=== PATIENT | female | born 1985 | race Caucasian/White ===

== ENCOUNTER 2018-02-24 16:12 | Emergency (ER) | payer OTHER ==
[2018-02-24] MEDS ORDERED: CEFTRIAXONE/SWI 1gm 1 GM/10 ML SYR ONE (17:39)
[2018-02-24] MEDS ORDERED: NA CHLORIDE 0.9% 500 ML ONE (17:39)
--- NOTE | 2018-02-24 17:46 | RAD REPORT ---
EXAM DESCRIPTION: RAD - Chest Single View - 02/24/2018 5:37 pm CLINICAL HISTORY: Cough;Dyspnea Chest pain. COMPARISON: <Comparisons> FINDINGS: Portable technique limits examination quality. The lungs are grossly clear. The heart is normal in size. No displaced fractures. IMPRESSION: No acute intrathoracic process suspected.
[2018-02-24 17:52] LABS: Absolute Lymphocytes (CBC) 2.6 K/uL (0.7-4.9); Absolute Monocytes 0.9 K/uL (0.1-1.3); Absolute Neutrophil 6.8 K/uL (1.8-8.0); Basophils % 0.6 % (0-1.3); Eosinophils % 2.2 % (0-4.4); Lymphocytes % 24.3 % (15.3-44.8); MCH 29.4 pg (27.0-35.0); MCV 88.7 fL (80-100); MPV 8.6 fL (7.6-11.3); Monocytes % 8.6 % (3.3-12.3)
[2018-02-24 18:00] LABS: Protime INR 0.92
[2018-02-24] MEDS ORDERED: AZITHROMYCIN IV 500 MG in NA CHLORIDE 0.9% 250 ML IVPB ONE (18:00)
[2018-02-24 18:03] LABS: ALT/SGPT 15 U/L (12-78); AST/SGOT 9 U/L (15-37); Alkaline Phosphatase 112 U/L (45-117); BUN Blood Urea Nitrogen 16 mg/dL (7-18); Bicarbonate 29 mmol/L (21-32); Bilirubin Direct < 0.1 mg/dL (0-0.2); Bilirubin Total 0.1 mg/dL (0.2-1.0); Glucose Level 91 mg/dL (74-106); Magnesium 2.2 mg/dL (1.8-2.4); NT PRO-BNP 19 pg/mL (<125); Potassium 4.2 mmol/L (3.5-5.1); Protein, Total 7.3 g/dL (6.4-8.2); Sodium Level 140 mmol/L (136-145); Troponin (Emerg Dept Use Only) < 0.02 ng/mL (0.0-0.045)
--- NOTE | 2018-02-24 18:17 | EDPHYS ---
Physician Documentation [facility] Name: Bev Cox Age: 32 yrs Sex: Female : 1985 Arrival Date: 02/24/2018 Time: 16:16 Bed 19 Private MD: Tamera Domínguez ED Physician Christiano De La Rosa HPI: 02/24 17:06 This 32 yrs old Female presents to ER via Ambulatory with complaints of Cough.trace 17:06 The patient or guardian reports cough, that is intermittent. Onset: The trace symptoms/episode began/occurred 3 day(s) ago. Severity of symptoms: At their worst the symptoms were mild, moderate, in the emergency department the symptoms are unchanged. Modifying factors: The symptoms are alleviated by. Associated signs and symptoms: Pertinent positives: rhinorrhea. The patient has not experienced similar symptoms in the past. 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 - Social history:: Smoking status: Patient/guardian denies using tobacco. - Ebola Screening: : No symptoms or risks identified at this time. ROS: 17:08 Constitutional: Negative for fever, chills, and weight loss, Eyes: Negative for injury, trace pain, redness, and discharge, ENT: Negative for injury, pain, and discharge, Neck: Negative for injury, pain, and swelling, Cardiovascular: Negative for chest pain, palpitations, and edema, Abdomen/GI: Negative for abdominal pain, nausea, vomiting, diarrhea, and constipation, Back: Negative for injury and pain, : Negative for injury, bleeding, discharge, and swelling, MS/Extremity: Negative for injury and deformity, Skin: Negative for injury, rash, and discoloration, Neuro: Negative for headache, weakness, numbness, tingling, and seizure, Psych: Negative for depression, anxiety, suicide ideation, homicidal ideation, and hallucinations, Allergy/Immunology: Negative for hives, rash, and allergies, Endocrine: Negative for neck swelling, polydipsia, polyuria, polyphagia, and marked weight changes, Hematologic/Lymphatic: Negative for swollen nodes, abnormal bleeding, and unusual bruising. 17:08 Respiratory: Positive for cough, shortness of breath. Exam: 17:08 Constitutional: This is a well developed, well nourished patient who is awake, alert, trace and in no acute distress. Head/Face: Normocephalic, atraumatic. Eyes: Pupils equal round and reactive to light, extra-ocular motions intact. Lids and lashes normal. Conjunctiva and sclera are non-icteric and not injected. Cornea within normal limits. Periorbital areas with no swelling, redness, or edema. ENT: Nares patent. No nasal discharge, no septal abnormalities noted. Tympanic membranes are normal and external auditory canals are clear. Oropharynx with no redness, swelling, or masses, exudates, or evidence of obstruction, uvula midline. Mucous membranes moist. Neck: Trachea midline, no thyromegaly or masses palpated, and no cervical lymphadenopathy. Supple, full range of motion without nuchal rigidity, or vertebral point tenderness. No Meningismus. Chest/axilla: Normal chest wall appearance and motion. Nontender with no deformity. No lesions are appreciated. Cardiovascular: Regular rate and rhythm with a normal S1 and S2. No gallops, murmurs, or rubs. Normal PMI, no JVD. No pulse deficits. Respiratory: Lungs have equal breath sounds bilaterally, clear to auscultation and percussion. No rales, rhonchi or wheezes noted. No increased work of breathing, no retractions or nasal flaring. Abdomen/GI: Soft, non-tender, with normal bowel sounds. No distension or tympany. No guarding or rebound. No evidence of tenderness throughout. Back: No spinal tenderness. No costovertebral tenderness. Full range of motion. Skin: Warm, dry with normal turgor. Normal color with no rashes, no lesions, and no evidence of cellulitis. MS/ Extremity: Pulses equal, no cyanosis. Neurovascular intact. Full, normal range of motion. Neuro: Awake and alert, GCS 15, oriented to person, place, time, and situation. Cranial nerves II-XII grossly intact. Motor strength 5/5 in all extremities. Sensory grossly intact. Cerebellar exam normal. Normal gait. Psych: Awake, alert, with orientation to person, place and time. Behavior, mood, and affect are within normal limits. 17:08 Musculoskeletal/extremity: DVT Exam: No signs of deep vein thrombosis. no pain, no swelling, no tenderness, negative Homans' sign noted on exam, no appreciated bluish discoloration, no erythema, no increased warmth. 18:15 Musculoskeletal/extremity: no trauma, no stasis, no hypercoagulable state. [facility] Vital Signs: 16:18 BP 115 / 100; Pulse 80; Resp 16; Temp 97.7(TE); Pulse Ox 98% on R/A; Weight 117.93 kg; la1 Height 5 ft. 3 in. (160.02 cm); 19:19 BP 99 / 64; Pulse 86; Resp 16 S; Pulse Ox 98% on R/A; jd3 16:18 Body Mass Index 46.06 (117.93 kg, 160.02 cm) la1 MDM: 16:19 Patient medically screened. [facility] 17:09 Data reviewed: vital signs, nurses notes, lab test result(s), EKG, radiologic studies, [facility] plain films. 02/24 17:05 Order name: Basic Metabolic Panel [facility] 02/24 17:05 Order name: CBC with Diff [facility] 02/24 17:05 Order name: LFT's [facility] 02/24 17:05 Order name: Magnesium [facility] 02/24 17:05 Order name: NT PRO-BNP; Complete Time: 18:14 [facility] 02/24 17:05 Order name: PT-INR [facility] 02/24 17:05 Order name: Troponin (emerg Dept Use Only) [facility] 02/24 17:05 Order name: D-Dimer [facility] 02/24 17:05 Order name: Flu [facility] 02/24 17:05 Order name: Blood Culture Adult (2) [facility] 02/24 17:06 Order name: Basic Metabolic Panel; Complete Time: 18:14 [facility] 02/24 17:06 Order name: CBC with Automated Diff; Complete Time: 18:14 [facility] 02/24 17:06 Order name: Liver (Hepatic) Function; Complete Time: 18:14 [facility] 02/24 17:05 Order name: XRAY Chest (1 view); Complete Time: 17:48 [facility] 02/24 17:05 Order name: EKG; Complete Time: 17:06 [facility] 02/24 17:05 Order name: Cardiac monitoring; Complete Time: 17:48 [facility] 02/24 17:05 Order name: EKG - Nurse/Tech; Complete Time: 18:06 [facility] 02/24 17:05 Order name: IV Saline Lock; Complete Time: 17:49 [facility] 02/24 17:05 Order name: Labs collected and sent; Complete Time: 17:49 [facility] 02/24 17:05 Order name: O2 Per Protocol; Complete Time: 17:50 [facility] 02/24 17:05 Order name: O2 Sat Monitoring; Complete Time: 17:50 [facility] 02/24 17:06 Order name: Magnesium; Complete Time: 18:14 [facility] 02/24 17:06 Order name: Protime (+INR); Complete Time: 18:15 EDMS 02/24 17:06 Order name: Troponin (Emerg Dept Use Only); Complete Time: 18:14 EDMS 02/24 17:06 Order name: D-Dimer; Complete Time: 18:15 EDMS Administered Medications: 17:48 Drug: NS 0.9% 500 ml Route: IV; Rate: bolus; Site: left antecubital; aj 19:11 Follow up: IV Status: Completed infusion; IV Intake: 500ml [facility] 17:48 Drug: Rocephin - (cefTRIAXone) 1 grams Route: IVPB; Infused Over: 30 mins; Site: left aj1 antecubital; 19:11 Follow up: IV Status: Completed infusion; IV Intake: 10ml aj 18:05 Drug: Zithromax 500 mg Route: IVPB; Infused Over: 1 hrs; Site: left antecubital; aj1 20:12 Follow up: Response: No adverse reaction; IV Status: Completed infusion jd3 Disposition: 02/24/18 18:17 Discharged to Home. Impression: Cough, Bronchitis, not specified as acute or chronic, Obesity, unspecified. - Condition is Stable. - Discharge Instructions: Acute Bronchitis, Adult, Upper Respiratory Infection, Adult, Cool Mist Vaporizer, Upper Respiratory Infection, Adult, Sqhl-fa-Dgso, Cough, Adult, Fgbn-bb-Qkqw, Cough, Adult. - Prescriptions for Cheratussin AC 10- 100 mg/5 mL Oral liquid - take 10 milliliter by ORAL route every 6 hours; 150 milliliter. Zithromax Z- Pravin 250 mg Oral Tablet - take 1 tablet by ORAL route as directed for 5 days Day 1 - take two (2) tablets one time. Day 2, 3, 4 , 5 take one (1) tablet once daily.; 6 tablet. - Medication Reconciliation Form, Thank You Letter, Antibiotic Education, Prescription Opioid Use form. - Follow up: Tamera Domínguez; When: 2 - 3 days; Reason: Recheck today's complaints, Continuance of care, Re-evaluation by your physician. - Problem is new. - Symptoms have improved. Signatures: Dispatcher [employer] EDThais Moura RN RN aj1 Christiano De La Rosa MD MD cha Attema, Lee, RN RN la1 Pranav Polanco RN RN jd3 Corrections: (The following items were deleted from the chart) 20:12 18:17 02/24/2018 18:17 Discharged to Home. Impression: Cough; Bronchitis, not specified jd3 as acute or chronic; Obesity, unspecified. Condition is Stable. Discharge Instructions: Acute Bronchitis, Adult, Upper Respiratory Infection, Adult, Cool Mist Vaporizer, Upper Respiratory Infection, Adult, Ysau-sp-Tmyw, Cough, Adult, Azzx-bh-Lxaf, Cough, Adult. Prescriptions for Cheratussin AC 10-100 mg/5 mL Oral liquid - take 10 milliliter by ORAL route every 6 hours; 150 milliliter, Zithromax Z-Pravin 250 mg Oral Tablet - take 1 tablet by ORAL route as directed for 5 days Day 1 - take two (2) tablets one time. Day 2, 3, 4 , 5 take one (1) tablet once daily.; 6 tablet. and Forms are Medication Reconciliation Form, Thank You Letter, Antibiotic Education, Prescription Opioid Use. Follow up: Tamera Domínguez; When: 2 - 3 days; Reason: Recheck today's complaints, Continuance of care, Re-evaluation by your physician. Problem is new. Symptoms have improved. trace
--- NOTE | 2018-02-24 18:17 | ER ---
Nurse's Notes [facility] Name: Bev Cox Age: 32 yrs Sex: Female : 1985 Arrival Date: 02/24/2018 Time: 16:16 Bed 19 Private MD: Tamera Domínguez Diagnosis: Cough;Bronchitis, not specified as acute or chronic;Obesity, unspecified Presentation: 02/24 16:17 Presenting complaint: Patient states: cough for one week, ear pressure. Transition of la1 care: patient was not received from another setting of care. Onset of symptoms was February 24, 2018. Risk Assessment: Do you want to hurt yourself or someone else? Patient reports no desire to harm self or others. Initial Sepsis Screen: Does the patient meet any 2 criteria? No. Patient's initial sepsis screen is negative. Does the patient have a suspected source of infection? No. Patient's initial sepsis screen is negative. Care prior to arrival: None. 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 - Social history:: Smoking status: Patient/guardian denies using tobacco. - Ebola Screening: : No symptoms or risks identified at this time. Screenin:40 Abuse screen: Denies threats or abuse. Denies injuries from another. Nutritional aj1 screening: No deficits noted. Tuberculosis screening: No symptoms or risk factors identified. 20:11 Fall Risk None identified. jd3 Assessment: 16:40 General: Appears in no apparent distress. comfortable, Behavior is calm, cooperative, aj1 appropriate for age. Pain: Complains of pain in chest Pain does not radiate. Pain currently is 3 out of 10 on a pain scale. Quality of pain is described as aching, Aggravated by cough, deep breathing. Neuro: Level of Consciousness is awake, alert, obeys commands, Oriented to person, place, time, situation. Cardiovascular: Reports chest pain, shortness of breath, when coughing Heart tones S1 S2 present Patient's skin is warm and dry. Rhythm is regular. Respiratory: Reports cough that is persistent Airway is patent Respiratory effort is even, unlabored, Respiratory pattern is regular, symmetrical, Breath sounds are clear bilaterally. GI: No signs and/or symptoms were reported involving the gastrointestinal system. : No signs and/or symptoms were reported regarding the genitourinary system. EENT: Reports nasal congestion nasal discharge. Derm: No signs and/or symptoms reported regarding the dermatologic system. Skin is pink, warm \T\ dry. normal. Musculoskeletal: No signs and/or symptoms reported regarding the musculoskeletal system. Circulation, motion, and sensation intact. 17:30 Reassessment: Patient appears in no apparent distress at this time. No changes from aj1 previously documented assessment. Patient and/or family updated on plan of care and expected duration. Pain level reassessed. Patient is alert, oriented x 3, equal unlabored respirations, skin warm/dry/pink. 18:13 Reassessment: Patient and/or family updated on plan of care and expected duration. Pain aj1 level reassessed. General: Appears in no apparent distress. comfortable, Behavior is calm, cooperative, appropriate for age. Neuro: Level of Consciousness is awake, alert, obeys commands. Cardiovascular: Heart tones S1 S2 present Patient's skin is warm and dry. Respiratory: Reports cough that is persistent Airway is patent Respiratory effort is even, unlabored, Respiratory pattern is regular, symmetrical, Breath sounds are clear bilaterally. Derm: Skin is pink, warm \T\ dry. normal. Musculoskeletal: Circulation, motion, and sensation intact. 19:19 Reassessment: Patient appears in no apparent distress at this time. No changes from jd3 previously documented assessment. Patient and/or family updated on plan of care and expected duration. Pain level reassessed. Patient is alert, oriented x 3, equal unlabored respirations, skin warm/dry/pink. waiting for IV medication to infuse before discharge. 20:12 Reassessment: Patient appears in no apparent distress at this time. Patient and/or jd3 family updated on plan of care and expected duration. Pain level reassessed. Patient is alert, oriented x 3, equal unlabored respirations, skin warm/dry/pink. Vital Signs: 16:18 BP 115 / 100; Pulse 80; Resp 16; Temp 97.7(TE); Pulse Ox 98% on R/A; Weight 117.93 kg; la1 Height 5 ft. 3 in. (160.02 cm); 19:19 BP 99 / 64; Pulse 86; Resp 16 S; Pulse Ox 98% on R/A; jd3 16:18 Body Mass Index 46.06 (117.93 kg, 160.02 cm) la1 ED Course: 16:16 Patient arrived in ED. sb2 16:16 Tamera Domínguez MD is Private Physician. sb2 16:18 Triage completed. la1 16:18 Arm band placed on right wrist. la1 16:19 Christiano De La Rosa MD is Attending Physician. trace 16:30 Thais Otero RN is Primary Nurse. aj1 16:40 Patient has correct armband on for positive identification. Bed in low position. Call aj1 light in reach. Side rails up X 1. 16:40 No provider procedures requiring assistance completed. aj1 17:37 XRAY Chest (1 view) In Process Unspecified. EDMS 18:11 EKG done, by ED staff, reviewed by Christiano De La Rosa MD. dh3 18:16 Tamera Domínguez MD is Referral Physician. trace 20:11 IV discontinued, intact, bleeding controlled, No redness/swelling at site. Pressure jd3 dressing applied. Administered Medications: 17:48 Drug: NS 0.9% 500 ml Route: IV; Rate: bolus; Site: left antecubital; aj1 19:11 Follow up: IV Status: Completed infusion; IV Intake: 500ml aj1 17:48 Drug: Rocephin - (cefTRIAXone) 1 grams Route: IVPB; Infused Over: 30 mins; Site: left aj1 antecubital; 19:11 Follow up: IV Status: Completed infusion; IV Intake: 10ml aj1 18:05 Drug: Zithromax 500 mg Route: IVPB; Infused Over: 1 hrs; Site: left antecubital; aj1 20:12 Follow up: Response: No adverse reaction; IV Status: Completed infusion jd3 Intake: 19:11 IV: 10ml; Total: 10ml. aj1 19:11 IV: 500ml; Total: 510ml. aj1 Outcome: 18:17 Discharge ordered by . trace 20:11 Discharged to home ambulatory. jd3 20:11 Condition: stable 20:11 Discharge instructions given to patient, Instructed on discharge instructions, follow up and referral plans. medication usage, Demonstrated understanding of instructions, follow-up care, medications, Prescriptions given X 2. 20:12 Patient left the ED. jd3 Signatures: Dispatcher [employer] EDThais Moura, RN RN saad1 Christiano De La Rosa MD MD cha Attema, Lee RN RN la1 Nicolasa Almaraz 3 Pranav Polanco RN RN jd3 Elsa Regalado2 Corrections: (The following items were deleted from the chart) 19:20 19:19 Reassessment: Patient appears in no apparent distress at this time. No changes jd3 from previously documented assessment. Patient and/or family updated on plan of care and expected duration. Pain level reassessed. Patient is alert, oriented x 3, equal unlabored respirations, skin warm/dry/pink. jd3
--- NOTE | 2018-02-25 08:07 | EKG ---
Test Date: 2018-02-24 Test Time: 17:56:14 Heating And Ventilation Engineer: NICOLETTE MEASUREMENT RESULTS: Intervals: Rate: 62 OR: 136 QRSD: 76 QT: 394 QTc: 399 [place]le: P: 26 OR: 136 QRS: 20 T: 16 INTERPRETIVE STATEMENTS: Normal sinus rhythm Normal ECG No previous ECG available for comparison Electronically Signed On 02-25-18 08:06:51 CDT by John Haq
--- OUTSIDE RECORDS SUMMARY | 2018-02-25 12:12 | XMS REPORT | Summary of Care ---
:1985 Author Organization [facility] Likely Address [id number] [address]- Encounter [facility] Case(FIN) [id number] Date(s): 11/03/15 - 11/03/15 [facility] [address] Discharge Disposition: Home Attending Physician: Jayden Rizzo MD Vital Signs No data available for this section Problem List Condition Effective Dates Status Health Status Informant Bipolar(Confirmed) Resolved Conjunctivitis1 05/16/13 Resolved Depressive disorder2 03/12/12 Active Dizziness3 03/12/12 Active Dysmenorrhea4 04/21/13 Active Hypothyroidism5 Active Irregular periods6 04/21/13 Active Long-term drug therapy7 03/12/12 Active Paresthesia8 03/12/12 Active Tobacco user9 05/16/13 Active 1Data migrated from [employer] on 12/19/14.2Data migrated from [employer] on 10/31/14.3Data migrated from [employer] on 10/31/14.4Data migrated from [employer] on 10/31/14.5Data migrated from [employer] on 10/31/14.6Data migrated from [employer] on 10/31/14.7Data migrated from [employer] on 10/31.8Data migrated from [employer] on 10/31/14.9Data migrated from [employer] on 10/31/14. Allergies, Adverse Reactions, Alerts Substance Reaction Severity Status sulfa drugs1 Active 1Data migrated from [employer] on 12/31/14. Originally documented as SULFA. Medications No data available for this section Results No data available for this section Immunizations Vaccine Date Refusal Reason Hx influenza vaccine-unspecified1 04/21/13 influenza virus vaccine, inactivated2 04/21/13 1Result Comment: done. Migrated from OBS ; Data migrated from [employer] on 07/06/2015.2Result Comment: fluzone (>3 yrs.) [[id number]]. Migrated from OBS ; Data migrated from [employer] on 07/06/2015. Procedures No data available for this section Social History Social History Type Response Smoking Status Never smoker; Exposure to Tobacco Smoke None; Cigarette Smoking Last 365 Days No; Reg Smoking Cessation Counseling No Assessment and Plan No data available for this section
--- OUTSIDE RECORDS SUMMARY | 2018-02-25 12:12 | XMS REPORT | Continuity of Care Document ---
:1985 Author Organization Interface Problems Problem Status Onset Classification Date Comments Source Date Reported M06.4 - Active [facility] INFLAMMATORY 016 [facility] POLYARTHROPATHY VOMITING/PREG Active [facility] 014 [place] Discharge 11/13/2013 [facility] Diagnosis: 014 [place] Vomiting Discharge 11/13/2013 [facility] Diagnosis: 014 [place] Conjunctivitis<sup Resolved Problem 11/06/2015 Data [facility] >1</sup> 013 migrated [facility] from [facility] on 12/19/14. Tobacco Active Problem 11/06/2015 Data [facility] user<sup>9</sup> 013 migrated [facility] from [facility] on 10/31/14. Dysmenorrhea<sup>4 Active Problem 11/06/2015 Data [facility] </sup> 013 migrated [facility] from [facility] on 10/31/14. Irregular Active Problem 11/06/2015 Data [facility] periods<sup>6</sup 013 migrated [place] > from [facility] on 10/31/14. VAGINAL BLEEDING Active 013 [place] Depressive Active Problem 11/06/2015 Data [facility] disorder<sup>2</amador 012 migrated [facility] p> from [facility] on 10/31/14. Dizziness<sup>3</s Active Problem 11/06/2015 Data [facility] up> 012 migrated [facility] from [facility] on 10/31/14. Long-term drug Active Problem 11/06/2015 Data [facility] therapy<sup>7</sup 012 migrated [place] > from [facility] on 10/31/14. Paresthesia<sup>8< Active Problem 11/06/2015 Data [facility] /sup> 012 migrated [facility] from [facility] on 10/31/14. Bipolar Resolved Problem 11/06/2015 [facility] [place], [facility] Hypothyroidism<sup Active Problem 11/06/2015 Data [facility] >5</sup> migrated [facility] from [facility] on 10/31/14. Bipolar Resolved Problem 02/14/2013 [facility] Medications Medication Details Route Status Patient Ordering Order Source Instructions Provider Date Reglan 10 mg, Route: Inactive [facility] IVP, Drug 014 [place] form: INJ, ONCE, Dosing Weight 104.545, kg, Priority: STAT, Start date: 11/10/13 12:49:00, Stop date: 11/10/13 12:49:00 NS 1,000 mL 1,000 mL, Inactive [place] Rate: 1,000 014 [place] ml/hr, Infuse over: 1 hr, Route: IV, Dosing Weight 104.545 kg, Total Volume: 1,000, Start date: 11/10/13 11:21:00, Duration: 1 doses or times, Stop date: 11/10/13 12:20:00, [place] DoseSpecial Instructions: [place] Dose NS 1,000 mL 1,000 mL, Inactive [place] Rate: 1,000 014 [place] ml/hr, Infuse over: 1 hr, Route: IV, Dosing Weight 104.545 kg, Total Volume: 1,000, Start date: 11/10/13 10:04:00, Duration: 1 doses or times, Stop date: 11/10/13 11:03:00, [place] DoseSpecial Instructions: [place] Dose Ondansetron 4 mg, Route: Inactive [place] IVP, ONCE, 014 [place] Dosing Weight 104.545, kg, Priority: STAT, Start date: 11/10/13 9:19:00, Stop date: 11/10/13 9:19:00 Sodium 1,000 mL, Inactive [place] Chloride Infuse Over: 1 014 [place] 0.154 MEQ/ML hr, Route: IV, Injectable ONCE, Solution Priority: STAT, Dosing Weight 104.545 kg, Start date: 11/10/13 8:25:00, Duration: 1 doses or times, Stop date: 11/10/13 8:25:00 Saline Flush 5 mL, Route: Inactive [place] 0.9% IVP, Drug 014 [facility] Form: INJ, Dosing Weight 104.545, kg, PRN, PRN Line Flush, Start date: 11/10/13 8:25:00, Duration: 24 hr, Stop date: 11/11/13 8:24:00Notes: (Same as: BD Posiflush) Ondansetron 4 mg, Route: Inactive [place] IVP, ONCE, 014 [place] Dosing Weight 104.545, kg, Priority: STAT, Start date: 11/10/13 8:25:00, Stop date: 11/10/13 8:25:00 Naprosyn 500 500 mg, 1 tab, PO Active [facility] mg oral PO, BID, PRN, [facility] tablet 20 tab, for pain, Substitution Allowed, TAB ketorolac 30 mg, Route: IVP No Longer [facility] IVP, Drug Active [facility] form: INJ, ONCE, Dosing Weight 86.364, kg, Priority: STAT, Start date: 02/12/13 3:21:00, Stop date: 02/12/13 3:21:00 Sodium 1,000 mL, IV No Longer [place] Chloride 0.9% Rate: 1,[address] [facility] (Bolus) IV ml/hr, Infuse 1,000 mL over: 1 hr, Route: IV, Dosing Weight 86.364 kg, Total Volume: 1,000, Priority: STAT, Start date: 02/12/13 0:26:00, Duration: 1 doses or times, Stop date: 02/12/13 1:25:00, [place] DoseBolus Dose Zofran 4 mg, 2 mL, IVP No Longer [facility] Route: IVP, Active [facility] Drug form: INJ, ONCE, Dosing Weight 86.364, kg, Priority: STAT, Start date: 02/12/13 0:26:00, Stop date: 02/12/13 0:26:00 morphine 4 mg, 2 mL, IVP No Longer [place] Sulfate Route: IVP, Active [facility] Drug form: INJ, ONCE, Dosing Weight 86.364, kg, Priority: STAT, Start date: 02/12/13 0:26:00, Stop date: 02/12/13 0:26:00 Allergies, Adverse Reactions, Alerts Substance Category Reaction Severity Reaction Status Date Comments Source type Reported sulfa Assertion Drug Active Data [facility] drugs<sup>1 allergy migrated [facility] </sup> from [facility] on 12/31/14. Originally documented as SULFA. sulfa drugs Assertion Drug Active allergy [facility] Immunizations Immunization Date Site Status Last Comments Source Given Updated Hx influenza completed [facility] Result [facility] vaccine-unspecifi 3 Comment: done. [place] ed<sup>1</sup> Migrated from OBS ; Data migrated from [email or web address] on 07/06/2015. influenza virus Left completed [facility] Result [facility] vaccine, 3 Deltoid Comment: [place] inactivated<sup>2 fluzone (>3 </sup> yrs.) [end086]. Migrated from OBS ; Data migrated from [email or web address] on 07/06/2015. Results Order Name Results Value Reference Date Interpretation Comments Source Range Hand 3 Hand 3 views CLINICAL HISTORY: M06.4 Inflammatory polyarthropathy 11/02 - [facility] views Bilateral DX /2015 - [facility] Bilateral AGE: 30 years DX GENDER: Female Read by: Omar Damon MD Dictated Date/time: 11/03/15 14:37 Electronically Signed by: Omar Damon MD 11/03/15 14:40 FINAL REPORT TECHNIQUE: Bilateral hand radiographs, 3 views. COMPARISON: None FINDINGS: There is no evidence of fracture or dislocation. Osseous mineralization is within normal limits. No lytic or blastic lesions are identified. No cortical or erosion or periosteal reaction. IMPRESSION: Unremarkable examination of the bilateral hands without radiographic evidence of inflammatory arthropathy. URINE AND UA Leuk Est Negative Negative 11/10 [facility] [place] (11/10/13 9:45 AM) URINE AND UA Nitrite Negative Negative 11/10 [facility] [place] (11/10/13 9:45 AM) URINE AND Micro? Performed 11/10 [facility] [place] (11/10/13 9:45 AM) URINE AND UA Bacteria Occasional None Seen 11/10 [place] [facility]OL /HPF /HPF /2013 [facility] URINE AND UA Sq Epi Few /LPF Few /LPF 11/10 [place] URINE AND UA RBC 0-2 /HPF 0 - 2 11/10 [place] [facility] [place] URINE AND UA WBC 0-2 /HPF None Seen 11/10 [place] STOOL /HPF [facility] URINE AND UA Turbidity Clear Clear 11/10 [place] [facility] [place] (11/10/13 9:45 AM) URINE AND UA pH 7.0 5.0 - 8.0 11/10 [place] [facility] [place] URINE AND UA Spec Grav 1.020 <=1.030 11/10 [place] [facility] [place] URINE AND UA 0.2 EU/dL 0.1 - 1.0 11/10 [place] ST[facility]OL Urobilinogen [facility] URINE AND UA Protein Negative Negative 11/10 [place] STOOL [facility] (11/10/13 9:45 AM) URINE AND UA Glucose Negative Negative 11/10 [place] STOOL [facility] (11/10/13 9:45 AM) URINE AND UA Blood Negative Negative 11/10 [place] STOOL [facility] (11/10/13 9:45 AM) URINE AND UA Bili Small Negative 11/10 [place] STOOL [facility] *ABN* (11/10/13 9:45 AM) URINE AND UA Ketones >=80 mg/dL Negative 11/10 [place] [facility] mg/dL [facility] URINE AND UA Color Yellow Yellow 11/10 [place] [facility] [place] *NA* (11/10/13 9:45 AM) CHEM PANEL eGFR 118 11/10 1Result Comment: The eGFR is calculated using the CKD-EPI formula. In most young, healthy individuals the eGFR will be > 90 mL/min/1.73m2. The eGFR declines with age. An eGFR of 60-89 may be normal in mL/min/1.7 /2013 some populations, particularly the elderly, for whom the CKD-EPI formula has not been extensively validated. Use of the eGFR is not recommended in the following populations: [place] 3m2 Individuals with unstable creatinine concentrations, including patients and those with serious co-morbid conditions. Patients with extremes in muscle mass or diet. The data above are obtained from the National Kidney Disease Education Program (NKDEP) which additionally recommends that when the eGFR is used in patients with extremes of body mass index for purposes of drug dosing, the eGFR should be multiplied by the estimated BMI. CHEM PANEL Chloride Lvl 107 meq/L 95 - 109 11/10 [place] CHEM PANEL CO2 22 meq/L 24 - 32 11/10 [place] CHEM PANEL Albumin Lvl 3.1 g/dL 3.5 - 5.0 11/10 [place] CHEM PANEL Calcium Lvl 8.6 mg/dL 8.5 - 10.5 11/10 [place] CHEM PANEL Total 6.8 g/dL 6.4 - 8.4 11/10 [place] CHEM PANEL Bili Total 0.4 mg/dL 0.2 - 1.3 11/10 [place] CHEM PANEL BUN 13 mg/dL 7 - 22 11/10 [place] CHEM PANEL Creatinine 0.7 mg/dL 0.5 - 1.4 11/10 [place] Lvl [place] CHEM PANEL Glucose Lvl 110 mg/dL 70 - 99 11/10 2Interpretive Data: Adult reference range values reflect the clinical guidelines of the [place] [employer]. [place] CHEM PANEL Potassium 3.6 meq/L 3.5 - 5.1 11/10 [place] CHEM PANEL Sodium Lvl 138 meq/L 135 - 145 11/10 [place] CHEM PANEL ALT 21 unit/L 0 - 65 11/10 [place] CHEM PANEL AST 14 unit/L 0 - 37 11/10 [place] CHEM PANEL Alk Phos 68 unit/L 39 - 136 11/10 [place] CHEM PANEL A/G Ratio 0.8 0.7 - 1.6 11/10 [place] CHEM PANEL B/C Ratio 19 6 - 25 11/10 [place] CHEM PANEL AGAP 12.6 meq/L 10.0 - 11/10 [place] 20.0 [place] CHEM PANEL Globulin 3.7 g/dL 2.0 - 4.0 11/10 [place] HEMATOLOGY MPV 9.4 fL 7.4 - 10.4 11/10 [place] HEMATOLOGY MCHC 34.3 g/dL 32.0 - 11/10 [place] 36.0 [place] HEMATOLOGY MCH 30.2 pg 27.0 - 11/10 MH [place] 31.0 [place] HEMATOLOGY Platelet 219 K/CMM 133 - 450 11/10 [place] HEMATOLOGY RDW 14.6 % 11.5 - 11/10 [place] 14.5 /2013 [place] HEMATOLOGY Hgb 12.3 g/dL 12.0 - 11/10 [place] 16.0 /2013 [place] HEMATOLOGY RBC 4.09 M/CMM 4.20 - 11/10 [place] 5.40 /2013 [place] HEMATOLOGY MCV 88.2 fL 81.0 - 11/10 [place] 99.0 /2013 [place] HEMATOLOGY Hct 36.0 % 36.0 - 11/10 [place] 48.0 /2013 [place] HEMATOLOGY WBC 10.2 K/CMM 3.7 - 10.4 11/10 [place] HEMATOLOGY Eosinophils 0.0 K/CMM 0.0 - 0.5 11/10 [place] # /2013 [place] HEMATOLOGY Basophils # 0.0 K/CMM 0.0 - 0.2 11/10 [place] [facility] HEMATOLOGY Anisocyte 1+ None Seen 11/10 [place] *ABN* (11/10/13 8:40 AM) HEMATOLOGY Lymphocytes 3.9 % 20.0 - 11/10 [place] 40.0 [place] HEMATOLOGY Segs 93.0 % 45.0 - 11/10 [place] 75.0 [place] HEMATOLOGY Monocytes 3.1 % 2.0 - 12.0 11/10 [place] [facility] HEMATOLOGY Basophils 0.0 % 0.0 - 1.0 11/10 [place] HEMATOLOGY Eosinophils 0.0 % 0.0 - 4.0 11/10 [place] HEMATOLOGY Lymphocytes 0.4 K/CMM 1.0 - 5.5 11/10 [place] # [facility] HEMATOLOGY Segs-Bands # 9.5 K/CMM 1.5 - 8.1 11/10 [facility] HEMATOLOGY Monocytes # 0.3 K/CMM 0.0 - 0.8 11/10 [facility] BLOOD BANK Antibody Negative 02/12 Normal RESULTS Scrn /2012 [facility] (02/12/2013 00:38:00) BLOOD BANK ABO/Rh O POS 02/12 Unknown MH RESULTS /2012 [facility] CHEMISTRY S Preg Negative Negative 02/12 NA [facility] *NA* (02/12/2013 00:15:00) CHEMISTRY eGFR 77 02/12 NA 1Result Comment: The eGFR is calculated using the CKD-EPI formula. In most young, healthy individuals the eGFR will be > 90 mL/min/1.73m2. The eGFR declines with age. An eGFR of 60-89 may be normal in mL/min/1.7 /2012 some populations, particularly the elderly, for whom the CKD-EPI formula has not been extensively validated. Use of the eGFR is not recommended in the following populations: [facility] 3m2 Individuals with unstable creatinine concentrations, including patients and those with serious co-morbid conditions. Patients with extremes in muscle mass or diet. The data above are obtained from the National Kidney Disease Education Program (NKDEP) which additionally recommends that when the eGFR is used in patients with extremes of body mass index for purposes of drug dosing, the eGFR should be multiplied by the estimated BMI. CHEMISTRY AST 15 unit/L 0 - 37 02/[address] [facility] CHEMISTRY Bili Total 0.2 mg/dL 0.2 - 1.3 02/[address] [facility] CHEMISTRY Alk Phos 82 unit/L 39 - 136 02/[address] [facility] CHEMISTRY Albumin Lvl 3.6 g/dL 3.5 - 5.0 02/[address] [facility] CHEMISTRY ALT 28 unit/L 0 - 65 02/[address] [facility] CHEMISTRY CO2 28 meq/L 24 - 32 02/[address] [facility] CHEMISTRY Calcium Lvl 9.3 mg/dL 8.5 - 10.5 02/[address] [facility] CHEMISTRY Total 6.8 g/dL 6.4 - 8.4 02/[address] [facility] CHEMISTRY BUN 14 mg/dL 7 - 22 02/[address] [facility] CHEMISTRY Glucose Lvl 99 mg/dL 70 - 99 02/12 Normal 2Interpretive Data: Adult reference range values reflect the clinical guidelines of the [place] [employer]. [facility] CHEMISTRY Creatinine 1.0 mg/dL 0.5 - 1.4 02/[address] [facility] CHEMISTRY Sodium Lvl 143 meq/L 135 - 145 02/[address] [facility] CHEMISTRY Potassium 3.6 meq/L 3.5 - 5.1 02/[address] [facility] CHEMISTRY Chloride Lvl 109 meq/L 95 - 109 02/[address] [facility] CHEMISTRY Globulin 3.2 g/dL 2.0 - 4.0 02/[address] [facility] CHEMISTRY A/G Ratio 1.1 0.7 - 1.6 02/[address] [facility] CHEMISTRY AGAP 9.6 meq/L 10.0 - 09 LOW MH 20.0 /2012 [facility] CHEMISTRY B/C Ratio 14 6 - 25 09 Normal /2012 [facility] HEMATOLOGY MCV 93.4 fL 81.0 - 09 Normal MH 99.0 /2012 [facility] HEMATOLOGY MCH 30.8 pg 27.0 - 09 Normal MH 31.0 /2012 [facility] HEMATOLOGY MCHC 32.9 g/dL 32.0 - 02/12 Normal MH 36.0 /2012 [facility] HEMATOLOGY WBC 7.1 K/CMM 3.7 - 10.4 09/ Normal MH /2012 [facility] HEMATOLOGY RBC 4.05 M/CMM 4.20 - 02/12 LOW MH 5.40 /2012 [facility] HEMATOLOGY Hgb 12.5 g/dL 12.0 - 02/12 Normal MH 16.0 /2012 [facility] HEMATOLOGY Hct 37.8 % 36.0 - 02/12 Normal MH 48.0 /2012 [facility] HEMATOLOGY RDW 13.0 % 11.5 - 02/12 Normal MH 14.5 /2012 [facility] HEMATOLOGY Platelet 279 K/CMM 133 - 450 / Normal /2012 [facility] HEMATOLOGY MPV 9.1 fL 7.4 - 10.4 / Normal /2012 [facility] HEMATOLOGY Basophils # 0.0 K/CMM 0.0 - 0.2 09/ Normal /2012 [facility] HEMATOLOGY Lymphocytes 2.5 K/CMM 1.0 - 5.5 / Normal MH # /2013 [facility] HEMATOLOGY Eosinophils 0.1 K/CMM 0.0 - 0.5 02/12 Normal MH # /2012 [facility] HEMATOLOGY Segs-Bands # 3.7 K/CMM 1.5 - 8.1 02/12 Normal /2012 [facility] HEMATOLOGY Monocytes # 0.7 K/CMM 0.0 - 0.8 02/12 Normal /2012 [facility] HEMATOLOGY Lymphocytes 35.1 % 20.0 - 09 Normal MH 40.0 /2012 [facility] HEMATOLOGY Monocytes 10.2 % 2.0 - 12.0 / Normal /2012 [facility] HEMATOLOGY Basophils 0.6 % 0.0 - 1.0 / Normal /2012 [facility] HEMATOLOGY Eosinophils 1.9 % 0.0 - 4.0 02/12 Normal /2012 [facility] HEMATOLOGY Segs 52.2 % 45.0 - 02/12 Normal MH 75.0 /2012 [facility] Vital Signs Vital Sign Value Date Comments Source Diastolic (mm Hg) 73 11/10/2013 [place] Respitory Rate 18 11/10/2013 [place] Heart Rate 102 11/10/2013 [place] Systolic (mm Hg) 118 11/10/2013 [place] Heart Rate 103 11/10/2013 [place] Respitory Rate 20 11/10/2013 [place] Systolic (mm Hg) 115 11/10/2013 [place] Diastolic (mm Hg) 64 11/10/2013 [place] Systolic (mm Hg) 108 11/10/2013 [place] Respitory Rate 20 11/10/2013 [place] Heart Rate 98 11/10/2013 [place] Diastolic (mm Hg) 57 11/10/2013 [place] Temperature Oral (F) 98.9 F 11/10/2013 [place] Weight 104.545 11/10/2013 [place] Height 162.56 cm 11/10/2013 [place] BMI Calculated 39.56 11/10/2013 [place] Heart Rate 68 02/12/2013 [facility] Respitory Rate 18 02/12/2013 [facility] Diastolic (mm Hg) 76 02/12/2013 [facility] Systolic (mm Hg) 108 02/12/2013 [facility] Temperature Oral (F) 98.2 F 02/12/2013 [facility] Diastolic (mm Hg) 87 02/12/2013 [facility] Systolic (mm Hg) 122 02/12/2013 [facility] Heart Rate 67 02/12/2013 [facility] Respitory Rate 18 02/12/2013 [facility] Weight 86.364 02/12/2013 [facility] Height 160.02 cm 02/12/2013 [facility] Encounters Location Location Encounter Encounter Reason Attending ADM DC Status Source Details Type Number For Provider Date Date Visit Emergency [id number] PRIYA 02/11 02/12 Active [facility]2012 [facility] [id number] Aleksey Bullock 11/10 11/10 [place] [facility] Outpt Diag [id number] Jayden 11/02 11/03 [facility] [place] /2015 [facility] Procedures Procedure Code Date Perfomer Comments Source
--- OUTSIDE RECORDS SUMMARY | 2018-02-25 12:12 | XMS REPORT | Summary of Care ---
:1985 Author Encounter GAEL Willoughby(CARSON) [id number] Date(s): 11/10/13 - 11/10/13 [facility] [address] Discharge Diagnosis: Vomiting Discharge Diagnosis: Discharge Disposition: Home Physician Attending: Aleksey Bullock MD Reason for Visit VOMITING/PREG Vital Signs Most recent to oldest 1 2 3 [Reference Range]: Height 162.56 cm (11/10/13 8:17 AM) Temperature Oral [96.4-99.1 98.9 DegF DegF] (11/10/13 8:17 AM) Systolic Blood Pressure [90-140 118 mmHg 115 mmHg 108 mmHg mmHg] (11/10/13 12:58 PM) (11/10/13 11:04 AM) (11/10/13 10:02 AM) Diastolic Blood Pressure [60-90 73 mmHg 64 mmHg 57 mmHg mmHg] (11/10/13 12:58 PM) (11/10/13 11:04 AM) *LOW* (11/10/13 10:02 AM) Respiratory Rate [14-20 BRMIN] 18 BRMIN 20 BRMIN 20 BRMIN (11/10/13 12:58 PM) (11/10/13 11:04 AM) (11/10/13 10:02 AM) Peripheral Pulse Rate [60-100 102 bpm 103 bpm 98 bpm bpm] *HI* *HI* (11/10/13 10:02 AM) (11/10/13 12:58 PM) (11/10/13 11:04 AM) Weight 104.545 kg (11/10/13 8:17 AM) Body Mass Index 39.56 m2 (11/10/13 8:17 AM) Problem List Condition Effective Dates Status Health Status Informant Bipolar(Confirmed) Resolved Allergies, Adverse Reactions, Alerts Substance Reaction Severity Status sulfa drugs Active Medications NS 1,000 mL 1,000 mL, Rate: 1,000 ml/hr, Infuse over: 1 hr, Route: IV, Dosing Weight 104.545 kg, Total Volume: 1,000, Start date: 11/10/13 10:04:00, Duration: 1 doses or times, Stop date: 11/10/13 11:03:00, Bolus Dose Special Instructions: Bolus Dose Start Date: 11/10/13 Stop Date: 11/10/13 Status: CompletedNS 1,000 mL 1,000 mL, Rate: 1,000 ml/hr, Infuse over: 1 hr, Route: IV, Dosing Weight 104.545 kg, Total Volume: 1,000, Start date: 11/10/13 11:21:00, Duration: 1 doses or times, Stop date: 11/10/13 12:20:00, Bolus Dose Special Instructions: Bolus Dose Start Date: 11/10/13 Stop Date: 11/10/13 Status: Completedondansetron 4 mg, Route: IVP, ONCE, Dosing Weight 104.545, kg, Priority: STAT, Start date: 11/10/13 9:19:00, Stop date: 11/10/13 9:19:00 Start Date: 11/10/13 Stop Date: 11/10/13 Status: Completedondansetron 4 mg, Route: IVP, ONCE, Dosing Weight 104.545, kg, Priority: STAT, Start date: 11/10/13 8:25:00, Stop date: 11/10/13 8:25:00 Start Date: 11/10/13 Stop Date: 11/10/13 Status: CompletedReglan 10 mg, Route: IVP, Drug form: INJ, ONCE, Dosing Weight 104.545, kg, Priority: STAT, Start date: 11/10/13 12:49:00, Stop date: 11/10/13 12:49:00 Start Date: 11/10/13 Stop Date: 11/10/13 Status: CompletedSaline Flush 0.9% 5 mL, Route: IVP, Drug Form: INJ, Dosing Weight 104.545, kg, PRN, PRN Line Flush , Start date: 11/10/13 8:25:00, Duration: 24 hr, Stop date: 11/11/13 8:24:00 Notes: (Same as: BD Posiflush) Start Date: 11/10/13 Stop Date: 11/10/13 Status: DiscontinuedSodium Chloride 0.9% (Bolus) IV - - 1,000 mL, Infuse Over: 1 hr, Route: IV, ONCE, Priority: STAT, Dosing Weight 104.545 kg, Start date: 11/10/13 8:25:00, Duration: 1 doses or times, Stop date : 11/10/13 8:25:00 Start Date: 11/10/13 Stop Date: 11/10/13 Status: Completed Results ELECTROLYTES Most recent to oldest [Reference Range]: 1 Sodium Lvl [135-145 mEq/L] 138 mEq/L (11/10/13 8:40 AM) Potassium Lvl [3.5-5.1 mEq/L] 3.6 mEq/L (11/10/13 8:40 AM) Chloride Lvl [95-109 mEq/L] 107 mEq/L (11/10/13 8:40 AM) CO2 [24-32 mEq/L] 22 mEq/L *LOW* (11/10/13 8:40 AM) AGAP [10.0-20.0 mEq/L] 12.6 mEq/L (11/10/13 8:40 AM) CHEM PANEL Most recent to oldest [Reference Range]: 1 Creatinine Lvl [0.5-1.4 mg/dL] 0.7 mg/dL (11/10/13 8:40 AM) eGFR 118 mL/min/1.73m2 1 *NA* (11/10/13 8:40 AM) BUN [7-22 mg/dL] 13 mg/dL (11/10/13 8:40 AM) B/C Ratio [6-25] 19 (11/10/13 8:40 AM) Glucose Lvl [70-99 mg/dL] 110 mg/dL 2 *HI* (11/10/13 8:40 AM) Total Protein [6.4-8.4 g/dL] 6.8 g/dL (11/10/13 8:40 AM) Albumin Lvl [3.5-5.0 g/dL] 3.1 g/dL *LOW* (11/10/13 8:40 AM) Globulin [2.0-4.0 g/dL] 3.7 g/dL (11/10/13 8:40 AM) A/G Ratio [0.7-1.6] 0.8 (11/10/13 8:40 AM) Calcium Lvl [8.5-10.5 mg/dL] 8.6 mg/dL (11/10/13 8:40 AM) ALT [0-65 unit/L] 21 unit/L (11/10/13 8:40 AM) AST [0-37 unit/L] 14 unit/L (11/10/13 8:40 AM) Alk Phos [39-136 unit/L] 68 unit/L (11/10/13 8:40 AM) Bili Total [0.2-1.3 mg/dL] 0.4 mg/dL (11/10/13 8:40 AM) 1Result Comment: The eGFR is calculated using the CKD-EPI formula. In most young , healthy individualsthe eGFR will be >90 mL/min/1.73m2. The eGFR declines with age. An eGFR of 60-89 may be normal in some populations, particularly the elderly, for whom the CKD-EPI formula has not been extensively validated. Use of the eGFR is not recommended in the following populations: Individuals with unstable creatinine concentrations, including patients and those with serious co-morbid conditions. Patients with extremes in muscle mass or diet. The data above are obtained from the National Kid[employer] Disease Education Program ( NKDEP) which additionally recommends that when the eGFR is used in patients with extremes of body mass index for purposesof drug dosing, the eGFR should be multiplied by the estimated BMI.2Interpretive Data: Adult reference range values reflect the clinical guidelines of the [place] [employer].URINE AND STOOL Most recent to oldest [Reference Range]: 1 UA Turbidity [Clear] Clear (11/10/13 9:45 AM) UA Color [Yellow] Yellow *NA* (11/10/13 9:45 AM) UA pH [5.0-8.0] 7.0 (11/10/13 9:45 AM) UA Spec Grav [<=1.030] 1.020 (11/10/13 9:45 AM) UA Glucose [Negative] Negative (11/10/13 9:45 AM) UA Blood [Negative] Negative (11/10/13 9:45 AM) UA Ketones [Negative mg/dL] >=80 mg/dL *ABN* (11/10/13 9:45 AM) UA Protein [Negative] Negative (11/10/13 9:45 AM) UA Urobilinogen [0.1-1.0 EU/dL] 0.2 EU/dL (11/10/13 9:45 AM) UA Bili [Negative] Small *ABN* (11/10/13 9:45 AM) UA Leuk Est [Negative] Negative (11/10/13 9:45 AM) UA Nitrite [Negative] Negative (11/10/13 9:45 AM) UA WBC [None Seen /HPF] 0-2 /HPF (11/10/13 9:45 AM) UA RBC [0-2 /HPF] 0-2 /HPF (11/10/13 9:45 AM) UA Bacteria [None Seen /HPF] Occasional /HPF (11/10/13 9:45 AM) UA Sq Epi [Few /LPF] Few /LPF (11/10/13 9:45 AM) Micro? Performed (11/10/13 9:45 AM) HEMATOLOGY Most recent to oldest [Reference Range]: 1 WBC [3.7-10.4 K/CMM] 10.2 K/CMM (11/10/13 8:40 AM) RBC [4.20-5.40 M/CMM] 4.09 M/CMM *LOW* (11/10/13 8:40 AM) Hgb [12.0-16.0 g/dL] 12.3 g/dL (11/10/13 8:40 AM) Hct [36.0-48.0 %] 36.0 % (11/10/13 8:40 AM) MCV [81.0-99.0 fL] 88.2 fL (11/10/13 8:40 AM) MCH [27.0-31.0 pg] 30.2 pg (11/10/13 8:40 AM) MCHC [32.0-36.0 g/dL] 34.3 g/dL (11/10/13 8:40 AM) RDW [11.5-14.5 %] 14.6 % *HI* (11/10/13 8:40 AM) Platelet [133-450 K/CMM] 219 K/CMM (11/10/13 8:40 AM) MPV [7.4-10.4 fL] 9.4 fL (11/10/13 8:40 AM) Segs [45.0-75.0 %] 93.0 % *HI* (11/10/13 8:40 AM) Lymphocytes [20.0-40.0 %] 3.9 % *LOW* (11/10/13 8:40 AM) Monocytes [2.0-12.0 %] 3.1 % (11/10/13 8:40 AM) Eosinophils [0.0-4.0 %] 0.0 % (11/10/13 8:40 AM) Basophils [0.0-1.0 %] 0.0 % (11/10/13 8:40 AM) Segs-Bands # [1.5-8.1 K/CMM] 9.5 K/CMM *HI* (11/10/13 8:40 AM) Lymphocytes # [1.0-5.5 K/CMM] 0.4 K/CMM *LOW* (11/10/13 8:40 AM) Monocytes # [0.0-0.8 K/CMM] 0.3 K/CMM (11/10/13 8:40 AM) Eosinophils # [0.0-0.5 K/CMM] 0.0 K/CMM (11/10/13 8:40 AM) Basophils # [0.0-0.2 K/CMM] 0.0 K/CMM (11/10/13 8:40 AM) Anisocyte [None Seen] 1+ *ABN* (11/10/13 8:40 AM) Medications Administered During Your Visit No data available for this section Immunizations No data available for this section Social History Social History Type Response Smoking Status Never smoker, Exposure to Tobacco Smoke None, Cigarette Smoking Last 365 Days No, Reg Smoking Cessation Counseling No
--- OUTSIDE RECORDS SUMMARY | 2018-02-25 12:12 | XMS REPORT | CCD ---
:1985 Author Organization [facility] Care Team Providers Name Role Phone Kiran Hayes Amari Consulting Provider Allergies, Adverse Reactions, Alerts Substance Reaction Status sulfa drugs Active Problem List Condition Effective Dates Status Bipolar Resolved Medications Medication Instructions Start Date End Date Status ketorolac 30 mg, Route: IVP, Drug 02/12/2013 02/12/2013 Completed form: INJ, ONCE, Dosing Weight 86.364, kg, Priority: STAT, Start date: 02/12/13 3:21:00, Stop date: 02/12/13 3:21:00 Naprosyn 500 mg oral 500 mg, 1 tab, PO, BID, 02/12/2013 Ordered tablet PRN, 20 tab, for pain, Substitution Allowed, TAB Sodium Chloride 0.9% 1,000 mL, Rate: 1,000 ml/hr, Infuse over: 1 hr, Route: IV , Dosing Weight 86.364 kg, Total Volume: 1,000, Priority: STAT, Start date: 04/16 0:26:00, Duration: 1 doses or times, Stop date: 02/12/13 1:25:00, Bolus Dose 02/12/2013 02/12/2013 Completed (Bolus) IV 1,000 mL Bolus Dose Zofran 4 mg, 2 mL, Route: IVP, 02/12/2013 02/12/2013 Completed Drug form: INJ, ONCE, Dosing Weight 86.364, kg, Priority: STAT, Start date: 02/12/13 0:26:00, Stop date: 02/12/13 0:26:00 morphine Sulfate 4 mg, 2 mL, Route: IVP, 02/12/2013 02/12/2013 Completed Drug form: INJ, ONCE, Dosing Weight 86.364, kg, Priority: STAT, Start date: 02/12/13 0:26:00, Stop date: 02/12/13 0:26:00 Vital Signs Most recent to [Reference 1 2 Range]: Height 160.02 cm (02/11/2013 22:44:00) Temperature Oral [96.4-99.1 DegF] 98.2 DegF (02/12/2013 03:45:00) Systolic Blood Pressure [90-140 mmHg] 108 mmHg 122 mmHg (02/12/2013 03:45:00) (02/11/2013 22:44:00) Diastolic Blood Pressure [60-90 mmHg] 76 mmHg 87 mmHg (02/12/2013 03:45:00) (02/11/2013 22:44:00) Respiratory Rate [14-20 BRMIN] 18 BRMIN 18 BRMIN (02/12/2013 03:45:00) (02/11/2013 22:44:00) Peripheral Pulse Rate [60-100 bpm] 68 bpm 67 bpm (02/12/2013 03:45:00) (02/11/2013 22:44:00) Weight 86.364 kg (02/11/2013 22:44:00) Results BLOOD BANK RESULTS Most recent to [Reference Range]: 1 ABO/Rh O POS *Unknown* (02/12/2013 00:38:00) Antibody Scrn Negative (02/12/2013 00:38:00) CHEMISTRY Most recent to oldest [Reference Range]: 1 Sodium Lvl [135-145 mEq/L] 143 mEq/L (02/12/2013 00:15:00) Potassium Lvl [3.5-5.1 mEq/L] 3.6 mEq/L (02/12/2013 00:15:00) Chloride Lvl [95-109 mEq/L] 109 mEq/L (02/12/2013 00:15:00) CO2 [24-32 mEq/L] 28 mEq/L (02/12/2013 00:15:00) AGAP [10.0-20.0 mEq/L] 9.6 mEq/L *LOW* (02/12/2013 00:15:00) Creatinine Lvl [0.5-1.4 mg/dL] 1.0 mg/dL (02/12/2013 00:15:00) eGFR 77 mL/min/1.73m2 1 *NA* (02/12/2013 00:15:00) BUN [7-22 mg/dL] 14 mg/dL (02/12/2013 00:15:00) B/C Ratio [6-25] 14 (02/12/2013:15:00) Glucose Lvl [70-99 mg/dL] 99 mg/dL 2 (02/12/2013 00:15:00) Total Protein [6.4-8.4 g/dL] 6.8 g/dL (02/12/2013:15:00) Albumin Lvl [3.5-5.0 g/dL] 3.6 g/dL (02/12/2013:15:00) Globulin [2.0-4.0 g/dL] 3.2 g/dL (02/12/2013:15:00) A/G Ratio [0.7-1.6] 1.1 (02/12/2013:15:00) Calcium Lvl [8.5-10.5 mg/dL] 9.3 mg/dL (02/12/2013:15:00) ALT [0-65 unit/L] 28 unit/L (02/12/2013:15:00) AST [0-37 unit/L] 15 unit/L (02/12/2013:15:00) Alk Phos [39-136 unit/L] 82 unit/L (02/12/2013:15:00) Bili Total [0.2-1.3 mg/dL] 0.2 mg/dL (02/12/2013 00:15:00) S Preg [Negative] Negative *NA* (02/12/2013 00:15:00) 1Result Comment: The eGFR is calculated using [...] values reflect the clinical guidelines of the [place] [employer].HEMATOLOGY Most recent to oldest [Reference Range]: 1 WBC [3.7-10.4 K/CMM] 7.1 K/CMM (02/12/2013 00:15:00) RBC [4.20-5.40 M/CMM] 4.05 M/CMM *LOW* (02/12/2013 00:15:00) Hgb [12.0-16.0 g/dL] 12.5 g/dL (02/12/2013 00:15:00) Hct [36.0-48.0 %] 37.8 % (02/12/2013 00:15:00) MCV [81.0-99.0 fL] 93.4 fL (02/12/2013 00:15:00) MCH [27.0-31.0 pg] 30.8 pg (02/12/2013 00:15:00) MCHC [32.0-36.0 g/dL] 32.9 g/dL (02/12/2013 00:15:00) RDW [11.5-14.5 %] 13.0 % (02/12/2013 00:15:00) Platelet [133-450 K/CMM] 279 K/CMM (02/12/2013 00:15:00) MPV [7.4-10.4 fL] 9.1 fL (02/12/2013 00:15:00) Segs [45.0-75.0 %] 52.2 % (02/12/2013 00:15:00) Lymphocytes [20.0-40.0 %] 35.1 % (02/12/2013 00:15:00) Monocytes [2.0-12.0 %] 10.2 % (02/12/2013 00:15:00) Eosinophils [0.0-4.0 %] 1.9 % (02/12/2013 00:15:00) Basophils [0.0-1.0 %] 0.6 % (02/12/2013 00:15:00) Segs-Bands # [1.5-8.1 K/CMM] 3.7 K/CMM (02/12/2013 00:15:00) Lymphocytes # [1.0-5.5 K/CMM] 2.5 K/CMM (02/12/2013 00:15:00) Monocytes # [0.0-0.8 K/CMM] 0.7 K/CMM (02/12/2013 00:15:00) Eosinophils # [0.0-0.5 K/CMM] 0.1 K/CMM (02/12/2013 00:15:00) Basophils # [0.0-0.2 K/CMM] 0.0 K/CMM (02/12/2013 00:15:00)
== END 2018-02-24 20:12 | disposition home or self-care (01) ==
LOC: ER 16:12
DX: J40 Bronchitis, not specified as acute or chronic (principal); E66.9 Obesity, unspecified
CPT/HCPCS: 36415; 71045; 80048; 80076; 83735; 83880; 84484; 85025; 85379; 85610; 87040 ×2; 87804 ×2; 93005; 96365; 99284; J0456; J0696; 96368

== ENCOUNTER 2018-12-27 16:29 | Emergency (ER) | payer OTHER ==
--- OUTSIDE RECORDS SUMMARY | 2018-12-27 16:33 | XMS REPORT | Continuity of Care Document ---
:1985 Author Organization [employer] [place] Care Team Providers Name Role Phone [employer] Unavailable Unavailable Problems Problem Status Onset Classification Date Comments Source Date Reported M06.4 - Active [facility] INFLAMMATORY 016 [place] POLYARTHROPATHY VOMITING/PREG Active [place]14 [place] Discharge 11/13/2013 [place] Diagnosis: [place]14 [place] Vomiting Discharge 11/13/2013 [place] Diagnosis: [place] Conjunctivitis1 Resolved Problem 11/06/2015 Data [facility] 013 migrated [place] from [employer] on 12/19/14. Tobacco user9 Active Problem 11/06/2015 Data [facility] 013 migrated [place] from [employer] on 10/31/14. Dysmenorrhea4 Active Problem 11/06/2015 Data [facility] 013 migrated [place] from [employer] on 10/31/14. Irregular periods6 Active Problem 11/06/2015 Data [facility] 013 migrated [place] from [employer] on 10/31/14. VAGINAL BLEEDING Active 013 [place] Depressive Active Problem 11/06/2015 Data [facility] disorder2 012 migrated [place] from [employer] on 10/31/14. Dizziness3 Active Problem 11/06/2015 Data [facility] 012 migrated [place] from [employer] on 10/31/14. Long-term drug Active Problem 11/06/2015 Data [facility] therapy7 012 migrated [place] from [employer] on 10/31/14. Paresthesia8 Active Problem 11/06/2015 Data [facility] 012 migrated [place] from [employer] on 10/31/14. Bipolar Resolved Problem 11/06/2015 [facility] [place], [place] Hypothyroidism5 Active Problem 11/06/2015 Data [facility] migrated [place] from [employer] on 10/31/14. Bipolar Resolved Problem 02/14/2013 [facility] Medications Medication Details Route Status Patient Ordering [...] Route: Inactive [place] 0.9% IVP, Drug [place]14 [place] Form: INJ, Dosing Weight 104.545, kg, PRN, PRN Line Flush, Start date: 11/10/13 8:25:00, Duration: 24 hr, Stop date: 11/11/13 8:24:00Notes: (Same as: BD Posiflush) Ondansetron 4 mg, Route: Inactive [place] IVP, ONCE, 014 [place] Dosing Weight 104.545, kg, Priority: STAT, Start date: 11/10/13 8:25:00, Stop date: 11/10/13 8:25:00 Naprosyn 500 500 mg, 1 tab, PO Active [place] mg oral PO, BID, PRN, [address] [place] [address] tablet 20 tab, for pain, Substitution Allowed, TAB ketorolac 30 mg, Route: IVP No Longer [place] IVP, Drug Active [address] [place] [address] form: INJ, ONCE, Dosing Weight 86.364, kg, Priority: STAT, Start date: 02/12/13 3:21:00, Stop date: 02/12/13 3:21:00 Sodium 1,000 mL, IV No Longer [place] Chloride 0.9% Rate: 1,[address] (Bolus) IV ml/hr, Infuse 1,000 mL over: 1 hr, Route: IV, Dosing Weight 86.364 kg, Total Volume: 1,000, Priority: STAT, Start date: 02/12/13 0:26:00, Duration: 1 doses or times, Stop date: 02/12/13 1:25:00, Bolus DoseBolus Dose Zofran 4 mg, 2 mL, IVP No Longer [place] Route: IVP, Active [address] [place] [address] Drug form: INJ, ONCE, Dosing Weight 86.364, kg, Priority: STAT, Start date: 02/12/13 0:26:00, Stop date: 02/12/13 0:26:00 morphine 4 mg, 2 mL, IVP No Longer [place] Sulfate Route: IVP, Active [address] [place] [address] Drug form: INJ, ONCE, Dosing Weight 86.364, kg, Priority: STAT, Start date: 02/12/13 0:26:00, Stop date: 02/12/13 0:26:00 Allergies, Adverse Reactions, Alerts Substance Category Reaction Severity Reaction Status Date Comments Source type Reported sulfa Assertion Drug Active Data [facility] drugs<sup>1 allergy migrated [place] [facility]sup[facility]. Originally documented as SULFA. sulfa drugs Assertion Drug Active allergy [place] Immunizations Immunization Date Site Status Last Comments Source Given Updated Hx influenza completed GE Result [facility] vaccine-unspecifi 3 Comment: done. [place] ed<sup>1</sup> Migrated from OBS ; Data migrated from [facility] on 07/06/2015. influenza virus Left completed GE Result [facility] vaccine, 3 Deltoid Comment: [place] inactivated<sup>2 fluzone (>3 </sup> yrs.) [[id number]]. Migrated from OBS ; Data migrated from [employer] on 07/06/2015. Results Order Name Results Value Reference Date Interpretation Comments Source Range URINE AND UA Leuk Est Negative Negative 11/10 [place] STOOL (11/10/13 9:45 AM) [place] URINE AND UA Nitrite Negative Negative 11/10 [place] STOOL (11/10/13 9:45 AM) [place] URINE AND Micro? Performed 11/10 [place] STOOL (11/10/13 9:45 AM) [place] URINE AND UA Bacteria Occasional None Seen 11/10 [place] STOOL /HPF /HPF /2013 [place] URINE AND UA Sq Epi Few /LPF Few /LPF 11/10 [place] URINE AND UA RBC 0-2 /HPF 0 - 2 11/10 [place] URINE AND UA WBC 0-2 /HPF None Seen 11/10 [place]OL /HPF /2013 [place] URINE AND UA Turbidity Clear Clear 11/10 [place] (11/10/13 9:45 AM) [place] URINE AND UA pH 7.0 5.0 - 8.0 11/10 [place] URINE AND UA Spec Grav 1.020 <=1.030 11/10 [place] URINE AND UA 0.2 0.1 - 1.0 11/10 [place] Urobilinogen /2013 [place] URINE AND UA Protein Negative Negative 11/10 [place] (11/10/13 9:45 AM) [place] URINE AND UA Glucose Negative Negative 11/10 [place] (11/10/13 9:45 AM) [place] URINE AND UA Blood Negative Negative 11/10 [place] (11/10/13 9:45 AM) /2013 [place] URINE AND UA Bili Small Negative 11/10 [place] *ABN* /2013 [facility] (11/10/13 9:45 AM) URINE AND UA Ketones >=80 mg/dL Negative 11/10 [place] ST[place] mg/dL [place] URINE AND UA Color Yellow Yellow 11/10 [place] *NA* /2013 [facility] (11/10/13 9:45 AM) CHEM PANEL eGFR 118 11/10 <sup>1</sup>R MH [place] esult [place] Comment: The eGFR is calculated using the CKD-EPI formula. In most young, healthy individuals the eGFR will be >90 mL/min/1.73m2 . The eGFR declines with age. An eGFR of 60-89 may be normal in some populations, particularly the elderly, for whom the CKD-EPI formula has not been extensively validated. Use of the eGFR is not recommended in the following populations:& lt;br/>
I ndividuals with unstable creatinine concentration s, including patients and those with serious co-morbid conditions.<b r/>
Patie nts with extremes in muscle mass or diet.

The data above are obtained from the National Kidney Disease Education Program (NKDEP) which additionally recommends that when the eGFR is used in patients with extremes of body mass index for purposes of drug dosing, the eGFR should be multiplied by the estimated BMI. CHEM PANEL Chloride Lvl 107 95 - 109 11/10 [place] CHEM PANEL CO2 22 24 - 32 11/10 [place] CHEM PANEL Albumin Lvl 3.1 3.5 - 5.0 11/10 [place] CHEM PANEL Calcium Lvl 8.6 8.5 - 10.5 11/10 [place] CHEM PANEL Total 6.8 6.4 - 8.4 11/10 [place] Protein [place] CHEM PANEL Bili Total 0.4 0.2 - 1.3 11/10 [place] CHEM PANEL BUN 13 7 - 22 11/10 [place] CHEM PANEL Creatinine 0.7 0.5 - 1.4 11/10 [place] Lvl [place] CHEM PANEL Glucose Lvl 110 70 - 99 11/10 <sup>2</sup>I MH [place] nterpretive [place] Data: Adult reference range values reflect the clinical guidelines
of the [place] [employer]. CHEM PANEL Potassium 3.6 3.5 - 5.1 / MH [place] Lvl /2013 [place] CHEM PANEL Sodium Lvl 138 135 - 145 / MH [place] CHEM PANEL ALT 21 0 - 65 11/10 MH [place] CHEM PANEL AST 14 0 - 37 / MH [place] CHEM PANEL Alk Phos 68 39 - 136 / MH [place] CHEM PANEL A/G Ratio 0.8 0.7 - 1.6 11/10 MH [place] CHEM PANEL B/C Ratio 19 6 - 25 / MH [place] CHEM PANEL AGAP 12.6 10.0 - 11/10 MH [place] 20.0 /2013 [place] CHEM PANEL Globulin 3.7 2.0 - 4.0 11/10 MH [place] HEMATOLOGY MPV 9.4 7.4 - 10.4 11/10 [place] HEMATOLOGY MCHC 34.3 32.0 - 11/10 MH [place] 36.0 /2013 [place] HEMATOLOGY MCH 30.2 27.0 - 11/10 MH [place] 31.0 /2013 [place] HEMATOLOGY Platelet 219 133 - 450 11/10 MH [place] /2013 [place] HEMATOLOGY RDW 14.6 11.5 - 11/10 MH [place] 14.5 /2013 [place] HEMATOLOGY Hgb 12.3 12.0 - 11/10 MH [place] 16.0 /2013 [place] HEMATOLOGY RBC 4.09 4.20 - 11/10 [place] 5.40 /2013 [place] HEMATOLOGY MCV 88.2 81.0 - 11/10 [place] 99.0 /2013 [place] HEMATOLOGY Hct 36.0 36.0 - 11/10 MH [place] 48.0 /2013 [place] HEMATOLOGY WBC 10.2 3.7 - 10.4 11/10 MH [place] /2013 [place] HEMATOLOGY Eosinophils 0.0 0.0 - 0.5 / MH [place] # /2013 [place] HEMATOLOGY Basophils # 0.0 0.0 - 0.2 11/10 MH [place] /2013 [place] HEMATOLOGY Anisocyte 1+ None Seen 11/10 MH [place] *ABN* /2013 [place] (11/10/13 8:40 AM) HEMATOLOGY Lymphocytes 3.9 20.0 - 11/10 MH [place] 40.0 [place] HEMATOLOGY Segs 93.0 45.0 - 11/10 [place] 75.0 [facility] HEMATOLOGY Monocytes 3.1 2.0 - 12.0 11/10 [place] [facility] HEMATOLOGY Basophils 0.0 0.0 - 1.0 11/10 [place] [facility] HEMATOLOGY Eosinophils 0.0 0.0 - 4.0 11/10 [place] [facility] HEMATOLOGY Lymphocytes 0.4 1.0 - 5.5 11/10 [place] # /2013 [facility] HEMATOLOGY Segs-Bands # 9.5 1.5 - 8.1 11/10 [place] [facility] HEMATOLOGY Monocytes # 0.3 0.0 - 0.8 11/10 [facility] BLOOD BANK Antibody Negative 02/12 Normal RESULTS Scrn (02/12/2013 00:38:00) [facility] BLOOD BANK ABO/Rh O POS 02/12 Unknown RESULTS /2012 [facility] CHEMISTRY S Preg Negative Negative 02/12 NA MH *NA* /2012 [facility] (02/12/2013 00:15:00) CHEMISTRY eGFR 77 02/12 NA <sup>1</sup>R esult [facility] Comment: The eGFR is calculated using the CKD-EPI formula. In most young, healthy individuals the eGFR will be >90 mL/min/1.73m2 . The eGFR declines with age. An eGFR of 60-89 may be normal in some populations, particularly the elderly, for whom the CKD-EPI formula has not been extensively validated. Use of the eGFR is not recommended in the following populations:& lt;br/>
I ndividuals with unstable creatinine concentration s, including patients and those with serious co-morbid conditions.<b r/>
Patie nts with extremes in muscle mass or diet.

The data above are obtained from the National Kidney Disease Education Program (NKDEP) which additionally recommends that when the eGFR is used in patients with extremes of body mass index for purposes of drug dosing, the eGFR should be multiplied by the estimated BMI. CHEMISTRY AST 15 0 - 37 02/12 Normal [facility] CHEMISTRY Bili Total 0.2 0.2 - 1.3 02/12 Normal [facility] CHEMISTRY Alk Phos 82 39 - 136 02/12 Normal [facility] CHEMISTRY Albumin Lvl 3.6 3.5 - 5.0 02/12 Normal [facility] CHEMISTRY ALT 28 0 - 65 09/ Normal /2012 [place] CHEMISTRY CO2 28 24 - 32 09 Normal /2012 [facility] CHEMISTRY Calcium Lvl 9.3 8.5 - 10.5 02/12 Normal /2012 [facility] CHEMISTRY Total 6.8 6.4 - 8.4 02/12 Normal Protein /2012 [facility] CHEMISTRY BUN 14 7 - 22 02/12 Normal [facility] CHEMISTRY Glucose Lvl 99 70 - 99 02/12 Normal <sup>2</sup>I nterpretive [place] Data: Adult reference range values reflect the clinical guidelines
of the [place] [employer]. CHEMISTRY Creatinine 1.0 0.5 - 1.4 02/12 Normal Lvl /2012 [facility] CHEMISTRY Sodium Lvl 143 135 - 145 02/12 Normal [facility] CHEMISTRY Potassium 3.6 3.5 - 5.1 02/12 Normal Lvl /2012 [facility] CHEMISTRY Chloride Lvl 109 95 - 109 02/12 Normal [facility] CHEMISTRY Globulin 3.2 2.0 - 4.0 02/12 Normal [facility] CHEMISTRY A/G Ratio 1.1 0.7 - 1.6 02/12 Normal /2012 [facility] CHEMISTRY AGAP 9.6 10.0 - 09 LOW MH 20.0 /2012 [facility] CHEMISTRY B/C Ratio 14 6 - 25 02/12 Normal /2012 [facility] HEMATOLOGY MCV 93.4 81.0 - 09 Normal MH 99.0 /2012 [facility] HEMATOLOGY MCH 30.8 27.0 - 09 Normal MH 31.0 /2012 [facility] HEMATOLOGY MCHC 32.9 32.0 - 09 Normal MH 36.0 /2012 [facility] HEMATOLOGY WBC 7.1 3.7 - 10.4 09 Normal /2012 [facility] HEMATOLOGY RBC 4.05 4.20 - 09 LOW MH 5.40 /2013 [facility] HEMATOLOGY Hgb 12.5 12.0 - 09 Normal MH 16.0 /2012 [facility] HEMATOLOGY Hct 37.8 36.0 - 09 Normal MH 48.0 /2012 [facility] HEMATOLOGY RDW 13.0 11.5 - 09 Normal MH 14.5 /2012 [facility] HEMATOLOGY Platelet 279 133 - 450 09 Normal [facility] HEMATOLOGY MPV 9.1 7.4 - 10.4 09 Normal /2012 [facility] HEMATOLOGY Basophils # 0.0 0.0 - 0.2 02/12 Normal /2012 [facility] HEMATOLOGY Lymphocytes 2.5 1.0 - 5.5 /11 Normal MH # /2013 [facility] HEMATOLOGY Eosinophils 0.1 0.0 - 0.5 09/11 Normal MH # /2013 [facility] HEMATOLOGY Segs-Bands # 3.7 1.5 - 8.1 / Normal /2012 [facility] HEMATOLOGY Monocytes # 0.7 0.0 - 0.8 / Normal /2012 [facility] HEMATOLOGY Lymphocytes 35.1 20.0 - 09/ Normal MH 40.0 /2013 [facility] HEMATOLOGY Monocytes 10.2 2.0 - 12.0 / Normal /2012 [facility] HEMATOLOGY Basophils 0.6 0.0 - 1.0 09/ Normal MH /2012 [facility] HEMATOLOGY Eosinophils 1.9 0.0 - 4.0 / Normal MH /2012 [facility] HEMATOLOGY Segs 52.2 45.0 - 09/ Normal MH 75.0 /2012 [facility] Pathology Reports No Data Provided for This Section Diagnostic Reports Report Value Date Source Hand 3 views Bilateral CLINICAL HISTORY: M06.4 Inflammatory polyarthropathy 11/03/2015 [facility] [place] DX AGE: 30 years GENDER: Female TECHNIQUE: Bilateral hand radiographs, 3 views. COMPARISON: None FINDINGS: There is no evidence of fracture or dislocation. Osseous mineralization is within normal limits. No lytic or blastic lesions are identified. No cortical or erosion or periosteal reaction. IMPRESSION: Unremarkable examination of the bilateral hands without radiographic evidence of inflammatory arthropathy. Consultation Notes No Data Provided for This Section Discharge Summaries No Data Provided for This Section History and Physicals No Data Provided for This Section Vital Signs Vital Sign Value Date Comments Source Diastolic (mm Hg) 73 11/10/2013 [place] Respitory Rate 18 11/10/2013 [place] Heart Rate 102 11/10/2013 [place] Systolic (mm Hg) 118 11/10/2013 [place] Heart Rate 103 11/10/2013 [place] Respitory Rate 20 11/10/2013 [place] Systolic (mm Hg) 115 11/10/2013 [place] Diastolic (mm Hg) 64 11/10/2013 [place] Systolic (mm Hg) 108 11/10/2013 [place] Respitory Rate 20 11/10/2013 [place] Heart Rate 98 11/10/2013 [place] Diastolic (mm Hg) 57 11/10/2013 [place] Temperature Oral (F) 98.9 F 11/10/2013 [place] Weight 104.545 11/10/2013 [place] Height 162.56 cm 11/10/2013 [place] BMI Calculated 39.56 11/10/2013 [facility] Heart Rate 68 02/12/2013 [place] Rate 18 02/12/2013 [facility] Diastolic (mm Hg) 76 02/12/2013 [facility] Systolic (mm Hg) 108 02/12/2013 [facility] Temperature Oral (F) 98.2 F 02/12/2013 [facility] Diastolic (mm Hg) 87 02/12/2013 [facility] Systolic (mm Hg) 122 02/12/2013 [facility] Heart Rate 67 02/12/2013 [facility] Respitory Rate 18 02/12/2013 [facility] Weight 86.364 02/12/2013 [facility] Height 160.02 cm 02/12/2013 [facility] Encounters Location Location Encounter Encounter Reason Attending ADM DC Status Source Details Type Number For Provider Date Date Visit Emergency [id number] PRIYA 02/11 02/12 [place] [facility] /2012 [facility] [id number] Aleksey Bullock 11/10 11/10 [place] [facility] /2013 [facility] [place] [facility] Outpt Diag [id number] Jay[place] 11/02 11/03 [facility] [place] [facility]2015 [place] [facility] [place] Procedures No Data Provided for This Section Assessment and Plan No Data Provided for This Section Plan of Care No Data Provided for This Section Social History Social History Date Source Social History TypeResponse 11/10/2013 [facility] [place] Smoking Status Never smoker; Exposure to Tobacco Smoke None; Cigarette Smoking Last 365 Days No; Reg Smoking Cessation Counseling No Social History TypeResponse 11/10/2013 [place] Smoking Status Never smoker, Exposure to Tobacco Smoke None, Cigarette Smoking Last 365 Days No, Reg Smoking Cessation Counseling No Family History No Data Provided for This Section Advance Directives No Data Provided for This Section Functional Status No Data Provided for This Section
--- OUTSIDE RECORDS SUMMARY | 2018-12-27 16:34 | XMS REPORT | CCD ---
:[address] [facility] Care Team Providers Name Role [...] values reflect the clinical guidelines of the [place] [employer].HEMATOLOGY Most recent to oldest [Reference [...]
--- OUTSIDE RECORDS SUMMARY | 2018-12-27 16:34 | XMS REPORT | Continuity of Care Document ---
:1985 Author Organization [facility] Address [address] [place] [address] Phone Unavailable Care Team Providers Name Role Phone DENNIS SHARP MD Primary Care Physician Insurance Providers Guarantor Aviva Cox Address [address] [place] [address] Email [email or web address] Payer Medicare Policy Number [id number] Subscriber's Name Aviva Cox Relationship Self / Same As Patient Group Number NA Group Name NA Effective Date 10 Payer Medicaid Policy Number [id number] Subscriber's Name Aviva Cox Relationship Self / Same As Patient Group Number NA Group Name NA Advance Directives Directive Response Recorded Date/Time Advance Directives No 01/27/16 10:13am Advance Directive on File No 03/17/18 3:17pm Directive to Physicians/Living Will No 09/30/15 6:43am Health Care Proxy No 09/30/15 6:43am Name of Surrogate/Decision Maker NA 03/17/18 3:17pm Organ Donor No 09/30/15 6:43am Medical Power of Political Researcher No 09/30/15 6:43am Patient/Family Given Education Material Y - KR..MINOR..03/17/18 03/17/18 3: 18pm R/T Directives? Chief Complaint and Reason for Visit Chief Complaint General Complaint Reason for Visit Viral URI Chest pain Problems Medical Problem Onset Date Status Backache Unknown Acute Bipolar 1 disorder, depressed 04/04/2014 Acute Depression Unknown Acute Fatigue Unknown Acute First trimester Unknown Acute Gestational diabetes mellitus, delivered 04/03/2014 Acute Left wrist pain Unknown Acute Neck ache Unknown Acute Past Problems Medical Problem Onset Date Status Chest pain Unknown Acute Influenza A Unknown Acute Laceration of multiple sites of right hand and fingers Unknown Acute Laryngitis Unknown Acute Laryngotracheobronchitis Unknown Acute Maxillary sinusitis Unknown Acute Viral URI Unknown Acute Medications Current Home Medications Medication Dose Units Route Directions Days Qty Instructions Start Date Clobetasol 1 Applic TOPICAL As Needed as Propionate needed for Emollien Rash (Clobetasol Propionate E) 0.05 % Cre Escitalopram 20 Mg ORAL Daily 30 Tablet 04/04/14 Oxalate (Lexapro 20 Mg*) 20 Mg Tab Levothyroxine 112 Mcg ORAL Once Daily At Sodium (Synthroid Bedtime 112 Mcg*) 112 Mcg Tab [place] Carbonate 900 Mg ORAL Once Daily At ([place] Bedtime Carbonate 300 Mg *) 300 Mg Cap Trazodone Hcl 150 Mg ORAL Once Daily At (Desyrel 150 Mg*) Bedtime 150 Mg Tab Past Home Medications Medication Directions Ordered Status Acetaminophen W/ Codeine #3 * Every 6 Hours As Needed for 01/28/16 Discontinued (Tylenol Codeine #3 300MG/30MG *) Pain 1 Tab Tab, 1-2 Tabs Oral Escitalopram Oxalate Once Daily 04/04/14 Discontinued (Escitalopram Oxalate 20 Mg) 20 Mg Tab, 1 Tab Oral Escitalopram Oxalate Discontinued (Escitalopram Oxalate 20 Mg) 20 Mg Tab, Folic Acid (Folic Acid 1 Mg) 1 Mg Discontinued Tab, Ibuprofen (Motrin 800 Mg*) 800 Mg Every 6 Hours As Needed as 01/28/16 Discontinued Tab, 1 Tab Oral needed for Pain Ibuprofen (Motrin 800 Mg*) 800 Mg Every 6 Hours As Needed as 04/04/14 Discontinued Tab, 1 Tab Oral needed for Pain Levothyroxine Sodium (Synthroid Once Daily Discontinued *) 50 Mcg Tab, 1 Tab Oral [place] Carbonate ([place] Discontinued Carbonate Er 300 Mg) 300 Mg Tab, Trazodone Hcl (Trazodone Hcl *) Discontinued 50 Mg Tab, Social History Social History Problem Response Recorded Date/Time Onset Date Status Hx Alcohol Use No 10/15/2017 12:54pm Not Applicable Not Applicable Hx Physical Abuse No 03/17/2018 3:17pm Not Applicable Not Applicable Smoking Status Start Date Stop Date Former smoker Hospital Discharge Instructions No hospital discharge instruction information available. Plan of Care Discharge Date 03/17/18 6:25pm Instructions/Education Provided Upper Respiratory Infection, Adult Forms Provided Prescription Opioid Use Portal Welcome Letter Prescriptions See Medication Section Referrals DENNIS SHARP MD Address: [address] [place] [address] [place] [address] Additional Instructions/Education CALL DR SHARP IN AM TO SCHEDULE FOLLOW UP PEPCID TWICE A DAY FOR CHEST PAIN TREAT SYMPTOMS Functional Status No functional status information available. Allergies, Adverse Reactions, Alerts Allergen Type Severity Reaction Status Last Updated Sulfa drugs Allergy Severe Active 01/28/16 Immunizations Immunization Event Date Type Not Given Dose Number Lot Number Tariff Compiling Clerk Reason TDaP 10/21/16 Administered 1 [id number] SANOFI PS Vital Signs Acute Vital Signs Vital Response Date/Time Blood Pressure 119/88 mm Hg 03/17/2018 6:27pm Pulse Pulse Rate (adult) 87 beats per minute (60 - 100) 03/17/2018 6:27pm Respiratory Rate 21 breaths per minute (10 - 24) 03/17/2018 6:27pm Temperature Source Oral 03/17/2018 6:27pm Height 5 ft 3 in 03/17/2018 3:17pm Weight 260 lb 03/17/2018 3:17pm Body Mass Index 46.1 kg/m^2 03/17/2018 3:17pm Results Laboratory Results Test Name Result Units Flags Reference Collection Result Comments Date/Time Date/Time White Blood Count 12.7 K/ul H 4.0-11.5 03/17/2018 03/17/2018 4:30pm 4:38pm Red Blood Count 4.79 M/ul 3.80-5.20 03/17/2018 03/17/2018 4:30pm 4:38pm Hemoglobin 14.1 g/dl 10.5-15.7 03/17/2018 03/17/2018 4:30pm 4:38pm Hematocrit 43.6 % 34.0-50.0 03/17/2018 03/17/2018 4:30pm 4:38pm Mean Corpuscular 91.0 fl 78-98 03/17/2018 03/17/2018 Volume 4:30pm 4:38pm Mean Corpuscular 29.4 pg 26.2-33.4 03/17/2018 03/17/2018 Hemoglobin 4:30pm 4:38pm Mean Corpuscular 32.3 g/dl 31.5-36.2 03/17/2018 03/17/2018 Hemoglobin Concent 4:30pm 4:38pm Red Cell 13.1 % 11.5-15.5 03/17/2018 03/17/2018 Distribution Width 4:30pm 4:38pm Platelet Count 354 K/ul H 137-338 03/17/2018 03/17/2018 4:30pm 4:38pm Mean Platelet 7.0 fl L 8.4-11.8 03/17/2018 03/17/2018 Volume 4:30pm 4:38pm Neutrophils (%) 61.0 % 44.4-80.1 03/17/2018 03/17/2018 (Auto) 4:30pm 4:38pm Lymphocytes (%) 31.0 % 10.0-50.0 03/17/2018 03/17/2018 (Auto) 4:30pm 4:38pm Monocytes (%) 5.8 % 3.6-12.04 03/17/2018 03/17/2018 (Auto) 4:30pm 4:38pm Eosinophils (%) 1.7 % 0.0-5.41 03/17/2018 03/17/2018 (Auto) 4:30pm 4:38pm Basophils (%) 0.5 % 0.0-0.79 03/17/2018 03/17/2018 (Auto) 4:30pm 4:38pm Random Glucose 124 mg/dL H 74-106 03/17/2018 03/17/2018 4:30pm 4:53pm Blood Urea Nitrogen 20 mg/dL 6-20 03/17/2018 03/17/2018 4:30pm 4:53pm Serum Osmolality 287 280-300 03/17/2018 03/17/2018 4:30pm 4:53pm Creatinine 0.8 mg/dL 0.50-0.90 03/17/2018 03/17/2018 4:30pm 4:53pm Glomerular > 60.00 03/17/2018 03/17/2018 GFR RESULTS ARE REPORTED IN mL/min/1.73m2. Filtration Rate 4:30pm 4:53pm Calc Normal GFR: >60mL/min Moderately decreased GFR: 30-59 mL/min Severely decreased GFR: 15-29 mL/min Kidney Failure (or Dialysis): <15 mL/min The calculated eGFR is not valid for patients younger than 18 years or older than 75 years. BUN/Creatinine 25.0 H 12-03/17/2018 03/17/2018 Ratio 4:30pm 4:53pm Sodium Level 142 mmol/L 135-145 03/17/2018 03/17/2018 4:30pm 4:53pm Potassium Level 4.1 mmol/L 3.5-5.2 03/17/2018 03/17/2018 4:30pm 4:53pm Chloride Level 103 mmol/L 98-108 03/17/2018 03/17/2018 4:30pm 4:53pm Carbon Dioxide 25 mmol/L 21-32 03/17/2018 03/17/2018 Level 4:30pm 4:53pm Anion Gap 18.1 mEq/L 12-03/17/2018 03/17/2018 4:30pm 4:53pm Calcium Level 9.7 mg/dL 8.6-10.0 03/17/2018 03/17/2018 4:30pm 4:53pm Total Protein 7.3 g/dL 6.6-8.7 03/17/2018 03/17/2018 4:30pm 4:53pm Albumin 4.0 g/dL 3.5-5.2 03/17/2018 03/17/2018 4:30pm 4:53pm Globulin 3.3 gm/dL 03/17/2018 03/17/2018 4:30pm 4:53pm Albumin/Globulin 1.2 >1.0 03/17/2018 03/17/2018 Ratio 4:30pm 4:53pm Total Bilirubin < 0.3 mg/dL 0.0-1.2 03/17/2018 03/17/2018 4:30pm 4:53pm Aspartate Amino 10 U/L L 15-32 03/17/2018 03/17/2018 Transf (AST/SGOT) 4:30pm 4:53pm Alanine 11 U/L 0-33 03/17/2018 03/17/2018 Aminotransferase 4:30pm 4:53pm (ALT/SGPT) OQ-Ytp-Z-Type 7 pg/mL 0-125 03/17/2018 03/17/2018 Natriuretic Peptide 4:30pm 4:57pm Total Alkaline 98 U/L 35-105 03/17/2018 03/17/2018 Phosphatase 4:30pm 4:53pm Creatine Kinase 26 U/L 20-180 03/17/2018 03/17/2018 4:30pm 4:53pm Troponin I < 0.30 ng/mL 0.0-0.5 03/17/2018 03/17/2018 4:30pm 4:57pm Creatine Kinase MB < 1.0 ng/ml 0.0-3.6 03/17/2018 03/17/2018 4:30pm 4:57pm DIAGNOSTIC CITERIA: CKMB CKMB RELATIVE INDEX SUGGESTIVE OF NON-AMI < or=5 N/A MARIE ZONE (INCONCLUSIVE) > 5 < or=4 SUGGESTIVE OF AMI >5 > 4 Pending Laboratory Results Test Name Collection Date/Time Urine Amphetamines Screen 03/17/2018 5:20pm Urine Barbiturates, Quantitative 03/17/2018 5:20pm Urine Benzodiazepines Screen 03/17/2018 5:20pm Urine Cannabinoids 03/17/2018 5:20pm Urine Cocaine Metabolite 03/17/2018 5:20pm Urine Opiates Screen 03/17/2018 5:20pm Urine Phencyclidine (PCP) Level 03/17/2018 5:20pm Methadone Level 03/17/2018 5:20pm Propoxyphene Level 03/17/2018 5:20pm Oxycodone Level 03/17/2018 5:20pm Urine Drug Screen Note 03/17/2018 5:20pm Procedures Procedure Status Date Provider(s) X-ray of chest, two views Completed 03/17/18 MANAS PAVON MD Encounters Encounter Location Arrival/Admit Date Discharge/Depart Date Attending Provider Departed [place] 03/17/18 3:11pm 03/17/18 6:25pm MANAS PAVON [facility] Recent Diagnosis
--- NOTE | 2018-12-27 17:19 | EDPHYS ---
Physician Documentation [facility] Name: Bev Cox Age: 33 yrs Sex: Female : 1985 Arrival Date: 12/27/2018 Time: 16:31 Bed 17 Private MD: Tamera Domínguez ED Physician Christiano De La Rosa HPI: 12/27 17:14 This 33 yrs old Female presents to ER via Ambulatory with complaints of Ear kb Pain. 17:14 The patient has not experienced similar symptoms in the past. The patient has been kb recently seen by a physician:. 17:15 The patient presents with pain, moderate. The complaints affect the right ear and left kb ear. Onset: The symptoms/episode began/occurred 1 month(s) ago. Modifying factors: The symptoms are alleviated by nothing, the symptoms are aggravated by pulling on ears. Associated signs and symptoms: Pertinent positives: shortness of breath. Severity of symptoms: At their worst the symptoms were moderate in the emergency department the symptoms are unchanged. Pt states she has had problems with her right ear for a month, first couldn't hear out of it, then pain. 2 weeks ago started having pain and discharge from left ear. Went to PCP on Sunday and was given Augmentin for bilateral ear infection, but she doesn't feel like she is getting any better. Reports bilateral ear pain, intermittent dizziness when she changes positions, sore throat, and the feeling that she cannot take a deep breath at times. Denies fever. . Historical: - Allergies: 17:06 No Known Allergies; ss - Home Meds: 17:06 [place] Carbonate Oral [Active]; levothyroxine oral [Active]; citalopram oral [Active]; ss Trazodone Oral [Active]; - PMHx: 17:06 Hypothyroidism; PTSD; ss - PSHx: 17:06 Hysterectomy; ss - Immunization history:: Adult Immunizations up to date. - Social history:: Smoking status: Patient/guardian denies using tobacco. - Ebola Screening: : Patient denies exposure to infectious person Patient denies travel to an Ebola-affected area in the 21 days before illness onset. ROS: 17:13 Neck: Negative for injury, pain, and swelling, Cardiovascular: Negative for chest pain, kb palpitations, and edema, Abdomen/GI: Negative for abdominal pain, nausea, vomiting, diarrhea, and constipation, Back: Negative for injury and pain, MS/Extremity: Negative for injury and deformity, Skin: Negative for injury, rash, and discoloration, Neuro: Negative for headache, weakness, numbness, tingling, and seizure. 17:13 Constitutional: Positive for fatigue, malaise, Negative for body aches, chills, fever, poor PO intake, weight loss. 17:13 ENT: Positive for ear pain, sore throat. 17:13 Respiratory: Positive for shortness of breath. 17:14 Neuro: Positive for dizziness. kb Exam: 17:13 Constitutional: This is a well developed, well nourished patient who is awake, alert, kb and in no acute distress. Head/Face: Normocephalic, atraumatic. ENT: Nares patent. No nasal discharge, no septal abnormalities noted. Tympanic membranes are normal and external auditory canals are clear. Oropharynx with no redness, swelling, or masses, exudates, or evidence of obstruction, uvula midline. Mucous membranes moist. Neck: Trachea midline, no thyromegaly or masses palpated, and no cervical lymphadenopathy. Supple, full range of motion without nuchal rigidity, or vertebral point tenderness. No Meningismus. Chest/axilla: Normal chest wall appearance and motion. Nontender with no deformity. No lesions are appreciated. Cardiovascular: Regular rate and rhythm with a normal S1 and S2. No gallops, murmurs, or rubs. Normal PMI, no JVD. No pulse deficits. Respiratory: Lungs have equal breath sounds bilaterally, clear to auscultation and percussion. No rales, rhonchi or wheezes noted. No increased work of breathing, no retractions or nasal flaring. Abdomen/GI: Soft, non-tender, with normal bowel sounds. No distension or tympany. No guarding or rebound. No evidence of tenderness throughout. Skin: Warm, dry with normal turgor. Normal color with no rashes, no lesions, and no evidence of cellulitis. MS/ Extremity: Pulses equal, no cyanosis. Neurovascular intact. Full, normal range of motion. Neuro: Awake and alert, GCS 15, oriented to person, place, time, and situation. Cranial nerves II-XII grossly intact. Motor strength 5/5 in all extremities. Sensory grossly intact. Cerebellar exam normal. Normal gait. Vital Signs: 17:02 BP 119 / 92; Pulse 89; Resp 18; Temp 97.6(TE); Pulse Ox 98% on R/A; Weight 122.47 kg; ss Height 5 ft. 4 in. (162.56 cm); Pain 8/10; 17:02 Body Mass Index 46.34 (122.47 kg, 162.56 cm) ss MDM: 16:57 Patient medically screened. [facility] 17:12 Data reviewed: vital signs, nurses notes. Data interpreted: Pulse oximetry: on room air kb is 98 %. Interpretation: normal. Counseling: I had a detailed discussion with the patient and/or guardian regarding: the historical points, exam findings, and any diagnostic results supporting the discharge/admit diagnosis, the need for outpatient follow up, a family practitioner, to return to the emergency department if symptoms worsen or persist or if there are any questions or concerns that arise at home. Administered Medications: No medications were administered Disposition: 12/28 09:59 Co-signature as Attending Physician, Christiano De La Rosa MD I agree with the assessment and [facility] plan of care. Disposition: 12/27/18 17:17 Discharged to Home. Impression: Otalgia, bilateral, Acute upper respiratory infection, unspecified. - Condition is Stable. - Discharge Instructions: Earache, Adult, Upper Respiratory Infection, Adult, [id number], Viral Respiratory Infection, [id number]. - Medication Reconciliation Form, Thank You Letter, Antibiotic Education, Prescription Opioid Use form. - Follow up: Emergency Department; When: As needed; Reason: Worsening of condition. Follow up: Private Physician; When: 2 - 3 days; Reason: Recheck today's complaints, Continuance of care, Re-evaluation by your physician. Signatures: Bri Farrell, MAKAYLAC FISH-Thais Anders RN RN aj1 Christiano De La Rosa MD MD cha Smirch, Shelby, RN RN ss Corrections: (The following items were deleted from the chart) 12/27 17:15 17:13 Neck: Negative for injury, pain, and swelling, Cardiovascular: Negative for chest kb pain, palpitations, and edema, Abdomen/GI: Negative for abdominal pain, nausea, vomiting, diarrhea, and constipation, Back: Negative for injury and pain, MS/Extremity: Negative for injury and deformity, Skin: Negative for injury, rash, and discoloration, Neuro: Negative for headache, weakness, numbness, tingling, and seizure, kb 17:44 17:17 12/27/2018 17:17 Discharged to Home. Impression: Otalgia, bilateral; Acute upper aj1 respiratory infection, unspecified. Condition is Stable. Forms are Medication Reconciliation Form, Thank You Letter, Antibiotic Education, Prescription Opioid Use. Follow up: Emergency Department; When: As needed; Reason: Worsening of condition. Follow up: Private Physician; When: 2 - 3 days; Reason: Recheck today's complaints, Continuance of care, Re-evaluation by your physician. kb
--- NOTE | 2018-12-27 17:19 | ER ---
Nurse's Notes [facility] Name: Bev Cox Age: 33 yrs Sex: Female : 1985 Arrival Date: 12/27/2018 Time: 16:31 Bed 17 Private MD: Tamera Domínguez Diagnosis: Otalgia, bilateral;Acute upper respiratory infection, unspecified Presentation: 12/27 17:03 Presenting complaint: Patient states: Being treated with Augmentin for bilateral ear ss infection. Pt still c/o pain and now dizziness. Transition of care: patient was not received from another setting of care. Onset of symptoms is unknown. Risk Assessment: Do you want to hurt yourself or someone else? Patient reports no desire to harm self or others. Initial Sepsis Screen: Does the patient meet any 2 criteria? No. Patient's initial sepsis screen is negative. Does the patient have a suspected source of infection? No. Patient's initial sepsis screen is negative. Care prior to arrival: None. 17:03 Method Of Arrival: Ambulatory ss 17:03 Acuity: EVANGELINA 4 ss Historical: - Allergies: 17:06 No Known Allergies; ss - Home Meds: 17:06 [place] Carbonate Oral [Active]; levothyroxine oral [Active]; citalopram oral [Active]; ss Trazodone Oral [Active]; - PMHx: 17:06 Hypothyroidism; PTSD; ss - PSHx: 17:06 Hysterectomy; ss - Immunization history:: Adult Immunizations up to date. - Social history:: Smoking status: Patient/guardian denies using tobacco. - Ebola Screening: : Patient denies exposure to infectious person Patient denies travel to an Ebola-affected area in the 21 days before illness onset. Screenin:30 Abuse screen: Denies threats or abuse. Denies injuries from another. Nutritional aj1 screening: No deficits noted. Tuberculosis screening: No symptoms or risk factors identified. Fall Risk None identified. Assessment: 17:30 General: Appears in no apparent distress. uncomfortable, Behavior is calm, cooperative, aj1 appropriate for age. Pain: Complains of pain in right ear and left ear. Neuro: Level of Consciousness is awake, alert, obeys commands, Oriented to person, place, time, situation, Moves all extremities. Full function Gait is steady, Speech is normal, Reports dizziness. Cardiovascular: Patient's skin is warm and dry. Rhythm is regular. Respiratory: Airway is patent Respiratory effort is even, unlabored, Respiratory pattern is regular, symmetrical, Breath sounds are clear bilaterally. GI: No signs and/or symptoms were reported involving the gastrointestinal system. : No signs and/or symptoms were reported regarding the genitourinary system. EENT: Reports ear pain. Derm: No signs and/or symptoms reported regarding the dermatologic system. Skin is pink, warm \T\ dry. normal. Musculoskeletal: No signs and/or symptoms reported regarding the musculoskeletal system. Circulation, motion, and sensation intact. 17:35 General: The previous assessment is accurate, call light remains within reach. Vital Signs: 17:02 BP 119 / 92; Pulse 89; Resp 18; Temp 97.6(TE); Pulse Ox 98% on R/A; Weight 122.47 kg; ss Height 5 ft. 4 in. (162.56 cm); Pain 8/10; 17:02 Body Mass Index 46.34 (122.47 kg, 162.56 cm) ED Course: 16:31 Patient arrived in ED. cl3 16:32 Tamera Domínguez MD is Private Physician. cl3 16:57 [facility]-C [facility] kb 16:57 Christiano De La Rosa MD is Attending Physician. kb 17:02 Arm band placed on right wrist. ss 17:04 Triage completed. 17:07 Thais Otero, RN is Primary Nurse. aj1 17:30 Patient has correct armband on for positive identification. Bed in low position. Call aj1 light in reach. Side rails up X 1. 17:30 No provider procedures requiring assistance completed. aj1 17:43 Patient did not have IV access during this emergency room visit. aj1 Administered Medications: No medications were administered Outcome: 17:17 Discharge ordered by . kb 17:43 Discharged to home ambulatory. aj1 17:43 Condition: good 17:43 Discharge instructions given to patient, Instructed on discharge instructions, follow up and referral plans. Demonstrated understanding of instructions, follow-up care. 17:44 Patient left the ED. aj1 Signatures: Bri Farrell FNP-C FNP-Thais Anders RN RN aj1 Katarina Raygoza RN RN Bear, Charde cl3
== END 2018-12-27 17:44 | disposition home or self-care (01) ==
LOC: ER 16:29
DX: H92.03 Otalgia, bilateral (principal); J06.9 Acute upper respiratory infection, unspecified; E03.9 Hypothyroidism, unspecified
CPT/HCPCS: 99281

== ENCOUNTER 2019-02-16 14:28 | Emergency (ER) | payer OTHER ==
--- OUTSIDE RECORDS SUMMARY | 2019-02-16 14:31 | XMS REPORT | Continuity of Care Document ---
:1985 Author Organization [employer] Care Team Providers Name Role Phone [employer]) Unavailable Unavailable Problems Problem Status Onset Classification Date Comments Source Date Reported M06.4 - Active [facility] INFLAMMATORY 016 [place] POLYARTHROPATHY VOMITING/PREG Active [place]14 [place] Discharge 11/13/2013 [place] Diagnosis: 014 [place] Vomiting Discharge 11/13/2013 [place] Diagnosis: [place]14 [place] Conjunctivitis1 Resolved Problem 11/06/2015 Data OPID 013 migrated [place] from [employer] on 12/19/14. Tobacco user9 Active Problem 11/06/2015 Data OPID 013 migrated [place] from [employer] on 10/31/14. Dysmenorrhea4 Active Problem 11/06/2015 Data OPID 013 migrated [place] from [employer] on 10/31/14. Irregular periods6 Active Problem 11/06/2015 Data OPID 013 migrated [place] from [employer] on 10/31/14. VAGINAL BLEEDING Active 013 [place] Depressive Active Problem 11/06/2015 Data OPID disorder2 012 migrated [place] from [employer] on 10/31/14. Dizziness3 Active Problem 11/06/2015 Data OPID 012 migrated [place] from [employer] on 10/31/14. Long-term drug Active Problem 11/06/2015 Data OPID therapy7 012 migrated [place] from [employer] on 10/31/14. Paresthesia8 Active Problem 11/06/2015 Data OPID 012 migrated [place] from [employer] on 10/31/14. Bipolar Resolved Problem 11/06/2015 [facility] [place], [place] Hypothyroidism5 Active Problem 11/06/2015 Data OPID migrated [place] from [employer] on 10/31/14. Bipolar Resolved Problem 02/14/2013 [facility] Medications Medication Details Route Status Patient Ordering [...] Active [facility] mg oral PO, BID, PRN, [address] [place] [address] tablet 20 tab, for pain, Substitution Allowed, TAB ketorolac 30 mg, Route: IVP No Longer [place] IVP, Drug Active [address] [place] [address] form: INJ, ONCE, Dosing Weight 86.364, kg, Priority: STAT, Start date: 02/12/13 3:21:00, Stop date: 02/12/13 3:21:00 Sodium 1,000 mL, IV No Longer [place] Chloride 0.9% Rate: 1,[address] ([place]olus) IV ml/hr, Infuse 1,000 mL over: 1 hr, Route: IV, Dosing Weight 86.364 kg, Total Volume: 1,000, Priority: STAT, Start date: 02/12/13 0:26:00, Duration: 1 doses or times, Stop date: 02/12/13 1:25:00, Bolus DoseBolus Dose Zofran 4 mg, 2 mL, IVP No Longer Pop[place] Route: IVP, Active [address] [place] [address] Drug form: INJ, ONCE, Dosing Weight 86.364, kg, Priority: STAT, Start date: 02/12/13 0:26:00, Stop date: 02/12/13 0:26:00 morphine 4 mg, 2 mL, IVP No Longer [place] Sulfate Route: IVP, Active [address] [place] [address] Drug form: INJ, ONCE, Dosing Weight 86.364, kg, Priority: STAT, Start date: 02/12/13 0:26:00, Stop date: 02/12/13 0:26:00 Allergies, Adverse Reactions, Alerts Substance Category Reaction Severity Reaction Status Date Comments Source type Reported sulfa Assertion Drug Active Data [facility] drugs<sup>1 allergy migrated [place] </sup[facility]. Originally documented as SULFA. sulfa drugs Assertion Drug Active allergy [place] Immunizations Immunization Date Site Status Last Comments Source Given Updated Hx influenza completed GE Result OPID vaccine-unspecifi 3 Comment: done. [place] ed<sup>1</sup> Migrated from OBS ; [facility]. influenza virus Left completed GE Result OPID vaccine, 3 Deltoid Comment: [place] inactivated<sup>2 fluzone (>3 </sup> yrs.) [[id number]]. Migrated from OBS ; Data migrated from [employer] on 07/06/2015. Results Order Name Results Value [...] Small Negative 11/10 [place] STOOL *ABN* /2013 [facility] (11/10/13 9:45 AM) URINE AND UA Ketones >=80 mg/dL Negative 11/10 [place] STOOL mg/dL [place] URINE AND UA Color Yellow Yellow 11/10 [place] STOOL *NA* /2013 [facility] (11/10/13 9:45 AM) CHEM PANEL eGFR [...] values reflect the clinical guidelines
of the [place] [employer]. CHEM PANEL Potassium 3.6 3.5 [...] Segs 93.0 45.0 - 11/10 [place] 75.0 [facility] HEMATOLOGY Monocytes 3.1 2.0 - 12.0 11/10 Sugar [facility] HEMATOLOGY Basophils 0.0 0.0 - 1.0 11/10 Sugar [facility] HEMATOLOGY Eosinophils 0.0 0.0 - 4.0 11/10 Sugar [facility] HEMATOLOGY Lymphocytes 0.4 1.0 - 5.5 11/10 [place] # /2013 [facility] HEMATOLOGY Segs-Bands # 9.5 1.5 - 8.1 11/10 Sugar [facility] HEMATOLOGY Monocytes # 0.3 0.0 - 0.8 11/10 [facility] BLOOD BANK Antibody Negative 02/12 Normal RESULTS Scrn (02/12/2013 00:38:00) [facility] BLOOD BANK ABO/Rh O POS 02/12 Unknown RESULTS /2012 [facility] CHEMISTRY S Preg Negative Negative 02/12 NA MH *NA* /2012 [facility] (02/12/2013 00:15:00) CHEMISTRY eGFR 77 02/12 NA <sup>1</sup>R esult [facility] Comment: The eGFR is calculated using the [...] AST 15 0 - 37 02/12 Normal [facility] CHEMISTRY Bili Total 0.2 0.2 - 1.3 02/12 Normal [facility] CHEMISTRY Alk Phos 82 39 - 136 02/12 Normal [facility] CHEMISTRY Albumin Lvl 3.6 3.5 - 5.0 02/12 Normal [facility] CHEMISTRY ALT 28 0 - 65 09/ Normal /2012 [place] CHEMISTRY CO2 28 24 - 32 09 Normal /2012 [facility] CHEMISTRY Calcium Lvl 9.3 8.5 - 10.5 02/12 Normal /2012 [facility] CHEMISTRY Total 6.8 6.4 - 8.4 02/12 Normal Protein /2012 [facility] CHEMISTRY BUN 14 7 - 22 02/12 Normal [facility] CHEMISTRY Glucose Lvl 99 70 - 99 02/12 Normal <sup>2</sup>I nterpretive [place] Data: Adult reference range values reflect the clinical guidelines
of the [place] [employer]. CHEMISTRY Creatinine 1.0 0.5 - 1.4 02/12 Normal Lvl /2012 [facility] CHEMISTRY Sodium Lvl 143 135 - 145 02/12 Normal [facility] CHEMISTRY Potassium 3.6 3.5 - 5.1 02/12 Normal Lvl /2012 [facility] CHEMISTRY Chloride Lvl 109 95 - 109 02/12 Normal [facility] CHEMISTRY Globulin 3.2 2.0 - 4.0 02/12 Normal [facility] CHEMISTRY A/G Ratio 1.1 0.7 - 1.6 02/12 Normal /2012 [facility] CHEMISTRY AGAP 9.6 10.0 - 09 LOW MH 20.0 /2012 [facility] CHEMISTRY B/C Ratio 14 6 - 25 02/12 Normal /2012 [facility] HEMATOLOGY MCV 93.4 81.0 - 09 Normal MH 99.0 /2012 [facility] HEMATOLOGY MCH 30.8 27.0 - 09 Normal MH 31.0 /2012 [facility] HEMATOLOGY MCHC 32.9 32.0 - 09 Normal MH 36.0 /2012 [facility] HEMATOLOGY WBC 7.1 3.7 - 10.4 09 Normal /2012 [facility] HEMATOLOGY RBC 4.05 4.20 - 09 LOW MH 5.40 /2013 [facility] HEMATOLOGY Hgb 12.5 12.0 - 09 Normal MH 16.0 /2012 [facility] HEMATOLOGY Hct 37.8 36.0 - 09 Normal MH 48.0 /2012 [facility] HEMATOLOGY RDW 13.0 11.5 - 09 Normal MH 14.5 /2012 [facility] HEMATOLOGY Platelet 279 133 - 450 09 Normal [facility] HEMATOLOGY MPV 9.1 7.4 - 10.4 09 Normal /2012 [facility] HEMATOLOGY Basophils # 0.0 0.0 - 0.2 02/12 Normal /2012 [facility] HEMATOLOGY Lymphocytes 2.5 1.0 - 5.5 /11 Normal MH # /2013 [facility] HEMATOLOGY Eosinophils 0.1 0.0 - 0.5 09/11 Normal MH # /2013 [facility] HEMATOLOGY Segs-Bands # 3.7 1.5 - 8.1 / Normal /2012 [facility] HEMATOLOGY Monocytes # 0.7 0.0 - 0.8 / Normal /2012 [facility] HEMATOLOGY Lymphocytes 35.1 20.0 - 09/ Normal MH 40.0 /2013 [facility] HEMATOLOGY Monocytes 10.2 2.0 - 12.0 / Normal /2012 [facility] HEMATOLOGY Basophils 0.6 0.0 - 1.0 09/ Normal MH /2012 [facility] HEMATOLOGY Eosinophils 1.9 0.0 - 4.0 / Normal MH /2012 [facility] HEMATOLOGY Segs 52.2 45.0 - 09/ Normal MH 75.0 /2012 [facility] Pathology Reports No Data Provided for This Section Diagnostic Reports Report Value Date Source Hand 3 views Bilateral CLINICAL HISTORY: M06.4 Inflammatory polyarthropathy 11/03/2015 [facility] [place] DX AGE: 30 years GENDER: Female TECHNIQUE: [...] Comments Source Diastolic (mm Hg) 73 11/10/2013 [place] Respitory Rate 18 11/10/2013 [place] Heart Rate 102 11/10/2013 [place] Systolic (mm Hg) 118 11/10/2013 [place] Heart Rate 103 11/10/2013 [place] Respitory Rate 20 11/10/2013 [place] Systolic (mm Hg) 115 11/10/2013 [place] Diastolic (mm Hg) 64 11/10/2013 [place] Systolic (mm Hg) 108 11/10/2013 [place] Respitory Rate 20 11/10/2013 [place] Heart Rate 98 11/10/2013 [place] Diastolic (mm Hg) 57 11/10/2013 [place] Temperature Oral (F) 98.9 F 11/10/2013 [place] Weight 104.545 11/10/2013 [place] Height 162.56 cm 11/10/2013 [place] BMI Calculated 39.56 11/10/2013 [facility] Heart Rate 68 02/12/2013 [place] Respitory Rate 18 02/12/2013 [facility] Diastolic (mm Hg) 76 02/12/2013 [facility] Systolic (mm Hg) 108 02/12/2013 [facility] Temperature Oral (F) 98.2 F 02/12/2013 [facility] Diastolic (mm Hg) 87 02/12/2013 [facility] Systolic (mm Hg) 122 02/12/2013 [facility] Heart Rate 67 02/12/2013 [facility] Respitory Rate 18 02/12/2013 [facility] Weight 86.364 02/12/2013 [facility] Height 160.02 cm 02/12/2013 [facility] Encounters Location Location Encounter Encounter Reason Attending ADM DC Status Source Details Type Number For Provider Date Date Visit Emergency [id number] PRIYA 02/11 02/12 [facility] [place] [id number] Aleksey Bullock 11/10 11/10 [place] [facility] Emergency /2013 [facility] [place] [facility] Outpt Diag [id number] Jayden 11/02 11/03 [facility] Outpatient [facility] [place] /2015 [facility] [place] Procedures No Data Provided for This Section Assessment and Plan No Data Provided for This Section Plan of Care No Data Provided for This Section Social History Social History Date Source Social History TypeResponse 11/10/2013 [facility] [place] Smoking Status Never smoker; Exposure to Tobacco Smoke None; Cigarette Smoking Last 365 Days No; Reg Smoking Cessation Counseling No Social History TypeResponse 11/10/2013 [place] Smoking Status Never smoker, Exposure to Tobacco Smoke None, Cigarette Smoking Last 365 Days No, Reg Smoking Cessation Counseling No Family History No Data Provided for This Section Advance Directives No Data Provided for This Section Functional Status No Data Provided for This Section
--- OUTSIDE RECORDS SUMMARY | 2019-02-16 14:32 | XMS REPORT | CCD ---
:1985 Author Organization [facility] Care Team Providers Name Role Phone Kiran [...] values reflect the clinical guidelines of the [place] [employer].HEMATOLOGY Most recent to oldest [Reference [...]
[2019-02-16 15:49] LABS: Absolute Lymphocytes (CBC) 1.7 K/uL (0.7-4.9); Basophils % 0.3 % (0-1.3); Hematocrit 41.7 % (36.0-45.0); Lymphocytes % 16.7 % (15.3-44.8); MPV 8.2 fL (7.6-11.3); RBC Red Blood Cell Count 4.65 M/uL (3.86-4.86)
[2019-02-16 15:55] LABS: Protime INR 0.99
[2019-02-16 16:09] LABS: ALT/SGPT 19 U/L (12-78); AST/SGOT 13 U/L (15-37); Albumin 3.1 g/dL (3.4-5.0); Alkaline Phosphatase 96 U/L (45-117); BUN Blood Urea Nitrogen 9 mg/dL (7-18); Bicarbonate 26 mmol/L (21-32); Bilirubin Direct < 0.1 mg/dL (0-0.2); Bilirubin Total 0.2 mg/dL (0.2-1.0); Glucose Level 98 mg/dL (74-106); Magnesium 2.3 mg/dL (1.8-2.4); NT PRO-BNP 5 pg/mL (<125); Protein, Total 7.1 g/dL (6.4-8.2); Sodium Level 141 mmol/L (136-145); Troponin (Emerg Dept Use Only) < 0.02 ng/mL (0.0-0.045)
[2019-02-16] MEDS ORDERED: MECLIZINE HCL 12.5 MG TAB ONE (16:34)
--- NOTE | 2019-02-16 16:38 | RAD REPORT ---
EXAM DESCRIPTION: RAD - Chest Single View - 02/16/2019 4:03 pm CLINICAL HISTORY: CHEST PAIN Chest pain. COMPARISON: Chest Single View dated 02/24/2018 FINDINGS: Portable technique limits examination quality. The lungs are grossly clear. The heart is normal in size. No displaced fractures. IMPRESSION: No acute intrathoracic process suspected.
--- NOTE | 2019-02-16 16:52 | RAD REPORT ---
EXAM DESCRIPTION: CT - Head Brain Wo Cont - 02/16/2019 4:42 pm CLINICAL HISTORY: DIZZINESS Headache, drowsiness COMPARISON: No comparisons TECHNIQUE: All CT scans are performed using dose optimization technique as appropriate and may inclu de automated exposure control or mA/KV adjustment according to patient size. FINDINGS: No intracranial hemorrhage, hydrocephalus or extra-axial fluid collection.No areas of brai n edema or evidence of midline shift. The paranasal sinuses and mastoids are clear. The calvarium is intact. IMPRESSION: No acute intracranial abnormality.
--- NOTE | 2019-02-16 17:10 | ER ---
Nurse's Notes [facility] Name: Bev Cox Age: 33 yrs Sex: Female : 1985 Arrival Date: 02/16/2019 Time: 14:29 Bed 24 Private MD: Diagnosis: Benign paroxysmal vertigo Presentation: 02/16 14:47 Presenting complaint: Patient states: dizziness, SOB, n/v/d started x 1 day. Had a sv recent ear infection. Transition of care: patient was not received from another setting of care. Onset of symptoms was February 2019. Risk Assessment: Do you want to hurt yourself or someone else? Patient reports no desire to harm self or others. Care prior to arrival: None. 14:47 Method Of Arrival: Ambulatory sv 14:47 Acuity: EVANGELINA 2 sv 15:28 Initial Sepsis Screen: Does the patient meet any 2 criteria? No. Patient's initial ca1 sepsis screen is negative. Does the patient have a suspected source of infection? No. Patient's initial sepsis screen is negative. Triage Assessment: 14:47 General: Appears in no apparent distress. uncomfortable, Behavior is calm, cooperative, sv appropriate for age. Pain: Denies pain. Neuro: Level of Consciousness is awake, alert, obeys commands, Oriented to person, place, time, situation, Moves all extremities. Full function Gait is steady, Speech is normal, Facial symmetry appears normal, Reports dizziness. Respiratory: Respiratory effort is even, unlabored, Respiratory pattern is regular, symmetrical. [employer]: 15:25 LMP N/A - Hysterectomy ca1 Historical: - Allergies: 14:49 No Known Allergies; sv - PMHx: 14:49 Hypothyroidism; PTSD; sv - PSHx: 14:49 Hysterectomy; sv - Immunization history:: Adult Immunizations up to date. - Social history:: Smoking status: Patient/guardian denies using tobacco. - Ebola Screening: : Patient negative for fever greater than or equal to 101.5 degrees Fahrenheit, and additional compatible Ebola Virus Disease symptoms Patient denies exposure to infectious person Patient denies travel to an Ebola-affected area in the 21 days before illness onset No symptoms or risks identified at this time. Screenin:25 Abuse screen: Denies threats or abuse. Denies injuries from another. Nutritional ca1 screening: No deficits noted. Tuberculosis screening: No symptoms or risk factors identified. Fall Risk Fall in past 12 months (25 points). Assessment: 15:25 General: Appears in no apparent distress. comfortable, Behavior is calm, cooperative, ca1 appropriate for age. Pain: Denies pain. Neuro: Level of Consciousness is awake, alert, obeys commands, Oriented to person, place, time, situation, Appropriate for age. Cardiovascular: Heart tones S1 S2 present Capillary refill < 3 seconds Patient's skin is warm and dry. Respiratory: Airway is patent Respiratory effort is even, unlabored, Respiratory pattern is regular, symmetrical, Breath sounds are clear bilaterally. GI: Abdomen is round non-distended, obese, Bowel sounds present X 4 quads. Abd is soft and non tender X 4 quads. GI: Patient currently denies nausea, vomiting. : No deficits noted. No signs and/or symptoms were reported regarding the genitourinary system. EENT: Denies blurred vision. Derm: Skin is intact, is healthy with good turgor, Skin is pink, warm \\T\\ dry. Musculoskeletal: Circulation, motion, and sensation intact. Capillary refill < 3 seconds, Range of motion: intact in all extremities. 16:51 Reassessment: Patient appears in no apparent distress at this time. Patient and/or ca1 family updated on plan of care and expected duration. Pain level reassessed. Patient is alert, oriented x 3, equal unlabored respirations, skin warm/dry/pink. Pt back from CT. Vital Signs: 14:49 BP 132 / 93; Pulse 118; Resp 20; Temp 98.5; Pulse Ox 98% ; Weight 122.47 kg; Height 5 sv ft. 3 in. (160.02 cm); 15:25 BP 106 / 75; Pulse 98; Resp 17 S; Pulse Ox 99% on R/A; ca1 15:27 BP 106 / 75 RA Supine (auto/lg); Pulse 95; Pulse Ox 100% on R/A; jp3 15:29 BP 115 / 77 LA Sitting (auto/lg); Pulse 107; Pulse Ox 100% on R/A; jp3 15:31 BP 111 / 82 RA Standing (auto/lg); Pulse 109; Pulse Ox 99% on R/A; jp3 16:51 BP 108 / 85; Pulse 91; Resp 17 S; Pulse Ox 98% on R/A; ca1 14:49 Body Mass Index 47.83 (122.47 kg, 160.02 cm) sv 15:27 pt reports "I feel comfortable" jp3 15:29 pt states "I feel slightly dizzy" jp3 15:31 pt reports "dizziness; worse than sitting" jp3 ED Course: 14:29 Patient arrived in ED. rg4 14:49 Triage completed. sv 14:49 Arm band placed on. sv 15:21 Jerri Jones, RN is Primary Nurse. ca1 15:25 Patient has correct armband on for positive identification. Placed in gown. Bed in low ca1 position. Call light in reach. Side rails up X 1. Pulse ox on. NIBP on. Warm blanket given. 15:25 No provider procedures requiring assistance completed. ca1 15:33 Arturo Gray PA is PHCP. jr8 15:33 Boby Arboleda MD is Attending Physician. jr8 15:45 Patient maintains SpO2 saturation greater than 95% on room air. jp3 15:45 Initial lab(s) drawn, by va, sent to lab. Inserted saline lock: 20 gauge in right ca1 antecubital area, using aseptic technique. Blood collected. 16:19 cardiac monitor on. jp3 16:19 EKG done, by ED staff, reviewed by Arturo ROLDAN. jp3 16:41 CT completed. Patient tolerated procedure well. Patient moved back from CT. bq 17:11 Head Brain Wo Cont CT Sent. aa5 17:27 IV discontinued, intact, bleeding controlled, No redness/swelling at site. Pressure hb dressing applied. Administered Medications: 16:35 Drug: Meclizine 25 mg Route: PO; ca1 17:00 Follow up: Response: No adverse reaction; Marked relief of symptoms ca1 Outcome: 17:09 Discharge ordered by . jr8 17:27 Discharged to home ambulatory. hb 17:27 Condition: stable 17:27 Discharge instructions given to patient, Instructed on discharge instructions, follow up and referral plans. medication usage, Demonstrated understanding of instructions, follow-up care, medications, Prescriptions given X 1. 17:27 Patient left the ED. hb Signatures: Yamile Spears RN RN Hannah Marcos Audri, RN RN aa5 Arturo Gray PA PA jr8 Jael Fried RN RN hb Garcia, Rubi rg4 Ezekiel Baeza jp3 Jerri Jones RN RN ca1 Corrections: (The following items were deleted from the chart) 14:49 14:47 Acuity: EVANGELINA 3 sv sv
--- NOTE | 2019-02-16 17:10 | EDPHYS ---
Physician Documentation [facility] Name: Bev Cox Age: 33 yrs Sex: Female : 1985 Arrival Date: 02/16/2019 Time: 14:29 Bed 24 Private MD: ED Physician Boby Arboleda HPI: 02/16 16:54 This 33 yrs old Female presents to ER via Ambulatory with complaints of jr8 Dizziness. 16:54 The patient presents with vertigo. Onset: The symptoms/episode began/occurred acutely, jr8 5 hour(s) ago. Context: occurred at a park, occurred while the patient was walking, just prior to the episode the patient experienced no apparent symptoms. Modifying factors: The symptoms are alleviated by holding head still, the symptoms are aggravated by movement of head, changing position. Associated signs and symptoms: Pertinent negatives: chest pain, confusion, diaphoresis, focal weakness, head injury, headache, nausea, near-syncope, numbness, seizure, syncope, vomiting. Severity of symptoms: At their worst the symptoms were mild in the emergency department the symptoms have improved. Patient's baseline: Neuro: alert and fully oriented. Pt states she was at [facility] and got "dizzy" and fell on to her butt. States it feels like when you put your car in reverse and the car next to you starts backing out. Feels like she is moving when she is not. No focal neurological deficits noted.. 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 - Social history:: Smoking status: Patient/guardian denies using tobacco. - Ebola Screening: : Patient negative for fever greater than or equal to 101.5 degrees Fahrenheit, and additional compatible Ebola Virus Disease symptoms Patient denies exposure to infectious person Patient denies travel to an Ebola-affected area in the 21 days before illness onset No symptoms or risks identified at this time. ROS: 16:54 Constitutional: Negative for fever, chills, and weight loss, Eyes: Negative for injury, jr8 pain, redness, and discharge, ENT: Negative for injury, pain, and discharge, Neck: Negative for injury, pain, and swelling, Cardiovascular: Negative for chest pain, palpitations, and edema, Respiratory: Negative for shortness of breath, cough, wheezing, and pleuritic chest pain, Abdomen/GI: Negative for abdominal pain, nausea, vomiting, diarrhea, and constipation, Back: Negative for injury and pain, : Negative for injury, bleeding, discharge, and swelling, MS/Extremity: Negative for injury and deformity, Skin: Negative for injury, rash, and discoloration. 16:54 Neuro: Positive for dizziness, Negative for altered mental status, gait disturbance, headache, hearing loss, loss of consciousness, numbness, seizure activity, speech changes, syncope, near syncope, tingling, tremor, visual changes, weakness, acute changes. Exam: 16:54 Constitutional: This is a well developed, well nourished patient who is awake, alert, jr8 and in no acute distress. Head/Face: Normocephalic, atraumatic. ENT: Nares patent. No nasal discharge, no septal abnormalities noted. Tympanic membranes are normal and external auditory canals are clear. Oropharynx with no redness, swelling, or masses, exudates, or evidence of obstruction, uvula midline. Mucous membranes moist. Neck: Trachea midline, no thyromegaly or masses palpated, and no cervical lymphadenopathy. Supple, full range of motion without nuchal rigidity, or vertebral point tenderness. No Meningismus. Chest/axilla: Normal chest wall appearance and motion. Nontender with no deformity. No lesions are appreciated. Cardiovascular: Regular rate and rhythm with a normal S1 and S2. No gallops, murmurs, or rubs. Normal PMI, no JVD. No pulse deficits. Respiratory: Lungs have equal breath sounds bilaterally, clear to auscultation and percussion. No rales, rhonchi or wheezes noted. No increased work of breathing, no retractions or nasal flaring. Abdomen/GI: Soft, non-tender, with normal bowel sounds. No distension or tympany. No guarding or rebound. No evidence of tenderness throughout. Back: No spinal tenderness. No costovertebral tenderness. Full range of motion. MS/ Extremity: Pulses equal, no cyanosis. Neurovascular intact. Full, normal range of motion. 16:54 Eyes: Pupils: equal, round, and reactive to light and accomodation, Extraocular movements: no acute changes, Visual collazo: are intact, Nystagmus: no acute changes. 16:54 Neuro: Orientation: is normal, Mentation: is normal, Memory: is normal, Cranial nerves: extraocular movements are intact, Speech is clear and appropriate. Cerebellar function: is grossly normal, Motor: is normal, Sensation: is normal, Gait: is steady. Vital Signs: 14:49 BP 132 / 93; Pulse 118; Resp 20; Temp 98.5; Pulse Ox 98% ; Weight 122.47 kg; Height 5 sv ft. 3 in. (160.02 cm); 15:25 BP 106 / 75; Pulse 98; Resp 17 S; Pulse Ox 99% on R/A; ca1 15:27 BP 106 / 75 RA Supine (auto/lg); Pulse 95; Pulse Ox 100% on R/A; jp3 15:29 BP 115 / 77 LA Sitting (auto/lg); Pulse 107; Pulse Ox 100% on R/A; jp3 15:31 BP 111 / 82 RA Standing (auto/lg); Pulse 109; Pulse Ox 99% on R/A; jp3 16:51 BP 108 / 85; Pulse 91; Resp 17 S; Pulse Ox 98% on R/A; ca1 14:49 Body Mass Index 47.83 (122.47 kg, 160.02 cm) sv 15:27 pt reports "I feel comfortable" jp3 15:29 pt states "I feel slightly dizzy" jp3 15:31 pt reports "dizziness; worse than sitting" jp3 MDM: 15:34 Patient medically screened. jr8 16:54 Data reviewed: vital signs, nurses notes, lab test result(s), EKG, radiologic studies. jr8 17:08 ED course: Pt states similar episodes in past, feels like she is on a boat. Mild relief jr8 with the meclizine in the ED, symptoms improve with decreased head movements.. 17:11 Data interpreted: Pulse oximetry: on room air is 98 %. Interpretation: normal. jr8 Counseling: I had a detailed discussion with the patient and/or guardian regarding: the historical points, exam findings, and any diagnostic results supporting the discharge/admit diagnosis, lab results, radiology results, the need for outpatient follow up. Medication response: meclizine. Response to treatment: the patient's symptoms have mildly improved after treatment. 02/16 15:34 Order name: Basic Metabolic Panel [facility] 02/16 15:34 Order name: CBC with Diff [facility] 02/16 15:34 Order name: LFT's [facility] 02/16 15:34 Order name: Magnesium [facility] 02/16 15:34 Order name: NT PRO-BNP [facility] 02/16 15:34 Order name: PT-INR [facility] 02/16 15:34 Order name: Troponin (emerg Dept Use Only) [facility] 02/16 15:53 Order name: CBC with Automated Diff; Complete Time: 16:54 EDMS 02/16 16:10 Order name: Basic Metabolic Panel; Complete Time: 16:54 EDMS 02/16 16:10 Order name: Liver (Hepatic) Function; Complete Time: 16:54 EDMS 02/16 16:10 Order name: Troponin (Emerg Dept Use Only); Complete Time: 16:54 EDMS 02/16 16:10 Order name: NT PRO-BNP; Complete Time: 16:54 EDMS 02/16 16:10 Order name: Magnesium; Complete Time: 16:54 EDMS 02/16 16:47 Order name: Protime (+INR); Complete Time: 16:54 EDMS 02/16 15:34 Order name: XRAY Chest (1 view) [facility] 02/16 15:34 Order name: EKG; Complete Time: 15:36 02/16 15:34 Order name: Cardiac monitoring; Complete Time: 15:45 [facility] 02/16 15:34 Order name: EKG - Nurse/Tech; Complete Time: 15:45 02/16 15:34 Order name: IV Saline Lock; Complete Time: 15:45 02/16 15:34 Order name: Labs collected and sent; Complete Time: 15:45 02/16 15:34 Order name: O2 Per Protocol; Complete Time: 15:45 02/16 15:34 Order name: O2 Sat Monitoring; Complete Time: 15:44 [facility] 02/16 16:24 Order name: Head Brain Wo Cont CT em 02/16 16:45 Order name: RAD; Complete Time: 16:54 EDMS 02/16 16:54 Order name: CT; Complete Time: 16:54 EDMS Administered Medications: 16:35 Drug: Meclizine 25 mg Route: PO; ca1 17:00 Follow up: Response: No adverse reaction; Marked relief of symptoms ca1 Disposition: 02/17 09:00 Co-signature as Attending Physician, Boby Arboleda MD I agree with the assessment and kdr plan of care. Disposition: 02/16/19 17:09 Discharged to Home. Impression: Benign paroxysmal vertigo. - Condition is Stable. - Discharge Instructions: Benign Positional Vertigo, Vertigo. - Prescriptions for Meclizine 25 mg Oral Tablet - take 1 tablet by ORAL route every 8 hours As needed; 30 tablet. - Medication Reconciliation Form, Thank You Letter, Antibiotic Education, Prescription Opioid Use form. - Follow up: Private Physician; When: 2 - 3 days; Reason: Recheck today's complaints, Continuance of care, Re-evaluation by your physician. Follow up: Emergency Department; When: As needed; Reason: Worsening of condition. - Problem is new. - Symptoms have improved. Signatures: Dispatcher [employer] Yamile Anne RN RN Boby Arboleda MD MD [facility] Mateo Martinez, HVAC TECHNICIAN RESIDENTIAL HVAC TECHNICIAN RESIDENTIAL em Arturo Gray PA PA jr8 Jael Fried RN RN hb AcJerri reaves RN RN ca1 Corrections: (The following items were deleted from the chart) 02/16 17:10 17:09 02/16/2019 17:09 Discharged to Home. Impression: Benign paroxysmal vertigo. jr8 Condition is Stable. Forms are Medication Reconciliation Form, Thank You Letter, Antibiotic Education, Prescription Opioid Use. Problem is new. Symptoms have improved. jr8 17:27 17:10 02/16/2019 17:09 Discharged to Home. Impression: Benign paroxysmal vertigo. hb Condition is Stable. Forms are Medication Reconciliation Form, Thank You Letter, Antibiotic Education, Prescription Opioid Use. Follow up: Private Physician; When: 2 - 3 days; Reason: Recheck today's complaints, Continuance of care, Re-evaluation by your physician. Follow up: Emergency Department; When: As needed; Reason: Worsening of condition. Problem is new. Symptoms have improved. jr8
[2019-02-16 20:05] VITALS: BP 108/85; O2SAT 98
[2019-02-17 02:14] VITALS: TEMP 98.5
--- NOTE | 2019-02-17 11:34 | EKG ---
Test Date: 2019-02-16 Test Time: 16:15:20 Government Guard: NINI MEASUREMENT RESULTS: Intervals: Rate: 87 ND: 130 QRSD: 74 QT: 344 QTc: 413 [place]: P: 37 ND: 130 QRS: 55 T: 22 INTERPRETIVE STATEMENTS: Normal sinus rhythm Normal ECG Compared to ECG 02/24/2018 17:56:14 No significant changes Electronically Signed On 02-17-19 11:31:18 CDT by Simón Christiansen
== END 2019-02-16 17:27 | disposition home or self-care (01) ==
LOC: ER 14:28
DX: H81.10 Benign paroxysmal vertigo, unspecified ear (principal)
CPT/HCPCS: 36415; 70450; 71045; 80048; 80076; 83735; 83880; 84484; 85025; 85610; 93005; 99285

== ENCOUNTER 2019-06-16 08:52 | Emergency (ER) | payer OTHER ==
[2019-06-16] MEDS ORDERED: NA CHLORIDE 0.9% 1,000 ML ONE (09:59)
[2019-06-16 10:20] LABS: Absolute Lymphocytes (CBC) 2.1 K/uL (0.7-4.9); Basophils % 0.8 % (0-1.3); Lymphocytes % 21.9 % (15.3-44.8); MPV 8.3 fL (7.6-11.3)
--- NOTE | 2019-06-16 10:20 | EKG ---
Test Date: 2019-06-16 Test Time: 09:59:45 Production Foreman: FRANCINE MEASUREMENT RESULTS: Intervals: Rate: 66 [place]: 138 QRSD: 76 QT: 398 QTc: 417 [place]: P: 15 [place]: 138 QRS: 8 T: 16 INTERPRETIVE STATEMENTS: Normal sinus rhythm Normal ECG Compared to ECG 02/16/2019 16:15:20 No significant changes Electronically Signed On 06-16-19 10:19:48 RECOVERY AGENT by John Haq
[2019-06-16 10:40] LABS: Potassium 4.2 mmol/L (3.5-5.1)
[2019-06-16 12:01] LABS: Urine Blood NEGATIVE (NEG); Urine Glucose NEGATIVE (NEG); Urine Protein NEGATIVE (NEG); Urine Specific Gravity 1.025 (1.005-1.030); Urine pH 5.5 (5.0-7.0)
[2019-06-16] MEDS ORDERED: KETOROLAC 30 MG/ML INJ ONE (12:22)
[2019-06-16] MEDS ORDERED: ONDANSETRON 4 MG/2 ML VIAL ONE (12:22)
--- NOTE | 2019-06-16 12:56 | ER ---
Nurse's Notes [facility] Name: Bev Cox Age: 34 yrs Sex: Female : 1985 Arrival Date: 06/16/2019 Time: 08:56 Bed 20 Private MD: Tamera Domínguez Diagnosis: Vomiting, unspecified;Diarrhea, unspecified Presentation: 06/16 09:08 Presenting complaint: Patient states: doctor changed her lexapro to zoloft over a week iw ago, is having body aches and feels stiff and is having sweats and feels cold and has headache, diarrhea vomiting , symptoms started [place]. Transition of care: patient was not received from another setting of care. Onset of symptoms was June 14, 2019. Risk Assessment: Do you want to hurt yourself or someone else? Patient reports no desire to harm self or others. Initial Sepsis Screen: Does the patient meet any 2 criteria? No. Patient's initial sepsis screen is negative. Does the patient have a suspected source of infection? No. Patient's initial sepsis screen is negative. Care prior to arrival: None. 09:08 Method Of Arrival: Ambulatory iw 09:08 Acuity: EVANGELINA 3 iw Triage Assessment: 09:15 General: Appears in no apparent distress. comfortable, obese, Behavior is cooperative, bp appropriate for age, anxious. Pain: Complains of pain in head. EENT: No deficits noted. Neuro: No deficits noted. Cardiovascular: No deficits noted. Respiratory: No deficits noted. GI: Reports nausea. : No signs and/or symptoms were reported regarding the genitourinary system. Derm: No deficits noted. Musculoskeletal: No deficits noted. 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 - Social history:: Smoking status: Patient/guardian denies using tobacco. - Ebola Screening: : Patient negative for fever greater than or equal to 101.5 degrees Fahrenheit, and additional compatible Ebola Virus Disease symptoms Patient denies exposure to infectious person Patient denies travel to an Ebola-affected area in the 21 days before illness onset No symptoms or risks identified at this time. - Family history:: not pertinent. - Hospitalizations: : No recent hospitalization is reported. Screenin:10 Abuse screen: Denies threats or abuse. Denies injuries from another. Nutritional bp screening: No deficits noted. Tuberculosis screening: No symptoms or risk factors identified. Fall Risk None identified. Assessment: 09:15 General: SEE TRIAGE NOTE. bp 11:15 Reassessment: IVF COMPLETE, PT OOB TO BATHROOM. UOP PENDING, VS STABLE ON MONITOR. GI: bp Abdomen is non-distended, obese. 12:26 Reassessment: PT MEDICATED FOR ROY AND NAUSEA, VS STABLE ON MONITOR. NO NEURO S/S AT bp THIS TIME. 13:23 Reassessment: PT D/C HOME AMBULATORY, DX WITH NONSPECIFIC NAUSEA AND VOMITING. bp Vital Signs: 09:12 BP 110 / 82; Pulse 81; Resp 16; Temp 97.1; Pulse Ox 98% on R/A; Weight 122.47 kg; iw Height 5 ft. 4 in. (162.56 cm); Pain 7/10; 10:30 BP 103 / 68; Pulse 64; Resp 16; Pulse Ox 98% ; bp 11:14 BP 107 / 77; Pulse 64; Resp 16; Pulse Ox 98% ; bp 12:26 BP 115 / 78; Pulse 56; Resp 16; Pulse Ox 98% ; bp 13:24 BP 109 / 69; Pulse 62; Resp 17; Temp 98; Pulse Ox 98% ; bp 09:12 Body Mass Index 46.34 (122.47 kg, 162.56 cm) iw ED Course: 08:56 Patient arrived in ED. mr 08:57 Tamera Domínguez MD is Private Physician. mr 09:10 Triage completed. iw 09:12 Arm band placed on. iw 09:16 Jose Cooper, EVER is Primary Nurse. bp 09:19 Phong Wade MD is Attending Physician. rn 10:05 EKG done, by technical proposal writer. reviewed by Phong Wade MD. at1 10:10 Patient has correct armband on for positive identification. Bed in low position. Call bp light in reach. Side rails up X2. 10:10 Inserted saline lock: 22 gauge in left forearm, using aseptic technique. Blood bp collected. 13:23 No provider procedures requiring assistance completed. IV discontinued, intact, bp bleeding controlled, No redness/swelling at site. Pressure dressing applied. Administered Medications: 10:10 Drug: NS 0.9% 1000 ml Route: IV; Rate: 1000 ml; Site: left forearm; bp 13:25 Follow up: IV Status: Completed infusion; IV Intake: 1000ml bp 12:25 Drug: Zofran 4 mg Route: IVP; Site: left forearm; bp 13:25 Follow up: Response: Nausea is decreased bp 12:25 Drug: TORadol - Ketorolac 15 mg Route: IVP; Site: left forearm; bp 13:25 Follow up: Response: Pain is decreased bp Intake: 13:25 IV: 1000ml; Total: 1000ml. bp Outcome: 12:56 Discharge ordered by . rn 13:23 Discharged to home ambulatory. bp 13:23 Condition: stable 13:23 Discharge instructions given to patient, Instructed on discharge instructions, follow up and referral plans. medication usage, Demonstrated understanding of instructions, follow-up care, medications, Prescriptions given X 1. 13:25 Patient left the ED. bp Signatures: Amber Ndiaye Irene, RN Phong Vallejo MD MD rn Gonzales, Amanda, fondant puff maker EKG Tat1 Jose Cooper RN RN bp Corrections: (The following items were deleted from the chart) 10:39 10:30 BP 233 / 109; Pulse 80bpm; Resp 12bpm; Pulse Ox 100%; bp bp
--- NOTE | 2019-06-16 12:57 | EDPHYS ---
Physician Documentation [facility] Name: Bev Cox Age: 34 yrs Sex: Female : 1985 Arrival Date: 06/16/2019 Time: 08:56 Bed 20 Private MD: Tamera Domínguez ED Physician Phong Wade HPI: 06/16 10:41 This 34 yrs old Female presents to ER via Ambulatory with complaints of rn Nausea, vomiting, diarrhea. 10:41 The patient presents to the emergency department with nausea, vomiting, diarrhea. rn 10:41 Onset: The symptoms/episode began/occurred 3 day(s) ago. Possible causes: unknown. rn Associated signs and symptoms: Pertinent positives: diarrhea, nausea, vomiting, Pertinent negatives: abdominal pain, fever, GI bleeding, hematuria. Severity of symptoms: At their worst the symptoms were mild in the emergency department the symptoms are unchanged. The patient has not experienced similar symptoms in the past. Reports nausea/vomiting/diarrhea, muscle aches, feels cold, began 3 days ago, no fever. Reports lexapro changed last week to zoloft. No tremors, no seizures. No other medication changes. . 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 - Social history:: Smoking status: Patient/guardian denies using tobacco. - Ebola Screening: : Patient negative for fever greater than or equal to 101.5 degrees Fahrenheit, and additional compatible Ebola Virus Disease symptoms Patient denies exposure to infectious person Patient denies travel to an Ebola-affected area in the 21 days before illness onset No symptoms or risks identified at this time. - Family history:: not pertinent. - Hospitalizations: : No recent hospitalization is reported. ROS: 10:41 Constitutional: Negative for fever, chills, and weight loss, Eyes: Negative for injury, rn pain, redness, and discharge, Neck: Negative for injury, pain, and swelling, Cardiovascular: Negative for chest pain, palpitations, and edema, Respiratory: Negative for shortness of breath, cough, wheezing, and pleuritic chest pain, Abdomen/GI: Negative for abdominal pain, and constipation, MS/Extremity: Negative for injury and deformity, Skin: Negative for injury, rash, and discoloration, Neuro: Negative for numbness, tingling, and seizure. Exam: 10:41 Constitutional: This is a well developed, well nourished patient who is awake, alert, rn sitting up, seems anxious Head/Face: Normocephalic, atraumatic. Eyes: Pupils equal round and reactive to light, extra-ocular motions intact.No nystagmus ENT: dry MM Neck: Trachea midline, no thyromegaly or masses palpated, and no cervical lymphadenopathy. Supple, full range of motion without nuchal rigidity, or vertebral point tenderness. No Meningismus. Cardiovascular: Regular rate and rhythm. No pulse deficits. Respiratory: Lungs have equal breath sounds bilaterally, clear to auscultation. No increased work of breathing, no retractions or nasal flaring. Abdomen/GI: soft, non-tender no guarding MS/ Extremity: Pulses equal, no cyanosis. Neurovascular intact. Full, normal range of motion. Equal circumference. No clonus. Neuro: Awake and alert, GCS 15, oriented to person, place, time, and situation. Cranial nerves II-XII grossly intact. Motor strength 5/5 in all extremities. Sensory grossly intact. Cerebellar exam normal. Normal gait. 12:57 ECG was reviewed by the Attending Physician. rn Vital Signs: 09:12 BP 110 / 82; Pulse 81; Resp 16; Temp 97.1; Pulse Ox 98% on R/A; Weight 122.47 kg; iw Height 5 ft. 4 in. (162.56 cm); Pain 7/10; 10:30 BP 103 / 68; Pulse 64; Resp 16; Pulse Ox 98% ; bp 11:14 BP 107 / 77; Pulse 64; Resp 16; Pulse Ox 98% ; bp 12:26 BP 115 / 78; Pulse 56; Resp 16; Pulse Ox 98% ; bp 13:24 BP 109 / 69; Pulse 62; Resp 17; Temp 98; Pulse Ox 98% ; bp 09:12 Body Mass Index 46.34 (122.47 kg, 162.56 cm) iw MDM: 09:19 Patient medically screened. rn 12:54 Differential diagnosis: viral gastroenteritis, gastroenteritis, medication side effect, rn serotonin syndrome, lithium toxicity. Data reviewed: vital signs, nurses notes, lab test result(s), and as a result, I will discharge patient. Counseling: I had a detailed discussion with the patient and/or guardian regarding: the historical points, exam findings, and any diagnostic results supporting the discharge/admit diagnosis, lab results, the need for outpatient follow up, to return to the emergency department if symptoms worsen or persist or if there are any questions or concerns that arise at home. Response to treatment: the patient's symptoms have mildly improved after treatment, and as a result, I will discharge patient. Special discussion: I discussed with the patient/guardian in detail that at this point there is no indication for admission to the hospital. It is understood, however, that if the symptoms persist or worsen the patient needs to return immediately for re-evaluation. Based on the history and exam findings, there is no indication for further emergent testing or inpatient evaluation. I discussed with the patient/guardian the need to see the primary care provider for further evaluation of the symptoms. ED course: Pt improved, no acute finding on exam or bloodwork, lithium level actually low, no signs to suggest serotonin syndrome, not hyperthermic, no clonus, no AMS. Will dc home with symptomatic care and return precautions. . 06/16 09:28 Order name: Flu; Complete Time: 06/16 09:28 Order name: [place] Screen Profile; Complete Time: 06/16 09:28 Order name: CBC with Diff; Complete Time: 06/16 09:28 Order name: Basic Metabolic Panel; Complete Time: 06/16 09:28 Order name: CK; Complete Time: 06/16 10:41 Order name: [place]; Complete Time: 06/16 09:28 Order name: IV Start; Complete Time: 06/16 09:28 Order name: Urine Test (obtain specimen); Complete Time: 11:06/16 09:28 Order name: EKG; Complete Time: : rn 06/16 11:35 Order name: Urine Dipstick--Ancillary (enter results); Complete Time: 12:17 bd 06/16 11:35 Order name: Urine --Ancillary (enter results); Complete Time: 12:17 bd 06/16 09:28 Order name: Urine Dipstick-Ancillary (obtain specimen); Complete Time: 11:40 rn 06/16 09:28 Order name: EKG - Nurse/Tech; Complete Time: 10:13 rn EC:57 Rate is 66 beats/min. Rhythm is regular. QRS [place] is Normal. MO interval is normal. QRS rn interval is normal. QT interval is normal. No Q waves. T waves are Normal. No ST changes noted. Clinical impression: Normal ECG. Interpreted by me. Reviewed by me. Administered Medications: 10:10 Drug: NS 0.9% 1000 ml Route: IV; Rate: 1000 ml; Site: left forearm; bp 13:25 Follow up: IV Status: Completed infusion; IV Intake: 1000ml bp 12:25 Drug: Zofran 4 mg Route: IVP; Site: left forearm; bp 13:25 Follow up: Response: Nausea is decreased bp 12:25 Drug: TORadol - Ketorolac 15 mg Route: IVP; Site: left forearm; bp 13:25 Follow up: Response: Pain is decreased bp Disposition: 06/16/19 12:56 Discharged to Home. Impression: Vomiting, unspecified, Diarrhea, unspecified. - Condition is Stable. - Discharge Instructions: Diarrhea, Adult, Nausea and Vomiting, Adult. - Prescriptions for Zofran ODT 4 mg Oral tablet,disintegrating - place 1 tablet by TRANSLINGUAL route every 8 hours As needed; 20 tablet. - Medication Reconciliation Form, Thank You Letter, Antibiotic Education, Prescription Opioid Use form. - Follow up: Private Physician; When: As needed; Reason: Recheck today's complaints, Re-evaluation by your physician. - Problem is new. - Symptoms have improved. Signatures: Dispatcher [employer] EDFarhana Paulino, RN RN Phong Ann MD MD rn Peltier, Brian, RN RN bp Corrections: (The following items were deleted from the chart) 13:25 12:56 06/16/2019 12:56 Discharged to Home. Impression: Vomiting, unspecified; Diarrhea, bp unspecified. Condition is Stable. Forms are Medication Reconciliation Form, Thank You Letter, Antibiotic Education, Prescription Opioid Use. Follow up: Private Physician; When: As needed; Reason: Recheck today's complaints, Re-evaluation by your physician. Problem is new. Symptoms have improved. rn
[2019-06-16 14:25] VITALS: O2SAT 98
[2019-06-16 14:30] VITALS: BP 109/69; TEMP 98
== END 2019-06-16 13:25 | disposition home or self-care (01) ==
LOC: ER 08:52
DX: R11.2 Nausea with vomiting, unspecified (principal); R19.7 Diarrhea, unspecified; E03.9 Hypothyroidism, unspecified; F41.8 Other specified anxiety disorders; F43.10 Post-traumatic stress disorder, unspecified
CPT/HCPCS: 96361; 93005; 85025; 80048; 36415; 82550; 86308; 81025; 80178; 81003; 87804 ×2; 96375; 96374; 99284; J7030; J2405

== ENCOUNTER 2020-07-02 17:32 | Emergency (ER) | payer OTHER ==
--- OUTSIDE RECORDS SUMMARY | 2020-07-02 17:35 | XMS REPORT | Summary of Care ---
:1985 Author Name Romulo Mckinney Address Unavailable Unavailable , Care Team Providers Name Role Phone Romulo Mckinney Unavailable Unavailable [facility] Unavailable Unavailable MIRTHA DO Unavailable Unavailable Unavailable Unavailable Unavailable Functional Status Name Dates Details Functional status health issues are not documented Status: Name Dates Details Cognitive status health issues are not documented Status: Problems Name Dates Details Vitamin D deficiency (268.9, E55.9) Stat us: Active Morbidly obese (278.01, E66.01) Status: Active Malnutrition (263.9, E46) Status: Active Dyslipidemia (272.4, E78.5) Status: Acti ve Low folate (266.2, E53.8) Status: Active Hypothyroidism, adult (244.9, E03.9) Sta tus: Active Asthma in adult, unspecified asthma tim rity, unspecified whether complicated, unspecified whether persistent (493.90, J45.909) Statu s: Active Morbid obesity (278.01, E66.01) Status: Active Anxiety and depression (300.00, F41.9) S tatus: Active SABINA (stress urinary incontinence, female) (625.6, N39.3) Status: Active Medications Name Dates Details Medications not documented Allergies and Adverse Reactions Name Dates Details No Known Drug Allergies (Allergy) Status : Active Procedures Procedure Dates Details Procedures not documented Immunization Name Dates Details Immunizations not documented Social History Name Dates Details Tobacco smoking consumption unknown (finding) Vital Signs Date Test Result Details :14 Systolic blood pressure 125 mm[Hg] Status: Diastolic blood pressure 81 mm[Hg] Status: Body height 63 in Status: Weight 269.8 lb Status: Body mass index (BMI) [Ratio] 47.79 kg/m2 Status: Body surface area Derived from formula 2.2 m2 S tatus: Body temperature 97.2 f Status: Heart Rate 93 /min Status: Results Date Description Value Details :00 [QL] LIPID PANEL CHOLESTEROL, TOTAL 246 mg/dl (Above high Range: <200 threshold) HDL CHOLESTEROL 43 mg/dl (Below low Range: > OR = 50 threshold) TRIGLYCERIDES 444 mg/dl (Above high Range: <1 50 threshold) Comments: If a n on-fasting specimen was collected, considerrepeat triglyceride testing on a fasting specimenif clinically indicated. Vivian et al. J. of Clin. Lipidol. 2015;9:129-169. LDL-CHOLESTEROL {MG/DL__CAL} Comments: LDL ch olesterol not calculated. Triglyceride levelsgreater than 400 mg/dL invalidate calculated LDL results. Reference range: <100 Desirable range <100 mg/dL for primary prevention; <70 mg/dL for patients wit h CHD or diabetic patients with > or = 2 CHD risk factors. LDL-C is now calculated using the Arun calculation, which is a validated novel method providing better accuracy th an the Friedewal d equation in the estimation of LDL-C. Ignacio CORDERO et al. RUTH. 2013;310(19): 7604-7968 (http://education.[employer]/faq/AJZ807) CHOL/HDLC RATIO 5.7 {CALC} (Above high Range: < 5.0 threshold) NON HDL CHOLESTEROL 203 {MG/DL__CAL} (Above hig h Range: <130 threshold) Comments: For pa ronnie with diabetes plus 1 major ASCVD risk factor, treating to a non-HDL-C goal of <100 mg/dL (LDL-C of <70 mg/dL) is considered a therapeutic option. :00 [QL] IRON AND TOTAL IRON BINDING CAPACIT Y IRON, TOTAL 89 {mcg/dl} (Normal) Range: 40- 190 IRON BINDING CAPACITY 357 {mcg/dL__ca} (Normal) Range: 250-450 % SATURATION 25 {%__CALC} (Normal) Range: 16 -45 :00 [QL] CMP W/EGFR GLUCOSE 106 mg/dl (Normal) Range: 65-13 9 Comments: Non-fa sting reference interval UREA NITROGEN (BUN) 12 mg/dl (Normal) Range: 7- 25 CREATININE 0.74 mg/dl (Normal) Range: 0.50 -1.10 eGFR NON-AFR. [place] 105 {ML/MIN/1.7} (Normal ) Range: > OR = 60 eGFR 122 {ML/MIN/1.7} (Normal) Range: > OR = 60 BUN/CREATININE RATIO NOT APPLICABLE {CALC} Rang e: 6-22 SODIUM 141 mmol/L (Normal) Range: 135- 146 POTASSIUM 4.0 mmol/L (Normal) Range: 3.5- 5.3 CHLORIDE 106 mmol/L (Normal) Range: 98-1 10 CARBON DIOXIDE 28 mmol/L (Normal) Range: 20-32 CALCIUM 8.9 mg/dl (Normal) Range: 8.6-1 0.2 PROTEIN, TOTAL 6.4 g/dl (Normal) Range: 6.1-8. 1 ALBUMIN 3.8 g/dl (Normal) Range: 3.6-5. 1 GLOBULIN 2.6 {G/DL__CALC} (Normal) Range : 1.9-3.7 ALBUMIN/GLOBULIN RATIO 1.5 {CALC} (Normal) Rang e: 1.0-2.5 BILIRUBIN, TOTAL 0.2 mg/dl (Normal) Range: 0.2- 1.2 ALKALINE PHOSPHATASE 79 u/l (Normal) Range: 31- 125 AST 12 u/l (Normal) Range: 10-30 ALT 9 u/l (Normal) Range: 6-29 [id number] [QL] CBC (INCLUDES DIFF/PLT) WHITE BLOOD CELL COUNT 9.8 {Thousand/u} (Normal ) Range: 3.8-10.8 RED BLOOD CELL COUNT 4.39 {Million/uL} (Normal) Range: 3.80-5.10 HEMOGLOBIN 13.1 g/dl (Normal) Range: 11.7- 15.5 HEMATOCRIT 39.5 % (Normal) Range: 35.0-45. 0 MCV 90.0 fL (Normal) Range: 80.0-10 0.0 MCH 29.8 pg (Normal) Range: 27.0-33 .0 MCHC 33.2 g/dl (Normal) Range: 32.0- 36.0 RDW 12.8 % (Normal) Range: 11.0-15. 0 PLATELET COUNT 314 {Thousand/u} (Normal) Range : 140-400 MPV 11.3 fL (Normal) Range: 7.5-12. 5 ABSOLUTE NEUTROPHILS 6086 {cells/uL} (Normal) R barbara: [phone] ABSOLUTE LYMPHOCYTES 2548 {cells/uL} (Normal) R barbara: [phone] ABSOLUTE MONOCYTES 755 {cells/uL} (Normal) Rang e: 200-950 ABSOLUTE EOSINOPHILS 343 {cells/uL} (Normal) Ra nge: 15-500 ABSOLUTE BASOPHILS 69 {cells/uL} (Normal) Range : 0-200 NEUTROPHILS 62.1 % (Normal) LYMPHOCYTES 26.0 % (Normal) MONOCYTES 7.7 % (Normal) EOSINOPHILS 3.5 % (Normal) BASOPHILS 0.7 % (Normal) :00 [QL] PTH, INTACT (WITHOUT CALCIUM) PARATHYROID HORMONE, 43 pg/ml (Normal) Range: 1 4-64 INTACT Comments: Interp retive Guide Intact PTH Calcium -------Normal Parathyroid Normal NormalHypoparathyroidism Low or Low Normal LowHyperpa rathyroidism P rimary Normal or High High Secondary High Normal or Low Tertiary High HighNon-Parathyroid Hypercalcemia Low or Low Normal High :00 [QL] VITAMIN E (TOCOPHEROL) Comments: Re ference Range 5.7- 19.9 mg/L Levels of alpha-tocopherol <5 mg/L are consistent with Vitamin E deficiency in adults.Vitamin supplementation within 24 hours prior to blood draw may affect the accuracy of results. This test was developed and its analytical performance characteristics have been determined by [employer]. It has not been cleared or approved by [facility]. This assay has been validated pursuant to the CLIA regulations and is used for clinical purposes. ALPHA-TOCOPHEROL 15.6 mg/L Comments: Refer ence Range 5.7-19.9 mg/L Levels of alpha-tocopherol <5 mg/L are consistent with Vitamin E deficiency in adults.Vitamin supplementation within 24 hours prior to blood draw may affect the accuracy of results. This test was developed and its analytical performance characteristics have been determined by [employer]. It has not been cleared or approved by [facility]. This assay has been validated pursuant to the CLIA regulations and is used for clinical purposes. [id number] 1.9 mg/L Range: <4. 4 Comments: This t est was developed and its analytical performance characteristics have been determined by [employer]. It has not been cleared or approved by theFDA. This assay has been validated pursuant to the CLIA regula tions and is used for clinical purposes. [QL] FOLATE, SERUM FOLATE, SERUM 3.8 ng/ml (Below low threshold) Comments: Reference Range Low: <3.4 Borderline: 3.4-5.4 Normal: >5.4 [QL] TSH, 3RD GENERATION TSH 0.35 {MIU/L} (Below low thresho ld) Comments: Reference Range > or = 20 Years 0.40-4.50 Ranges First trimester 0.26-2.66 Second trimester 0.55-2.73 Third trimester 0.43-2.91 [QL] VITAMIN B12 VITAMIN B12 335 pg/ml (Normal) Range: 200-1 100 Comments: Please Note: Although the reference range for [id number] is 200- 1100 pg/mL, it has been reported that between5 and 10% of patients with values between 200 and 400pg/mL may experience neuropsychiatric an d hematologicabn ormalities due to occult B12 deficiency; less than 1%of patients with values above 400 pg/mL will have symptoms. [QL] VITAMIN B1, WHOLE BLOOD Comments: Gaot FRAGA COMMENT:FASTING:NO VITAMIN B1, WHOLE BLOOD 126 nmol/L Range: 7 8-185 Comments: Vitami n supplementation within 24 hours prior toblood draw may affect the accuracy of results. This test was developed and its analytical performance characteristics have been determined by [employer]. It has not been cleared or approved by theFDA. This assay has been validated pursuant to the CLIA regulations and is used for clinical purposes. [QL] HEMOGLOBIN A1c HEMOGLOBIN A1c 5.2 {%_of_total} (Normal) Range : <5.7 Comments: For th e purpose of screening for the presence ofdiabetes: <5.7% Consistent with the absence of diabetes5.7-6.4% Consistent with increased risk for diabetes (prediabetes)> or =6 .5% Consistent with diabetes This assay result is consistent with a decreased riskof diabetes. Currently, no consensus exists regarding use ofhemoglobin A1c for diagnosis of diabetes in children. Accor ding to [place] Diabetes Association (ADA)guidelines, hemoglobin A1c <7.0% represents optimalcontrol in non- diabetic patients. Differentmetrics may apply to specific patient populations. Standards of Medical Care in Diabetes(ADA). :00 [QL] VITAMIN A (RETINOL) Comments: REPOR T COMMENT:FASTING:NO VITAMIN A 59 {mcg/dl} Range: 38-98 Comments: Clin Chem Vol. 34.No.8. [id number]. 1998Vitamin supplementation within 24 hours prior to blood draw may affect the accuracy of results. This test was developed and its analytical performance cristobal huber have b een determined by [employer]. It has not been cleared or approved by theA. This assay has been validated pursuant to the CLIA regulations and is used for clinical purposes. :00 [Q] QUESTASSURED 25-OH VIT D, Comments: Reference range: Not establishedREPORT COMMENT:FASTING:NO (D2,D3), LC/MS/MS VITAMIN D, 45 ng/ml Range: 30-100 25-OH, TOTAL Comments: (Note) Vitamin D, 25-Hydroxy reports concentrations of two common forms, 25-OHD2 and 25-OHD3. 25-OHD3 indicates both endogenous production and supplementation. 25-OHD2 is an indicator of exogenous s ources such as diet or supplementation. Therapy is based on measurement of Total 25-OHD, with levels <20 ng/mL indicative of Vitamin D deficiency, while levels between 20 ng/mL and 30 ng/mL sugg est insufficienc y. Optimal levels are > or = 30 ng/mL. Vitamin D is fat- soluble and therefore inadvertent or intentional ingestion of excessively high amounts could be toxic. Studies in children and adults sugg est blood levels would need to exceed 150 ng/mL before there is any concern. Tigre MF, Estefany NC, Ramon ROY, et al. Evaluation, treatment and prevention of vitamin D defi ciency: an Endoc rine Society clinical practice guideline. J Clin Endocrinol Metab. 2011;96(7):1911-30. For additional information, please refer to http://education.[employer]/faq/RTL972 VITAMIN D, 45 ng/ml Comments: Refere nce range: Not established 25-OH, D3 VITAMIN D, <4.0 ng/ml Comments: (Note) Reference range: Not established This test was developed and its analytical performancecharacteristics have been determined by [employer]. It has not beencleared or approved by the US Food and Drug 25-OH, D2 Administration. Thisassay has been validated pursuant to the CLIA regulation and is usedfor Clinical purposes.MDFmed [id number] [place] [address],[address] [place] [address] [phone] Lau Note 1 Note 1 For additional information, please refer to http://education.[employer]/faq/HKK140 (This link is being provided for informational/educational purposes only.) Plan of Care Name Dates Details Planned Observations Planned Goals not documented Planned Encounters Appointment; LOLA SHANNON D.O. On: 21-May-2020 8 :45 Instructions Name Dates Details Instructions not documented Encounters Appointment; LOLA SHANNON D.O. On: 13-Apr-2020 1 1:30 Encounter Diagnosis: Problem not documented Appointment; LOLA SHANNON D.O. On: 23-Apr-2020 9 :15 Encounter Diagnosis: Problem not documented
--- OUTSIDE RECORDS SUMMARY | 2020-07-02 17:35 | XMS REPORT | Continuity of Care Document ---
:1985 Author Organization [facility] t Address [address] [place] [address] Care Team Providers Name Role Phone MATT Attending Clinician Unavailable MIRTHA Attending Clinician Unavailable Lab, Fam Pob I Attending Clinician Unavailable Problems Condition Condition Condition Status Onset Resolution Last Treating Co mments Source Name Details Category Date Date Treatment Clinician Date Postsurgic Postsurgic Problem Active M kair al al 6 da menopause Menopause 00:00: Medi daysi 00 Group Eruption Eruption Problem Active [place] 8-16 da 00:00: Medical 00 Group Depressed Depressed Problem Active 2013-06 [facility] bipolar I Bipolar I 1- da disorder Disorder 00:00: Medica l 00 Group Gastroesop Gastroesop Problem Active M at[facility] hageal hageal 9-15 da reflux Reflux 00:00: Medical disease Disease 00 Group Hypothyroi Hypothyroi Problem Active M [facility] dism dism da Medical Group Depressive Depressive Problem Active M [facility] disorder Disorder da Medical Group Upper Upper Problem Active [place] respirator Respirator da y y Medical infection Infection Grou p Allergic Allergic Problem Active [place] rhinitis Rhinitis [facility] Acute Acute Problem Active [place] respirator Respirator da y disease y Disease Medi daysi Group Premenstru Premenstru Problem Active M [facility] al al da dysphoric Dysphoric Medi daysi disorder Disorder Group Menorrhagi Menorrhagi Problem Active M [facility] a a [facility] Medical Group Vaginal Vaginal Problem Active [place] delivery Delivery [facility] Eczema Eczema Problem Active [facility] Pain in Pain in Problem Active [place] wrist Wrist [facility] Neck pain Neck Pain Problem Active [facility] Backache Backache Problem Active [place] [facility] Malaise Malaise Problem Active [place] and da fatigue Fatigue Medical Group Fatigue Fatigue Problem Active [facility] Upper Upper Problem Active [facility] abdominal Abdominal da pain Pain Medical Group Serum Serum Problem Active [facility] creatinine Creatinine da abnormal Abnormal Medica l Group Anti-nucle Anti-nucle Problem Active M [facility] ar factor ar Factor da positive Positive Medica l Group Superficia Superficia Problem Active M at[place] l l da incisional Incisional Me dical surgical Surgical Group site Site infection Infection Vitamin D Vitamin D Problem Active Uni vers deficiency deficiency it y [facility] [place] [facility] Morbid Morbid Problem Active Univers obesity obesity [facility] [place] [facility] Malnutriti Malnutriti Problem Active U nivers on on [facility] [place] [facility] Dyslipidem Dyslipidem Problem Active U nivers ia ia [facility] [place] [facility] Low folate Low folate Problem Active U nivers [facility] [place] [facility] Hypothyroi Hypothyroi Problem Active U nivers dism, dism, ity of adult adult [place] [facility] Asthma in Asthma in Problem Active Uni vers adult, adult, ity of [place] asthma d asthma Physic i severity, severity, ans unspecifie unspecifie d whether d whether complicate complicate d, d, unspecifie unspecifie d whether d whether persistent persistent Anxiety Anxiety Problem Active Univers and and ity of depression depression [place] [facility] SABINA SABINA Problem Active Univers (stress (stress ity of urinary urinary [place] incontinen incontinen Ph ysici ce, ce, ans female) female) Abdominal Abdominal Problem Active Uni vers pain pain [facility] [place] [facility] CLAY CLAY Problem Active Univers (obstructi (obstructi it y of ve sleep ve sleep [place] apnea) apnea) Physici ans Allergies, Adverse Reactions, Alerts Allergy Allergy Status Severity Reaction(s) Onset Inactive Treating Comm ents Source Name Type Date Date Clinician SULFA Allergy Active Moderate Vomiting 2013- [place] (SULFONA to 3-21 da MIDE substanc 00:00: Medical ANTIBIOT e 00 Group ICS) Family History Family Member Diagnosis Comments Start Date Stop Date Source Unknown Family Member Adopted Other [facility] Physicians Social History Smoking Status Start Date Stop Date Source Former Smoker [facility] Never smoked tobacco (finding) U [facility] Medications Ordered Filled Start Stop Current Ordering Indication Dosage Frequency Signature Comments Components Source Medication Medication Date Date Medication? Clinician (SIG) Name Name azithromyci azithromyci No azithromyc [place] 250 mg n 250 mg in 250 mg da tablet tablet tablet Medical Group escitalopra escitalopra No escitalopr [place] m 10 mg m 10 mg am 10 mg da tablet tablet tablet Medical Group escitalopra escitalopra No escitalopr [place] m 20 mg m 20 mg am 20 mg da tablet tablet tablet Medical Group estradiol 2 estradiol 2 No estradiol [place] mg tablet mg tablet 2 mg da TAKE 1 TAKE 1 tablet Medical TABLET BY TABLET BY TAKE 1 Cristin up MOUTH EVERY MOUTH EVERY TABLET BY DAY DAY MOUTH EVERY DAY levothyroxi levothyroxi No levothyrox [place] ne 112 mcg ne 112 mcg ine 112 da tablet TAKE tablet TAKE mcg tablet Medical 1 TABLET BY 1 TABLET BY TAKE 1 Group MOUTH EVERY MOUTH EVERY TABLET BY DAY DAY MOUTH EVERY DAY lithium lithium No lithium [place] [facility] carbonate carbonate carbonate da ER 300 mg ER 300 mg ER 300 mg Medical tablet,exte tablet,exte tablet,ext Group nded nded ended release release release oxybutynin oxybutynin No 1 BID oxybutynin [place] chloride 5 chloride 5 chloride 5 da mg tablet mg tablet mg tablet Medical Take 1 Take 1 Take 1 Group tablet tablet tablet twice a day twice a day twice a by oral by oral day by route. route. oral route. trazodone trazodone No trazodone [place] 150 mg 150 mg 150 mg da tablet tablet tablet Medical Group [facility] Yes M.D. 1 QD TAKE 1 Univers Carbonate Carbonate CAPSULE it y of 600 MG Oral 600 MG Oral DAILY [place] Capsule Capsule Physici ans Lexapro 20 Lexapro 20 Yes M.D. 1 QD TAKE 1 U nivers MG Oral MG Oral TABLET ity of Tablet Tablet DAILY. [place] [facility] traZODone traZODone Yes M.D. QD TAKE 1 Uni vers HCl - 150 HCl - 150 TABLET ity of MG Oral MG Oral ONCE [place] Tablet Tablet DAILY. Physici ans Levothyroxi Levothyroxi Yes M.D. 1 QD TAKE 1 Univers ne Sodium ne Sodium TABLET ity of 112 MCG 112 MCG DAILY. [place] Oral Tablet Oral Tablet P hysici ans Estradiol 2 Estradiol 2 Yes M.D. 1 QD TAKE 1 Univers MG Oral MG Oral TABLET ity of Tablet Tablet DAILY. [place] Physici ans Vital Signs Vital Name Observation Time Observation Value Comments Source BP Diastolic 2019-12-01 00:00:00 80 mm[Hg] [facility] Height 2019-12-01 00:00:00 64 [in_i] [facility] BMI (Body Mass 2019-12-01 00:00:00 45.9 kg/m2 [facility] Medical Index) Group BP Systolic 2019-12-01 00:00:00 111 mm[Hg] [facility] Body Weight 2019-12-01 00:00:00 267.5 [lb_av] [facility] Systolic blood 2020-04-23 09:14:00 125 mm[Hg] Univer sity of pressure [place] [facility]ician s Diastolic blood 2020-04-23 09:14:00 81 mm[Hg] Unive rsity of pressure [place] [facility]ician s Body height 2020-04-23 09:14:00 63 [in_us] [facility] [place] [facility] Weight 2020-04-23 09:14:00 269.8 [lb_av] [facility] [place] [facility] Body mass index 2020-04-23 09:14:00 47.79 kg/m2 Unive rsity of (BMI) [Ratio] [place] [facility] ns Body temperature 2020-04-23 09:14:00 97.2 [degF] Univ ersity [facility] [place] [facility] Heart Rate 2020-04-23 09:14:00 93 /min [facility] [place] [facility] Body height 2020-04-13 11:46:00 63 [in_us] [facility] [place] [facility] Weight 2020-04-13 11:46:00 268.1 [lb_av] [facility] [place] [facility] Body mass index 2020-04-13 11:46:00 47.49 kg/m2 Unive rsity of (BMI) [Ratio] [place] Physicia ns Procedures Procedure Date / Time Performing Clinician Source Performed [MMD] US Liver 2020-05-24 00:00:00 [facility] [place] [facility] Bilateral Oophorectomy 2017-10-17 00:00:00 [facility] Laparoscopic Total 2017-10-17 00:00:00 [facility] Tubal Ligation 2016-01-28 00:00:00 [facility] History of Oophorectomy [facility] bilateral Physicians Plan of Care Planned Activity Planned Date Details Comments Source Diagnostic Test 2019-12-01 urinalysis, [facility] Pending 00:00:00 dipstick [code = Group urinalysis, dipstick] Diagnostic Test 2019-12-01 pap, LB + reflex [facility] Pending 00:00:00 to HR HPV if ASC-U Group [code = pap, LB + reflex to HR HPV if ASC-U] Diagnostic Test 2019-12-01 estradiol, serum [facility] [facility] Pending 00:00:00 [code = estradiol, Group serum] Encounters Start End Encounter Admission Attending Care Care Encounter Source Date/Time Date/Time Type Type Clinicians Facility Department ID 2020-06-01 2020-06-[address] [facility] Multispecia [id number] Univers 09:00:00 09:00:00 t; LU[place] MANUEL [place] [facility] LUIS MANUEL PATTERSON Physi ci M.D. ans 2020-04-23 2020-04-[address] [facility] [id number] Univers 09:15:00 09:15:00 t; mauricio DAVILA D.O. [place] Cody DAVILA D.O. ans 2020-04-13 2020-04-[address] [facility] [id number] Univers 11:30:00 11:30:00 t; mauricio DAVILA D.O. [place] Cody DAVILA D.O. ans 2019-12-10 2019-12-10 Laboratory Lab, [facility] [id number] 11:15:35 11:32:41 Only Fam Pob I Health [id number] [place] [id number] [facility] [id number] nal [address] One 2019-12-01 2019-12-01 Paul [facility] [place] - [id number] M atagor 00:00:00 00:00:00 Discovery tuan Gaxiola MD: [address] [place] [address] Group [place] [facility] - [address], [facility] [address] , Ph. 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 COMPARISON: None. TECHNIQUE: Multiplanar grayscale and color Doppler ultrasound of the right upper quadrant. FINDINGS: Liver: Small portions of the liver are obscured by bowel gas/overlying soft tissues.Craniocaudal length: 15.9 cm.Echogenicity: Normal.Surface: Normal.Mass (size and location): None. Main portal vein: Caliber: 1.2 cm.Flow: Hepatopetal. Bile ducts:Common bile duct diameter: 0.40 cm. The distal common bile duct is obscured by bowel gas.Intrahepatic ducts: Normal. Gallbladder: NormalGallstones: None.Gallbladder sludge: None.Gallbladder wall: 0.17 cm.Polyps/masses: None.Pericholecystic fluid: None.Sonographic Minaya sign: Absent.----- Page Break ----- Pancreas: Partially obscured. No focal lesions. Right kidney:Size: 12.0 x 3.2 x 5.6 cmCortical thickness: Normal.Hydronephrosis: None.Echogenicity: Normal.Calculi: None.Cysts/Masses: None. Free fluid: None. Other: None. IMPRESSION: Normal liver ultrasound. No sonographic abnormalities of the visualized biliary tree are seen. 06/03/2020 10:20 AM TABULATING MACHINE MECHANIC Robinson Freedman [facility] Physicians[QL] LIPID [id number] 13:00:00 Test Item Value Reference Range Interpretation Comments CHOLESTEROL, TOTAL; 246 mg/dl <200 Above High Threshold (test code = 2093-3) HDL CHOLESTEROL; 43 mg/dl > OR = 50 Below Low Threshold (test code = 2085-9) TRIGLYCERIDES; 444 mg/dl <150 If a non-fast ing Above High specimen was Threshold (test collected, code = 2571-8) considerrepea t triglyceride te sting on a fasting specimenif clin ically indicated. Mateo veliz al. J. of Cl in. Lipidol. 2015;9:129-169. LDL-CHOLESTEROL See Comment LDL choleste rol not (test code = calculated. 38486-0) Triglyceride levelsgreater t shah 400 mg/dL inval idate calculated LDL results. Refere nce range: <100 Devon irable range <100 mg/d L for primary prevent ion; <70 mg/dL for patients with C HD or diabetic patien ts with > or = 2 C HD risk factors. L DL-C is now calculat ed using the Arun calculation, wh ich is a validated nov el method providin g better accuracy than the Friedewald equation in the estimation of L DL-C. Ignacio SS et al . RUTH. 2013;310( 19): 6051-9765 (http://educati on.Que stDiagnostics.c om/faq /MCF173) CHOL/HDLC RATIO 5.7 {CALC} <5.0 (test code = CHOL/HDLC RATIO) NON HDL CHOLESTEROL 203 {MG/DL <130 For torrey ents with (test code = NON DAYSI} diabetes pl us 1 major HDL CHOLESTEROL) ASCVD risk factor, treating to a non-HDL-C goal of <100 mg/dL (LDL -C of <70 mg/dL) is considered a therapeutic opt ion. [facility][QL] IRON AND TOTAL IRON BINDING CAPACITY 2020-04-13 13:00:00 Test Item Value Reference Range Interpretation Comments IRON, TOTAL (test code = 89 {mcg/dl} 40-190 N IRON, TOTAL) IRON BINDING CAPACITY (test 357 {mcg/dL ca} 250-450 N code = IRON BINDING CAPACITY) % SATURATION (test code = % 25 {% CALC} 16-45 N SATURATION) [facility][QL] CMP [id number] 13:00:00 Test Item Value Reference Range Interpretation Comments GLUCOSE; Normal 106 mg/dl 65-139 N Non-fasting (test code = 1547-9) referen ce interval UREA NITROGEN (BUN) 12 mg/dl 7-25 N (test code = UREA NITROGEN (BUN)) CREATININE (test 0.74 mg/dl 0.50-1.10 N code = CREATININE) eGFR NON-AFR. 105 {ML/MIN/1.7} > OR = 60 N TONGAN (test code = eGFR NON-AFR. TONGAN) eGFR 122 {ML/MIN/1.7} > OR = 60 N TONGAN (test code = eGFR ) BUN/CREATININE RATIO NOT APPLICABLE 11-23 (test code = BUN/CREATININE RATIO) SODIUM (test code = 141 mmol/L 135-146 N SODIUM) POTASSIUM (test code 4.0 mmol/L 3.5-5.3 N = POTASSIUM) CHLORIDE (test code 106 mmol/L 98-110 N = CHLORIDE) CARBON DIOXIDE (test 28 mmol/L 20-32 N code = CARBON DIOXIDE) CALCIUM (test code = 8.9 mg/dl 8.6-10.2 N CALCIUM) PROTEIN, TOTAL (test 6.4 g/dl 6.1-8.1 N code = PROTEIN, TOTAL) ALBUMIN (test code = 3.8 g/dl 3.6-5.1 N ALBUMIN) GLOBULIN (test code 2.6 {G/DL CALC} 1.9-3.7 N = GLOBULIN) ALBUMIN/GLOBULIN 1.5 {CALC} 1.0-2.5 N RATIO (test code = ALBUMIN/GLOBULIN RATIO) BILIRUBIN, TOTAL; 0.2 mg/dl 0.2-1.2 N Normal (test code = 72211-8) ALKALINE PHOSPHATASE 79 u/l 31-125 N (test code = ALKALINE PHOSPHATASE) AST; Normal (test 12 u/l 10-30 N code = 1916-6) ALT; Normal (test 9 u/l 6-29 N code = 1742-6) [facility][QL] CBC (INCLUDES DIFF/PLT)2020-04-13 13:00:00 Test Item Value Reference Range Interpretation Comments WHITE BLOOD CELL COUNT 9.8 {Thousand/u} 3.8-10.8 N (test code = WHITE BLOOD CELL COUNT) RED BLOOD CELL COUNT (test 4.39 {Million/uL} 3.80-5.10 N code = RED BLOOD CELL COUNT) HEMOGLOBIN; Normal (test 13.1 g/dl 11.7-15.5 N code = 70763-9) HEMATOCRIT; Normal (test 39.5 % 35.0-45.0 N code = 4544-3) MCV; Normal (test code = 90.0 fL 80.0-100.0 N 787-2) MCHC; Normal (test code = 33.2 g/dl 32.0-36.0 N 46272-3) RDW; Normal (test code = 12.8 % 11.0-15.0 N 788-0) PLATELET COUNT; Normal 314 {Thousand/u} 140-400 N (test code = 777-3) MPV; Normal (test code = 11.3 fL 7.5-12.5 N 46951-9) ABSOLUTE NEUTROPHILS (test 6086 {cells/uL} 3989-1635 N code = ABSOLUTE NEUTROPHILS) ABSOLUTE LYMPHOCYTES (test 2548 {cells/uL} 850-3900 N code = ABSOLUTE LYMPHOCYTES) ABSOLUTE MONOCYTES (test 755 {cells/uL} 200-950 N code = ABSOLUTE MONOCYTES) ABSOLUTE EOSINOPHILS (test 343 {cells/uL} 15-500 N code = ABSOLUTE EOSINOPHILS) ABSOLUTE BASOPHILS (test 69 {cells/uL} 0-200 N code = ABSOLUTE BASOPHILS) NEUTROPHILS (test code = 62.1 % N NEUTROPHILS) LYMPHOCYTES (test code = 26.0 % N LYMPHOCYTES) MONOCYTES; Normal (test 7.7 % N code = 45481-5) EOSINOPHILS; Normal (test 3.5 % N code = 25114-5) BASOPHILS; Normal (test 0.7 % N code = 90902-3) [facility][QL] PTH, INTACT (WITHOUT CALCIUM)2020-04-13 13:00:00 Test Item Value Reference Range Interpretation Comments PARATHYROID 43 pg/ml 14-64 N Interpretive Gu daryl Intact HORMONE, INTACT PTH (test code = Calcium-------- PARATHYROID HORMONE, INTACT) -------Norm al Parathyroid Normal NormalHypoparat hyroidism Low or Low Norm al LowHyperparathy roidism Primary Normal or High High Secondary High Normal or Low Tertiary High HighNon-Parathy roid Hypercalcemia Low or Low Normal High [facility][QL] VITAMIN E (TOCOPHEROL)2020-04-13 13:00:00 Test Item Value Reference Range Interpretation Comments ALPHA-TOCOPHEROL 15.6 mg/L Reference R barbara (test code = 5.7-19.9 mg/L ALPHA-TOCOPHEROL) Levels of alpha-tocopherol <5 mg/L are consistent with Vitamin E deficiency in adults.Vitamin supplementation within 24 hours prior to blood draw may affect the accuracy of results. T his test was developed and i ts analytical perf ormance characteristics have been determined by [facility]. It has not been cleared or approved by theFDA. This as say has been validated pursu ant to the CLIA regulation s and is used for clinic al purposes. RADU-CPYOK-LTIDMM 1.9 mg/L <4.4 This test was developed and LUIS (test code = its analyt ical performance ALOW-[id number]-[id number] characteri stics have been LUIS) determined by [facility]. It has not been cleared or approved by theFDA. This as say has been validated pursu ant to the CLIA regulation s and is used for clinic al purposes. [facility][QL] FOLATE, [id number] 13:00:00 Test Item Value Reference Range Interpretation Comments FOLATE, SERUM (test 3.8 ng/ml Referenc e Range code = FOLATE, Low: SERUM) <3.4 Lavelle rderline: 3.4-5.4 Nor mal: >5.4 [facility][QL] TSH, 3RD [id number] 13:00:00 Test Item Value Reference Range Interpretation Comments TSH; Below Low 0.35 {MIU/L} Reference Ran ge Threshold (test code > or = 05927-7) = 20 Years 0.40-4.50 Range s First trim chikis 0.26-2.66 Second trimest er 0.55-2.73 Third trimester 0.43-2.91 [facility][QL] VITAMIN [id number] 13:00:00 Test Item Value Reference Range Interpretation Comments VITAMIN B12 335 pg/ml 200-1100 N Please Note: Al though the (test code = reference range for [id number] VITAMIN B12) is 200-1100 pg/ mL, it has been reported that b etween5 and 10% of patients wit h values between 200 and 400pg/mL may experience neur opsychiatric and hematologic abnormalities due to occult B 12 deficiency; less than 1%of patients with values above 40 0 pg/mL will have symptoms. [facility][QL] VITAMIN B1, WHOLE [id number] 13:00:00 Test Item Value Reference Range Interpretation Comments VITAMIN B1, WHOLE 126 nmol/L 78-185 Vitamin amador pplementation BLOOD (test code = within 24 hours prior VITAMIN B1, WHOLE toblood dr dale may affect BLOOD) the accuracy of results. This test was developed and its analyti daysi performance characteristics have been determined by [facility]. It has not been cleared or approved by theFDA. This assay has been validated pursuant to the CLIA reg ulations and is used for clinical purposes. [facility][QL] HEMOGLOBIN [id number] 13:00:00 Test Item Value Reference Range Interpretation Comments HEMOGLOBIN A1c; 5.2 {% of <5.7 N For the purp ose of Normal (test code total} screening for the = 4548-4) presence ofdiab etes: <5.7% Con sistent with the absenc e of diabetes5.7-6.4 % Consistent with increased risk for diabetes (prediabetes)> or =6.5% Consistent wit h diabetes This a ssay result is consi stent with a decrease d riskof diabetes. Curre ntly, no consensus exist s regarding use ofhemoglobin A1 c for diagnosis of di abetes in children. Ac cording to [place] Chiara betes Association (ADA)guidelines , hemoglobin A1c <7.0% represents optimalcontrol in non- di abetic patients. Differentmetric s may apply to specif ic patient populat ions. Standards of Me dical Care in Diabete s(ADA). [facility][QL] VITAMIN A (RETINOL)2020-04-13 13:00:00 Test Item Value Reference Range Interpretation Comments VITAMIN A (test 59 {mcg/dl} 38-98 Clin Chem Vol. 34.No.8. code = VITAMIN A) [id number] 8. 1997Vitamin supplementation within 24 hours prior to blood draw may affect the accuracy of results. T his test was developed a nd its analytical perf ormance characteristics have been determined by [facility]. It has not been cleared or approved by theFDA. This assay has been validated pursuant to the CLIA reg ulations and is used for clinical purposes. [facility][Q] QUESTASSURED 25-OH VIT D, (D2,D3), LC/MS/MS 2020-04-13 13:00:00 Test Item Value Reference Range Interpretation Comments VITAMIN D, 45 ng/ml 30-100 (Note) Vitamin D, 25-Hydroxy 25-OH, TOTAL reports concent rations of two (test code = common forms, 2 5-OHD2 and VITAMIN D, 25-OHD3. 25-OHD 3 indicates both 25-OH, TOTAL) endogenous pro duction and supplementation . 25-OHD2 is an indicator of ex ogenous sources such as diet o r supplementation . Therapy is based on measu rement of Total 25-OHD, with le vels <20 ng/mL indicative of V itamin D deficiency, whi le levels between 20 ng/m L and 30 ng/mL suggest insuffi ciency. Optimal levels are > or = 30 ng/mL. Vitamin D is fa t-soluble and therefore inadv ertent or intentional ing estion of excessively hig h amounts could be toxic. Studi es in children and adults sugg est blood levels would need to e xceed 150 ng/mL before there i s any concern. Tigre MF, Laura GANDHI, Karla gómez ROY, et al. Evaluation, rizwana atment and prevention of v itamin D deficiency: an Endocrine Society clinica l practice guideline. J Cl in Endocrinol Metab. 2011;96( 7):1911-30. For additional info rmation, please refer to http://educatio n.Tenant MagicDiagnBandwagon.StyleTread/faq/FAQ16 9 VITAMIN D, 45 ng/ml Reference range : Not established 25-OH, D3 (test code = VITAMIN D, 25-OH, D3) VITAMIN D, <4.0 (Note)Reference range: Not 25-OH, D2 established Thi s test was (test code = developed and i ts analytical VITAMIN D, performancechar acteristics have 25-OH, D2) been determined by [facility]. It has not beencle ared or approved by the [place] Food and Drug Administration. Thisassay has been validated pursuant to the CLIA regulation and is usedfor Clinical purpos es.[facility] [id number] [place] [address],[address] [facility] [id number] 00Adrienne Lau Note 1 Note 1 For additional information, please refer to http://educatio nSpiderOak/faq/FAQ19 9 (This link is being provided for informational/e ducational purposes only.) [facility] PhysiciansUrinalysis macro (dipstick) panel - Urine 2019-12-01 14:52:43 Test Item Value Reference Range Interpretation Comments Leukocytes (test code = Leukocytes) Negative Nitrite (test code = Nitrite) negative Urobilinogen (test code = .2 Urobilinogen) Protein (test code = Protein) Negative pH (test code = pH) 6.0 Blood (test code = Blood) Negative Specific [place] (test code = 1.025 Specific [place]) Ketone (test code = Ketone) Negative Bilirubin (test code = Bilirubin) Small Glucose (test code = Glucose) Negative Appearance (test code = Appearance) Clear Color (test code = Color) Yellow [facility]
--- OUTSIDE RECORDS SUMMARY | 2020-07-02 17:35 | XMS REPORT | Summary of Care ---
:1985 Author Name MIRTHA Mcginnis Address Unavailable Unavailable , Care Team Providers Name Role Phone MARCELO MCLAUGHLIN Unavailable Unavailable MIRTHA DO Unavailable Unavailable Unavailable Unavailable Unavailable Functional Status Name Dates Details Functional status health issues are not documented Status: Name Dates Details Cognitive status health issues are not documented Status: Problems Name Dates Details Vitamin D deficiency (268.9, E55.9) Stat us: Active Morbidly obese (278.01, E66.01) Status: Active Malnutrition (263.9, E46) Status: Active Medications Name Dates Details Medications not documented Allergies and Adverse Reactions Name Dates Details Allergy history not documented Status: Procedures Procedure Dates Details Procedures not documented Immunization Name Dates Details Immunizations not documented Social History Name Dates Details Tobacco smoking consumption unknown (finding) Vital Signs Date Test Result Details :46 Body height 63 in Status: Weight 268.1 lb Status: Body mass index (BMI) [Ratio] 47.49 kg/m2 Status: Body surface area Derived from formula 2.19 m2 S tatus: Results Date Description Value Details :00 [QL] [...] LDL-C. Ignacio CORDERO et al. RUTH. 2013;310(19): 2921-6270 (http://education.[employer].com/faq/SZP300) CHOL/HDLC RATIO 5.7 {CALC} (Above high Range: < 5.0 threshold) NON HDL CHOLESTEROL 203 {MG/DL__CAL} (Above hig h Range: <130 threshold) Comments: For pa tients with diabetes plus 1 major ASCVD risk [...] mg/dl (Normal) Range: 0.50 -1.10 eGFR NON-AFR. EMIRATI 105 {ML/MIN/1.7} (Normal ) Range: > OR [...] 10-30 ALT 9 u/l (Normal) Range: 6-29 :00 [QL] CBC (INCLUDES DIFF/PLT) WHITE BLOOD CELL [...] ABSOLUTE NEUTROPHILS 6086 {cells/uL} (Normal) R barbara: [id number] ABSOLUTE LYMPHOCYTES 2548 {cells/uL} (Normal) R barbara: [...] HighNon-Parathyroid Hypercalcemia Low or Low Normal High [QL] VITAMIN E (TOCOPHEROL) Comments: Re ference Range 5.7- 19.9 mg/L Levels of alpha-tocopherol <5 mg/L are consistent with Vitamin E deficiency in adults.Vitamin supplementation within 24 hours prior to blood draw may affect the accuracy of results. This test was developed and its analytical performance characteristics have been determined by [facility]. It has not been cleared or approved by [facility]. This assay has been validated pursuant to [...] analytical performance characteristics have been determined by [facility]. It has not been cleared or approved by [facility]. This assay has been validated pursuant to the CLIA regulations and is used for clinical purposes. [id number] 1.9 mg/L Range: <4. 4 Comments: This t est was developed and its analytical performance characteristics have been determined by [facility]. It has not been cleared or approved by theA. This assay has been validated pursuant to the CLIA regula tions and is used for clinical purposes. : [QL] FOLATE, SERUM FOLATE, SERUM 3.8 ng/ml (Below low threshold) Comments: Reference Range Low: <3.4 Borderline: 3.4-5.4 Normal: >5.4 : [QL] TSH, 3RD GENERATION TSH 0.35 {MIU/L} (Below low thresho ld) Comments: Reference Range > or = 20 Years 0.40-4.50 Ranges First trimester 0.26-2.66 Second trimester 0.55-2.73 Third trimester 0.43-2.91 : [QL] VITAMIN B12 VITAMIN B12 335 pg/ml (Normal) Range: 200-1 100 Comments: Please Note: Although the reference range for [id number] is 200- 1100 pg/mL, it has been reported that between5 and 10% of patients with values between 200 and 400pg/mL may experience neuropsychiatric an d hematologicabn ormalities due to occult B12 deficiency; less than 1%of patients with values above 400 pg/mL will have symptoms. [QL] VITAMIN B1, WHOLE BLOOD Comments: R EPORT COMMENT:FASTING:NO VITAMIN B1, WHOLE BLOOD 126 nmol/L Range: 7 8-185 Comments: Vitami n supplementation within 24 hours prior toblood draw may affect the accuracy of results. This test was developed and its analytical performance characteristics have been determined by [facility]. It has not been cleared or approved [...] of diabetes in children. Accor ding to [place] Diabetes Association (ADA)guidelines, hemoglobin A1c <7.0% represents optimalcontrol in non- diabetic patients. Differentmetrics may apply to specific patient populations. Standards of Medical Care in Diabetes(ADA). [QL] VITAMIN A (RETINOL) Comments: REPOR T COMMENT:FASTING:NO VITAMIN A 59 {mcg/dl} Range: 38-98 Comments: Clin Chem Vol. 34.No.8. [id number]. 1998Vitamin supplementation within 24 hours prior to blood draw may affect the accuracy of results. This test was developed and its analytical performance charac teristics have b een determined by [facility]. It has not been cleared or approved by theFDA. This assay has been validated pursuant to the CLIA regulations and is used for clinical purposes. [Q] QUESTASSURED 25-OH VIT D, Comments: Reference [...] there is any concern. Tigre MF, Estefany GANDHI, Ramon ROY, et al. Evaluation, treatment and prevention of vitamin D defi ciency: an Endoc rine Society clinical practice guideline. J Clin Endocrinol Metab. 2011;96(7):1911-30. For additional information, please refer to http://[employer].beModel/faq/SFU447 VITAMIN D, 45 ng/ml Comments: Refere nce range: Not established 25-OH, D3 VITAMIN D, <4.0 ng/ml Comments: (Note) Reference range: Not established This test was developed and its analytical performancecharacteristics have been determined by [facility]. It has not beencleared or approved by the US Food and Drug 25-OH, D2 Administration. Thisassay has been validated pursuant to the CLIA regulation and is usedfor Clinical purposes.[facility] [id number] [place] [address],[address] [place] [address] [phone] Lau Note 1 Note 1 For additional information, please refer to http://[employer].Factabase/faq/FMC085 (This link is being provided for informational/educational purposes only.) Plan of Care Name Dates Details Planned Observations Planned Goals not documented Planned Encounters Appointment; LOLA SHANNON D.O. On: 23-Apr-2020 9 :15 Instructions Name Dates Details Instructions not documented Encounters Appointment; LOLA SHANNON D.O. On: 13-Apr-2020 1 1:30 Encounter Diagnosis: Problem not documented
--- OUTSIDE RECORDS SUMMARY | 2020-07-02 17:36 | XMS REPORT | Summary of Care ---
:1985 Author Name Rj Mckinney Address [place] [facility] Unavailable , Care Team Providers Name Role Phone Rj Mckinney Unavailable Unavailable [facility] Unavailable Unavailable MIRTHA CROCKER Unavailable Unavailable MATT HERNANDES [place] Unavailable Unavailable Unavailable Unavailable Unavailable Functional Status [...] urinary incontinence, female) (625.6, N39.3) Status: Active Abdominal pain (789.00, R10.9) Status: A ctive Medications Name Dates Details [place] Carbonate 600 MG Oral Capsule TAKE 1 CAPSULE DAILY Refills: 0 Active Lexapro 20 MG Oral Tablet TAKE 1 TABLET DAILY. Refills: 0 Active traZODone HCl - 150 MG Oral Tablet TAKE 1 TABLET ONCE DAILY. Refills: 0 Active Levothyroxine Sodium 112 MCG Oral Tablet TAKE 1 TABLET DAILY. Refills: 0 Active Estradiol 2 MG Oral Tablet TAKE 1 TABLET DAILY. Refills: 0 Active Allergies and Adverse Reactions Name Dates Details No Known Drug Allergies (Allergy) Status : Active Procedures Procedure Dates Details [MMD] US Liver Date: 24-May-2020 Immunization Name Dates Details Immunizations not documented Social History Name Dates Details Tobacco smoking consumption unknown (finding) Vital Signs Date Test Result Details No Known Vitals to report Results Date Description Value Details Results not documented Plan of Care Name Dates Details Planned Observations Planned Goals not documented Planned Encounters Appointment; LUIS MANUEL GUTIERREZ M.D. On: 01-Jun-2020 9:00 Appointment; LOLA SHANNON D.O. On: 11-Jun-2020 9: 45 Interventions Provided Labs/Procedures/Imaging[MMD] US Liver; To Be Done: 24 May 2020 Instructions Name Dates Details Instructions not documented Encounters Appointment; LOLA SHANNON D.O. On: 13-Apr-2020 1 1:30 Encounter Diagnosis: Problem not documented Appointment; LOLA SHANNON D.O. On: 23-Apr-2020 9 :15 Encounter Diagnosis: Problem not documented
--- OUTSIDE RECORDS SUMMARY | 2020-07-02 17:36 | XMS REPORT | Summary of Care ---
:1985 Author Name MATT Chandler Address Unavailable Unavailable , Care Team Providers Name Role Phone MATT Chandler Unavailable Unavailable MARCELO MCLAUGHLIN Unavailable Unavailable MIRTHA CROCKER Unavailable Unavailable MATT HERNANDES [place] Unavailable Unavailable Unavailable Unavailable Unavailable Functional Status [...] Abdominal pain (789.00, R10.9) Status: A ctive CLAY (obstructive sleep apnea) (327.23, G47.33) Status: Active Medications Name Dates Details [place] Carbonate 600 MG Oral Capsule TAKE 1 [...] Dates Details [MMD] US Liver Date: 24-May-2020 History of Oophorectomy bilateral Comple aldair Immunization Name Dates Details Immunizations not documented Family History Name Dates Details Adopted (V68.89, Z02.82) Comments: Other Status: Active Social History Name Dates Details - Status: Name Dates Details Never smoked tobacco (finding) Vital Signs Date Test Result Details No Known Vitals to report Results Date Description Value Details Results not documented Plan of Care Name Dates Details Planned Observations Planned Goals not documented Planned Encounters Appointment; LOLA SHANNON D.O. On: 11-Jun-2020 9: 45 Interventions Provided Labs/Procedures/ImagingTobacco Use Screening; Done: 01 Jun 2020SuppliesCPAP Machine; To Be Done: 01 Jun 2020Discussion/SummaryThe patient is a pleasant 35-year-old woman with a history of anxiety, depression and obesity who has REM related obstructive sleep apnea. She wakes up feeling unrefreshed. Her sleep disorder is contributing to her other comorbidities. With this in mind, we will prescribe an auto CPAP machine. We alsodiscussed other options including [id number] oral device. We will see the patient again in about 8-10 weeks to assess efficacy of CPAP. This visit was performed over video telemedicine. A total of 50 minutes was spent, of which more than half the time was spent in education as above as well as care coordination with DME. We particularly discussed Medicare logistics for CPAP usage. Thank you forallowing me to evaluate her.The patient was counseled about the cardiovascular and cerebrovascular implications of obstructive sleep apnea and the benefit of treatment with CPAP. Logistics involving CPAP, care of the machine, humidifier, periodic renewal of supplies and rationale for diligent, nightly use were also discussed. CPAP is not a permanent cure, it only works when used.The patient was cautioned against driving when drowsy.The patient was also advised that alcohol and certain sedative medications can worsen the severity of obstructive sleep apnea.Reasonable weight loss measures targeted to the ideal body weight range will also help reduce the severity of obstructive sleep apnea.Certain medical conditions like hypothyroidism also contribute to CLAY. They should be addressed withthe primary physician.We also discussed CPAP precautions in view of COVID-19 This is a telehealth visit that was performed with the originating site at PATIENT LOCATION and the distant site (provider location). Verbal consent to participate in video visit was obtained. This particular visit occurred during the 2019 COVID19 outbreak. Our clinic staff discussed with the patient the nature of our telehealth visits, that:- I would evaluate the patient and recommend diagnostics and treatments based on my assessment- Our sessions are not being recorded and that personal health information is protected- Our team would provide follow up care in person if/when the patient needs it. Instructions Name Dates Details Instructions not documented Encounters Appointment; LOLA SHANNON D.O. On: 13-Apr-2020 1 1:30 Encounter Diagnosis: Problem not documented Appointment; LOLA SHANNON D.O. On: 23-Apr-2020 9 :15 Encounter Diagnosis: Problem not documented Appointment; LUIS MANUEL GUTIERREZ M.D. On: 01-Jun-2020 9:00 Encounter Diagnosis: Problem not documented
--- OUTSIDE RECORDS SUMMARY | 2020-07-02 17:36 | XMS REPORT | Summary of Care ---
:1985 Author Name Julieta Mckinney Address Unavailable Unavailable , Care Team Providers Name Role Phone Julieta Mckinney Unavailable Unavailable [facility] Unavailable Unavailable MIRTHA CROCKER Unavailable Unavailable MATT HERNANDES [place] Unavailable Unavailable Unavailable Unavailable Unavailable Functional Status [...] N39.3) Status: Active Medications Name Dates Details [place] Carbonate 600 MG Oral Capsule TAKE 1 [...] /min Status: Results Date Description Value Details Results not documented Plan of Care Name Dates Details Planned Observations Planned Goals not documented Planned Encounters Appointment; LUIS MANUEL GUTIERREZ M.D. On: 01-Jun-2020 9:00 Appointment; LOLA SHANNON D.O. On: 11-Jun-2020 9: 45 Instructions Name Dates Details Instructions not documented Encounters Appointment; LOLA SHANNON D.O. On: 13-Apr-2020 1 1:30 Encounter Diagnosis: Problem not documented Appointment; LOLA SHANNON D.O. On: 23-Apr-2020 9 :15 Encounter Diagnosis: Problem not documented
--- OUTSIDE RECORDS SUMMARY | 2020-07-02 17:36 | XMS REPORT | Summary of Care ---
:1985 Author Name MIRTHA Mcginnis Address Unavailable Unavailable , Care Team Providers Name Role Phone MARCELO MCLAUGHLIN Unavailable Unavailable MIRTHA CROCKER Unavailable Unavailable MATT HERNANDES [place] Unavailable Unavailable Unavailable Unavailable Unavailable Functional Status Name Dates Details Functional status health issues are not documented Status: Name Dates Details Cognitive status health issues are not documented Status: Problems Name Dates Details Abdominal pain (789.00, R10.9) Status: A ctive Vitamin D deficiency (268.9, E55.9) Stat us: Active Morbidly obese (278.01, E66.01) Status: Active Malnutrition (263.9, E46) Status: Active Hypothyroidism, adult (244.9, E03.9) Sta tus: Active Anxiety and depression (300.00, F41.9) S tatus: Active Low folate (266.2, E53.8) Status: Active Asthma in adult, unspecified asthma tim rity, unspecified whether complicated, unspecified whether persistent (493.90, J45.909) Statu s: Active Dyslipidemia (272.4, E78.5) Status: Acti ve SABINA (stress urinary incontinence, female) (625.6, N39.3) Status: Active Morbid obesity (278.01, E66.01) Status: Active CLAY (obstructive sleep apnea) (327.23, G47.33) Status: Active Medications Name Dates Details [place] Carbonate 600 MG Oral Capsule TAKE 1 CAPSULE DAILY Refills: 0 M.D.Active Lexapro 20 MG Oral Tablet TAKE 1 TABLET DAILY. Refills: 0 M.D.Active traZODone HCl - 150 MG Oral Tablet TAKE 1 TABLET ONCE DAILY. Refills: 0 M.D.Active Levothyroxine Sodium 112 MCG Oral Tablet TAKE 1 TABLET DAILY. Refills: 0 M.D.Active Estradiol 2 MG Oral Tablet TAKE 1 TABLET DAILY. Refills: 0 M.D.Active Allergies and Adverse Reactions Name Dates Details No Known Drug Allergies (Allergy) Status : Active Procedures Procedure Dates Details History of Oophorectomy bilateral Comple aldair Immunization Name Dates Details Immunizations not documented Family History Name Dates Details Adopted (V68.89, Z02.82) Comments: Other Status: Active Social History Name Dates Details - Status: Name Dates Details Never smoked tobacco (finding) Vital Signs Date Test Result Details No Known Vitals to report Results Date Description Value Details [id number] [MMD] US Liver US Liver EXAM: US LIVER DATE: 06/03/2020 9:19 AM [employer]SH[employer] 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 COMPARISON: None. TECHNIQUE: Mul tiplanar grayscale and color Doppler ultrasound of the right upper qu adrant. FINDINGS: Liver: Small portions of the liver are obscured by bow el gas/overlying soft tissues.Craniocaudal length: 15. 9 cm.Echogenicity: Normal.Surface: Normal.Mass (size and location): None. Main portal vein: Caliber: 1.2 cm.Flow: Hepatopetal. Bile ducts :Common bile duct diameter: 0.40 cm. The distal common bile duct is obscu red by bowel gas.Intrahepatic ducts: Normal. Gallbladder: NormalGalls tones: None.Gallbladder sludge: None.Gallbladder wall: 0.17 cm.P olyps/masses: None.Pericholecystic fluid: None.Sonographic [place] s ign: Absent.----- Page Break ----- Pancreas: Partially obscured. No focal lesions. Right kidney:Size: 12.0 x 3.2 x 5.6 cmCortical thickness : Normal.Hydronephrosis: None.Echogenicity: Normal.Calcul i: None.Cysts/Masses: None. Free fluid: None. Other: None. IMPRESSION: N ormal liver ultrasound. No sonographic abnormalities of the visualized biliary tree are seen. 06/03/2020 10:20 AM [employer] PROGRAM DIRECTOR Robinson Freedman Plan of Care Name Dates Details Planned Observations Planned Goals not documented Planned Encounters Appointment; LOLA SHANNON D.O. On: 11-Jun-2020 9: 45 Instructions Name Dates Details Instructions not documented Encounters Appointment; LOLA SAHNNON D.O. On: 13-Apr-2020 1 1:30 Encounter Diagnosis: Problem not documented Appointment; LOLA SHANNON D.O. On: 23-Apr-2020 9 :15 Encounter Diagnosis: Problem not documented Appointment; LUIS MANUEL GUTIERREZ M.D. On: 01-Jun-2020 9:00 Encounter Diagnosis: Problem not documented
[2020-07-02 20:38] LABS: SARS-COV-2 RT PCR NEGATIVE (NEGATIVE)
--- NOTE | 2020-07-02 21:27 | RAD REPORT ---
EXAM DESCRIPTION: RAD - Chest Single View - 07/02/2020 9:07 pm CLINICAL HISTORY: COUGH Chest pain. COMPARISON: Chest Single View dated 02/16/2019; Chest Single View dated 02/24/2018 FINDINGS: Portable technique limits examination quality. The lungs are grossly clear. The heart is normal in size. No displaced fractures. IMPRESSION: No acute intrathoracic process suspected.
[2020-07-02] MEDS ORDERED: IPRATROPIUM BROM 0.5MG/2.5ML ONE (21:33)
[2020-07-02] MEDS ORDERED: predniSONE 20 MG TAB ONE (21:33)
[2020-07-02] MEDS ORDERED: ALBUTEROL 2.5 MG/3 ML NEB SOL ONE ×2 (21:33→22:50)
--- NOTE | 2020-07-02 22:46 | EDPHYS ---
Physician Documentation [facility] Name: Bev Cox Age: 35 yrs Sex: Female : 1985 Arrival Date: 07/02/2020 Time: 17:38 Bed 5 Private MD: ED Physician Boby Arboleda HPI: 07/02 22:55 This 35 yrs old Female presents to ER via Ambulatory with complaints of kb Cough, Chest Pain, Fever. 22:55 The patient or guardian reports cough, that is intermittent, described as moderate, kb with no sputum, difficulty breathing, flu symptoms, low-grade fever. Severity of symptoms: At their worst the symptoms were moderate, in the emergency department the symptoms are unchanged. Modifying factors: The symptoms are alleviated by nothing, the symptoms are aggravated by nothing. Associated signs and symptoms: Pertinent positives: fever, rhinorrhea. The patient has not experienced similar symptoms in the past. The patient has not recently seen a physician. 22:55 Onset: The symptoms/episode began/occurred 2 day(s) ago. kb Historical: - Allergies: 17:51 No Known Allergies; ll1 - PMHx: 17:51 Hypothyroidism; Depression; PTSD; Anxiety; ll1 - PSHx: 17:51 Hysterectomy; ll1 - Immunization history:: Flu vaccine is up to date. - Social history:: Smoking status: Patient reports the use of cigarette tobacco products, smokes one-half pack cigarettes per day. ROS: 22:51 Cardiovascular: Negative for chest pain, palpitations, and edema, Abdomen/GI: Negative kb for abdominal pain, nausea, vomiting, diarrhea, and constipation, Back: Negative for injury and pain, MS/Extremity: Negative for injury and deformity, Skin: Negative for injury, rash, and discoloration, Neuro: Negative for headache, weakness, numbness, tingling, and seizure. 22:51 Constitutional: Positive for fever, malaise. 22:51 Respiratory: Positive for cough, shortness of breath, Negative for dyspnea on exertion, hemoptysis, orthopnea, pleurisy, sputum production, wheezing. Exam: 22:51 Constitutional: This is a well developed, well nourished patient who is awake, alert, kb and in no acute distress. Head/Face: Normocephalic, atraumatic. Chest/axilla: Normal chest wall appearance and motion. Nontender with no deformity. No lesions are appreciated. Cardiovascular: Regular rate and rhythm with a normal S1 and S2. No gallops, murmurs, or rubs. Normal PMI, no JVD. No pulse deficits. Abdomen/GI: Soft, non-tender, with normal bowel sounds. No distension or tympany. No guarding or rebound. No evidence of tenderness throughout. Skin: Warm, dry with normal turgor. Normal color with no rashes, no lesions, and no evidence of cellulitis. MS/ Extremity: Pulses equal, no cyanosis. Neurovascular intact. Full, normal range of motion. Neuro: Awake and alert, GCS 15, oriented to person, place, time, and situation. Cranial nerves II-XII grossly intact. Motor strength 5/5 in all extremities. Sensory grossly intact. Cerebellar exam normal. Normal gait. 22:51 Respiratory: the patient does not display signs of respiratory distress, Respirations: normal, Breath sounds: wheezing: inspiratory expiratory that is moderate, is heard diffusely. Vital Signs: 17:48 BP 121 / 92; Pulse 98; Resp 18; Temp 99.3; Pulse Ox 96% on R/A; Weight 117.93 kg; ll1 Height 5 ft. 3 in. (160.02 cm); Pain 6/10; 23:01 BP 124 / 88; Pulse 112; Resp 17; Pulse Ox 94% on R/A; jb4 17:48 Body Mass Index 46.06 (117.93 kg, 160.02 cm) ll1 MDM: 20:52 Patient medically screened. kb 22:51 Data reviewed: vital signs, nurses notes. Data interpreted: Pulse oximetry: on room air kb is 96 %. Interpretation: normal. Counseling: I had a detailed discussion with the patient and/or guardian regarding: the historical points, exam findings, and any diagnostic results supporting the discharge/admit diagnosis, lab results, radiology results, the need for outpatient follow up, a family practitioner, to return to the emergency department if symptoms worsen or persist or if there are any questions or concerns that arise at home. 22:53 ED course: Wheezing and symptoms improved after initial neb treatment. Will give one kb more prior to discharge. Pt has neb machine at home to continue treatments as needed. 07/02 20:38 Order name: COVID-19/FLU A+B; Complete Time: 20:38 EDMS 07/02 20:39 Order name: Chest Single View XRAY kb 07/02 21:28 Order name: RAD; Complete Time: 21:30 EDMS Administered Medications: 21:23 Drug: DuoNeb (3:1) (2.5 mg - 0.5 mg) 3 ml Route: Nebulizer; ea 22:00 Follow up: Response: No adverse reaction ea 21:23 Drug: predniSONE 60 mg Route: PO; ea 22:00 Follow up: Response: No adverse reaction ea 22:56 Drug: Albuterol 2.5 mg Route: Inhalation; ea 23:00 Follow up: Response: No adverse reaction ea Disposition: 07/02/20 22:46 Discharged to Home. Impression: Acute bronchitis. - Condition is Stable. - Discharge Instructions: Acute Bronchitis, [id number]. - Prescriptions for Prednisone 20 mg Oral Tablet - take 1 tablet by ORAL route once daily for 5 days; 5 tablet. Albuterol Sulfate 2.5 mg /3 mL (0.083 %) Inhalation Solution for Nebulization - inhale 1 unit by NEBULIZATION route every 8 hours As needed; 1 box. Zithromax 500 mg Oral Tablet - take 1 tablet by ORAL route once daily for 5 days; 5 tablet. - Medication Reconciliation Form, Thank You Letter, Antibiotic Education, Prescription Opioid Use form. - Follow up: Emergency Department; When: As needed; Reason: Worsening of condition. Follow up: Private Physician; When: 2 - 3 days; Reason: Recheck today's complaints, Continuance of care, Re-evaluation by your physician. Addendum: 07/04/2020 20:03 Co-signature as Attending Physician, Boby Arboleda MD I agree with the assessment and k dr plan of care. Signatures: Dispatcher [employer] EDNE Bri Farrell, MASSEUR/MASSEUSE-C MASSEUR/MASSEUSE-Boby Alberto MD MD [facility] [place] Wilkerson RN RN jb4 Jennie Xie RN RN ea Lewis, Lynsay RN RN ll1 Corrections: (The following items were deleted from the chart) 07/02 19:45 19:11 Influenza Screen (A \T\ B)+BA.LAB.BRZ ordered. EDMS EDMS 19:45 19:11 CORONAVIRUS+MR.LAB.BRZ ordered. EDMS EDMS 23:04 22:46 07/02/2020 22:46 Discharged to Home. Impression: Acute bronchitis. Condition is jb4 Stable. Forms are Medication Reconciliation Form, Thank You Letter, Antibiotic Education, Prescription Opioid Use. Follow up: Emergency Department; When: As needed; Reason: Worsening of condition. Follow up: Private Physician; When: 2 - 3 days; Reason: Recheck today's complaints, Continuance of care, Re-evaluation by your physician. kb
--- NOTE | 2020-07-02 22:46 | ER ---
Nurse's Notes [facility] Name: Bev Cox Age: 35 yrs Sex: Female : 1985 Arrival Date: 07/02/2020 Time: 17:38 Bed 5 Private MD: Diagnosis: Acute bronchitis Presentation: 07/02 17:48 Chief complaint: Patient states: Cough, fever, chest congestion for 2 days. + diarrhea. ll1 Coronavirus screen: Client denies travel out of the [place] in the last 14 days. chills, congestion, cough unrelated to allergies, diarrhea, difficulty breathing, fatigue, fever, headache, muscle pain, runny nose, shortness of breath, sore throat, Client presents with at least one sign or symptom that may indicate coronavirus-19. Standard/surgical mask placed on the client. Ebola Screen: Patient denies travel to an Ebola-affected area in the 21 days before illness onset. Initial Sepsis Screen: Does the patient meet any 2 criteria? HR > 90 bpm. No. Patient's initial sepsis screen is negative. Does the patient have a suspected source of infection? Yes: Productive cough/pneumonia. Risk Assessment: Do you want to hurt yourself or someone else? Patient reports no desire to harm self or others. Onset of symptoms was June 30, 2020. 17:48 Method Of Arrival: Ambulatory ll1 17:48 Acuity: EVANGELINA 3 ll1 Historical: - Allergies: 17:51 No Known Allergies; ll1 - PMHx: 17:51 Hypothyroidism; Depression; PTSD; Anxiety; ll1 - PSHx: 17:51 Hysterectomy; ll1 - Immunization history:: Flu vaccine is up to date. - Social history:: Smoking status: Patient reports the use of cigarette tobacco products, smokes one-half pack cigarettes per day. Screenin:29 Abuse screen: Denies threats or abuse. Nutritional screening: No deficits noted. ea Tuberculosis screening: No symptoms or risk factors identified. Fall Risk None identified. Assessment: 21:29 General: Appears in no apparent distress. Behavior is appropriate for age. Pain: Denies ea pain. Neuro: Level of Consciousness is awake, alert, obeys commands, Oriented to person, place, time. Cardiovascular: Patient's skin is warm and dry. Respiratory: Airway is patent Respiratory effort is even, unlabored, Respiratory pattern is regular, symmetrical. Derm: Skin is pink, warm \T\ dry. 23:01 Reassessment: Patient and/or family updated on plan of care and expected duration. Pain jb4 level reassessed. Patient is alert, oriented x 3, equal unlabored respirations, skin warm/dry/pink. PT verbalized understanding of d/c and follow up instructions. Denies questions or concerns. AMbualted out of ED with steady gait. Vital Signs: 17:48 BP 121 / 92; Pulse 98; Resp 18; Temp 99.3; Pulse Ox 96% on R/A; Weight 117.93 kg; ll1 Height 5 ft. 3 in. (160.02 cm); Pain 6/10; 23:01 BP 124 / 88; Pulse 112; Resp 17; Pulse Ox 94% on R/A; jb4 17:48 Body Mass Index 46.06 (117.93 kg, 160.02 cm) ll1 ED Course: 17:38 Patient arrived in ED. mr 17:50 Triage completed. ll1 17:51 Arm band placed on. ll1 19:00 COVID swab sent to lab. Flu and/or RSV swab sent to lab. jp3 19:09 [facility]C [facility] kb 19:09 Boby Arboleda MD is Attending Physician. kb 21:12 Jennie Xie, EVER is Primary Nurse. ea 21:30 Patient has correct armband on for positive identification. Bed in low position. Call ea light in reach. Side rails up X 1. Pulse ox on. NIBP on. 21:30 Patient maintains SpO2 saturation greater than 95% on room air. ea 23:01 No provider procedures requiring assistance completed. Patient did not have IV access jb4 during this emergency room visit. Administered Medications: 21:23 Drug: DuoNeb (3:1) (2.5 mg - 0.5 mg) 3 ml Route: Nebulizer; ea 22:00 Follow up: Response: No adverse reaction ea 21:23 Drug: predniSONE 60 mg Route: PO; ea 22:00 Follow up: Response: No adverse reaction ea 22:56 Drug: Albuterol 2.5 mg Route: Inhalation; ea 23:00 Follow up: Response: No adverse reaction ea Outcome: 22:46 Discharge ordered by . kb 23:01 Discharged to home ambulatory. jb4 23:01 Condition: stable 23:01 Discharge instructions given to patient, Instructed on discharge instructions, follow up and referral plans. medication usage, Demonstrated understanding of instructions, follow-up care, medications, Prescriptions given X 3. 23:04 Patient left the ED. jb4 Signatures: Bri Farrell, JUNIOR PROJECT MANAGER-C JUNIOR PROJECT MANAGER-Amber Cordero [place] Wilkerson, RN RN jb4 Jennie Xie, RN RN Ezekiel Russell 3 Gabriela Sifuentes, RN RN ll1
[2020-07-03 00:30] VITALS: TEMP 99.3
[2020-07-03 00:31] VITALS: BP 124/88; O2SAT 94
== END 2020-07-02 23:04 | disposition home or self-care (01) ==
LOC: ER 17:32
DX: J20.9 Acute bronchitis, unspecified (principal); F17.210 Nicotine dependence, cigarettes, uncomplicated; Z20.822 Contact with and (suspected) exposure to COVID-19
CPT/HCPCS: 0240U; 71045; 99285; J7512

== ENCOUNTER 2021-06-13 14:03 | Emergency (ER) | payer OTHER ==
--- OUTSIDE RECORDS SUMMARY | 2021-06-13 14:07 | XMS REPORT | Continuity of Care Document ---
:1985 Author Organization [facility] t Address [address] [place] [address] Care Team Providers Name Role Phone MATT Attending Clinician Unavailable LILA_Noam Attending Clinician Unavailable MIRTHA Attending Clinician Unavailable Robby Attending Clinician Unavailable Lab, Fam Pob I Attending Clinician Unavailable Noam Ken Attending Clinician Noam WELLINGTON Attending Clinician Unavailable SHAHNAZ Admitting Clinician Unavailable Robby Admitting Clinician Unavailable Payers Payer Name Policy Type Policy Number Effective Date Expiration Date S umang [place] [id number] 2010 [employer] 00:00:00 [place] [id number] [place] [facility] - [id number] FOR[facility]LY [facility] (INSTITUTIONAL) [place]: [id number] 2006 [employer] 00:00:00 - [facility] - [facility] Problems Condition Condition Condition Status Onset Resolution Last Treating Co mments Source Name Details Category Date Date Treatment Clinician Date Postsurgic Postsurgic Problem Active 2018-0 M [place] al al 11-29 da menopause Menopause 00:00: Medi daysi 00 Group Eruption Eruption Problem Active [place] 8-16 da 00:00: Medical 00 Group Depressed Depressed Problem Active 2013-06 [place] bipolar I Bipolar I 06-04 da disorder Disorder 00:00: Medica l 00 [...] Respirator da y disease y Disease Medi [facility] Premenstru Premenstru Problem Active M atag[place] al al da dysphoric Dysphoric [facility] daysi disorder Disorder Group Menorrhagi Menorrhagi Problem [...] Uni vers deficiency deficiency it y of [place] [facility] Morbid Morbid Problem Active Univers obesity obesity [facility]y [facility] [place] [facility] Malnutriti Malnutriti Problem Active U nivers on on it of [place] [facility] Dyslipidem Dyslipidem Problem Active U nivers ia ia [facility]y [facility] [place] [facility] Low folate Low folate Problem Active U nivers [facility]y [facility] [place] [facility] Hypothyroi Hypothyroi Problem Active U nivers dism, dism, ity of adult adult [place] [facility] Asthma in Asthma in Problem [...] Active Uni vers pain pain ity of [place] [facility] CLAY CLAY Problem Active Univers (obstructi (obstructi it y of ve sleep ve sleep [place] apnea) apnea) Physici ans Allergies, Adverse Reactions, Alerts Allergy Allergy Status Severity Reaction(s) Onset Inactive Treating Comm ents Source Name Type Date Date Clinician SULFA Allergy Active Moderate Vomiting [place] (SULFONA to 3-21 da MIDE substanc 00:00: Medical ANTIBIOT e 00 Group ICS) NO KNOWN Drug Active Univers ALLERGIE Class ity of S [facility] Family History Family Member Diagnosis Comments Start Date Stop Date Source Unknown Family Member Adopted Other [facility] Social History Social Habit Start Date Stop Date Quantity Comments Source Sex Assigned At [facility] Exposure to SARS-CoV-2 Yes [facility] Smoking Status Start Date Stop Date Source Never smoked tobacco (finding) [facility] Former Smoker [place] [facility] Unknown if ever smoked [facility] Medications Ordered Filled Start Stop Current Ordering [...] mg da tablet tablet tablet Medical Group Berino Berino Yes 1 QD TAKE 1 Univers Carbonate Carbonate CAPSULE it y of 600 MG Oral 600 MG Oral DAILY [place] Capsule Capsule Physici ans Lexapro 20 Lexapro 20 Yes 1 QD TAKE 1 U nivers MG Oral MG Oral TABLET ity of Tablet Tablet DAILY. [place] [facility] traZODone traZODone Yes QD TAKE 1 Uni vers HCl - 150 HCl - 150 TABLET ity of MG Oral MG Oral ONCE [place] Tablet Tablet DAILY. Physici ans Levothyroxi Levothyroxi Yes 1 QD TAKE 1 Univers ne Sodium ne Sodium TABLET ity of 112 MCG 112 MCG DAILY. [place] Oral Tablet Oral Tablet P hysici ans Estradiol 2 Estradiol 2 Yes 1 QD TAKE 1 Univers MG Oral MG Oral TABLET ity of Tablet Tablet DAILY. [place] [facility] Vital Signs Vital Name Observation Time Observation Value Comments Source BP Diastolic 2019-12-01 00:00:00 80 mm[Hg] [facility] Height 2019-12-01 00:00:00 64 [in_i] [facility] BMI (Body Mass 2019-12-01 00:00:00 45.9 kg/m2 [facility] Medical Index) Group BP Systolic 2019-12-01 00:00:00 111 mm[Hg] [facility] Body Weight 2019-12-01 00:00:00 267.5 [lb_av] [facility] Systolic blood 2020-04-23 09:14:00 125 mm[Hg] Univer sity of pressure [place] Physician s Diastolic blood 2020-04-23 09:14:00 81 mm[Hg] Unive rsity of pressure [place] [facility] Body height 2020-04-23 09:14:00 63 [in_us] [facility] [place] [facility] Weight 2020-04-23 09:14:00 269.8 [lb_av] Univers [facility] [place] [facility] Body mass index 2020-04-23 09:14:00 47.79 kg/m2 Unive rsity of (BMI) [Ratio] [place] [facility]ic[facility] ns Body temperature 2020-04-23 09:14:00 97.2 [degF] [facility] Heart Rate 2020-04-23 09:14:00 93 /min [facility] Physician s Body height 2020-04-13 11:46:00 63 [in_us] [facility] Physician s Weight 2020-04-13 11:46:00 268.1 [lb_av] Univers [facility] [place] [facility] Body mass index 2020-04-13 11:46:00 47.49 kg/m2 Unive rsity of (BMI) [Ratio] [place] [facility] ns Procedures Procedure Date / Time Performing Clinician Source Performed [MMD] US Liver 2020-05-24 00:00:00 [facility] Bilateral Oophorectomy 2017-10-17 00:00:00 [facility] Laparoscopic Total 2017-10-17 00:00:00 [facility] Tubal Ligation 2016-01-28 00:00:00 [facility] History of Oophorectomy [facility] bilateral Physicians Plan of Care Planned Activity Planned Date Details Comments Source Diagnostic Test 2019-12-01 urinalysis, [place] [facility] dical Pending 00:00:00 dipstick [code = [...] Date/Time Type Type Clinicians Facility Department ID 2020-08-03 2020-08-03 Appointonelia MELLO [facility] Multispecia [id number] Univers 10:30:00 10:30:00 t; LUIS MANUEL Santacruz, lty - Milo ity [facility] Geraldine Formerly [facility] LEONARDO, LUIS MANUEL, Physi ci M.DGisselle ans 2020-07-13 2020-07-13 Outpatient KEFFER_A [facility] [id number] [place] 05:34:00 05:34:00 209 [facility] 2020-06-11 2020-06-11 Tyrese SHANNON, JUNI ALFREDO [id number] Univers 09:45:00 09:45:00 t; mauricio DAVILA D.O. [place] MELISSA, Physici D.O. ans 2020-06-01 2020-06-01 [facility] [id number] Univers 09:00:00 09:00:00 t; Noam LUIS MANUEL, lty - Milo ity [facility] Geraldine Formerly [facility] LEONARDO, LUIS MANUEL, Physi ci M.DGisselle ans 2020-04-23 2020-04-23 JUNI Minor [id number] Univers 09:15:00 09:15:00 t; mauricio DAVILA D.OCody Arguelles D.O. ans 2020-04-21 2020-04-21 [facility] [id number] [place] 02:24:00 02:24:00 [id number] da Medical Group 2020-04-13 2020-04-13 JUNI Minor UTP [id number] Univers 11:30:00 11:30:00 t; mauricio DAVILA D.O. [place] MELISSA, Physici D.O. ans 2019-12-27 2019-12-27 Outpatient G_Pappas MMG MMG [id number] [place] 11:00:00 11:00:00 0729 da Medical Group 2019-12-10 2019-12-10 Laboratory Lab, [facility] [id number] 11:15:35 11:32:41 Only Fam Pob I Health [id number] [place] [id number] Professio [phone] nal [address] 2019-12-10 2019-12-10 Laboratory Lab, Adc Fam Pob I [facility] [id number] [facility] 11:15:35 11:32:41 Only Eliz Farhana Noam Health [id number] ity of [place] [id number] Anjum as Professio [phone] Il dical [facility] [address] 2019-12-10 2019-12-10 Outpatient R ELIZ [facility] [id number] Univers 11:20:00 11:20:00 FARHANA martínez [facility] 2019-12-02 2019-12-02 Outpatient G_Pappas MMG MM 2019 [place] 12:02:00 12:02:00 0630 da Medical Group 2019-12-01 2019-12-01 Outpatient G_Pappas MMG MM 2019 [place] 11:04:00 11:04:00 0629 da Medical Group 2019-12-01 2019-12-01 [facility] [place] - [id number] M atagor 00:00:00 00:00:00 Discovery tuan Gaxiola MD: [address] [place] [id number] , Ph. 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 06/03/2020 10:[address] [facility][QL] LIPID [id number] 13:00:00 Test Item Value Reference Range Interpretation [...] a fasting specimenif clin ically indicated. Mateo briggs et al. J. of Cl in. Lipidol. 2015;9:129-169. LDL-CHOLESTEROL See Comment LDL choleste rol not (test code = calculated. 60945-0) Triglyceride levelsgreater t shah 400 mg/dL inval idate calculated LDL results. Refere nce range: <100 Devon irable range <100 mg/d L for primary prevent ion; <70 mg/dL for patients with C HD or diabetic patien ts with > or = 2 C HD risk factors. L DL-C is now calculat ed using the Arun calculation, wh ich is a validated nov el method rick g better accuracy than the Friedewald equation in the estimation of L DL-C. Ignacio CORDERO et al . RUTH. 2013;310( 19): 9709-2969 (http://educati on.[facility] stDiagnostics.c om/faq /IGR955) CHOL/HDLC RATIO 5.7 {CALC} <5.0 (test code = CHOL/HDLC RATIO) NON HDL CHOLESTEROL 203 {MG/DL <130 For torrey ents with (test code = NON DAYSI} diabetes pl us 1 major HDL CHOLESTEROL) ASCVD risk factor, treating to a non-HDL-C goal of <100 mg/dL (LDL -C of <70 mg/dL) is considered a therapeutic opt ion. [facility][QL] IRON AND TOTAL IRON BINDING CAPACITY 2020-04-13 13:00:00 Test Item Value Reference Range Interpretation Comments IRON, TOTAL (test code = 89 {mcg/dl} 40-190 N IRON, TOTAL) IRON BINDING CAPACITY (test 357 {mcg/dL ca} 250-450 N code = IRON BINDING CAPACITY) % SATURATION (test code = % 25 {% CALC} 16-45 N SATURATION) [facility][QL] CMP [id number] 13:00:00 Test Item Value Reference Range Interpretation Comments GLUCOSE; Normal 106 mg/dl 65-139 N Non-fasting (test code = 1547-9) referen ce interval UREA NITROGEN (BUN) 12 mg/dl 7-25 N (test code = UREA NITROGEN (BUN)) CREATININE (test 0.74 mg/dl 0.50-1.10 N code = CREATININE) eGFR NON-AFR. 105 {ML/MIN/1.7} > OR = 60 N SWAZI (test code = eGFR NON-AFR. SWAZI) eGFR 122 {ML/MIN/1.7} > OR = 60 N SWAZI (test code = eGFR ) BUN/CREATININE RATIO NOT APPLICABLE 6-22 (test code = BUN/CREATININE RATIO) SODIUM (test [...] mg/dl 0.2-1.2 N Normal (test code = 00263-0) ALKALINE PHOSPHATASE 79 u/l 31-125 N (test code = ALKALINE PHOSPHATASE) AST; Normal (test 12 u/l 10-30 N code = 1916-6) ALT; Normal (test 9 u/l 6-29 N code = 1742-6) [facility][] CBC (INCLUDES DIFF/PLT)2020-04-13 13:00:00 Test Item Value Reference Range Interpretation Comments WHITE BLOOD CELL COUNT 9.8 {Thousand/u} 3.8-10.8 N (test code = WHITE BLOOD CELL COUNT) RED BLOOD CELL COUNT (test 4.39 {Million/uL} 3.80-5.10 N code = RED BLOOD CELL COUNT) HEMOGLOBIN; Normal (test 13.1 g/dl 11.7-15.5 N code = 99547-6) HEMATOCRIT; Normal (test 39.5 % 35.0-45.0 N code = 4544-3) MCV; Normal (test code = 90.0 fL 80.0-100.0 N 787-2) MCHC; Normal (test code = 33.2 g/dl 32.0-36.0 N 48651-9) RDW; Normal (test code = 12.8 % 11.0-15.0 N 788-0) PLATELET COUNT; Normal 314 {Thousand/u} 140-400 N (test code = 777-3) MPV; Normal (test code = 11.3 fL 7.5-12.5 N 34754-6) ABSOLUTE NEUTROPHILS (test 6086 {cells/uL} 1490-0753 N code = ABSOLUTE NEUTROPHILS) ABSOLUTE LYMPHOCYTES [...] Normal (test 7.7 % N code = 50522-9) EOSINOPHILS; Normal (test 3.5 % N code = 96622-1) BASOPHILS; Normal (test 0.7 % N code = 99497-6) [facility][QL] PTH, INTACT (WITHOUT CALCIUM)2020-04-13 13:00:00 Test [...] roid Hypercalcemia Low or Low Normal High [facility][QL] VITAMIN E (TOCOPHEROL)2020-04-13 13:00:00 Test [...] perf ormance characteristics have been determined by [employer]. It has not been cleared or approved by theFDA. This as say has been validated pursu ant to the CLIA regulation s and is used for clinic al purposes. [id number] 1.9 mg/L <4.4 This test was developed and LUIS (test code = its analyt ical performance [id number] characteri stics have been LUIS) determined by [employer]. It has not been cleared or approved by theFDA. This as say has been validated pursu ant to the CLIA regulation s and is used for clinic al purposes. [facility][QL] FOLATE, [id number] 13:00:00 Test Item Value Reference Range Interpretation Comments FOLATE, SERUM (test 3.8 ng/ml Referenc e Range code = FOLATE, Low: SERUM) <3.4 Lavelle rderline: 3.4-5.4 Nor mal: >5.4 [facility][QL] TSH, 3RD [id number] 13:00:00 Test Item Value Reference Range Interpretation Comments TSH; Below Low 0.35 {MIU/L} Reference Ran ge Threshold (test code > or = 43921-7) = 20 Years 0.40-4.50 Range s First trim chikis 0.26-2.66 Second trimest er 0.55-2.73 Third trimester 0.43-2.91 [facility][QL] VITAMIN [id number] 13:00:00 Test Item Value Reference Range Interpretation Comments VITAMIN B12 335 pg/ml 200-1100 N Please Note: Al though the (test code = reference range for pynexofJ70 VITAMIN B12) is 200-1100 pg/ mL, it has been reported that b etween5 and 10% of patients wit h values between 200 and 400pg/mL may experience neur opsychiatric and hematologic abnormalities due to occult B 12 deficiency; less than 1%of patients with values above 40 0 pg/mL will have symptoms. [facility][QL] VITAMIN B1, WHOLE [id number] 13:00:00 Test Item Value Reference Range Interpretation Comments VITAMIN B1, WHOLE 126 nmol/L 78-185 Vitamin amador pplementation BLOOD (test code = within 24 hours prior VITAMIN B1, WHOLE toblood dr dale may affect BLOOD) the accuracy of results. This test was developed and its analyti daysi performance characteristics have been determined by [employer]. It has not been cleared or approved by theFDA. This assay has been validated pursuant to the CLIA reg ulations and is used for clinical purposes. [facility][QL] HEMOGLOBIN [id number] 13:00:00 Test Item Value Reference Range Interpretation [...] di abetes in children. Ac cording to [place] bet[place] Association (ADA)guidelines , hemoglobin A1c <7.0% represents optimalcontrol in non- di abetic patients. Differentmetric s may apply to specif ic patient populat ions. Standards of Me dical Care in Diabete s(ADA). [facility][QL] VITAMIN A (RETINOL)2020-04-13 13:00:00 Test Item Value Reference Range Interpretation Comments VITAMIN A (test 59 {mcg/dl} 38-98 Clin Chem Vol. 34.No.8. code = VITAMIN A) [id number] 8. 1998Vitamin supplementation within 24 hours prior to blood draw may affect the accuracy of results. T his test was developed a nd its analytical perf ormance characteristics have been determined by [employer]. It has not been cleared or approved by theFDA. This assay has been validated pursuant to the CLIA reg ulations and is used for clinical purposes. [facility][Q] QUESTASSURED 25-OH VIT D, (D2,D3), LC/MS/MS [...] before there i s any concern. Tigre WANG, Laura GANDHI, Karla gómez ROY, et al. Evaluation, rizwana atment and prevention of v itamin D deficiency: an Endocrine Society clinica l practice guideline. J Cl in Endocrinol Metab. 2011;96( 7):1911-30. For additional info rmation, please refer to http://MideoMe/faq/FAQ19 9 VITAMIN D, 45 ng/ml Reference range : Not established 25-OH, D3 (test code = VITAMIN D, 25-OH, D3) VITAMIN D, <4.0 (Note)Reference range: Not 25-OH, D2 established Thi s test was (test code = developed and i ts analytical VITAMIN D, performancechar acteristics have 25-OH, D2) been determined by [employer]. It has not beencle ared or approved by the [place] Food and Drug Administration. Thisassay has been validated pursuant to the CLIA regulation and is usedfor Clinical purpos es.MDFmed [id number] [place] [address],[address] [facility] [id number] Adrienne Lott Note 1 Note 1 For additional information, please refer to http://MideoMe/faq/FAQ19 9 (This link is being provided for informational/e ducational purposes only.) [facility]iciansUrinalysis macro (dipstick) panel - Urine 2019-12-01 14:52:43 Test Item Value Reference Range Interpretation Comments Leukocytes (test code = Leukocytes) Negative Nitrite (test code = Nitrite) negative Urobilinogen (test code = .2 Urobilinogen) Protein (test code = Protein) Negative pH (test code = pH) 6.0 Blood (test code = Blood) Negative Specific [place] (test code = 1.025 Specific [place]) Ketone (test code = Ketone) Negative Bilirubin (test code = Bilirubin) Small Glucose (test code = Glucose) Negative Appearance (test code = Appearance) Clear Color (test code = Color) Yellow [facility]
[2021-06-13 14:44] LABS: Urine Blood 2+ (Negative); Urine Glucose Negative (Negative); Urine Protein 1+ (Negative); Urine Specific Gravity 1.025 (1.005-1.030); Urine pH 5.5 (5.0-7.0)
[2021-06-13 15:10] LABS: Urine Bacteria <20 /HPF (<20); Urine Mucus MOD /HPF (NONE SEEN)
[2021-06-13 15:30] LABS: Urine Specific Gravity/Preg 1.025 (1.005-1.030)
--- NOTE | 2021-06-13 16:00 | RAD REPORT ---
EXAM DESCRIPTION: CT - Stone Protocol - 06/13/2021 3:27 pm CLINICAL HISTORY: Flank pain. HEMATURIA COMPARISON: No comparisons TECHNIQUE: Axial images were obtained without oral or IV contrast. Lack of contrast limits solid org an and vascular assessment. The [id number] spans the entirety of the system partially obscuring uppermost abdomen and lung bases. Coronal reformatted images were obtained and reviewed. All CT scans are performed using dose optimization technique as appropriate and may include automated exposure control or mA/KV adjustment according to patient size. FINDINGS: The lower lung collazo are clear. Imaged portions of the liver and spleen show no suspicious findings on non-contrast imaging. The panc reas and adrenal glands are normal. No pathologic lymphadenopathy in the abdomen or pelvis. No urinary tract stones or obstructive uropathy. No bowel obstruction, free air, free fluid or abscess. Normal appendix noted.Mild sigmoid diverticulo sis. No significant bony abnormality. IMPRESSION: No urinary tract stones or obstructive uropathy.
--- NOTE | 2021-06-13 16:03 | ER ---
Nurse's Notes [facility] Name: Bev Cox Age: 36 yrs Sex: Female : 1985 Arrival Date: 06/13/2021 Time: 14:14 Bed 9 Private MD: Diagnosis: Urinary frequency Presentation: 06/13 14:15 Chief complaint: Patient states: Unable to urinate since yesterday. No fever. ll1 Coronavirus screen: Vaccine status: Patient reports receiving the 2nd dose of the covid vaccine. Client denies travel out of the [place] in the last 14 days. At this time, the client does not indicate any symptoms associated with coronavirus-19. Ebola Screen: Patient denies travel to an Ebola-affected area in the 21 days before illness onset. Initial Sepsis Screen: Does the patient meet any 2 criteria? HR > 90 bpm. No. Patient's initial sepsis screen is negative. Does the patient have a suspected source of infection? Yes: Dysuria/Frequency/Urgency/UTI. Risk Assessment: Do you want to hurt yourself or someone else? Patient reports no desire to harm self or others. Onset of symptoms was June 12, 2021. 14:15 Method Of Arrival: Ambulatory ll1 14:15 Acuity: EVANGELINA 3 ll1 Historical: - Allergies: 14:17 No Known Allergies; ll1 - PMHx: 14:17 Hypothyroidism; Anxiety; Depression; PTSD; ll1 - PSHx: 14:17 hysterectomy; ll1 - Immunization history:: Client reports receiving the 2nd dose of the Covid vaccine, Flu vaccine is up to date. - Social history:: Smoking status: Patient reports the use of cigarette tobacco products, smokes one-half pack cigarettes per day. Screenin:44 Abuse screen: Denies threats or abuse. Nutritional screening: No deficits noted. ll3 Tuberculosis screening: No symptoms or risk factors identified. Fall Risk None identified. Assessment: 14:44 General: Appears in no apparent distress. uncomfortable, Behavior is calm, cooperative. ll3 Pain: Complains of pain in right low back Pain currently is 2 out of 10 on a pain scale. Neuro: Level of Consciousness is awake, alert, obeys commands, Oriented to person, place, time, situation. Cardiovascular: Patient's skin is warm and dry. Respiratory: Respiratory effort is even, unlabored, Respiratory pattern is regular, symmetrical. : Reports urgency, Feeling like she's going to urinate on self Denies burning with urination. Derm: Skin is pink, warm \T\ dry. Vital Signs: 14:15 BP 108 / 80; Pulse 95; Resp 17; Temp 97.3; Pulse Ox 99% ; Weight 117.93 kg; Height 5 ll1 ft. 3 in. (160.02 cm); Pain 1/10; 14:15 Body Mass Index 46.06 (117.93 kg, 160.02 cm) ll1 ED Course: 14:14 Patient arrived in ED. ds1 14:17 Triage completed. ll1 14:17 Arm band placed on. ll1 14:21 [facility]-C [facility] kb 14:21 Phong Wade MD is Attending Physician. kb 14:38 Erlinda Waters, RN is Primary Nurse. ll3 14:44 Patient has correct armband on for positive identification. Bed in low position. Call ll3 light in reach. Side rails up X 1. 15:27 CT Stone Protocol In Process Unspecified. EDMS 16:21 No provider procedures requiring assistance completed. Patient did not have IV access ll3 during this emergency room visit. Administered Medications: No medications were administered Outcome: 16:02 Discharge ordered by . kb 16:08 Patient left the ED. jh5 16:21 Discharged to home ambulatory. ll3 16:21 Condition: stable 16:21 Discharge instructions given to patient, Instructed on discharge instructions, follow up and referral plans. Demonstrated understanding of instructions, follow-up care. Signatures: Dispatcher [employer] EDMT Bri Farrell FNP-C FNP-Carley Pederson ds1 Gabriela Sifuentes, RN RN ll1 Trinh Nair RN RN 5 Erlinda Waters, EVER RN ll3
--- NOTE | 2021-06-13 16:03 | EDPHYS ---
Physician Documentation [facility] Name: Bev Cox Age: 36 yrs Sex: Female : 1985 Arrival Date: 06/13/2021 Time: 14:14 Bed 9 Private MD: ED Physician Phong Wade HPI: 06/13 14:52 This 36 yrs old Female presents to ER via Ambulatory with complaints of Urinary Problem.kb 14:52 The patient presents with urinary symptoms, frequency, urgency. Onset: The kb symptoms/episode began/occurred yesterday. Modifying factors: The symptoms are alleviated by nothing, the symptoms are aggravated by nothing. Associated signs and symptoms: Pertinent positives: urinary frequency, Pertinent negatives: dysuria, fever. Severity of symptoms: At their worst the symptoms were moderate, in the emergency department the symptoms are unchanged. The patient has not experienced similar symptoms in the past. The patient has not recently seen a physician. Pt reports urinary frequency, urgency and small amounts since yesterday. . Historical: - Allergies: 14:17 No Known Allergies; ll1 - PMHx: 14:17 Hypothyroidism; Anxiety; Depression; PTSD; ll1 - PSHx: 14:17 hysterectomy; ll1 - Immunization history:: Client reports receiving the 2nd dose of the Covid vaccine, Flu vaccine is up to date. - Social history:: Smoking status: Patient reports the use of cigarette tobacco products, smokes one-half pack cigarettes per day. ROS: 14:51 Constitutional: Negative for fever, chills, and weight loss. kb 14:51 : Positive for urinary symptoms, urinary frequency, small amounts. 14:51 All other systems are negative. Exam: 14:52 Constitutional: This is a well developed, well nourished patient who is awake, alert, kb and in no acute distress. Head/Face: Normocephalic, atraumatic. ENT: Moist Mucous membranes Cardiovascular: Regular rate and rhythm with a normal S1 and S2. No gallops, murmurs, or rubs. No pulse deficits. Respiratory: Respirations even and unlabored. No increased work of breathing. Talking in full sentences Abdomen/GI: Soft, non-tender. No distention Skin: Warm, dry with normal turgor. Normal color. MS/ Extremity: Pulses equal, no cyanosis. Neurovascular intact. Full, normal range of motion. Neuro: Awake and alert, GCS 15, oriented to person, place, time, and situation. Moves all extremities. Normal gait. Psych: Awake, alert, with orientation to person, place and time. Behavior, mood, and affect are within normal limits. Vital Signs: 14:15 BP 108 / 80; Pulse 95; Resp 17; Temp 97.3; Pulse Ox 99% ; Weight 117.93 kg; Height 5 ll1 ft. 3 in. (160.02 cm); Pain 06/13; 14:15 Body Mass Index 46.06 (117.93 kg, 160.02 cm) ll1 MDM: 14:21 Patient medically screened. kb 14:50 Data reviewed: vital signs, nurses notes. Data interpreted: Pulse oximetry: on room air kb is 99 %. Interpretation: normal. 16:01 Counseling: I had a detailed discussion with the patient and/or guardian regarding: the kb historical points, exam findings, and any diagnostic results supporting the discharge/admit diagnosis, lab results, radiology results, the need for outpatient follow up, a family practitioner, to return to the emergency department if symptoms worsen or persist or if there are any questions or concerns that arise at home. 06/13 14:30 Order name: Urine Microscopic Only; Complete Time: 15:15 kb 06/13 14:43 Order name: Urine Dipstick-Ancillary; Complete Time: 14:48 EDMS 06/13 14:21 Order name: Bladder Scanner; Complete Time: 14:30 kb 06/13 14:30 Order name: Urine Dipstick-Ancillary (obtain specimen); Complete Time: 14:43 kb 06/13 14:49 Order name: Urine --Ancillary (enter results); Complete Time: 15:31 bd 06/13 14:51 Order name: CT Stone Protocol; Complete Time: 16:01 kb 06/13 14:30 Order name: Urine Test (obtain specimen); Complete Time: 14:43 kb Administered Medications: No medications were administered Disposition: 16:29 Co-signature as Attending Physician, Phong Wade MD I agree with the assessment and rn plan of care. Attestation: The patient's history, exam findings, diagnostics, and a summary of any interventions or procedures was reviewed in detail with Bri NAVARRETE. Disposition Summary: 01/10/22 16:02 Discharge Ordered Location: Home kb Condition: Stable kb Diagnosis - Urinary frequency kb Followup: kb - With: Emergency Department - When: As needed - Reason: Worsening of condition Followup: kb - With: Private Physician - When: 2 - 3 days - Reason: Recheck today's complaints, Continuance of care, Re-evaluation by your physician Discharge Instructions: - Discharge Summary Sheet kb - Urinary Frequency, Adult kb Forms: - Medication Reconciliation Form kb - Thank You Letter kb - Antibiotic Education kb - Prescription Opioid Use kb Signatures: Dispatcher [employer] EDBri Chauhan, VOCATIONAL SCHOOL TEACHER-C [employer]ATIONAL SCHOOL TEACHER-Earlb Phong Wade MD MD rn Gabriela Sifuentes RN RN ll1
[2021-06-13 17:03] VITALS: BP 108/80; TEMP 97.3; O2SAT 99
== END 2021-06-13 16:08 | disposition home or self-care (01) ==
LOC: ER 14:03
CPT/HCPCS: 74176; 76377; 81003; 81015; 81025; 99283

== ENCOUNTER 2021-08-11 20:58 | Emergency (ER) | payer OTHER ==
--- OUTSIDE RECORDS SUMMARY | 2021-08-11 21:01 | XMS REPORT | Continuity of Care Document ---
:1985 Author Organization [facility] t Address [address] [place] [address] Care Team Providers Name Role Phone LILA_Noam Attending Clinician Unavailable Nilda Domínguez Attending Clinician [phone] MATT Attending Clinician Unavailable MIRTHA Attending Clinician Unavailable Robby Attending Clinician Unavailable Lab, Fam Pob I Attending Clinician Unavailable Noam Ken Attending Clinician Noam WELLINGTON Attending Clinician Unavailable SHAHNAZ Admitting Clinician Unavailable Robby Admitting Clinician Unavailable Payers Payer Name Policy Type Policy Number Effective Date Expiration Date S umang [place]: [id number] 2010 PrintToPeer 00:00:00 [place] [id number] [place] [facility] - [id number] FQ (INSTITUTIONAL) [place]: [id number] 2006 PrintToPeer 00:00:00 - [facility] Problems Condition Condition Condition Status Onset Resolution Last Treating Co mments Source Name Details Category Date Date Treatment Clinician Date Postsurgic Postsurgic Problem Active [facility] al al 6- da menopause Menopause 00:00: Medi daysi 00 Group Eruption Eruption Problem Active [place] 8-16 da 00:00: Medical 00 Group Depressed Depressed Problem Active 2013-06 [facility] bipolar I Bipolar I 06-04 da disorder Disorder 00:00: Medica l 00 Group Gastroesop Gastroesop Problem Active [facility] hageal hageal 9-15 da reflux Reflux 00:00: Medical disease Disease 00 Group Vitamin D Vitamin D Problem Active Uni vers deficiency deficiency [facility] [place] [facility] Morbid Morbid Problem Active Univers obesity obesity [facility] [place] [facility] Malnutriti Malnutriti Problem Active U nivers on on [facility] [place] [facility] Dyslipidem Dyslipidem Problem Active U nivers ia ia [facility] [place] [facility] Low folate Low folate Problem Active U nivers [facility] [place] [facility] Hypothyroi Hypothyroi Problem Active U nivers dism, dism, ity of adult adult [place] [facility] Asthma in Asthma in Problem [...] Active Uni vers pain pain [facility] [place] [facility] CLAY CLAY Problem Active Univers (obstructi (obstructi it y of ve sleep ve sleep [place] apnea) apnea) Physici ans Hypothyroi Hypothyroi Problem Active M [facility] dism [...] surgical Surgical Group site Site infection Infection Allergies, Adverse Reactions, Alerts Allergy Allergy Status Severity Reaction(s) Onset Inactive Treating Comm ents Source Name Type Date Date Clinician SULFA Allergy Active Moderate Vomiting [place] (SULFONA to 3- da MIDE substanc 00:00: Medical ANTIBIOT e 00 Group ICS) NO KNOWN Drug Active Univers ALLERGIE Class ity of S [facility] Family History Family Member Diagnosis Comments Start Date Stop Date Source Unknown Family Member Adopted Other Uni [facility] Social History Social Habit Start Date Stop Date Quantity Comments Source Sex Assigned At [facility] to [facility] Smoking Status Start Date Stop Date Source Never smoked tobacco (finding) [facility] Unknown if ever [facility] Former [facility] Medications Ordered Filled Start Stop Current Ordering [...] mg da tablet tablet tablet Medical Group [facility] Yes 1 QD TAKE 1 Univers Carbonate Carbonate CAPSULE it y of 600 MG Oral 600 MG Oral DAILY [place] Capsule Capsule [facility] ans Lexapro 20 Lexapro 20 Yes 1 QD TAKE 1 U nivers MG Oral MG Oral TABLET ity of Tablet Tablet DAILY. [place] [facility] traZODone traZODone Yes QD TAKE [...] Oral TABLET ity of Tablet Tablet DAILY. [place] [facility] Vital Signs Vital Name Observation Time Observation Value Comments Source BP Diastolic 2019-12-01 00:00:00 80 mm[Hg] [facility] Height 2019-12-01 00:00:00 64 [in_i] [facility] BMI (Body Mass 2019-12-01 00:00:00 45.9 kg/m2 [facility]) Group BP Systolic 2019-12-01 00:00:00 111 mm[Hg] [facility] Body Weight 2019-12-01 00:00:00 267.5 [lb_av] [facility] Systolic blood 2020-04-23 09:14:00 125 mm[Hg] Univer sity of pressure [place] [facility] s Diastolic blood 2020-04-23 09:14:00 81 mm[Hg] Unive rsity of pressure [place] [facility] Body height 2020-04-23 09:14:00 63 [in_us] [facility] [place] [facility] Weight 2020-04-23 09:14:00 269.8 [lb_av] [facility] [place] [facility] Body mass index 2020-04-23 09:14:00 47.79 kg/m2 Unive rsity of (BMI) [Ratio] [place] [facility] Body temperature 2020-04-23 09:14:00 97.2 [degF] [facility] Heart Rate 2020-04-23 09:14:00 93 /min [facility] Phys[facility] s Body height 2020-04-13 11:46:00 63 [in_us] [facility] Physician s Weight 2020-04-13 11:46:00 268.1 [lb_av] [facility] [place] [facility] Body mass index 2020-04-13 11:46:00 47.49 kg/m2 Unive rsity of (BMI) [Ratio] [place] [facility] Procedures Procedure Date / Time Performing Clinician Source Performed [MMD] US Liver 2020-05-24 00:00:00 [facility] Bilateral Oophorectomy 2017-10-17 00:00:00 [facility] Laparoscopic Total 2017-10-17 00:00:00 Alejandra [facility]ste[facility] Tubal Ligation 2016-01-28 00:00:00 Alejandra Ok dical Group History of Oophorectomy [facility] bilateral Physicians Plan of Care Planned Activity Planned Date Details Comments Source Diagnostic Test 2019-12-01 urinalysis, [facility] Pending 00:00:00 dipstick [code = Group urinalysis, dipstick] Diagnostic Test 2019-12-01 pap, [facility] + [facility] 00:[facility]:00 to HR HPV if ASC-U Group [code = pap, LB + reflex to HR HPV if ASC-U] Diagnostic Test 2019-12-01 [facility]00 [code = estradiol, Group serum] Encounters Start End Encounter Admission Attending Care Care Encounter Source Date/Time Date/Time Type Type Clinicians Facility Department ID 2021-08-11 2021-08-11 Outpatient KEJOSEFINA_Noam [facility] [id number] [place] 04:45:00 04:45:00 310 [facility] 2021-08-11 2021-08-11 Outpatient Tamera Domínguez [facility] [id number] 00:00:00 00:00:00 Nilda [id number] 2021-07-19 2021-07-19 Outpatient KEJOSEFINA_Noam [facility] [id number] [place] 01:20:00 01:20:00 215 [facility] 2021-07-19 2021-07-19 Outpatient Tamera Domínguez [facility] [id number] 00:00:00 00:00:00 Nilda [id number] 2021-06-28 2021-06-28 Outpatient KEJOSEFINA_Noam [facility] [id number] [place] 05:59:00 05:59:00 125 [facility] 2021-06-28 2021-06-28 Outpatient Tamera Domínguez [facility] [id number] 00:00:00 00:00:00 Nilda [id number] 2020-08-03 2020-08-03 Appointmen FUNMILAYO ALFREDO [facility] [id number] [facility] 10:30:00 10:30:00 t; LUIS MANUEL [place] of TALLAVAJHU M.D. Ran LUIS MANUEL [facility] M.D. [facility] 2020-07-13 2020-07-13 Outpatient KEFFER_A [facility] [id number] [place] 05:34:00 05:34:00 209 [facility] 2020-06-11 2020-06-11 Appointmen JUNI SHANNON [id number] Univers 09:45:00 09:45:00 t; mauricio DAVILA D.O. [place] DAVILA D.O. ans 2020-06-01 2020-06-01 Appointmen FUNMILAYO [facility] Multispecia [id number] Univers 09:00:00 09:00:00 t; NoamLUIS MANUEL lty - [place] BRADEN [facility] LUIS MANUEL PATTERSON Physi ci M.D. ans 2020-04-23 2020-04-23 Appointmen MIRTHA, JUNI [facility] [id number] Univers 09:15:00 09:15:00 t; mauricio DAVILA D.O. [place] DAVILA D.O. ans 2020-04-21 2020-04-21 Outpatient G_Pappas [facility] MMG 2019 [place] 02:24:00 02:24:00 [id number] Medical Group 2020-04-13 2020-04-13 Appointonelia SHANNON, JUNI [facility] [id number] Univers 11:30:00 11:30:00 t; mauricio DAVILA D.O. [place] Cody DAVILA D.O. ans 2019-12-27 2019-12-27 Outpatient G_Pappas MMG MMG [id number] [place] 11:00:00 11:00:00 0729 Medical Group 2019-12-10 2019-12-10 Laboratory Lab, [facility] [id number] 11:15:35 11:32:41 Only Fam Pob I Health [id number] [place] [id number] Professio [phone] nal [facility] Office Building One 2019-12-10 2019-12-10 Laboratory Lab, [facility] Fam Pob I [facility] 1.. [id number] Univers 11:15:35 11:32:41 Only Farhana [facility] [id number] ity of [place] [id number] Anjum as Professio [phone] Ok dical nal [address] [place] Office [address] 2019-12-10 2019-12-10 Outpatient R EILZ [facility] [id number] Univers 11:20:00 11:20:00 FARHANA martínez [facility] 2019-12-02 2019-12-02 Outpatient G_Pappas MMG MMG 2019 [place] 12:02:00 12:02:00 [id number] Medical Group 2019-12-01 2019-12-01 Outpatient G_Pappas MMG MMG 2019 [place] 11:04:00 11:04:00 0629 Medical Group 2019-12-01 2019-12-01 Paul G [place] - [id number] M at[place]or 00:00:00 00:00:00 Discovery tuan Gaxiola MD: 600 [facility] [address], [place] [address] , Ph. 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 06/03/2020 10:20 AM LB Freedman [facility][QL] LIPID [id number] 13:00:00 Test Item Value Reference Range Interpretation [...] choleste rol not (test code = calculated. 08316-4) Triglyceride levelsgreater t shah 400 mg/dL inval [...] SS et al . RUTH. 2013;310( 19): 3317-5776 (http://educati on.Que stDiagnostics.c om/faq /IVY234) CHOL/HDLC RATIO 5.7 {CALC} <5.0 (test code = CHOL/HDLC RATIO) NON HDL CHOLESTEROL 203 {MG/DL <130 For torrey ents with (test code = NON DAYSI} diabetes pl us 1 major HDL CHOLESTEROL) ASCVD risk factor, treating to a non-HDL-C goal of <100 mg/dL (LDL -C of <70 mg/dL) is considered a therapeutic opt ion. [facility][QL] IRON AND TOTAL IRON BINDING CAPACITY 2020-04-13 13:00:00 Test Item Value Reference Range Interpretation Comments IRON, TOTAL (test code = 89 {mcg/dl} 40-190 N IRON, TOTAL) IRON BINDING CAPACITY (test 357 {mcg/dL ca} 250-450 N code = IRON BINDING CAPACITY) % SATURATION (test code = % 25 {% CALC} 16-45 N SATURATION) [facility][QL] CMP [id number] 13:00:00 Test Item Value Reference Range Interpretation Comments GLUCOSE; Normal 106 mg/dl 65-139 N Non-fasting (test code = 1547-9) referen ce interval UREA NITROGEN (BUN) 12 mg/dl 7-25 N (test code = UREA NITROGEN (BUN)) CREATININE (test 0.74 mg/dl 0.50-1.10 N code = CREATININE) eGFR NON-AFR. 105 {ML/MIN/1.7} > OR = 60 N CHINESE (test code = eGFR NON-AFR. CHINESE) eGFR 122 {ML/MIN/1.7} > OR = 60 N CHINESE (test code = eGFR ) BUN/CREATININE RATIO [...] mg/dl 0.2-1.2 N Normal (test code = 29147-6) ALKALINE PHOSPHATASE 79 u/l 31-125 N (test code = ALKALINE PHOSPHATASE) AST; Normal (test 12 u/l 10-30 N code = 1916-6) ALT; Normal (test 9 u/l 6-29 N code = 1742-6) [facility][] CBC (INCLUDES DIFF/PLT)2020-04-13 13:00:00 Test Item Value Reference Range Interpretation Comments WHITE BLOOD CELL COUNT 9.8 {Thousand/u} 3.8-10.8 N (test code = WHITE BLOOD CELL COUNT) RED BLOOD CELL COUNT (test 4.39 {Million/uL} 3.80-5.10 N code = RED BLOOD CELL COUNT) HEMOGLOBIN; Normal (test 13.1 g/dl 11.7-15.5 N code = 51120-6) HEMATOCRIT; Normal (test 39.5 % 35.0-45.0 N code = 4544-3) MCV; Normal (test code = 90.0 fL 80.0-100.0 N 787-2) MCHC; Normal (test code = 33.2 g/dl 32.0-36.0 N 95789-6) RDW; Normal (test code = 12.8 % 11.0-15.0 N 788-0) PLATELET COUNT; Normal 314 {Thousand/u} 140-400 N (test code = 777-3) MPV; Normal (test code = 11.3 fL 7.5-12.5 N 73925-9) ABSOLUTE NEUTROPHILS (test 6086 {cells/uL} 9752-8677 N code = ABSOLUTE NEUTROPHILS) ABSOLUTE LYMPHOCYTES [...] Normal (test 7.7 % N code = 82443-0) EOSINOPHILS; Normal (test 3.5 % N code = 50078-4) BASOPHILS; Normal (test 0.7 % N code = 11056-3) [facility][QL] PTH, INTACT (WITHOUT CALCIUM)2020-04-13 13:00:00 [...] roid Hypercalcemia Low or Low Normal High [facility][QL] VITAMIN E (TOCOPHEROL)2020-04-13 13:00:00 Test [...] perf ormance characteristics have been determined by [employer] It has not been cleared or approved by theFDA. This as say has been validated pursu ant to the CLIA regulation s and is used for clinic al purposes. [id number] 1.9 mg/L <4.4 This test was developed and LUIS (test code = its analyt ical performance [id number] characteri stics have been LUIS) determined by [employer] It has not been cleared or approved by theFDA. This as say has been validated pursu ant to the CLIA regulation s and is used for clinic al purposes. [facility][QL] FOLATE, [id number] 13:00:00 Test Item Value Reference Range Interpretation Comments FOLATE, SERUM (test 3.8 ng/ml Referenc e Range code = FOLATE, Low: SERUM) <3.4 Lavelle rderline: 3.4-5.4 Nor mal: >5.4 [facility][QL] TSH, 3RD [id number] 13:00:00 Test Item Value Reference Range Interpretation Comments TSH; Below Low 0.35 {MIU/L} Reference Ran ge Threshold (test code > or = 13373-0) = 20 Years 0.40-4.50 Range s First trim chikis 0.26-2.66 Second trimest er 0.55-2.73 Third trimester 0.43-2.91 [facility][QL] VITAMIN [id number] 13:00:00 Test Item Value Reference Range Interpretation Comments VITAMIN B12 335 pg/ml 200-1100 N Please Note: Al though the (test code = reference range for [id number] VITAMIN B12) is 200-1100 pg/ mL, it has been reported that b etween5 and 10% of patients wit h values between 200 and 400pg/mL may experience neur opsychiatric and hematologic abnormalities due to occult B 12 deficiency; less than 1%of patients with values above 40 0 pg/mL will have symptoms. [facility][QL] VITAMIN B1, WHOLE [id number] 13:00:00 Test Item Value Reference Range Interpretation Comments VITAMIN B1, WHOLE 126 nmol/L 78-185 Vitamin amador pplementation BLOOD (test code = within 24 hours prior VITAMIN B1, WHOLE toblood dr aw may affect BLOOD) the accuracy of results. This test was developed and its analyti daysi performance characteristics have been determined by [employer] It has not been cleared or approved by theFDA. This assay has been validated pursuant to the CLIA reg ulations and is used for clinical purposes. [facility][QL] HEMOGLOBIN [id number] 13:00:00 Test Item Value Reference Range Interpretation [...] specif ic patient populat ions. Standards of [place] dical Care in Diabete s(ADA). [facility][QL] VITAMIN A (RETINOL)2020-04-13 13:00:00 Test Item Value Reference Range Interpretation Comments VITAMIN A (test 59 {mcg/dl} 38-98 Clin Chem Vol. 34.No.8. code = VITAMIN A) [id number] 8. 1998Vitamin supplementation within 24 hours prior to blood draw may affect the accuracy of results. T his test was developed a nd its analytical perf ormance characteristics have been determined by [employer]. It has not been cleared or approved by theA. This assay has been validated pursuant to the CLIA reg ulations and is used for clinical purposes. [facility][Q] QUESTASSURED 25-OH VIT D, (D2,D3), [...] any concern. Tigre WANG, Laura GANDHI, Karla ROY, et al. Evaluation, rizwana atment and prevention of v itamin D deficiency: an Endocrine Society clinica l practice guideline. J Cl in Endocrinol Metab. 2011;96( 7):1911-30. For additional info rmation, please refer to http://[employer]/faq/FAQ19 9 VITAMIN D, 45 ng/ml Reference range : Not established 25-OH, D3 (test code = VITAMIN D, 25-OH, D3) VITAMIN D, <4.0 (Note)Reference range: Not 25-OH, D2 established Thi s test was (test code = developed and i ts analytical VITAMIN D, performancechar acteristics have 25-OH, D2) been determined by [employer]. It has not beencle ared or approved by the [place] Food and Drug Administration. Thisassay has been validated pursuant to the CLIA regulation and is usedfor Clinical purpos es.MDed [id number] [place] [address],[address] [facility] [id number] Adrienne Lott Note 1 Note 1 For additional information, please refer to http://[employer]/faq/FAQ19 9 (This link is being provided for informational/e ducational purposes only.) [facility]icians[facility]inal[facility] macro (dipstick) panel - Urine 2019-12-01 14:52:43 Test Item Value Reference Range Interpretation Comments Leukocytes (test code = Leukocytes) Negative Nitrite (test code = Nitrite) negative Urobilinogen (test code = .2 Urobilinogen) Protein (test code = Protein) Negative pH (test code = pH) 6.0 Blood (test code = Blood) Negative Specific [place] (test code = 1.025 Specific [place]) Ketone (test code = Ketone) Negative Bilirubin (test code = Bilirubin) Small Glucose (test code = Glucose) Negative Appearance (test code = Appearance) Clear Color (test code = Color) Yellow [facility]
[2021-08-11 22:07] LABS: Absolute Lymphocytes (CBC) 2.9 K/uL (0.7-4.9); Hematocrit 41.9 % (36.0-45.0); Lymphocytes % 31.2 % (15.3-44.8); MPV 8.4 fL (7.6-11.3); RBC Red Blood Cell Count 4.62 M/uL (3.86-4.86)
[2021-08-11 22:23] LABS: ALT/SGPT 18 U/L (12-78); AST/SGOT 13 U/L (15-37); Albumin 3.3 g/dL (3.4-5.0); Alkaline Phosphatase 95 U/L (45-117); BUN Blood Urea Nitrogen 15 mg/dL (7-18); Bicarbonate 25 mmol/L (21-32); Bilirubin Total 0.3 mg/dL (0.2-1.0); Glucose Level 90 mg/dL (74-106); Lipase 63 U/L (73-393); Potassium 3.9 mmol/L (3.5-5.1); Protein, Total 7.4 g/dL (6.4-8.2); Sodium Level 140 mmol/L (136-145)
[2021-08-11] MEDS ORDERED: FAMOTIDINE 20 MG/2 ML VIAL IV ONE (22:25)
[2021-08-11] MEDS ORDERED: ONDANSETRON 4 MG/2 ML VIAL ONE (22:25)
[2021-08-11 22:30] LABS: Urine Bacteria 20-50 /HPF (<20); Urine Mucus 2+ /HPF (NONE SEEN); Urine RBC <5 /HPF (NONE SEEN)
[2021-08-11 22:37] LABS: Bilirubin Direct < 0.1 mg/dL (0-0.2)
--- NOTE | 2021-08-12 00:02 | ER ---
Nurse's Notes [facility] Name: Bev Cox Age: 36 yrs Sex: Female : 1985 Arrival Date: 08/11/2021 Time: 21:05 Bed 18 Private MD: Diagnosis: Upper abdominal pain, unspecified Presentation: 08/11 21:23 Chief complaint: Patient states: abdominal pain for 4-5 days. Pt scheduled for CT ld1 tomorrow but "Could not wait any longer, pain is getting worse.". Coronavirus screen: At this time, the client does not indicate any symptoms associated with coronavirus-19. Ebola Screen: No symptoms or risks identified at this time. Initial Sepsis Screen: Does the patient meet any 2 criteria? No. Patient's initial sepsis screen is negative. Does the patient have a suspected source of infection? No. Patient's initial sepsis screen is negative. Risk Assessment: Do you want to hurt yourself or someone else? Patient reports no desire to harm self or others. Onset of symptoms was August 11, 2021. 21:23 Method Of Arrival: Ambulatory ld1 21:23 Acuity: EVANGELINA 3 ld1 Triage Assessment: 21:24 General: Appears in no apparent distress. comfortable, Behavior is calm, cooperative, ld1 appropriate for age. Pain: Complains of pain in abdomen Pain does not radiate. Pain currently is 7 out of 10 on a pain scale. Quality of pain is described as dull, pressure, Is continuous. Neuro: Level of Consciousness is awake, alert, obeys commands, Oriented to person, place, time, situation. Respiratory: Airway is patent Respiratory effort is even, unlabored, Respiratory pattern is regular, symmetrical. GI: Abdomen is round non-distended, Reports upper abdominal pain, diarrhea, nausea. 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 - Social history:: Smoking status: Patient reports the use of cigarette tobacco products, smokes one-half pack cigarettes per day, Patient/guardian denies using alcohol. Screenin:00 Abuse screen: Denies threats or abuse. Nutritional screening: No deficits noted. vc1 Tuberculosis screening: No symptoms or risk factors identified. Fall Risk None identified. Assessment: 22:00 General: Appears in no apparent distress. uncomfortable, Behavior is calm, cooperative, vc1 appropriate for age. Pain: Complains of pain in abdomen Pain does not radiate. Pain currently is 7 out of 10 on a pain scale. Neuro: Level of Consciousness is awake, alert, obeys commands, Oriented to person, place, time, situation, Appropriate for age. Cardiovascular: Capillary refill < 3 seconds Patient's skin is warm and dry. Respiratory: Airway is patent Respiratory effort is even, unlabored, Respiratory pattern is regular, symmetrical. GI: Abdomen is round non-distended, Abd is soft Abdomen is tender to palpation. Vital Signs: 21:23 BP 112 / 81; Pulse 81; Resp 18; Temp 98.6(TE); Pulse Ox 98% on R/A; Weight 117.93 kg; ld1 Height 5 ft. 3 in. (160.02 cm); Pain 7/10; 21:23 Body Mass Index 46.06 (117.93 kg, 160.02 cm) ld1 ED Course: 21:05 Patient arrived in ED. ag3 21:13 Galindo Rushing, RN is Primary Nurse. as6 21:24 Triage completed. ld1 21:24 Arm band placed on right wrist. ld1 21:30 Christiano Levine PA is PHCP. cp 21:30 Narinder Livingston MD is Attending Physician. cp 22:00 Patient has correct armband on for positive identification. Bed in low position. Call vc1 light in reach. Pulse ox on. NIBP on. 22:20 Basic Metabolic Panel Sent. vc1 22:20 Hepatic Function Sent. vc1 22:20 Lipase Sent. vc1 23:02 CT Abd/Pelvis - IV Contrast Only In Process Unspecified. EDMS Administered Medications: 22:33 Drug: Pepcid (famotidine) 20 mg Route: IVP; Site: left antecubital; vc1 22:33 Drug: Zofran (Ondansetron) 4 mg Route: IVP; Site: left antecubital; vc1 08/12 00:33 Drug: GI Cocktail without - (Maalox Suspension 30 ml, Lidocaine Liquid 2 % 15 vc1 ml) Route: PO; Outcome: 00:01 Discharge ordered by MD. cui 00:33 Patient left the ED. vc1 Signatures: Dispatcher [employer] EDMS Christiano Levine PA PA cp Gomez, Alice ag3 Abby Polanco RN RN ld1 Galindo Rushing RN RN as6 Eulalia Hoff RN RN vc1
--- NOTE | 2021-08-12 00:02 | EDPHYS ---
Physician Documentation [facility] Name: Bev Cox Age: 36 yrs Sex: Female : 1985 Arrival Date: 08/11/2021 Time: 21:05 Bed 18 Private MD: JEFFERY Physician Narinder Livingston HPI: 08/11 21:45 This 36 yrs old Female presents to ER via Ambulatory with complaints of Abdominal Pain. cp 21:45 The patient presents with abdominal pain in the upper abdomen. Onset: The cp symptoms/episode began/occurred 5 day(s) ago. The symptoms do not radiate. Associated signs and symptoms: Pertinent negatives: chest pain, constipation, diarrhea, dysuria, fever, vomiting. 21:45 The symptoms are described as constant, dull, pressure. cp 21:45 Patient reports she has scheduled CT of abdomen for tomorrow due to concern about cp possible hernia as cause of pain. 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 - Social history:: Smoking status: Patient reports the use of cigarette tobacco products, smokes one-half pack cigarettes per day, Patient/guardian denies using alcohol. ROS: 21:50 Constitutional: Negative for body aches, chills, fever, poor PO intake. cp 21:50 Eyes: Negative for injury, pain, redness, and discharge. cp 21:50 ENT: Negative for drainage from ear(s), ear pain, sore throat, difficulty swallowing, difficulty handling secretions. 21:50 Cardiovascular: Negative for chest pain, edema, palpitations. 21:50 Respiratory: Negative for cough, shortness of breath, wheezing. 21:50 Abdomen/GI: Positive for abdominal pain, Negative for vomiting, diarrhea, constipation. 21:50 Back: Negative for pain at rest, pain with movement, radiated pain. 21:50 : Negative for urinary symptoms. 21:50 Neuro: Negative for altered mental status, headache, weakness. 21:50 All other systems are negative. Exam: 21:55 Constitutional: The patient appears in no acute distress, alert, awake, cp non-diaphoretic, non-toxic, well developed, well nourished, obese. 21:55 Head/Face: Normocephalic, atraumatic. cp 21:55 Eyes: Periorbital structures: appear normal, Conjunctiva: normal, no exudate, no injection, Sclera: no appreciated abnormality, Lids and lashes: appear normal, bilaterally. 21:55 ENT: External ear(s): are unremarkable, Nose: is normal, Mouth: Lips: moist, Oral mucosa: pink and intact, moist, Posterior pharynx: Airway: no evidence of obstruction, patent. 21:55 Chest/axilla: Inspection: normal. 21:55 Cardiovascular: Rate: normal, Rhythm: regular. 21:55 Respiratory: the patient does not display signs of respiratory distress, Respirations: normal, no use of accessory muscles, no retractions, labored breathing, is not present, Breath sounds: are clear throughout, no decreased breath sounds, no stridor, no wheezing. 21:55 Abdomen/GI: Inspection: abdomen appears normal, Bowel sounds: active, all quadrants, Palpation: soft, in all quadrants, mild abdominal tenderness, in the mid upper abdomen, rebound tenderness, is not appreciated, voluntary guarding, is not appreciated, involuntary guarding, is not appreciated. 21:55 Back: pain, is absent, ROM is normal. 21:55 Neuro: Orientation: to person, place \T\ time. Mentation: is normal. Vital Signs: 21:23 BP 112 / 81; Pulse 81; Resp 18; Temp 98.6(TE); Pulse Ox 98% on R/A; Weight 117.93 kg; ld1 Height 5 ft. 3 in. (160.02 cm); Pain 7/10; 21:23 Body Mass Index 46.06 (117.93 kg, 160.02 cm) ld1 MDM: 21:38 Patient medically screened. cp 22:00 Differential diagnosis: bowel obstruction, cholecystitis, Cholelithiasis, non-specific cp abd pain, pancreatitis, Peptic Ulcer Disease, Perf. Duodenal Ulcer, Perf. Gastric Ulcer, Pelvic Inflammatory Disease, Pyelonephritis, Ureterolithiasis, urinary tract infection, hernia. 08/12 00:00 Data reviewed: vital signs, nurses notes, lab test result(s), radiologic studies, CT cp scan. 00:00 Counseling: I had a detailed discussion with the patient and/or guardian regarding: the cp historical points, exam findings, and any diagnostic results supporting the discharge/admit diagnosis, lab results, radiology results, the need for outpatient follow up, a family practitioner, to return to the emergency department if symptoms worsen or persist or if there are any questions or concerns that arise at home. Response to treatment: the patient's symptoms have mildly improved after treatment, and as a result, I will discharge patient. Special discussion: Based on the patient's Hx, exam, and Dx evaluation, there is no indication for emergent surgery or inpatient Tx. It is understood by the patient/guardian that if the Sx's persist or worsen they need to return immediately for re-evaluation. 08/11 21:31 Order name: Basic Metabolic Panel; Complete Time: 23:56 cp 08/11 23:56 Interpretation: Normal except: CL 110; GFR 74. cp 08/11 21:31 Order name: CBC with Diff; Complete Time: 22:15 cp 08/11 23:57 Interpretation: Reviewed. cp 08/11 21:31 Order name: Hepatic Function; Complete Time: 23:56 cp 08/11 23:57 Interpretation: Normal except: ALB 3.3; GLOB 4.1; A/G 0.8. cp 08/11 21:31 Order name: Lipase; Complete Time: 23:56 cp 08/11 21:31 Order name: Urine Microscopic Only; Complete Time: 23:56 cp 08/11 22:31 Order name: Urine Culture EDSC 08/11 21:31 Order name: IV Saline Lock; Complete Time: 21:55 cp 08/11 21:31 Order name: Labs collected and sent; Complete Time: 21:55 cp 08/11 21:31 Order name: Urine Dipstick-Ancillary (obtain specimen); Complete Time: 22:20 cp 08/11 22:06 Order name: CT Abd/Pelvis - IV Contrast Only cp Administered Medications: 08/11 22:33 Drug: Pepcid (famotidine) 20 mg Route: IVP; Site: left antecubital; vc1 22:33 Drug: Zofran (Ondansetron) 4 mg Route: IVP; Site: left antecubital; vc1 03/11 00:33 Drug: GI Cocktail without - (Maalox Suspension 30 ml, Lidocaine Liquid 2 % 15 vc1 ml) Route: PO; Disposition Summary: 08/12/21 00:01 Discharge Ordered Location: Home cp Problem: new cp Symptoms: have improved cp Condition: Stable cp Diagnosis - Upper abdominal pain, unspecified cp Followup: cp - With: Private Physician - When: 2 - 3 days - Reason: Recheck today's complaints Discharge Instructions: - Discharge Summary Sheet cp - Abdominal Pain, Adult cp Forms: - Medication Reconciliation Form cp - Thank You Letter cp - Antibiotic Education cp - Prescription Opioid Use cp Prescriptions: - Pepcid 20 mg Oral Tablet - take 1 tablet by ORAL route every 12 hours for 10 days; 20 tablet; Refills: 0, cp Product Selection Permitted Addendum: 08/14/2021 19:14 Co-signature as Attending Physician, Narinder Livingston MD. m Signatures: Dispatcher [employer] EDChristiano May PA PA cp Holmes, Maurice, MD MD [id number] Abby Polanco RN RN ld1 Eulalia Hoff RN RN vc1 Irma Thakur PA PA sb3 Corrections: (The following items were deleted from the chart) 08/11 22:20 21:31 Urine Test ordered. cp vc1
[2021-08-12] MEDS ORDERED: MAGNES/ALUMIN/SIMET 30ML UCUP ONE (00:15)
[2021-08-12] MEDS ORDERED: LIDOCAINE VISCOUS 2% SOLN 15 ML UDC ONE (00:15)
[2021-08-12 01:11] VITALS: BP 112/81; TEMP 98.6; O2SAT 98
--- NOTE | 2021-08-12 14:03 | RAD REPORT ---
EXAM DESCRIPTION: CT - Abdomen Pelvis W Contrast - 08/11/2021 11:02 pm CLINICAL HISTORY: ABD PAIN. COMPARISON: CT of the abdomen and pelvis without contrast from June 13, 2021. TECHNIQUE: CT of the abdomen and pelvis was performed following intravenous administration of iodina aldair contrast. Arterial phase images through the abdomen, and portal venous phase images through the a bdomen and pelvis were obtained. Oral contrast was not administered. Axial, coronal, and sagittal sof t tissue window reconstructions were created and sent to PACS. This exam was performed according to our departmental dose-optimization program, which includes autom ated exposure control, adjustment of the mA and/or kV according to patient size and/or use of iterati ve reconstruction technique. FINDINGS: Thoracic: No significant abnormality. Hepatobiliary: No concerning hepatic lesion identified. The portal veins are patent. The gallbladder is unremarkable. No biliary ductal dilatation. Pancreas: Unremarkable. Spleen: Unremarkable. Gastrointestinal: No evidence of bowel obstruction or perienteric inflammation. The appendix is rosa l. Trace left colonic diverticulosis. Small amount of fecal material throughout the colon. Adrenals: No abnormality identified in either adrenal gland. Renal: No concerning parenchymal abnormality in either kidney. No hydronephrosis or urolithiasis. Bladder/Reproductive: Unremarkable appearance of the urinary bladder by CT technique. Hysterectomy. Vascular/Lymphatics: No lymphadenopathy identified by CT size criteria. Abdominal aorta is normal in caliber. Musculoskeletal: No concerning osseous lesion identified. Fluid / peritoneum: No significant free fluid. No free intraperitoneal air identified. IMPRESSION 1. No acute abnormality identified in the abdomen or pelvis by CT. 2. Trace left colonic diverticulosis. 3. Hysterectomy. Electronically signed by: Mere Valente MD 08/11/2021 11:18 PM AIR OPERATIONS MANAGER Due to temporary technical issues with the PACS/Fluency reporting system, reports are being signed by the in house radiologists without review as a courtesy to insure prompt reporting. The interpreting radiologist is fully responsible for the content of the report.
== END 2021-08-12 00:33 | disposition home or self-care (01) ==
LOC: ER 20:58
DX: R10.10 Upper abdominal pain, unspecified (principal); R19.7 Diarrhea, unspecified; R11.0 Nausea; F17.210 Nicotine dependence, cigarettes, uncomplicated
CPT/HCPCS: 87088; 85025; 87086; 80048; 36415; 80076; 81015; 83690; 74177; 96375; 96374; 99284; Q9967; J2405

== ENCOUNTER 2022-01-23 09:20 | Emergency (ER) | payer OTHER ==
--- OUTSIDE RECORDS SUMMARY | 2022-01-23 09:23 | XMS REPORT | Continuity of Care Document ---
:1985 Author Organization [facility] t Address [address] [place] [address] Care Team Providers Name Role Phone LILA_Noam Attending Clinician Unavailable Tamera Sharp Attending Clinician [phone] LUIS MANUEL GUTIERREZ M.D. Attending Clinician Unavailable LOLA SHANNON D.O. Attending Clinician Unavailable G_Pappas Attending Clinician Unavailable Lab, Adc Fam Pob I Attending Clinician Unavailable Farhana Ken Attending Clinician FARHANA WELLINGTON Attending Clinician Unavailable SHAHNAZ Admitting Clinician Unavailable NataliiaPaprebecca Admitting Clinician Unavailable Payers Payer Name Policy Type Policy Number Effective Date Expiration Date S umang [place]: [id number] 2010 [employer] 00:00:00 [place] [id number] [place] [facility] - [id number] [facility] [place]: [id number] 2006 [employer] 00:00:00 - [facility] - HC Problems Condition Condition Condition Status Onset Resolution Last Treating Co mments Source Name Details Category Date Date Treatment Clinician Date Postsurgic Postsurgic Problem Active M atag[facility] al al 6 da menopause Menopause 00:00: [...] Eczema Problem Active [facility] Vitamin D Vitamin D Problem Active [facility] deficiency deficiency Ph ysici ans Pain in Pain in Problem Active [facility] Morbid Morbid Problem Active [facility] obesity obesity Physici ans Neck pain Neck Pain Problem Active [facility] Malnutriti Malnutriti Problem Active U T on on Physici ans Backache Backache Problem Active [facility] Dyslipidem Dyslipidem Problem Active U T ia ia Physici ans Malaise Malaise Problem Active [place] and da fatigue [facility] Low folate Low folate Problem Active [facility] T Physici ans Fatigue Fatigue Problem Active [facility] Hypothyroi Hypothyroi Problem Active U T dism, dism, Physici adult adult ans Asthma in Asthma in Problem Active [facility] adult, adult, Physici unspecifie unspecifie an s d asthma d asthma severity, severity, unspecifie unspecifie d whether d whether complicate complicate d, d, unspecifie unspecifie d whether d whether persistent persistent Upper Upper Problem Active [facility] abdominal Abdominal da pain [facility] Anxiety Anxiety Problem Active [facility] and and Physici depression depression an s Serum Serum Problem Active [facility] creatinine Creatinine da abnormal Abnormal Medica l Group SABINA SABINA Problem Active [facility] (stress (stress Physici urinary urinary ans incontinen incontinen ce, ce, female) female) Anti-nucle Anti-nucle Problem Active M at[facility] ar factor ar Factor da positive Positive Medica l Group Abdominal Abdominal Problem Active [facility] pain pain Physici ans Superficia Superficia Problem Active M at[facility] l l da incisional Incisional Me dical surgical Surgical Group site Site infection Infection CLAY CLAY Problem Active UT (obstructi (obstructi Ph ysici ve sleep ve sleep ans apnea) apnea) Allergies, Adverse Reactions, Alerts Allergy Allergy Status Severity Reaction(s) Onset Inactive Treating Comm ents Source Name Type Date Date Clinician SULFA Allergy Active Moderate Vomiting [facility] [facility] (SULFONA to 3-21 da MIDE substanc 00:00: Medical ANTIBIOT e 00 Group ICS) NO KNOWN Drug Active Univers ALLERGIE Class ity of S [facility] Family History Family Member Diagnosis Comments Start Date Stop Date Source Unknown Family Member Adopted Other [facility] Social History Social Habit Start Date Stop Date Quantity Comments Source [facility] to [facility] Smoking Status Start Date Stop Date Source Never smoked tobacco (finding) [facility] Former [facility] Unknown if ever smoked [facility] Medications Ordered Filled Start Stop Current Ordering Indication Dosage Frequency Signature Comments Components Source Medication Medication Date Date Medication? Clinician (SIG) Name Name Woolsey Woolsey Yes 1 QD TAKE 1 UT Carbonate Carbonate CAPSULE Ph ysici 600 MG Oral 600 MG Oral DAILY ans Capsule Capsule Lexapro 20 Lexapro 20 Yes 1 QD TAKE 1 U T MG Oral MG Oral TABLET Physici Tablet Tablet DAILY. ans traZODone traZODone Yes QD TAKE 1 UT HCl - 150 HCl - 150 TABLET Phy sici MG Oral MG Oral ONCE ans Tablet Tablet DAILY. Levothyroxi Levothyroxi Yes 1 QD TAKE 1 UT ne Sodium ne Sodium TABLET Phy sici 112 MCG 112 MCG DAILY. ans Oral Tablet Oral Tablet Estradiol 2 Estradiol 2 Yes 1 QD TAKE 1 UT MG Oral MG Oral TABLET Physici Tablet Tablet DAILY. ans azithromyci azithromyci No azithromyc [place] 250 [...] mg da tablet tablet tablet Medical Group Vital Signs Vital Name Observation Time Observation Value Comments Source BP Systolic 2019-12-01 00:00:00 111 mm[Hg] [facility] Body Weight 2019-12-01 00:00:00 267.5 [lb_av] [facility] BP Diastolic 2019-12-01 00:00:00 80 mm[Hg] [facility] Height 2019-12-01 00:00:00 64 [in_i] [facility] BMI (Body Mass 2019-12-01 00:00:00 45.9 kg/m2 [facility]) Group Systolic blood 2020-04-23 09:14:00 125 mm[Hg] [facility] pressure Diastolic blood 2020-04-23 09:14:00 81 mm[Hg] [facility] pressure Body height 2020-04-23 09:14:00 63 [in_us] [facility] Weight 2020-04-23 09:14:00 269.8 [lb_av] [facility] Body mass index 2020-04-23 09:14:00 47.79 kg/m2 [facility] (BMI) [Ratio] Body temperature 2020-04-23 09:14:00 97.2 [degF] [facility] Heart Rate 2020-04-23 09:14:00 93 /min [facility] Body height 2020-04-13 11:46:00 63 [in_us] [facility] Weight 2020-04-13 11:46:00 268.1 [lb_av] [facility] Body mass index 2020-04-13 11:46:00 47.49 kg/m2 [facility] (BMI) [Ratio] Procedures Procedure Date / Time Performing Clinician Source Performed [MMD] US Liver 2020-05-24 00:00:00 [facility] Bilateral Oophorectomy 2017-10-17 00:00:00 [facility] Laparoscopic Total 2017-10-17 00:00:00 [facility] Tubal Ligation 2016-01-28 00:00:00 [facility] History of Oophorectomy [facility] bilateral Plan of Care Planned Activity Planned Date Details Comments Source Diagnostic Test 2019-12-01 urinalysis, [facility] Pending 00:00:00 dipstick [code = [...] Date/Time Type Type Clinicians Facility Department ID 2022-01-22 2022-01-22 Outpatient KEFFER_A [facility] [id number] [place] 00:00:00 00:00:00 [facility] 2022-01-18 2022-01-18 Outpatient KEFFER_A [facility] [id number] [place] 00:00:00 00:00:00 817 [facility] 2022-01-18 2022-01-18 Outpatient Tamera Sharp [facility] [id number] 00:00:00 00:00:00 Nilda [id number] 2021-11-28 2021-11-28 Outpatient KEFFER_A [facility] [id number] 0220 [place] 05:59:00 05:59:00 627 [facility] 2021-11-28 2021-11-28 Outpatient Tamera Sharp [facility] [id number] 00:00:00 00:00:00 Nilda [id number] 2021-09-22 2021-09-22 Outpatient KEFFER_A [facility] [id number] 0220 [place] 09:10:00 09:10:00 522 [facility] 2021-08-18 2021-08-18 Outpatient KEFFER_A [facility] [id number] [place] 06:13:00 06:13:00 317 [facility] 2021-08-18 2021-08-18 Outpatient Tamera Sharp [facility] [id number] 00:00:00 00:00:00 Nilda [id number] 2021-08-11 2021-08-11 Outpatient KEFFER_A [facility] [id number] 0220 [place] 04:45:00 04:45:00 310 [facility] 2021-08-11 2021-08-11 Outpatient Tamera Sharp [facility] [id number] 00:00:00 00:00:00 Nilda [id number] 2021-07-19 2021-07-19 Outpatient KEFFER_A [facility] [id number] 0220 [place] 01:20:00 01:20:00 215 [facility] 2021-07-19 2021-07-19 Outpatient Tamera Sharp [facility] [id number] 00:00:00 00:00:00 Nilda [id number] 2021-06-28 2021-06-28 Outpatient LILA_Noam [facility] [id number] 0220 [place] 05:59:00 05:59:00 125 [facility] 2021-06-28 2021-06-28 Outpatient Tamera Sharp [facility] [id number] 00:00:00 00:00:00 Nilda [id number] 2020-08-03 2020-08-03 Appointonelia MELLO [facility] [id number] [place] 10:30:00 10:30:00 t; LUIS MANUEL [place] [facility] [place] PhysicLUIS MANUEL Sharp M.D., M.D. 2020-07-13 2020-07-13 Outpatient LILA_Noam [facility] [id number] 0210 [place] 05:34:00 05:34:00 209 [facility] 2020-06-11 2020-06-11 JUNI Minor [facility] [id number] [place] 09:45:00 09:45:00 t; David DAVILA D.O. ans MELISSA, D.O. 2020-06-01 2020-06-01 Tyrese MELLO [facility] [id number] [place] 09:00:00 09:00:00 t; LUIS MANUEL [facility] [facility] [facility] [place] LUIS MANUEL Hogan M.D., M.D. 2020-04-23 2020-04-23 JUNI Minor [facility] [id number] [place] 09:15:00 09:15:00 t; David DAVILA D.O. ans MELISSA, D.O. 2020-04-21 2020-04-21 Outpatient G_Pappas [facility] [id number] [place] 02:24:00 02:24:00 1118 Medical Group 2020-04-13 2020-04-13 Appointmen MIRTHA, [facility] [id number] [place] 11:30:00 11:30:00 t; David DAVILA D.O. ans MELISSA, D.O. 2019-12-27 2019-12-27 Outpatient G_Pappas [facility] MM 2019 [place] 11:00:00 11:00:00 0729 da [facility] 2019-12-10 2019-12-10 Laboratory Lab, [facility] [id number] 11:15:35 11:32:41 Only Fam Pob I Health [id number] [place] [id number] Professio [phone] [place] [address] [address] 2019-12-10 2019-12-10 Laboratory Lab, [facility] Fam Pob I [facility] [id number] [facility] 11:15:35 11:32:41 Only Farahna [facility] [id number] ity of [place] [id number] Anjum as Professio [phone] Mi dical [place] [address] [address] 2019-12-10 2019-12-10 Outpatient Gato [facility] [id number] Univers 11:20:00 11:20:[address] [facility] 2019-12-02 2019-12-02 Outpatient G_Pappas MM[facility] MM 2019 [place] 12:02:00 12:02:00 0630 [facility] 2019-12-01 2019-12-01 Outpatient G_Pappas MMG MMG 2019 [place] 11:04:00 11:04:00 0629 da [facility] Group 2019-12-01 2019-12-01 Paul [facility] [place] - [id number] M at[facility]or 00:00:00 00:00:00 Discovery tuan Gaxiola MD: [address] [facility] [address] [address], [place] [address] , Ph. [phone] 2019-01-09 2019-01-09 Outpatient G_Pappas MMG MMG 2019 [place] 06:54:00 06:54:00 0224 Medical Group 2019-01-09 2019-01-09 Outpatient Robby ASKEW [facility] 2019 [place] 06:54:00 06:54:00 0626 [facility] Results Test Description Test Time Test Comments Results Result Comments Source [MMD] US Liver 2020-06-03 09:19:00 Test Item Value Reference Range Interpretation Comme nts US Liver (test code = US Liver) EXAM: US LIVER DATE: 06/03/2020 9:1 9 AM PHARM SPEC INDICATION: 35/F FATTY LIVER SCREENING / NO [...] biliary tree are seen. 06/03/2020 10:20 AM PHARM SPEC Robinson Freedman [facility][Q] QUESTASSURED 25-OH VIT D, (D2,D3), LC/MS/[id number] 13:00:00 Test Item Value Reference Range Interpretation Comments VITAMIN D, 45 ng/ml 30-100 (Note) Vitamin D, 25-Hydroxy 25-OH, TOTAL reports concent rations of two (test code = common forms, 2 5-OHD2 and VITAMIN D, 25-OHD3. 25-OHD 3 indicates both 25-OH, TOTAL) endogenous pro duction and supplementation . 25-OHD2 is an indicator of ex ogenous sources such as diet or supplementation. Therapy is base d on measurement of Total 25-OHD , with levels <20 ng/mL indicativ e of Vitamin D deficiency, whi le levels between 20 ng/mL and 30 ng/mL suggest insufficiency. Optimal levels are > or = 30 n g/mL. Vitamin D is fat-soluble and therefore inadvertent or intentional ingestion of ex cessively high amounts could b e toxic. Studies in children and adults suggest blood levels wo uld need to exceed 150 ng/m L before there is any concern. Ho dominic MF, Estefany GANDHI, Osiris ROY, et al. Evaluation, rizwana atment and prevention of v itamin D deficiency: an Endocrine Society clinical practi ce guideline. J Clin Endocrinol Metab. 2011;96(7):1911 -30. For additional info rmation, please refer to http://[employer]/faq/FAQ19 9 VITAMIN D, 45 ng/ml Reference range [...] regulation and is usedfor Clinical purpos es.MDFmed [id number] [place] [address],[address] [facility] [id number] 00Adrienne Lau Note 1 Note 1 For additional information, please refer to http://[employer]/faq/FAQ19 9 (This link is being provided for informational/e ducational purposes only.) [facility][QL] LIPID [id number] 13:00:00 Test Item Value Reference Range Interpretation [...] choleste rol not (test code = calculated. 07678-7) Triglyceride levelsgreater t shah 400 mg/dL inval [...] SS et al . RUTH. 2013;310( 19): 8457-0497 (http://educati on.Que stDiagnostics.c om/faq /LAF388) CHOL/HDLC RATIO 5.7 {CALC} <5.0 (test code = CHOL/HDLC RATIO) NON HDL CHOLESTEROL 203 {MG/DL <130 For torrey ents with (test code = NON DAYSI} diabetes pl us 1 major HDL CHOLESTEROL) ASCVD risk factor, treating to a non-HDL-C goal of <100 mg/dL (LDL -C of <70 mg/dL) is considered a therapeutic opt ion. [facility][QL] IRON AND TOTAL IRON BINDING [id number] 13:00:00 Test Item Value Reference Range Interpretation Comments IRON, TOTAL (test code = 89 {mcg/dl} 40-190 N IRON, TOTAL) IRON BINDING CAPACITY (test 357 {mcg/dL ca} 250-450 N code = IRON BINDING CAPACITY) % SATURATION (test code = % 25 {% CALC} 16-45 N SATURATION) [facility][QL] CMP [id number] 13:00:00 Test Item Value Reference Range Interpretation Comments GLUCOSE; Normal 106 mg/dl 65-139 N Non-fasting (test code = 1547-9) referen ce interval UREA NITROGEN (BUN) 12 mg/dl 7-25 N (test code = UREA NITROGEN (BUN)) CREATININE (test 0.74 mg/dl 0.50-1.10 N code = CREATININE) eGFR NON-AFR. 105 {ML/MIN/1.7} > OR = 60 N THAI (test code = eGFR NON-AFR. THAI) eGFR 122 {ML/MIN/1.7} > OR = 60 N THAI (test code = eGFR ) BUN/CREATININE RATIO [...] mg/dl 0.2-1.2 N Normal (test code = 92604-1) ALKALINE PHOSPHATASE 79 u/l 31-125 N (test code = ALKALINE PHOSPHATASE) AST; Normal (test 12 u/l 10-30 N code = 1916-6) ALT; Normal (test 9 u/l 6-29 N code = 1742-6) [facility][QL] CBC (INCLUDES DIFF/PLT)2020-04-13 13:00:00 Test Item Value Reference Range Interpretation Comments WHITE BLOOD CELL COUNT 9.8 {Thousand/u} 3.8-10.8 N (test code = WHITE BLOOD CELL COUNT) RED BLOOD CELL COUNT (test 4.39 {Million/uL} 3.80-5.10 N code = RED BLOOD CELL COUNT) HEMOGLOBIN; Normal (test 13.1 g/dl 11.7-15.5 N code = 50976-5) HEMATOCRIT; Normal (test 39.5 % 35.0-45.0 N code = 4544-3) MCV; Normal (test code = 90.0 fL 80.0-100.0 N 787-2) MCHC; Normal (test code = 33.2 g/dl 32.0-36.0 N 25571-2) RDW; Normal (test code = 12.8 % 11.0-15.0 N 788-0) PLATELET COUNT; Normal 314 {Thousand/u} 140-400 N (test code = 777-3) MPV; Normal (test code = 11.3 fL 7.5-12.5 N 22430-6) ABSOLUTE NEUTROPHILS (test 6086 {cells/uL} 7264-0289 N code = ABSOLUTE NEUTROPHILS) ABSOLUTE LYMPHOCYTES [...] Normal (test 7.7 % N code = 67818-6) EOSINOPHILS; Normal (test 3.5 % N code = 91530-6) BASOPHILS; Normal (test 0.7 % N code = 55552-2) [facility][QL] PTH, INTACT (WITHOUT CALCIUM)2020-04-13 13:00:00 Test Item Value Reference Range Interpretation Comments PARATHYROID 43 pg/ml 14-64 N Interpretive Gu daryl Intact PTH HORMONE, INTACT Calcium----- (test code = ---- ---Normal PARATHYROID Parathyroid Nor mal HORMONE, INTACT) NormalHypop arathyroidism Low or Low Normal LowHyperparathy roidism Primary Normal or High High Secondary High Normal or Low Tertiary High HighNon-Parathy roid Hypercalcemia L ow or Low Normal High [facility][QL] VITAMIN E (TOCOPHEROL)2020-04-13 13:00:00 Test Item Value Reference Range Interpretation Comments ALPHA-TOCOPHEROL 15.6 mg/L Reference R barbara 5.7-19.9 (test code = mg/L Levels of ALPHA-TOCOPHEROL) alpha-toco pherol <5 mg/L are consistent with Vitamin E deficiency in adults.Vitamin supplementation within 24 hours prior to blood draw may affect the accuracy of results. This t est was developed and i ts analytical perf ormance characteristics have been determined by [employer]. It has not been cleared or approved by theFDA. This as say has been validated pursu ant to the CLIA regulation s and is used for clinic al purposes. [id number] 1.9 mg/L <4.4 This test was developed and LUIS (test code = its analyt ical performance [id number] characteri stics have been LUIS) determined by [facility]. It has not been cleared or approved by theFDA. This as say has been validated pursu ant to the CLIA regulation s and is used for clinic al purposes. [facility][QL] FOLATE, [id number] 13:00:00 Test Item Value Reference Range Interpretation Comments FOLATE, SERUM (test 3.8 ng/ml Referenc e Range Low: code = FOLATE, <3.4 Borderli ne: 3.4-5.4 SERUM) Normal: >5.4 [facility][QL] TSH, 3RD [id number] 13:00:00 Test Item Value Reference Range Interpretation Comments TSH; Below Low 0.35 {MIU/L} Reference Ran ge > or Threshold (test code = 20 Ye ars 0.40-4.50 = 77263-7) Range s First trimester 0.26-2.66 Seco nd trimester 0.55- 2.73 Third trimester 0.43-2.91 [facility][QL] VITAMIN [id number] 13:00:00 Test Item Value Reference Range Interpretation Comments VITAMIN B12 335 pg/ml 200-1100 N Please Note: Al though the (test code = reference range for gyxmdbuS09 VITAMIN B12) is 200-1100 pg/ mL, it has been reported that b etween5 and 10% of patients wit h values between 200 and 400pg/mL may experience neur opsychiatric and hematologic abnormalities due to occult B 12 deficiency; less than 1%of patients with values above 40 0 pg/mL will have symptoms. [facility][QL] VITAMIN B1, WHOLE [id number] 13:00:00 Test Item Value Reference Range Interpretation Comments VITAMIN B1, WHOLE 126 nmol/L 78-185 Vitamin amador pplementation BLOOD (test code = within 24 hours prior VITAMIN B1, WHOLE toblood dr dale may affect BLOOD) the accuracy of results. This test was d kevin and its analyti daysi performance characteristics have been determined by [facility] [facility] [employer]. It has not been cleared or approved by theFDA. This assay has been validated pursuant to the CLIA reg ulations and is used for clinical purposes. [facility][QL] HEMOGLOBIN [id number] 13:00:00 Test Item Value Reference Range Interpretation Comments HEMOGLOBIN A1c; 5.2 {% of <5.7 N For the purp ose of Normal (test code total} screening for the = 4548-4) presence ofdiab etes: <5.7% Consisten t with the absence of diabetes5.7-6.4 % Consistent with increased risk for diabetes (predi abetes)> or =6.5% Consis tent with diabetes T his assay result is consistent with a decreased risko f diabetes. Curre ntly, no consensus exist s regarding use ofhemoglobin A1 c for diagnosis of di abetes in children. Ac cording to [employer] (ADA)guidelines , hemoglobin A1c <7.0% represents optimalcontrol in non- di abetic patients. Differentmetric s may apply to specif ic patient populat ions. Standards of Me dical Care in Diabete s(ADA). [facility][QL] VITAMIN A (RETINOL)2020-04-13 13:00:00 Test Item Value Reference Range Interpretation Comments VITAMIN A (test 59 {mcg/dl} 38-98 Clin Chem Vol. 34.No.8. code = VITAMIN A) [id number] 8. 1997Vitamin supplementation within 24 hours prior to blood draw may affect the accuracy of results. Thi s test was developed and i ts analytical perf ormance characteristics have been determined by [facility] [facility] [employer]. It has not been cleared or approved by theFDA. This assay has been validated pursuant to the CLIA reg ulations and is used for clinical purposes. [facility] PhysiciansUrinalysis macro (dipstick) panel - [id number] 14:52:43 Test Item Value Reference Range Interpretation Comments Leukocytes (test code = Leukocytes) Negative Nitrite (test code = Nitrite) negative Urobilinogen (test code = .2 Urobilinogen) Protein (test code = Protein) Negative pH (test code = pH) 6.0 Blood (test code = Blood) Negative Specific [place] (test code = 1.025 Specific [place]) Ketone (test code = Ketone) Negative Bilirubin (test code = Bilirubin) Small Glucose (test code = Glucose) Negative Appearance (test code = Appearance) Clear Color (test code = Color) Yellow [facility]
--- NOTE | 2022-01-23 10:14 | RAD REPORT ---
EXAM DESCRIPTION: RAD - Chest Single View - 01/23/2022 10:02 am CLINICAL HISTORY: DYSPNEA COMPARISON: Chest Single View dated 07/02/2020; Chest Single View dated 02/16/2019; Chest Single View dated 02/24/2018 FINDINGS: Lines: None. Lungs: No evidence of edema or pneumonia. Pleural: No significant pleural effusions or pneumothorax. Cardiac: The heart size is within normal limits. Bones: No acute fractures. Other: IMPRESSION: No acute cardiopulmonary disease.
--- NOTE | 2022-01-23 12:11 | ER ---
Nurse's Notes [facility] Name: Bev Cox Age: 36 yrs Sex: Female : 1985 Arrival Date: 01/23/2022 Time: 09:24 Bed 11 Private MD: Tamera Domínguez Diagnosis: Abnormalities of breathing, other Presentation: 01/23 09:35 Chief complaint: Patient states: "I went into this really gross house on Sunday and ss since then my face hurts and It's getting more difficult to breath.". Coronavirus screen: Client denies travel out of the [place] in the last 14 days. Client presents with at least one sign or symptom that may indicate coronavirus-19. Ebola Screen: Patient denies exposure to infectious person. Patient denies travel to an Ebola-affected area in the 21 days before illness onset. Initial Sepsis Screen: Does the patient meet any 2 criteria? No. Patient's initial sepsis screen is negative. Does the patient have a suspected source of infection? No. Patient's initial sepsis screen is negative. Risk Assessment: Do you want to hurt yourself or someone else? Patient reports no desire to harm self or others. Onset of symptoms was January 18, 2022. 09:35 Method Of Arrival: Ambulatory ss 09:35 Acuity: EVANGELINA 4 ss Triage Assessment: 09:39 General: Appears in no apparent distress. comfortable, Behavior is calm, cooperative. ss Pain: Complains of pain in sore throat Pain currently is 6 out of 10 on a pain scale. Respiratory: Airway is patent Respiratory effort is even, unlabored, Respiratory pattern is regular, symmetrical, the patient has mild shortness of breath. Derm: Skin is intact, is healthy with good turgor, Skin is pink, warm \\T\\ dry. normal. [employer]: 09:36 LMP N/A - Hysterectomy ss Historical: - Allergies: 09:36 No Known Allergies; ss - PMHx: 09:36 Anxiety; Depression; Hypothyroidism; PTSD; ss - PSHx: 09:36 hysterectomy; ss - Immunization history:: Client reports receiving the 2nd dose of the Covid vaccine. - Social history:: Smoking status: Patient reports the use of cigarette tobacco products, smokes one-half pack cigarettes per day. Screenin:39 Abuse screen: Denies threats or abuse. Denies injuries from another. Nutritional ss screening: No deficits noted. Tuberculosis screening: Never had TB. Fall Risk None identified. Assessment: 09:40 Reassessment: PT states, "I think it's a sinus infection. I have like a dry cough and ss my throat is sore.". 09:40 Reassessment: SEE TRIAGE ASSESSMENT. ss 12:22 Reassessment: Patient appears in no apparent distress at this time. Patient and/or ss family updated on plan of care and expected duration. Pain level reassessed. Patient is alert, oriented x 3, equal unlabored respirations, skin warm/dry/pink. Vital Signs: 09:36 Pulse 80; Resp 14; Temp 97.2(TE); Pulse Ox 99% on R/A; Weight 117.93 kg; Height 5 ft. 3 ss in. (160.02 cm); Pain 6/10; 09:40 BP 100 / 85; ss 09:36 Body Mass Index 46.06 (117.93 kg, 160.02 cm) ss ED Course: 09:24 Patient arrived in ED. mr 09:24 Tamera Domínguez MD is Private Physician. mr 09:29 [facility] jl9 09:29 Phong Wade MD is Attending Physician. jl9 09:36 Triage completed. ss 09:36 Arm band placed on left wrist. ss 09:39 Patient has correct armband on for positive identification. ss 10:03 XRAY Chest (1 view) In Process Unspecified. EDTX 10:15 Katarina Raygoza, EVER is Primary Nurse. ss 12:22 No provider procedures requiring assistance completed. Patient did not have IV access ss during this emergency room visit. Administered Medications: No medications were administered Medication: 12:22 VIS not applicable for this client. ss Outcome: 12:11 Discharge ordered by . jl9 12:22 Discharged to home ambulatory. ss 12:22 Condition: good 12:22 Discharge instructions given to patient, Instructed on discharge instructions, follow up and referral plans. medication usage, Demonstrated understanding of instructions, follow-up care, medications, Prescriptions given X 2. 12:23 Patient left the ED. ss Signatures: Dispatcher [employer] [facility] SenthilAmber mr Katarina Raygoza, RN RN ss Nghia Wiley jl9
--- NOTE | 2022-01-23 12:11 | EDPHYS ---
Physician Documentation [facility] Name: Bev Cox Age: 36 yrs Sex: Female : 1985 Arrival Date: 01/23/2022 Time: 09:24 Bed 11 Private MD: Tamera Domínguez ED Physician Phong Wade HPI: 01/23 11:44 This 36 yrs old Female presents to ER via Ambulatory with complaints of jl9 cough, hard to take a deep breath after going into "bad house".. 11:44 The patient has shortness of breath at rest. Onset: The symptoms/episode began/occurred jl9 1 week(s) ago. Duration: The symptoms are intermittent. The patient's shortness of breath is aggravated by nothing, is alleviated by rest. Associated signs and symptoms: The patient has no apparent associated signs or symptoms. 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 - Social history:: Smoking status: Patient reports the use of cigarette tobacco products, smokes one-half pack cigarettes per day. ROS: 11:45 Constitutional: Negative for fever, chills, and weight loss, Eyes: Negative for injury, jl9 pain, redness, and discharge, ENT: Negative for injury, pain, and discharge, Neck: Negative for injury, pain, and swelling, Cardiovascular: Negative for chest pain, palpitations, and edema. 11:45 Abdomen/GI: Negative for abdominal pain, nausea, vomiting, diarrhea, and constipation, Back: Negative for injury and pain, : Negative for injury, bleeding, discharge, and swelling, MS/Extremity: Negative for injury and deformity, Skin: Negative for injury, rash, and discoloration, Neuro: Negative for headache, weakness, numbness, tingling, and seizure, Psych: Negative for depression, anxiety, suicide ideation, homicidal ideation, and hallucinations, Allergy/Immunology: Negative for hives, rash, and allergies, Endocrine: Negative for neck swelling, polydipsia, polyuria, polyphagia, and marked weight changes. 11:45 Respiratory: Positive for cough, "sounds productive". Exam: 11:45 Constitutional: This is a well developed, well nourished patient who is awake, alert, jl9 and in no acute distress. Head/Face: Normocephalic, atraumatic. Eyes: Pupils equal round and reactive to light, extra-ocular motions intact. Lids and lashes normal. Conjunctiva and sclera are non-icteric and not injected. Cornea within normal limits. Periorbital areas with no swelling, redness, or edema. ENT: Mucous membranes moist. Neck: Trachea midline, no thyromegaly or masses palpated, and no cervical lymphadenopathy. Supple, full range of motion without nuchal rigidity, or vertebral point tenderness. No Meningismus. Chest/axilla: Normal chest wall appearance and motion. Nontender with no deformity. No lesions are appreciated. Cardiovascular: Regular rate and rhythm with a normal S1 and S2. No gallops, murmurs, or rubs. Normal PMI, no JVD. No pulse deficits. Respiratory: Lungs have equal breath sounds bilaterally, clear to auscultation and percussion. No rales, rhonchi or wheezes noted. No increased work of breathing, no retractions or nasal flaring. Abdomen/GI: Soft, non-tender, with normal bowel sounds. No distension or tympany. No guarding or rebound. No evidence of tenderness throughout. Back: No spinal tenderness. No costovertebral tenderness. Full range of motion. Skin: Warm, dry with normal turgor. Normal color with no rashes, no lesions, and no evidence of cellulitis. MS/ Extremity: Pulses equal, no cyanosis. Neurovascular intact. Full, normal range of motion. Neuro: Awake and alert, GCS 15, oriented to person, place, time, and situation. Cranial nerves II-XII grossly intact. Motor strength 5/5 in all extremities. Sensory grossly intact. Cerebellar exam normal. Normal gait. Psych: Awake, alert, with orientation to person, place and time. Behavior, mood, and affect are within normal limits. Vital Signs: 09:36 Pulse 80; Resp 14; Temp 97.2(TE); Pulse Ox 99% on R/A; Weight 117.93 kg; Height 5 ft. 3 ss in. (160.02 cm); Pain 6/10; 09:40 BP 100 / 85; ss 09:36 Body Mass Index 46.06 (117.93 kg, 160.02 cm) ss MDM: 09:29 Patient medically screened. jl9 11:46 Differential diagnosis: Bronchitis Chronic Obstructive Pulmonary Disease reactive jl9 airway disease. Data reviewed: vital signs, nurses notes, lab test result(s). 11:46 Counseling: I had a detailed discussion with the patient and/or guardian regarding: the jl9 historical points, exam findings, and any diagnostic results supporting the discharge/admit diagnosis, lab results, radiology results, the need for outpatient follow up. 01/23 09:38 Order name: Strep; Complete Time: 10:16 9 01/23 09:38 Order name: SARS-COV-2 RT PCR (Document "Date of Onset" if Symptomatic); Complete Time: 11:44 01/23 09:38 Order name: Influenza Screen (a \\T\\ B); Complete Time: 11:44 9 01/23 09:38 Order name: XRAY Chest (1 view); Complete Time: 10:16 9 01/23 10:12 Order name: Throat Culture EDMS Administered Medications: No medications were administered Disposition: 16:30 Co-signature as Attending Physician, Phong Wade MD. rn Disposition Summary: 01/23/22 12:11 Discharge Ordered Location: Home jl9 Condition: Stable jl9 Diagnosis - Abnormalities of breathing, other jl9 Followup: jl9 - With: Private Physician - When: 1 - 2 days - Reason: Recheck today's complaints, Continuance of care, Re-evaluation by your physician Discharge Instructions: - Discharge Summary Sheet jl9 - Acute Bronchitis, Adult, [id number] jl9 - Cough, Adult, [id number] jl9 Forms: - Medication Reconciliation Form jl9 - Thank You Letter jl9 - Antibiotic Education jl9 - Prescription Opioid Use jl9 Prescriptions: - albuterol sulfate 90 mcg/actuation Inhalation HFA aerosol inhaler - inhale 2 puff by INHALATION route every 6 hours As needed; 18 gram; Refills: 0, jl9 Product Selection Permitted - [id number] 2-30-10 mg/5 mL Oral syrup - take 10 milliliter by ORAL route every 4 hours As needed; 100 milliliter; jl9 Refills: 0, Product Selection Permitted Signatures: Dispatcher [employer] EDMS Wade, Phong, MD MD rn Ktaarina Raygoza RN RN Nghia Boggs jl9
[2022-01-23 13:33] VITALS: TEMP 97.2; O2SAT 99
[2022-01-23 13:37] VITALS: BP 100/85
== END 2022-01-23 12:23 | disposition home or self-care (01) ==
LOC: ER 09:20
DX: R06.89 Other abnormalities of breathing (principal); R05.9 Cough, unspecified; F17.210 Nicotine dependence, cigarettes, uncomplicated; Z20.822 Contact with and (suspected) exposure to COVID-19
CPT/HCPCS: 87070; 87081; 87804 ×2; 71045; U0003; 99283

== ENCOUNTER 2022-02-26 10:37 | Emergency (ER) | payer OTHER ==
--- OUTSIDE RECORDS SUMMARY | 2022-02-26 10:41 | XMS REPORT | Continuity of Care Document ---
:1985 Author Organization [facility] t Address [address] [place] [address] Care Team Providers Name Role Phone TAMERA SHARP Primary Care Physician Unavailable MATT ROSA Attending Clinician Unavailable Matt Rosa MD Attending Clinician SHAHNAZ Attending Clinician Unavailable Tamera Sharp Attending Clinician [phone] LUIS MANUEL GUTIERREZ M.D. Attending Clinician Unavailable LOLA SHANNON D.O. Attending Clinician Unavailable Liborio_Pappas Attending Clinician Unavailable Lab, Adc Fam Pob I Attending Clinician Unavailable Farhana Ken Attending Clinician FARHANA WELLINGTON Attending Clinician Unavailable MATT ROSA Admitting Clinician Unavailable SHAHNAZ Admitting Clinician Unavailable G_Paprebecca Admitting Clinician Unavailable Payers Payer Name Policy Type Policy Number Effective Date Expiration Date S umang MEDICARE PART A [id number] 2010 \T\ B 00:00:00 [place] B[place]: [id number] 2010 Apt[place] 00:00:00 [place] [id number] [place] [facility] - [id number] FQHC (INSTITUTIONAL) [place]: [id number] 2006 Aptible 00:00:00 - [facility] Problems Condition Condition Condition Status Onset Resolution Last Treating Co mments Source Name Details Category Date Date Treatment Clinician Date Postsurgic Postsurgic Problem Active M [facility] al al 6-28 da menopause Menopause 00:00: Medi daysi 00 Group Eruption Eruption Problem Active [facility] 8-16 da 00:00: Medical 00 Group Depressed Depressed Problem Active 2013-06 [facility] bipolar I Bipolar I 06-04 da disorder Disorder 00:00: Medica l 00 Group Gastroesop Gastroesop Problem Active M atatetor hageal hageal 9-15 da reflux Reflux 00:00: Medical disease Disease 00 Group Vitamin D Vitamin D Problem Active [facility] deficiency deficiency Ph ysici ans Morbid Morbid Problem Active [facility] obesity obesity Physici ans Malnutriti Malnutriti Problem Active U T on on Physici ans Dyslipidem Dyslipidem Problem Active U T ia ia Physici ans Low folate Low folate Problem Active U T Physici ans Hypothyroi Hypothyroi Problem Active U T dism, dism, Physici adult adult ans Asthma in Asthma in Problem Active UT adult, adult, Physici unspecifie unspecifie an s d asthma d asthma severity, severity, unspecifie unspecifie d whether d whether complicate complicate d, d, unspecifie unspecifie d whether d whether persistent persistent Anxiety Anxiety Problem Active UT and and Physici depression depression an s SABINA SABINA Problem Active UT (stress (stress Physici urinary urinary ans incontinen incontinen ce, ce, female) female) Abdominal Abdominal Problem Active [facility] pain pain Physici ans CLAY CLAY Problem Active UT (obstructi (obstructi Ph ysici ve sleep ve sleep ans apnea) apnea) Hypothyroi Hypothyroi Problem Active M at[facility] dism [...] Active [facility] Family History Family Member Diagnosis Comments Start Date Stop Date Source Unknown Family Member Adopted Other [facility] Social History Social Habit Start Date Stop Date Quantity Comments Source Exposure to 2022-01-14 2022-01-24 Not sure [facility] SARS-CoV-2 (event) 00:00:00 09:59:00 Medica l Josh Sex Assigned At [birth year] [facility] 00:00:00 00:00:00 Medical Branch Smoking Status Start Date Stop Date Source Tobacco smoking consumption [facility] Medical unknown Branch Former Smoker [facility] Never smoked tobacco (finding) [facility] Medications Ordered Filled Start Stop Current Ordering Indication Dosage Frequency Signature Comments Components Source Medication Medication Date Date Medication? Clinician (SIG) Name Name [facility] Yes 1 QD TAKE 1 [facility] Carbonate [...] Source BP Diastolic 2019-12-01 00:00:00 80 mm[Hg] [facility] Height 2019-12-01 00:00:00 64 [in_i] [facility] BMI (Body Mass 2019-12-01 00:00:00 45.9 kg/m2 [facility] Group BP Systolic 2019-12-01 00:00:00 111 mm[Hg] [facility] Body Weight 2019-12-01 00:00:00 267.5 [lb_av] [facility] Systolic blood 2020-04-23 09:14:00 [...] Date / Time Performing Clinician Source Performed US ABDOMEN LIMITED 2022-01-27 18:20:30 Matt Rosa [facility] NOTICE OF BILLING 2022-01-27 17:49:21 Doctor Unassigned, [facility] PRACTICES FOR MEDICARE [facility] PATIENTS [facility] PATIENT FINANCIAL 2022-01-27 17:49:07 [facility] NO SHOW OR MISSED 2022-01-27 17:48:48 Doctor Unassigned, [facility] APPOINTMENT POLICY [facility] ACKNOWLEDGEMENT NOTICE OF PRIVACY 2022-01-27 17:48:20 Doctor Unassigned, [facility] PRACTICES [facility] CONSENT/REFUSAL FOR 2022-01-27 17:48:03 [facility] ASSIGNMENT OF BENEFITS 2022-01-27 17:47:41 Doctor Unassigned, [facility] [MMD] US Liver 2020-05-24 00:00:00 [facility] Physician s Laparoscopic Total 2017-10-17 00:00:00 [facility] Bilateral Oophorectomy 2017-10-17 00:00:00 [facility] Tubal Ligation 2016-01-28 00:00:00 [facility] History of Oophorectomy [facility] Physi cians bilateral Plan of Care Planned Activity Planned Date Details Comments Source Diagnostic Test 2019-12-01 urinalysis, [facility] Pending 00:00:00 dipstick [code = [...] Date/Time Type Type Clinicians Facility Department ID 2022-01-27 2022-01-27 Outpatient R [facility] [place] [id number] Univers 12:50:28 23:59:00 MATT Lozada [facility] 2022-01-27 2022-01-27 [facility] [id number] Univers 12:50:28 23:59:00 [id number] [id number] [id number] [facility] 806 Branch 2022-01-27 2022-01-27 Outpatient R [facility] [place] [id number] Univers 00:00:00 00:00:00 MATT Lozada [id number] mauricio o emmie [facility] 2022-01-22 2022-01-22 Outpatient KEFFER_A [facility] [id number] [place] 00:00:00 00:00:00 [facility] 2022-01-18 2022-01-18 Outpatient KEFFER_A [facility] [id number] [place] 00:00:00 00:00:00 [facility] 2022-01-18 2022-01-18 Outpatient Tamera Sharp [facility] [id number] 00:00:00 00:00:00 Nilda [id number] 2021-11-28 2021-11-28 Outpatient KEFFER_A [facility] [id number] [place] 05:59:00 05:59:00 627 [facility] 2021-11-28 2021-11-28 Outpatient LilaTamera [facility] [id number] 00:00:00 00:00:00 Nilda [id number] 2021-09-22 2021-09-22 Outpatient KEFFER_A [facility] [id number] [place] 09:10:00 09:10:00 522 [facility] 2021-08-18 2021-08-18 Outpatient KEFFER_A [facility] [id number] [place] 06:13:00 06:13:00 317 [facility] 2021-08-18 2021-08-18 Outpatient Tamera Sharp [facility] [id number] 00:00:00 00:00:00 Nilda [id number] 2021-08-11 2021-08-11 Outpatient KEFFER_A [facility] [id number] [place] 04:45:00 04:45:00 310 [facility] 2021-08-11 2021-08-11 Outpatient LilaTamera [facility] [id number] 00:00:00 00:00:00 Nilda [id number] 2021-07-19 2021-07-19 Outpatient KEJOSEFINA_Noam [facility] [id number] [place] 01:20:00 01:20:00 215 [facility] 2021-07-19 2021-07-19 Outpatient Tamera Sharp [facility] [id number] 00:00:00 00:00:00 Nilda [id number] 2021-06-28 2021-06-28 Outpatient LILA_Noam [facility] [id number] [place] 05:59:00 05:59:00 125 [facility] 2021-06-28 2021-06-28 Outpatient Tamera Sharp [facility] [id number] 00:00:00 00:00:00 Nilda [id number] 2020-08-03 2020-08-03 Tyrese MELLO [facility] [id number] [place] 10:30:00 10:30:00 t; LUIS MANUEL [facility] [place] [facility] TALLAVAJHU M.D. [place], SUDHA, M.D. 2020-07-13 2020-07-13 Outpatient LILA_Noam [facility] [id number] [place] 05:34:00 05:34:00 209 [facility] 2020-06-11 2020-06-11 JUNI Minor [id number] [place] 09:45:00 09:45:00 t; David DAVILA D.O. ans MELISSA, D.O. 2020-06-01 2020-06-[address] [facility] [id number] [place] 09:00:00 09:00:00 t; LUIS MANUEL [facility] [place] LUIS MANUEL Hogan M.D., M.D. 2020-04-23 2020-04-23 JUNI Minor [facility] [id number] [place] 09:15:00 09:15:00 t; LOLA Physi anna SHANNON D.O. ans Ras DAVILA 2020-04-21 2020-04-21 Outpatient G_[facility]as [facility] MM 2019 [place] 02:24:00 02:24:00 [id number] da [facility] 2020-04-13 2020-04-13 Eliotonelia [facility] [id number] [place] 11:30:00 11:30:00 t; LOLA, Physi Ras Maldonado D.O. 2019-12-27 2019-12-27 Outpatient G_[facility]appas MMG MMLiborio 2019 [place] 11:00:00 11:00:00 0729 Medical Group 2019-12-10 2019-12-10 Laboratory Lab, [facility] [id number] 11:15:35 11:32:41 Only Fam Pob I Health [id number] [place] [id number] Professio [id number] [place] [address] [address] 2019-12-10 2019-12-10 Laboratory Lab, [facility] Fam Pob I [facility] [id number] [facility] 11:15:35 11:32:41 Only Farhana [facility] [id number] ity of [place] [id number] Anjum as Professio [phone] Mn dical [address] Office [address] One 2019-12-10 2019-12-10 Outpatient Gato [facility] [id number] Univers 11:20:00 11:20:00 FARHANA ity of [facility] 2019-12-02 2019-12-02 Outpatient G_[facility] MMG MM 2019 [place] 12:02:00 12:02:00 0630 Medical Group 2019-12-01 2019-12-01 Outpatient G_[facility] MMG MM 2019 [place] 11:04:00 11:04:00 0629 Medical Group 2019-12-01 2019-12-01 [place] - [id number] M atagor 00:00:00 00:00:00 Discovery tuan Gaxiola MD: [address] [facility] [address] [place] [address], [place] [address] , Ph. 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 06/03/2020 10:20 AM BARRELHEAD INSPECTOR Robinson Freedman [facility][QL] LIPID [id number] 13:00:00 Test Item Value Reference Range Interpretation [...] choleste rol not (test code = calculated. 88295-0) Triglyceride levelsgreater t shah 400 mg/dL inval [...] SS et al . RUTH. 2013;310( 19): 7572-2598 (http://educati on.Que stDiagnostics.c om/faq /KEA448) CHOL/HDLC RATIO 5.7 {CALC} <5.0 (test code = CHOL/HDLC RATIO) NON HDL CHOLESTEROL 203 {MG/DL <130 For torrey ents with (test code = NON DAYSI} diabetes pl us 1 major HDL CHOLESTEROL) ASCVD risk factor, treating to a non-HDL-C goal of <100 mg/dL (LDL -C of <70 mg/dL) is considered a therapeutic opt ion. [facility][QL] IRON AND TOTAL IRON BINDING [id number] 13:00:00 Test Item Value Reference Range Interpretation Comments IRON, TOTAL (test code = 89 {mcg/dl} 40-190 N IRON, TOTAL) IRON BINDING CAPACITY (test 357 {mcg/dL ca} 250-450 N code = IRON BINDING CAPACITY) % SATURATION (test code = % 25 {% CALC} 16-45 N SATURATION) [facility][QL] CMP [id number] 13:00:00 Test Item Value Reference Range Interpretation Comments GLUCOSE; Normal 106 mg/dl 65-139 N Non-fasting (test code = 1547-9) referen ce interval UREA NITROGEN (BUN) 12 mg/dl 7-25 N (test code = UREA NITROGEN (BUN)) CREATININE (test 0.74 mg/dl 0.50-1.10 N code = CREATININE) eGFR NON-AFR. 105 {ML/MIN/1.7} > OR = 60 N MONTSERRATIAN (test code = eGFR NON-AFR. MONTSERRATIAN) eGFR 122 {ML/MIN/1.7} > OR = 60 N MONTSERRATIAN (test code = eGFR ) BUN/CREATININE RATIO [...] mg/dl 0.2-1.2 N Normal (test code = 71709-0) ALKALINE PHOSPHATASE 79 u/l 31-125 N (test code = ALKALINE PHOSPHATASE) AST; Normal (test 12 u/l 10-30 N code = 1916-6) ALT; Normal (test 9 u/l 6-29 N code = 1742-6) [facility][QL] CBC (INCLUDES DIFF/PLT)2020-04-13 13:00:00 Test Item Value Reference Range Interpretation Comments WHITE BLOOD CELL COUNT 9.8 {Thousand/u} 3.8-10.8 N (test code = WHITE BLOOD CELL COUNT) RED BLOOD CELL COUNT (test 4.39 {Million/uL} 3.80-5.10 N code = RED BLOOD CELL COUNT) HEMOGLOBIN; Normal (test 13.1 g/dl 11.7-15.5 N code = 43668-2) HEMATOCRIT; Normal (test 39.5 % 35.0-45.0 N code = 4544-3) MCV; Normal (test code = 90.0 fL 80.0-100.0 N 787-2) MCHC; Normal (test code = 33.2 g/dl 32.0-36.0 N 27070-5) RDW; Normal (test code = 12.8 % 11.0-15.0 N 788-0) PLATELET COUNT; Normal 314 {Thousand/u} 140-400 N (test code = 777-3) MPV; Normal (test code = 11.3 fL 7.5-12.5 N 51585-3) ABSOLUTE NEUTROPHILS (test 6086 {cells/uL} 0258-5667 N code = ABSOLUTE NEUTROPHILS) ABSOLUTE LYMPHOCYTES [...] Normal (test 7.7 % N code = 83500-5) EOSINOPHILS; Normal (test 3.5 % N code = 44339-3) BASOPHILS; Normal (test 0.7 % N code = 94963-0) [facility][QL] PTH, INTACT (WITHOUT CALCIUM)2020-04-13 13:00:00 Test [...] perf ormance characteristics have been determined by [facility]. It has not been cleared or approved by theFDA. This as say has been validated pursu ant to the CLIA regulation s and is used for clinic al purposes. VMBA-YSYZL-XOTDRC 1.9 mg/L <4.4 This test was developed and LUIS (test code = its analyt ical performance NOKT-IYCSV-RJTAOT characteri stics have been LUIS) determined by [facility]. It has not been cleared or approved by theFDA. This as say has been validated pursu ant to the CLIA regulation s and is used for clinic al purposes. [facility][QL] FOLATE, [id number] 13:00:00 Test Item Value Reference Range Interpretation Comments FOLATE, SERUM (test 3.8 ng/ml Referenc e Range Low: code = FOLATE, <3.4 Borderli ne: 3.4-5.4 SERUM) Normal: >5.4 [facility][QL] TSH, 3RD [id number] 13:00:00 Test Item Value Reference Range Interpretation Comments TSH; Below Low 0.35 {MIU/L} Reference Ran ge > or Threshold (test code = 20 Ye ars 0.40-4.50 = 47687-0) Range s First trimester 0.26-2.66 Secon d trimester 0.55- 2.73 Third trimester 0.43-2.91 [facility][QL] VITAMIN [id number] 13:00:00 Test Item Value Reference Range Interpretation Comments VITAMIN B12 335 pg/ml 200-1100 N Please Note: Al though the (test code = reference range for nyaicmgQ22 VITAMIN B12) is 200-1100 pg/ mL, it has been reported that b etween5 and 10% of patients wit h values between 200 and 400pg/mL may experience neur opsychiatric and hematologic abnormalities due to occult B 12 deficiency; less than 1%of patients with values above 40 0 pg/mL will have symptoms. [facility][QL] VITAMIN B1, WHOLE [id number] 13:00:00 Test Item Value Reference Range Interpretation Comments VITAMIN B1, WHOLE 126 nmol/L 78-185 Vitamin amador pplementation BLOOD (test code = within 24 hours prior VITAMIN B1, WHOLE toblood dr dale may affect BLOOD) the accuracy of results. This test was gregor brown and its analyti daysi performance characteristics have been determined by [facility]. It has not been cleared or approved by theFDA. This assay has been validated pursuant to the CLIA reg ulations and is used for clinical purposes. [facility][QL] HEMOGLOBIN [id number] 13:00:00 Test Item Value Reference Range Interpretation Comments HEMOGLOBIN A1c; 5.2 {% of <5.7 N For the purp ose of Normal (test code total} screening for the = 4548-4) presence ofdiab etes: <5.7% Consiste nt with the absence of diabetes5.7-6.4 % Consistent with increased risk for diabetes (predi abetes)> or =6.5% Consis tent with diabetes T his assay result is consistent with a decreased risko f diabetes. Curre ntly, no consensus exist s regarding use ofhemoglobin A1 c for diagnosis of di abetes in children. Ac cording to [place] Chiara betes Association (ADA)guidelines , hemoglobin A1c <7.0% represents optimalcontrol in non- di abetic patients. Differentmetric s may apply to specif ic patient populat ions. Standards of Me dical Care in Diabete s(ADA). [facility][QL] VITAMIN A (RETINOL)2020-04-13 13:00:00 Test Item Value Reference Range Interpretation Comments VITAMIN A (test 59 {mcg/dl} 38-98 Clin Chem Vol. 34.No.8. code = VITAMIN A) [id number] 1997Vitamin supplementation within 24 hours prior to blood draw may affect the accuracy of results. Thi s test was developed and i ts analytical perf ormance characteristics have been determined by [facility]. It has not been cleared or approved by theFDA. This assay has been validated pursuant to the CLIA reg ulations and is used for clinical purposes. [facility][Q] QUESTASSURED 25-OH VIT D, (D2,D3), LC/MS/[id number] 13:00:00 Test Item Value Reference Range Interpretation [...] is any concern. Ho dominic MF, Estefany NC, Osiris rust ROY, et al. Evaluation, rizwana atment and prevention of v itamin D deficiency: an Endocrine Society clinical practi ce guideline. J Clin Endocrinol Metab. 2011;96(7):1911 -30. For additional info rmation, please refer to http://educatio n.OncoEthixDiagnostic Med[employer] Systems.com/faq/FAQ16 9 VITAMIN D, 45 ng/ml Reference range [...] regulation and is usedfor Clinical purpos es.MDed [id number] [place] [address],[address] [facility] [id number] 00Adrienne Lau e Note 1 Note 1 For additional information, please refer to http://educatio nWuxi [employer]/faq/FAQ19 9 (This link is being provided for informational/e ducational purposes only.) [facility] PhysiciansUrinalysis macro (dipstick) panel - [id number] 14:52:43 Test Item Value Reference Range Interpretation Comments Leukocytes (test code = Leukocytes) Negative Nitrite (test code = Nitrite) negative Urobilinogen (test code = .2 Urobilinogen) Protein (test code = Protein) Negative pH (test code = pH) 6.0 Blood (test code = Blood) Negative Specific [place] (test code = 1.025 Specific [place]) Ketone (test code = Ketone) Negative Bilirubin (test code = Bilirubin) Small Glucose (test code = Glucose) Negative Appearance (test code = Appearance) Clear Color (test code = Color) Yellow [facility]
[2022-02-26 11:49] LABS: Urine Blood Negative (Negative); Urine Glucose Negative (Negative); Urine Protein Negative (Negative); Urine Specific Gravity 1.025 (1.005-1.030)
[2022-02-26 12:00] LABS: Urine Specific Gravity/Preg 1.025 (1.005-1.030)
--- NOTE | 2022-02-26 16:05 | RAD REPORT ---
EXAM DESCRIPTION: RAD - Chest Single View - 02/26/2022 12:18 pm CLINICAL HISTORY: cough, sob COMPARISON: Portable 01/23/2022 TECHNIQUE: AP portable chest image was obtained 02/26/2022 12:18 pm . FINDINGS: Lungs are clear. Heart and vasculature are normal. No measurable pleural effusion and no p neumothorax. No acute bony abnormality seen. No acute aortic findings suspected. IMPRESSION: No acute cardiopulmonary process. No significant change from comparison study.
--- NOTE | 2022-02-26 16:15 | EDPHYS ---
Physician Documentation [facility] Name: Bev Cox Age: 36 yrs Sex: Female : 1985 Arrival Date: 02/26/2022 Time: 10:39 Bed 19 Private MD: ED Physician Phong Wade HPI: 02/26 11:00 This 36 yrs old Female presents to ER via Ambulatory with complaints of jmm Vomiting/Diarrhea. 11:00 Onset: The symptoms/episode began/occurred gradually, 3 week(s) ago. Possible causes: jmm unknown. The symptoms are aggravated by nothing. The symptoms are alleviated by nothing. This is a 35-year-old female with a history of anxiety, depression, hypothyroidism, PTSD the presents emerged department with complaints of cough, sore throat, vomiting, diarrhea. Symptoms initially began in late January. Patient states she has continually had sinus congestion, sore throat. Family members have had similar symptoms as well. 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 - Social history:: Smoking status: Patient reports the use of cigarette tobacco products, smokes one-half pack cigarettes per day. ROS: 11:00 Constitutional: Positive for body aches, chills. jmm 11:00 ENT: Positive for sore throat. 11:00 Respiratory: Positive for cough. 11:00 Abdomen/GI: Positive for nausea and vomiting, diarrhea. 11:00 All other systems are negative. Exam: 11:00 Constitutional: This is a well developed, well nourished patient who is awake, alert, jmm and in no acute distress. Head/Face: atraumatic. Eyes: EOMI, no conjunctival erythema appreciated ENT: Moist Mucus Membranes Neck: Trachea midline, Supple 11:00 Chest/axilla: Normal chest wall appearance and motion. Cardiovascular: Regular rate and rhythm. No edema appreciated Respiratory: Normal respirations, no respiratory distress appreciated Abdomen/GI: Non distended Back: Normal ROM Skin: General appearance color normal MS/ Extremity: Moves all extremities, no obvious deformities appreciated, no edema noted to the lower extremities Neuro: Awake and alert Psych: Behavior is normal, Mood is normal, Patient is cooperative and pleasant 11:00 ENT: Posterior pharynx: erythema, that is mild. Vital Signs: 10:54 BP 114 / 90; Pulse 91; Resp 17; Temp 97.9(TE); Pulse Ox 99% on R/A; tw2 MDM: 11:00 Patient medically screened. [facility] 16:14 Data reviewed: vital signs, nurses notes. Counseling: I had a detailed discussion with srinivasa the patient and/or guardian regarding: the historical points, exam findings, and any diagnostic results supporting the discharge/admit diagnosis, the need for outpatient follow up, to return to the emergency department if symptoms worsen or persist or if there are any questions or concerns that arise at home. 02/26 11:02 Order name: Influenza Screen (a \\T\\ B); Complete Time: 12:53 [facility] 02/26 11:02 Order name: Strep; Complete Time: 12:53 [facility] 02/26 11:02 Order name: SARS-COV-2 RT PCR (Document "Date of Onset" if Symptomatic); Complete Time: [facility] 13:51 02/26 11:50 Order name: Urine Dipstick-Ancillary; Complete Time: 12:53 [facility] 02/26 11:50 Order name: Urine --Ancillary (enter results); Complete Time: 12:53 02/26 12:08 Order name: Throat Culture [facility] 02/26 11:02 Order name: Chest Single View XRAY; Complete Time: 16:06 [facility] 02/26 11:02 Order name: Urine Dipstick-Ancillary (obtain specimen); Complete Time: 13:06 [facility] Administered Medications: 16:17 Drug: Decadron (dexamethasone) 10 mg Route: IM; Site: left deltoid; mb8 Disposition: 16:14 Chart complete. Chart complete. [facility] 18:45 Co-signature as Attending Physician, Phong Wade MD. rn Disposition Summary: 02/26/22 16:14 Discharge Ordered Location: Home [facility] Condition: Stable [facility] Diagnosis - Acute pharyngitis, unspecified [facility] Followup: [facility] - With: Private Physician - When: 2 - 3 days - Reason: Recheck today's complaints, Continuance of care, Re-evaluation by your physician Discharge Instructions: - Discharge Summary Sheet [facility] - Pharyngitis [facility] Forms: - Medication Reconciliation Form [facility] - Thank You Letter [facility] - Antibiotic Education [facility] - Prescription Opioid Use [facility] Prescriptions: - cefdinir 300 mg Oral capsule - take 1 capsule by ORAL route every 12 hours for 10 days; 20 capsule; Refills: [facility] 0, Product Selection Permitted Signatures: Dispatcher [employer] Lb Licona PA PA [facility] Phong Wade MD MD rn Wise, Tara, RN RN tw2 Winston Rai RN RN mb8
--- NOTE | 2022-02-26 16:15 | ER ---
Nurse's Notes [facility] Name: Bev Cox Age: 36 yrs Sex: Female : 1985 Arrival Date: 02/26/2022 Time: 10:39 Bed 19 Private MD: Diagnosis: Acute pharyngitis, unspecified Presentation: 02/26 10:54 Chief complaint: Patient states: since school started i have been sick. late january tw2 like the . i just havent gotten worse. coughing and yesterday +V 4 times and +D, low fever. Coronavirus screen: diarrhea, fatigue, nausea, vomiting. Ebola Screen: Patient denies travel to an Ebola-affected area in the 21 days before illness onset. Initial Sepsis Screen: Does the patient meet any 2 criteria? HR > 90 bpm. No. Patient's initial sepsis screen is negative. Does the patient have a suspected source of infection? No. Patient's initial sepsis screen is negative. Risk Assessment: Do you want to hurt yourself or someone else? Patient reports no desire to harm self or others. Onset of symptoms was February 26, 2022. 10:54 Method Of Arrival: Ambulatory tw2 10:54 Acuity: EVANGELINA 3 tw2 Triage Assessment: 10:57 General: Appears in no apparent distress. obese, well groomed, Behavior is calm, tw2 cooperative, appropriate for age. Pain: Denies pain. EENT: Reports pain in left ear and right ear. Respiratory: Reports cough that is productive, light green. GI: Reports diarrhea, nausea, vomiting. 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 - Social history:: Smoking status: Patient reports the use of cigarette tobacco products, smokes one-half pack cigarettes per day. Screenin:18 Abuse screen: Denies threats or abuse. Denies injuries from another. Abuse screen: mb8 Denies threats or abuse. Denies injuries from another. Nutritional screening: No deficits noted. Tuberculosis screening: No symptoms or risk factors identified. Fall Risk None identified. Assessment: 10:58 Reassessment: provider YULI Mays in triage room at this time. tw2 13:17 GI: Abdomen is flat, non-distended, Reports diarrhea, nausea. EENT:. mb8 14:00 Reassessment: Patient and/or family updated on plan of care and expected duration. Pain mb8 level reassessed. Patient is alert, oriented x 3, equal unlabored respirations, skin warm/dry/pink. 14:53 Reassessment: Patient and/or family updated on plan of care and expected duration. Pain mb8 level reassessed. Patient is alert, oriented x 3, equal unlabored respirations, skin warm/dry/pink. Vital Signs: 10:54 BP 114 / 90; Pulse 91; Resp 17; Temp 97.9(TE); Pulse Ox 99% on R/A; tw2 ED Course: 10:39 Patient arrived in ED. rg4 10:42 Lb Gill PA is PHCP. [facility] 10:42 Phong Wade MD is Attending Physician. [facility] 10:56 Triage completed. tw2 10:57 Arm band placed on. tw2 11:49 Urine collected: clean catch specimen, clear, COVID swab sent to lab. Flu and/or RSV tm3 swab sent to lab. Strep swab sent to lab. 12:20 Chest Single View XRAY In Process Unspecified. EDMS 13:17 Winston Rai, RN is Primary Nurse. mb8 13:18 Patient has correct armband on for positive identification. mb8 Administered Medications: 16:17 Drug: Decadron (dexamethasone) 10 mg Route: IM; Site: left deltoid; mb8 Medication: 13:18 VIS not applicable for this client. mb8 Outcome: 16:14 Discharge ordered by . [facility] 16:43 Patient left the ED. mb8 Signatures: Dispatcher [employer] EDMS [employer] tm3 Lb Gill PA PA jmm Wise, Tara, RN RN tw2 Natalya Arambula rg4 Winston Rai, RN RN mb8
[2022-02-26] MEDS ORDERED: dexAMETHasone 10 MG/ML VIAL ONE (16:24)
[2022-02-28 08:14] VITALS: BP 114/90; TEMP 97.9; O2SAT 99
== END 2022-02-26 16:43 | disposition home or self-care (01) ==
LOC: ER 10:37
DX: J02.9 Acute pharyngitis, unspecified (principal); R11.2 Nausea with vomiting, unspecified; R05.9 Cough, unspecified; F17.210 Nicotine dependence, cigarettes, uncomplicated; Z20.822 Contact with and (suspected) exposure to COVID-19; Z88.2 Allergy status to sulfonamides
CPT/HCPCS: 87070; 81025; 87081; 81003; 87804 ×2; 71045; 96372; 99283; U0003; J1100

== ENCOUNTER 2022-08-23 19:31 | Emergency (ER) | payer OTHER ==
--- OUTSIDE RECORDS SUMMARY | 2022-08-23 20:15 | XMS REPORT | Continuity of Care Document ---
:1985 Author Organization [facility] t Address [address] [place] [address] Care Team Providers Name Role Phone TAMERA SHARP Primary Care Physician Unavailable LILA_Noam Attending Clinician Unavailable RYAN ROSA Attending Clinician Unavailable Ryan Rosa MD Attending Clinician Doctor Unassigned, [place] Attending Clinician Unavailable Tamera Sharp Attending Clinician [phone] LUIS MANUEL GUTIERREZ M.D. Attending Clinician Unavailable LOLA SHANNON D.O. Attending Clinician Unavailable Liborio_Minor Attending Clinician Unavailable Lab, Adc Fam Pob I Attending Clinician Unavailable Farhana Ken Attending Clinician FARHANA WELLINGTON Attending Clinician Unavailable SHAHNAZ Admitting Clinician Unavailable RYAN ROSA Admitting Clinician Unavailable Ryan Rosa MD Admitting Clinician Robby Admitting Clinician Unavailable Payers Payer Name Policy Type Policy Number Effective Date Expiration Date Tasneem heck [place] [id number] 2010 [email or web address] 00:00:00 [place] [id number] [place] MEDIC[place] PART A [id number] 2010 \T\ B 00:00:00 [place] [id number] 2022 00:00:00 [place] [facility] - [id number] [facility] (INSTIT[place] [id number] 2006 [email or web address] 00:00:00 - [facility] - [facility] Problems Condition Condition Condition Status Onset Resolution Last Treating Co mments Source Name Details Category Date Date Treatment Clinician Date Diarrhea Diarrhea Problem Active Sween y 3-17 [facility] Epigastric Epigastric Problem Active S weeny pain Pain 3-10 Communi 00:00: ty 00 [facility] Otitis Otitis Problem Active [place] media Media 2-15 Communi 00:00: ty 00 [facility] Acute Acute Problem Active 0 [place] upper Upper 2-15 Communi respirator Respirator 00:00: ty y y 00 [facility] infection Infection l Clinics Cough Cough Problem Active [place] 2-15 Communi 00:00: ty 00 [facility] Hypothyroi Hypothyroi Problem Active 2021- S weeny dism dism 1-25 Communi 00:00: ty 00 [facility] Menopausal Menopausal Problem Active 0 S weeny flushing Flushing 1-25 Commun i 00:00: ty 00 [facility] Mixed Mixed Problem Active 0 [place] urinary Urinary 1-25 Communi incontinen Incontinen 00:00: ty ce ce 00 [facility] Screening Screening Problem Active Swe rafia for for 1-25 Communi malignant Malignant 00:00: ty neoplasm Neoplasm 00 [facility] l Clinics Indigestio Indigestio Problem Active 2020-0 S weeny n n 2-09 [facility] E[facility] Eruption Problem Active 2019-06 Sween y 0-22 [facility]i 00:00: ty 00 [facility] Low back Low Back Problem Active Sween y pain Pain 2-13 Communi 00:00: ty 00 [facility] Pain in Pain in Problem Active [place] bilateral Bilateral 2-13 Comm uni legs Legs 00:00: ty 00 [facility] Dry cough Dry Cough Problem Active Swe rafia 1-16 Communi 00:00: ty 00 [facility] Environmen Environmen Problem Active S wejeanniey venessa venessa 1-16 Communi allergy Allergy 00:00: ty 00 [facility] Long-term Long-term Problem Active Swe rafia drug Drug 1-16 Communi therapy Therapy 00:00: ty 00 [facility] Postsurgic Postsurgic Problem Active M derrick al al 6-28 da menopause Menopause 00:00: Medi roger 00 Group Eruption Eruption Problem Active [place] 8-16 da 00:00: Medical 00 Group Depressed Depressed Problem Active 2013-06 [facility] bipolar I Bipolar I 1-01 da disorder Disorder 00:00: Medica l 00 Group Gastroesop Gastroesop Problem Active M derrick hageal hageal 9-15 da reflux Reflux 00:00: [...] ve sleep ve sleep ans apnea) apnea) Depressive Depressive Problem Active M [place] disorder Disorder da Medical Group Upper Upper Problem Active [place] respirator Respirator da y y Medical infection Infection Grou p Allergic Allergic Problem Active [place] rhinitis Rhinitis [facility] Group Acute Acute Problem Active [place] respirator Respirator da y disease y Disease Medi roger Group Premenstru Premenstru Problem Active M atag[place] al al da dysphoric Dysphoric Medi roger disorder Disorder Group Menorrhagi Menorrhagi Problem Active [...] 00:00: Medical ANTIBIOT e 00 Group ICS) SULFA Drug Active Med N/V Univers (SULFONA Class 3-21 ity of MIDE 00:00: [place] ANTIBIOT 00 Medical ICS) Branch Sulfa Drug Active Nausea Univers (Sulfona Allergy and/or 3-21 ity of mide Vomiting 00:00: [place] Antibiot 00 Medical ics) Branch NO KNOWN Drug Active Univers ALLERGIE Class ity of S [facility] Family History Family Member Diagnosis Comments Start Date Stop Date Source Unknown Family Member Adopted Other [facility] Social History Social Habit Start Date Stop Date Quantity Comments Source History of Cigarette Smoker Universi ty of tobacco use [facility] Exposure to 2022-03-06 2022-03-16 Not sure [facility] SARS-CoV-2 00:00:00 13:54:00 [facility] (event) Branch Tobacco use and 2022-03-16 2022-03-16 Smokeless tobacco Un iversity of exposure 00:00:00 00:00:00 non-user [facility] Sex Ass[birth year] At [birth year] Universit y of 00:00:00 00:00:00 [facility] Smoking Status Start Date Stop Date Source Never smoked tobacco [facility] (finding) Tobacco smoking consumption Univ ersity [facility] unknown [place] Former Smoker [facility] Smokes tobacco daily 2022-03-16 00:00:00 [facility] Medications Ordered Filled Start Stop Current Ordering Indication Dosage Frequency Signature Comments Components Source Medication Medication Date Date Medication? Clinician (SIG) Name Name water for 2021-06- No PRN, Univers irrigation 0-20 10-20 Starting ity of irrigation 17:37: 17:59 [place] solution 00 :43 03/23/22 Medical at 1237, Branch Until Nettie 03/23/22 at 1259, Routine, Intra-op simethicone 2021-06- No PRN, Unive rs (GAS RELIEF 0-20 10-20 Starting ity of (SIMETHICON 17:37: 17:59 on Ntetie Anjum as E)) 40 00 :43 03/23/22 Medical mg/0.6 mL at 1237, Branch drops Until Nettie 03/23/22 at 1259, Routine, Intra-op lactated 2021-06- No 1000mL at 42 Unive rs ringers IV 0-20 10-20 mL/hr, ity of infusion 16:15: 16:21 1,000 mL, Anjum as 1,000 mL 00 :00 IV Medical Infusion, Branch ONCE, 1 dose, On Nettie 03/23/22 at 1115, Routine, DSU Pre-op lactated 2021-06- No 1000mL at 42 Unive rs ringers IV 0-20 10-20 mL/hr, ity of infusion 16:15: 16:21 1,000 mL, Anjum as 1,000 mL 00 :00 IV Medical Infusion, Branch ONCE, 1 dose, On Nettie 03/23/22 at 1115, Routine, DSU Pre-op escitalopra 2021-06- No 20mg Take 20 mg Univers m oxalate 0-20 10-20 by mouth ity o f 20 mg 14:05: 00:00 in the [place] tablet 14 :00 morning. Medical Branch estradioL 2 2021-06- No 2mg Take 2 mg Univers mg tablet 0-20 10-20 by mouth ity o f 14:05: 00:00 in the [place] 14 :00 morning. Medical Branch levothyroxi 2021-06- No 112ug Take 112 Univers ne 112 mcg 0-20 10-20 mcg by ity of tablet 14:05: 00:00 mouth [place] 14 :00 every Medical morning. Branch lithium 2021-06 No 300mg Take 300 Univ ers carbonate 0-20 10-20 mg by ity of 300 mg 14:05: 00:00 mouth in [place] capsule 14 :00 the Medical morning. Branch LORazepam 1 2021-06 No 1mg Take 1 mg Univers mg tablet 0-20 10-20 by mouth ity o f 14:05: 00:00 in the [place] 14 :00 morning. Medical As needed Branch traZODone 2021-06- No 150mg Take 150 Un litzy 150 mg 0-20 10-20 mg by ity of tablet 14:05: 00:00 mouth in [place] 14 :00 the Medical morning. Branch escitalopra 2021-06- No 20mg Take 20 mg Univers m oxalate 0-20 10-20 by mouth ity o f 20 mg 14:05: 00:00 in the [place] tablet 14 :00 morning. Medical Branch estradioL 2 2021-06- No 2mg Take 2 mg Univers mg tablet 0-20 10-20 by mouth ity o f 14:05: 00:00 in the [place] 14 :00 morning. Medical Branch levothyroxi 2021-06- No 112ug Take 112 Univers ne 112 mcg 0-20 10-20 mcg by ity of tablet 14:05: 00:00 mouth [place] 14 :00 every Medical morning. Branch lithium 2021-06- No 300mg Take 300 Univ ers carbonate 0-20 10-20 mg by ity of 300 mg 14:05: 00:00 mouth in [place] capsule 14 :00 the Medical morning. Branch LORazepam 1 2021-06 No 1mg Take 1 mg Univers mg tablet 0-20 10-20 by mouth ity o f 14:05: 00:00 in the [place] 14 :00 morning. Medical As needed Branch traZODone 2021-06 No 150mg Take 150 Un litzy 150 mg 0-20 10-20 mg by ity of tablet 14:05: 00:00 mouth in [place] 14 :00 the Medical morning. Branch No known 2021-06 No No known Unive rs medications 0-20 medication it y of 11:13: s [place] 40 Medical Branch pantoprazol pantoprazol No pantoprazo [place] e 40 mg e 40 mg 3-17 le 40 mg Commu ni tablet,zeyad tablet,zeyad 00:00: tablet,del ty yed release yed release 00 ayed H ospita TAKE 1 TAKE 1 release l TABLET BY TABLET BY TAKE 1 Cli nics MOUTH EVERY MOUTH EVERY TABLET BY DAY DAY MOUTH EVERY DAY Estradiol 2 Estradiol 2 Yes 1 QD TAKE 1 UT MG Oral MG Oral TABLET Physici Tablet Tablet DAILY. ans escitalopra escitalopra No escitalopr [place] m 20 mg m 20 mg am 20 mg Commu ni tablet TAKE tablet TAKE tablet ty 1 TABLET BY 1 TABLET BY TAKE 1 Hospita MOUTH EVERY MOUTH EVERY TABLET BY l DAY DAY MOUTH Clinics EVERY DAY azithromyci azithromyci No azithromyc [place] n 250 mg n 250 mg in 250 mg da tablet tablet tablet Medical Group estradiol 2 estradiol 2 No estradiol [place] mg tablet mg tablet 2 mg Commu ni TAKE 1 TAKE 1 tablet ty TABLET BY TABLET BY TAKE 1 Hos sreedhar MOUTH EVERY MOUTH EVERY TABLET BY l DAY DAY MOUTH Clinics EVERY DAY levothyroxi levothyroxi No levothyrox [place] ne 112 mcg ne 112 mcg ine 112 Communi tablet TAKE tablet TAKE mcg tablet ty 1 TABLET BY 1 TABLET BY TAKE 1 Hospita MOUTH EVERY MOUTH EVERY TABLET BY l DAY DAY MOUTH Clinics EVERY DAY lithium lithium No lithium [place] carbonate carbonate carbonate Communi 600 mg 600 mg 600 mg ty capsule capsule capsule Hospit a l Clinics lorazepam lorazepam No lorazepam [place] 0.5 mg 0.5 mg 0.5 mg Communi tablet tablet tablet ty taking taking taking Hospita twice daily twice daily twice l by mouth by mouth daily by Cli nics mouth pantoprazol pantoprazol No 1 Q1D pantoprazo [place] e 40 mg e 40 mg le 40 mg Commu ni tablet,zeyad tablet,zeyad tablet,del ty yed release yed release ayed H ospita Take 1 Take 1 release l tablet tablet Take 1 Clinics every day every day tablet by oral by oral every day route. route. by oral route. prazosin 1 prazosin 1 No 1capsul Q1D prazosin 1 [place] mg capsule mg capsule e(s) mg capsule Communi Take 1 Take 1 Take 1 ty capsule capsule capsule Hospit a every day every day every day l by oral by oral by oral Clinic s route for route for route for 30 days. 30 days. 30 days. trazodone trazodone No trazodone [place] 150 mg 150 mg 150 mg Communi tablet TAKE tablet TAKE tablet ty 1 TABLET 1 TABLET TAKE 1 Hospi ta (150 MG) BY (150 MG) BY TABLET l MOUTH DAILY MOUTH DAILY (150 MG) Clinics AT BEDTIME AT BEDTIME BY MOUTH FOR FOR DAILY AT INSOMNIA INSOMNIA BEDTIME FOR INSOMNIA Carafate 1 Carafate 1 No 1 QID Carafate 1 [place] gram tablet gram tablet gram C ommuni Take 1 Take 1 tablet ty tablet 4 tablet 4 Take 1 Hospi ta times a day times a day tablet 4 l by oral by oral times a Clinic s route route day by before before oral route meals. meals. before meals. escitalopra escitalopra No escitalopr [place] m 20 mg m 20 mg am 20 mg Commu ni tablet TAKE tablet TAKE tablet ty 1 TABLET BY 1 TABLET BY TAKE 1 Hospita MOUTH EVERY MOUTH EVERY TABLET BY l DAY DAY MOUTH Clinics EVERY DAY estradiol 2 estradiol 2 No estradiol [place] mg tablet mg tablet 2 mg Commu ni TAKE 1 TAKE 1 tablet ty TABLET BY TABLET BY TAKE 1 Hos sreedhar MOUTH EVERY MOUTH EVERY TABLET BY l DAY DAY MOUTH Clinics EVERY DAY famotidine famotidine No famotidine [place] 20 mg 20 mg 20 mg Communi tablet tablet tablet ty Hospita l Clinics levothyroxi levothyroxi No levothyrox [place] ne 112 mcg ne 112 mcg ine 112 Communi tablet TAKE tablet TAKE mcg tablet ty 1 TABLET BY 1 TABLET BY TAKE 1 Hospita MOUTH EVERY MOUTH EVERY TABLET BY l DAY DAY MOUTH Clinics EVERY DAY lithium lithium No lithium [place] carbonate carbonate carbonate Communi 600 mg 600 mg 600 mg ty [facility] lorazepam lorazepam No lorazepam [place] 0.5 mg 0.5 mg 0.5 mg Communi tablet tablet tablet ty taking taking taking Hospita twice daily twice daily twice l by mouth by mouth daily by Cli nics mouth prazosin 1 prazosin 1 No prazosin 1 [place] mg capsule mg capsule mg capsule Communi Take 1 Take 1 Take 1 ty capsule capsule capsule Hospit a every day every day every day l by oral by oral by oral Clinic s route for route for route for 30 days. 30 days. 30 days. trazodone trazodone No trazodone [place] 150 mg 150 mg 150 mg Communi tablet TAKE tablet TAKE tablet ty 1 TABLET 1 TABLET TAKE 1 Hospi ta (150 MG) BY (150 MG) BY TABLET l MOUTH DAILY MOUTH DAILY (150 MG) Clinics AT BEDTIME AT BEDTIME BY MOUTH FOR FOR DAILY AT INSOMNIA INSOMNIA BEDTIME FOR INSOMNIA escitalopra escitalopra No escitalopr [place] m 20 mg m 20 mg am 20 mg Commu ni tablet TAKE tablet TAKE tablet ty 1 TABLET BY 1 TABLET BY TAKE 1 Hospita MOUTH EVERY MOUTH EVERY TABLET BY l DAY DAY MOUTH Clinics EVERY DAY estradiol 2 estradiol 2 No estradiol [place] mg tablet mg tablet 2 mg Commu ni TAKE 1 TAKE 1 tablet ty TABLET BY TABLET BY TAKE 1 Hos sreedhar MOUTH EVERY MOUTH EVERY TABLET BY l DAY DAY MOUTH Clinics EVERY DAY famotidine famotidine No famotidine [place] 20 mg 20 mg 20 mg Communi tablet tablet tablet ty [facility] levothyroxi levothyroxi No levothyrox [place] ne 112 mcg ne 112 mcg ine 112 Communi tablet TAKE tablet TAKE mcg tablet ty 1 TABLET BY 1 TABLET BY TAKE 1 Hospita MOUTH EVERY MOUTH EVERY TABLET BY l DAY DAY MOUTH Clinics EVERY DAY lithium lithium No lithium [place] carbonate carbonate carbonate Communi 600 mg 600 mg 600 mg ty capsule capsule capsule [facility] lorazepam lorazepam No lorazepam [place] 0.5 mg 0.5 mg 0.5 mg Communi tablet tablet tablet ty taking taking taking Hospita twice daily twice daily twice l by mouth by mouth daily by Cli nics mouth pantoprazol pantoprazol No pantoprazo [place] e 40 mg e 40 mg le 40 mg Commu ni tablet,zeyad tablet,zeyad tablet,del ty yed release yed release ayed H ospita TAKE 1 TAKE 1 release l TABLET BY TABLET BY TAKE 1 Cli nics MOUTH EVERY MOUTH EVERY TABLET BY DAY DAY MOUTH EVERY DAY escitalopra escitalopra No escitalopr [place] 10 mg m 10 mg am 10 mg da tablet tablet tablet Medical Group prazosin 1 prazosin 1 No prazosin 1 [place] mg capsule mg capsule mg capsule Communi Take 1 Take 1 Take 1 ty capsule capsule capsule Hospit a every day every day every day l by oral by oral by oral Clinic s route for route for route for 30 days. 30 days. 30 days. sucralfate sucralfate No sucralfate [place] 1 gram 1 gram 1 gram Communi tablet Take tablet Take tablet ty 1 tablet 4 1 tablet 4 Take 1 H ospita times a day times a day tablet 4 l by oral by oral times a Clinic s route route day by before before oral route meals. meals. before meals. trazodone trazodone No trazodone [place] 150 mg 150 mg 150 mg Communi tablet TAKE tablet TAKE tablet ty 1 TABLET 1 TABLET TAKE 1 Hospi ta (150 MG) BY (150 MG) BY TABLET l MOUTH DAILY MOUTH DAILY (150 MG) Clinics AT BEDTIME AT BEDTIME BY MOUTH FOR FOR DAILY AT INSOMNIA INSOMNIA BEDTIME FOR INSOMNIA escitalopra escitalopra No escitalopr [place] m 20 mg m 20 mg am 20 mg Commu ni tablet TAKE tablet TAKE tablet ty 1 TABLET BY 1 TABLET BY TAKE 1 Hospita MOUTH EVERY MOUTH EVERY TABLET BY l DAY DAY MOUTH Clinics EVERY DAY estradiol 2 estradiol 2 No estradiol [place] mg tablet mg tablet 2 mg Commu ni TAKE 1 TAKE 1 tablet ty TABLET BY TABLET BY TAKE 1 Hos sreedhar MOUTH EVERY MOUTH EVERY TABLET BY l DAY DAY MOUTH Clinics EVERY DAY famotidine famotidine No famotidine [place] 20 mg 20 mg 20 mg Communi tablet tablet tablet ty Hospita l Clinics levothyroxi levothyroxi No levothyrox [place] ne 112 mcg ne 112 mcg ine 112 Communi tablet TAKE tablet TAKE mcg tablet ty 1 TABLET BY 1 TABLET BY TAKE 1 Hospita MOUTH EVERY MOUTH EVERY TABLET BY l DAY DAY MOUTH Clinics EVERY DAY lithium lithium No lithium [place] carbonate carbonate carbonate Communi 600 mg 600 mg 600 mg ty capsule capsule capsule Hospit a l Clinics lorazepam lorazepam No lorazepam [place] 0.5 mg 0.5 mg 0.5 mg Communi tablet tablet tablet ty taking taking taking Hospita twice daily twice daily twice l by mouth by mouth daily by Cli nics mouth pantoprazol pantoprazol No pantoprazo [place] e 40 mg e 40 mg le 40 mg Commu ni tablet,zeyad tablet,zeyad tablet,del ty yed release yed release ayed H ospita TAKE 1 TAKE 1 release l TABLET BY TABLET BY TAKE 1 Cli nics MOUTH EVERY MOUTH EVERY TABLET BY DAY DAY MOUTH EVERY DAY prazosin 1 prazosin 1 No prazosin 1 [place] mg capsule mg capsule mg capsule Communi Take 1 Take 1 Take 1 ty capsule capsule capsule Hospit a every day every day every day l by oral by oral by oral Clinic s route for route for route for 30 days. 30 days. 30 days. sucralfate sucralfate No sucralfate [place] 1 gram 1 gram 1 gram Communi tablet Take tablet Take tablet ty 1 tablet 4 1 tablet 4 Take 1 H ospita times a day times a day tablet 4 l by oral by oral times a Clinic s route route day by before before oral route meals. meals. before meals. trazodone trazodone No trazodone [place] 150 mg 150 mg 150 mg Communi tablet TAKE tablet TAKE tablet ty 1 TABLET 1 TABLET TAKE 1 Hospi ta (150 MG) BY (150 MG) BY TABLET l MOUTH DAILY MOUTH DAILY (150 MG) Clinics AT BEDTIME AT BEDTIME BY MOUTH FOR FOR DAILY AT INSOMNIA INSOMNIA BEDTIME FOR INSOMNIA albuterol albuterol No albuterol [place] sulfate HFA sulfate HFA sulfate Communi 90 90 HFA 90 ty mcg/actuati mcg/actuati mcg/actuat Hospita on aerosol on aerosol ion l inhaler inhaler aerosol Clinic s inhaler benzonatate benzonatate No 1capsul TID benzonatat [place] 100 mg 100 mg e(s) e 100 mg Communi capsule capsule capsule ty Take 1 Take 1 Take 1 Hospita capsule 3 capsule 3 capsule 3 l times a day times a day times a Clinics by oral by oral day by route as route as oral route needed. needed. as needed. dextroamphe dextroamphe No dextroamph [place] tamine-amph tamine-amph etamine-am Communi etamine 10 etamine 10 phetamine ty mg tablet mg tablet 10 mg Hosp duy TAKE 1 TAKE 1 tablet l TABLET BY TABLET BY TAKE 1 Cli nics MOUTH TWICE MOUTH TWICE TABLET BY A DAY A DAY MOUTH TWICE A DAY escitalopra escitalopra No escitalopr [place] m 20 mg m 20 mg am 20 mg Commu ni tablet TAKE tablet TAKE tablet ty 1 TABLET BY 1 TABLET BY TAKE 1 Hospita MOUTH EVERY MOUTH EVERY TABLET BY l DAY DAY MOUTH Clinics EVERY DAY estradiol 2 estradiol 2 No estradiol [place] mg tablet mg tablet 2 mg Commu ni TAKE 1 TAKE 1 tablet ty TABLET BY TABLET BY TAKE 1 Hos sreedhar MOUTH EVERY MOUTH EVERY TABLET BY l DAY DAY MOUTH Clinics EVERY DAY levothyroxi levothyroxi No levothyrox [place] ne 112 mcg ne 112 mcg ine 112 Communi tablet TAKE tablet TAKE mcg tablet ty 1 TABLET BY 1 TABLET BY TAKE 1 Hospita MOUTH EVERY MOUTH EVERY TABLET BY l DAY DAY MOUTH Clinics EVERY DAY lithium lithium No lithium [place] carbonate carbonate carbonate Communi 300 mg 300 mg 300 mg ty capsule [facility] lithium lithium No lithium [place] carbonate carbonate carbonate Communi 600 mg 600 mg 600 mg ty capsule capsule capsule [facility] lorazepam lorazepam No lorazepam [place] 0.5 mg 0.5 mg 0.5 mg Communi tablet tablet tablet ty taking taking taking Hospita twice daily twice daily twice l by mouth by mouth daily by Cli nics mouth trazodone trazodone No trazodone [place] 50 mg 50 mg 50 mg Communi tablet TAKE tablet TAKE tablet ty 1 TABLET BY 1 TABLET BY TAKE 1 Hospita MOUTH EVERY MOUTH EVERY TABLET BY l NIGHT NIGHT MOUTH Clinics EVERY NIGHT Vyvanse 20 Vy[place]se 20 No Vy[place]se 20 [place] mg capsule mg capsule mg capsule Communi TAKE 1 TAKE 1 TAKE 1 ty CAPSULE BY CAPSULE BY CAPSULE BY Hospita MOUTH EVERY MOUTH EVERY MOUTH l DAY IN THE DAY IN THE EVERY DAY Clinics MORNING MORNING IN THE MORNING Vyvanse 40 Vyvanse 40 No Vyvanse 40 [place] mg capsule mg capsule mg capsule Communi TAKE 1 TAKE 1 TAKE 1 ty CAPSULE BY CAPSULE BY CAPSULE BY Hospita MOUTH EVERY MOUTH EVERY MOUTH l MORNING MORNING EVERY Clinics MORNING albuterol albuterol No albuterol [place] sulfate 2.5 sulfate 2.5 sulfate Communi mg/3 mL mg/3 mL 2.5 mg/3 ty (0.083 %) (0.083 %) mL (0.083 Hospita solution solution %) l for for solution Clinics nebulizatio nebulizatio for n INHALE 1 n INHALE 1 nebulizati UNIT BY UNIT BY on INHALE NEBULATION NEBULATION 1 UNIT BY ROUTE EVERY ROUTE EVERY NEBULATION 8 HOURS 8 HOURS ROUTE NEEDED NEEDED EVERY 8 HOURS NEEDED clobetasol clobetasol No clobetasol [place] 0.05 % 0.05 % 0.05 % Communi topical topical topical ty cream use cream use cream use Hospita sparingly sparingly sparingly l bid bid bid Clinics escitalopra escitalopra No escitalopr [place] m 20 mg m 20 mg am 20 mg Commu ni tablet TAKE tablet TAKE tablet ty 1 TABLET BY 1 TABLET BY TAKE 1 Hospita MOUTH EVERY MOUTH EVERY TABLET BY l DAY DAY MOUTH Clinics EVERY DAY estradiol 2 estradiol 2 No estradiol [place] mg tablet mg tablet 2 mg Commu ni TAKE 1 TAKE 1 tablet ty TABLET BY TABLET BY TAKE 1 Hos sreedhar MOUTH EVERY MOUTH EVERY TABLET BY l DAY DAY MOUTH Clinics EVERY DAY levothyroxi levothyroxi No levothyrox [place] ne 112 mcg ne 112 mcg ine 112 Communi tablet TAKE tablet TAKE mcg tablet ty 1 TABLET BY 1 TABLET BY TAKE 1 Hospita MOUTH EVERY MOUTH EVERY TABLET BY l DAY DAY MOUTH Clinics EVERY DAY escitalopra escitalopra No escitalopr [place] 20 mg m 20 mg am 20 mg da tablet tablet tablet Medical Group lithium lithium No lithium [place] carbonate carbonate carbonate Communi 600 mg 600 mg 600 mg ty capsule capsule capsule Hospit a l Clinics lorazepam lorazepam No lorazepam [place] 0.5 mg 0.5 mg 0.5 mg Communi tablet tablet tablet ty taking taking taking Hospita twice daily twice daily twice l by mouth by mouth daily by Cli nics mouth oxybutynin oxybutynin No 1 Q1D oxybutynin [place] chloride ER chloride ER chloride Communi 10 mg 10 mg ER 10 mg ty tablet,exte tablet,exte tablet,ext Hospita nded nded ended l release 24 release 24 release 24 Clinics hr Take 1 hr Take 1 hr Take 1 tablet tablet tablet every day every day every day by oral by oral by oral route. route. route. trazodone trazodone No trazodone [place] 150 mg 150 mg 150 mg Communi tablet TAKE tablet TAKE tablet ty 1 TABLET 1 TABLET TAKE 1 Hospi ta (150 MG) BY (150 MG) BY TABLET l MOUTH DAILY MOUTH DAILY (150 MG) Clinics AT BEDTIME AT BEDTIME BY MOUTH FOR FOR DAILY AT INSOMNIA INSOMNIA BEDTIME FOR INSOMNIA albuterol albuterol No albuterol [place] sulfate 2.5 sulfate 2.5 sulfate Communi mg/3 mL mg/3 mL 2.5 mg/3 ty (0.083 %) (0.083 %) mL (0.083 Hospita solution solution %) l for for solution Clinics nebulizatio nebulizatio for n INHALE 1 n INHALE 1 nebulizati UNIT BY UNIT BY on INHALE NEBULATION NEBULATION 1 UNIT BY ROUTE EVERY ROUTE EVERY NEBULATION 8 HOURS 8 HOURS ROUTE NEEDED NEEDED EVERY 8 HOURS NEEDED albuterol albuterol No 2puff(s Q4H albuterol [place] sulfate HFA sulfate HFA ) sulfate Communi 90 90 HFA 90 ty mcg/actuati mcg/actuati mcg/actuat [facility] on aerosol on aerosol ion l inhaler inhaler aerosol Clinic s Inhale 2 Inhale 2 inhaler puffs every puffs every Inhale 2 4 hours by 4 hours by puffs inhalation inhalation every 4 route as route as hours by needed. needed. inhalation route as needed. amoxicillin amoxicillin No 1 Q12H amoxicilli [place] [phone] Communi mg-potassiu mg-potassiu mg-potassi ty m m [facility] clavulanate clavulanate clavulanat l 125 mg 125 mg e 125 mg Clinics tablet Take tablet Take tablet 1 tablet 1 tablet Take 1 every 12 every 12 tablet hours by hours by every 12 oral route oral route hours by with meals. with meals. oral route with meals. benzonatate benzonatate No 1capsul TID benzonatat [place] 100 mg 100 mg e(s) e 100 mg Communi capsule capsule capsule ty Take 1 Take 1 Take 1 Hospita capsule 3 capsule 3 capsule 3 l times a day times a day times a Clinics by oral by oral day by route. route. oral route. clobetasol clobetasol No clobetasol [place] 0.05 % 0.05 % 0.05 % Communi topical topical topical ty cream use cream use cream use Hospita sparingly sparingly sparingly l bid bid bid Clinics escitalopra escitalopra No escitalopr [place] m 20 mg m 20 mg am 20 mg Commu ni tablet TAKE tablet TAKE tablet ty 1 TABLET BY 1 TABLET BY TAKE 1 Hospita MOUTH EVERY MOUTH EVERY TABLET BY l DAY DAY MOUTH Clinics EVERY DAY estradiol 2 estradiol 2 No estradiol [place] mg tablet mg tablet 2 mg Commu ni TAKE 1 TAKE 1 tablet ty TABLET BY TABLET BY TAKE 1 Hos sreedhar MOUTH EVERY MOUTH EVERY TABLET BY l DAY DAY MOUTH Clinics EVERY DAY levothyroxi levothyroxi No levothyrox [place] ne 112 mcg ne 112 mcg ine 112 Communi tablet TAKE tablet TAKE mcg tablet ty 1 TABLET BY 1 TABLET BY TAKE 1 Hospita MOUTH EVERY MOUTH EVERY TABLET BY l DAY DAY MOUTH Clinics EVERY DAY lithium lithium No lithium [place] carbonate carbonate carbonate Communi 600 mg 600 mg 600 mg ty capsule capsule capsule Hospit a l Clinics lorazepam lorazepam No lorazepam [place] 0.5 mg 0.5 mg 0.5 mg Communi tablet tablet tablet ty taking taking taking Hospita twice daily twice daily twice l by mouth by mouth daily by Cli nics mouth oxybutynin oxybutynin No oxybutynin [place] chloride ER chloride ER chloride Communi 10 mg 10 mg ER 10 mg ty tablet,exte tablet,exte tablet,ext Hospita nded nded ended l release 24 release 24 release 24 Clinics hr Take 1 hr Take 1 hr Take 1 tablet tablet tablet every day every day every day by oral by oral by oral route. route. route. prazosin 1 prazosin 1 No prazosin 1 [place] mg capsule mg capsule mg capsule Communi ty Hospita l Clinics trazodone trazodone No trazodone [place] 150 mg 150 mg 150 mg Communi tablet TAKE tablet TAKE tablet ty 1 TABLET 1 TABLET TAKE 1 Hospi ta (150 MG) BY (150 MG) BY TABLET l MOUTH DAILY MOUTH DAILY (150 MG) Clinics AT BEDTIME AT BEDTIME BY MOUTH FOR FOR DAILY AT INSOMNIA INSOMNIA BEDTIME FOR INSOMNIA estradiol 2 estradiol 2 No estradiol [place] [...] mg da tablet tablet tablet [facility] Munday Munday Yes 1 QD TAKE 1 UT Carbonate [...] MCG DAILY. ans Oral Tablet Oral Tablet Immunizations Ordered Immunization Filled Immunization Date Status Commen Source Name Name COVID-19, mRNA, COVID-19, mRNA, 2021-05-26 Completed [facility] LNP-S, PF, 30 LNP-S, PF, 30 00:00:00 [facility] mcg/0.3 mL dose mcg/0.3 mL dose (Sequella) (Sequella) COVID-19, mRNA, COVID-19, mRNA, 2021-05-26 Completed [facility] LNP-S, PF, 30 LNP-S, PF, 30 00:00:00 [facility] mcg/0.3 mL dose mcg/0.3 mL dose (Pfizer-BioNTech) (Pfizer-BioNTech) COVID-19, mRNA, COVID-19, mRNA, 2021-05-26 Completed [facility] LNP-S, PF, 30 LNP-S, PF, 30 00:00:00 Hospital Clinics mcg/0.3 mL dose mcg/0.3 mL dose (Pfizer-BioNTech) (Pfizer-BioNTech) COVID-19, mRNA, COVID-19, mRNA, 2021-05-26 Completed [facility] LNP-S, PF, 30 LNP-S, PF, 30 00:00:00 Hospital Clinics mcg/0.3 mL dose mcg/0.3 mL dose (Pfizer-BioNTech) (Pfizer-BioNTech) COVID-19, mRNA, COVID-19, mRNA, 2021-05-26 Completed [facility] LNP-S, PF, 30 LNP-S, PF, 30 00:00:00 Hospital Clinics mcg/0.3 mL dose mcg/0.3 mL dose (Pfizer-BioNTech) (Pfizer-BioNTech) COVID-19, mRNA, COVID-19, mRNA, 2021-05-26 Completed [facility] LNP-S, PF, 30 LNP-S, PF, 30 00:00:00 Hospital Clinics mcg/0.3 mL dose mcg/0.3 mL dose (Pfizer-BioNTech) (Pfizer-BioNTech) COVID-19, mRNA, COVID-19, mRNA, 2021-05-26 Completed [facility] LNP-S, PF, 30 LNP-S, PF, 30 00:00:00 Hospital Clinics mcg/0.3 mL dose mcg/0.3 mL dose (Pfizer-BioNTech) (Pfizer-BioNTech) COVID-19, mRNA, COVID-19, mRNA, 2020-08-31 Completed [facility] LNP-S, PF, 30 LNP-S, PF, 30 00:00:00 Hospital Clinics mcg/0.3 mL dose mcg/0.3 mL dose (Pfizer-BioNTech) (Pfizer-BioNTech) COVID-19, mRNA, COVID-19, mRNA, 2020-08-31 Completed [facility] LNP-S, PF, 30 LNP-S, PF, 30 00:00:00 Hospital Clinics mcg/0.3 mL dose mcg/0.3 mL dose (Pfizer-BioNTech) (Pfizer-BioNTech) COVID-19, mRNA, COVID-19, mRNA, 2020-08-31 Completed [facility] LNP-S, PF, 30 LNP-S, PF, 30 00:00:00 Hospital Clinics mcg/0.3 mL dose mcg/0.3 mL dose (Pfizer-BioNTech) (Pfizer-BioNTech) COVID-19, mRNA, COVID-19, mRNA, 2020-08-31 Completed [facility] LNP-S, PF, 30 LNP-S, PF, 30 00:00:00 Hospital Clinics mcg/0.3 mL dose mcg/0.3 mL dose (Pfizer-BioNTech) (Pfizer-BioNTech) COVID-19, mRNA, COVID-19, mRNA, 2020-08-31 Completed [facility] LNP-S, PF, 30 LNP-S, PF, 30 00:00:00 Hospital Clinics mcg/0.3 mL dose mcg/0.3 mL dose (Pfizer-BioNTech) (Pfizer-BioNTech) COVID-19, mRNA, COVID-19, mRNA, 2020-08-31 Completed [facility] LNP-S, PF, 30 LNP-S, PF, 30 00:00:00 Hospital Clinics mcg/0.3 mL dose mcg/0.3 mL dose (Pfizer-BioNTech) (Pfizer-BioNTech) COVID-19, mRNA, COVID-19, mRNA, 2020-08-31 Completed [facility] LNP-S, PF, 30 LNP-S, PF, 30 00:00:00 Hospital Clinics mcg/0.3 mL dose mcg/0.3 mL dose (Pfizer-BioNTech) (Pfizer-BioNTech) COVID-19, mRNA, COVID-19, mRNA, 2020-08-11 Completed [facility] LNP-S, PF, 30 LNP-S, PF, 30 00:00:00 Hospital Clinics mcg/0.3 mL dose mcg/0.3 mL dose (Pfizer-BioNTech) (Pfizer-BioNTech) COVID-19, mRNA, COVID-19, mRNA, 2020-08-11 Completed [facility] LNP-S, PF, 30 LNP-S, PF, 30 00:00:00 Hospital Clinics mcg/0.3 mL dose mcg/0.3 mL dose (Pfizer-BioNTech) (Pfizer-BioNTech) COVID-19, mRNA, COVID-19, mRNA, 2020-08-11 Completed [facility] LNP-S, PF, 30 LNP-S, PF, 30 00:00:00 Hospital Clinics mcg/0.3 mL dose mcg/0.3 mL dose (Pfizer-BioNTech) (Pfizer-BioNTech) COVID-19, mRNA, COVID-19, mRNA, 2020-08-11 Completed [facility] LNP-S, PF, 30 LNP-S, PF, 30 00:00:00 Hospital Clinics mcg/0.3 mL dose mcg/0.3 mL dose (Pfizer-BioNTech) (Pfizer-BioNTech) COVID-19, mRNA, COVID-19, mRNA, 2020-08-11 Completed [facility] LNP-S, PF, 30 LNP-S, PF, 30 00:00:00 Hospital Clinics mcg/0.3 mL dose mcg/0.3 mL dose (Pfizer-BioNTech) (Pfizer-BioNTech) COVID-19, mRNA, COVID-19, mRNA, 2020-08-11 Completed [facility] LNP-S, PF, 30 LNP-S, PF, 30 00:00:00 Hospital Clinics mcg/0.3 mL dose mcg/0.3 mL dose (Pfizer-BioNTech) (Pfizer-BioNTech) COVID-19, mRNA, COVID-19, mRNA, 2020-08-11 Completed [facility] LNP-S, PF, 30 LNP-S, PF, 30 00:00:00 Hospital Clinics mcg/0.3 mL dose mcg/0.3 mL dose (Pfizer-BioNTech) (Pfizer-BioNTech) Vital Signs Vital Name Observation Time Observation Value Comments Source BP Diastolic 2022-07-13 00:00:00 80 mm[Hg] [facility] BP Systolic 2022-07-13 00:00:00 118 mm[Hg] [facility] s Body Weight 2022-07-13 00:00:00 4147.2 [oz_av] [facility] s Heart rate 2022-03-23 18:13:00 61 /min [facility] Respiratory rate 2022-03-23 18:13:00 22 /min [facility] Oxygen saturation in 2022-03-23 18:13:00 94 /min [facility] of Arterial blood by [facility] roger Pulse oximetry Branch Systolic blood 2022-03-23 18:12:00 112 mm[Hg] [facility] sity [facility] Diastolic blood 2022-03-23 18:12:00 75 mm[Hg] [facility] Body temperature 2022-03-23 17:57:00 36.39 Kelly [facility] Body height 2022-03-20 16:04:00 160 cm [facility] Body weight 2022-03-20 16:04:00 117.9 kg [facility] BMI 2022-03-20 16:04:00 46.05 kg/m2 [facility] Heart rate 2022-03-23 18:13:00 61 /min [facility] Respiratory rate 2022-03-23 18:13:00 22 /min [facility] Oxygen saturation in 2022-03-23 18:13:00 94 /min [facility] Arterial blood by [facility] roger Pulse oximetry Branch Systolic blood 2022-03-23 18:12:00 112 mm[Hg] [facility] Diastolic blood 2022-03-23 18:12:00 75 mm[Hg] [facility] rs[facility] Body temperature 2022-03-23 17:57:00 36.39 Kelly [facility] Body height 2022-03-20 16:04:00 160 cm [facility] Body weight 2022-03-20 16:04:00 117.9 kg [facility] BMI 2022-03-20 16:04:00 46.05 kg/m2 [facility] BP Diastolic 2022-01-18 00:00:00 80 mm[Hg] [facility] BP Systolic 2022-01-18 00:00:00 124 mm[Hg] [facility] Body Weight 2022-01-18 00:00:00 4243.2 [oz_av] [facility] s BP Diastolic 2021-08-18 00:00:00 88 mm[Hg] [facility] BP Systolic 2021-08-18 00:00:00 128 mm[Hg] [facility] Body Weight 2021-08-18 00:00:00 4192 [oz_av] [facility] BP Diastolic 2021-08-11 00:00:00 80 mm[Hg] [facility] BP Systolic 2021-08-11 00:00:00 118 mm[Hg] [facility] Body Weight 2021-08-11 00:00:00 4185.6 [oz_av] [facility] s BP Diastolic 2021-07-19 00:00:00 70 mm[Hg] [facility] BP Systolic 2021-07-19 00:00:00 130 mm[Hg] [facility] Body Weight 2021-07-19 00:00:00 4192 [oz_av] [facility] BP Diastolic 2021-06-28 00:00:00 80 mm[Hg] [facility] BP Systolic 2021-06-28 00:00:00 120 mm[Hg] [facility] Body Weight 2021-06-28 00:00:00 4227.2 [oz_av] [facility] s BP Diastolic 2019-12-01 00:00:00 80 mm[Hg] [facility] Height 2019-12-01 00:00:00 64 [in_i] [facility] BMI (Body Mass 2019-12-01 00:00:00 45.9 kg/m2 [facility] [employer] [facility] [employer]) Group BP Systolic 2019-12-01 00:00:00 111 mm[Hg] [facility] Body Weight 2019-12-01 00:00:00 267.5 [lb_av] [facility] Systolic blood 2020-04-23 09:14:00 [...] [Ratio] Procedures Procedure Date / Time Performing Source Performed Clinician ESOPHAGOGASTRODUODENOSCOPY 2022-03-23 Flaquita Rosa [facility] of 17:35:00 Ryan Ro [facility] EGD (ENDO) 2022-03-23 Tamera Sharp [facility] 17:33:53 [facility] EGD (ENDO) 2022-03-23 Tamear Sharp [facility] 17:33:53 [facility] PATIENT QUESTIONNAIRE 2022-03-23 [facility] of 05:01:00 Unassigned, No [facility] EXTERNAL PROVIDER RECORDS 2022-03-15 [facility] 05:01:00 Unassigned, No [facility] EXTERNAL PROVIDER RECORDS 2022-03-15 [facility] 05:01:00 Unassigned, No [facility] EXTERNAL PROVIDER RECORDS 2022-03-14 [facility] 05:01:00 Unassigned, No [facility] US ABDOMEN LIMITED 2022-01-27 Moe Vancleve of 18:20:30 Ryan Ro [facility] NOTICE OF BILLING PRACTICES FOR 2022-01-27 Doctor [facility] MEDICARE PATIENTS 17:49:21 Unassigned, No [facility] PATIENT FINANCIAL POLICY 2022-01-27 Doctor Un iversity of 17:49:07 Unassigned, No [facility] NO SHOW OR MISSED APPOINTMENT 2022-01-27 Doctor Un iversity of POLICY ACKNOWLEDGEMENT 17:48:48 Unassigned, No [place] [facility] NOTICE OF PRIVACY PRACTICES 2022-01-27 Doctor Univ ersity of 17:48:20 Unassigned, No [facility] CONSENT/REFUSAL FOR DIAGNOSIS AND 2022-01-27 Doctor [facility] TREATMENT 17:48:03 Unassigned, No [facility] Name Branch ASSIGNMENT OF BENEFITS 2022-01-27 Doctor [facility] of 17:47:41 Unassigned, No [facility] CT, abdomen, w/ contrast 2021-08-11 [facility] 00:00:00 [facility] MAMMO, screening, digital, 2021-06-28 Critical [facility] hospital bilateral 00:00:00 [facility] [MMD] US Liver 2020-05-24 [facility] 00:00:00 Bilateral Oophorectomy 2017-10-17 [facility] 00:00:00 Group Laparoscopic Total Hysterectomy 2017-10-17 [facility] 00:00:00 Group Tubal Ligation 2016-01-28 [facility] 00:[facility]:00 Group History of Oophorectomy bilateral [facility] Total Hysterectomy [facility] Plan of Care Planned Activity Planned Date Details Comments Source Diagnostic Test 2022-07-13 TSH + T4, serum [facility] mmunity Pending 00:00:00 [code = TSH + T4, [facility] serum] Diagnostic Test 2019-12-01 urinalysis, [facility] Pending 00:00:00 dipstick [code = Group urinalysis, dipstick] Diagnostic Test 2019-12-01 pap, LB + reflex [facility] Pending 00:00:00 to HR HPV if ASC-U Group [code = pap, LB + reflex to HR HPV if ASC-U] Diagnostic Test 2019-12-01 estradiol, serum [facility] Pending 00:00:00 [code = estradiol, Group serum] Future Appointment 2022-11-09 Tamera Sharp, [address] [facility] 00:00:00 [facility] B; [facility] B, [place] [address] Encounters Start End Encounter Admission Attending Care Care Encounter Source Date/Time Date/Time Type Type Clinicians Facility Department ID 2022-07-13 2022-07-13 Outpatient LILA_Noam [facility] [id number] [place] 00:00:00 00:00:00 209 Commun i ty Hospita [facility] Clinics 2022-07-13 2022-07-13 Tamera Munguia [facility] [place] - [place] 209 [place] 00:00:00 00:00:00 Bari Sharp uni MD: [address] [facility] [address], [facility] B, [facility] s [place], [place] CLINIC, [address] LILA , Ph. 2022-03-23 2022-03-23 Outpatient R [facility] KENDRA [id number] Univers 11:09:00 13:30:00 RYAN Lozada o f [facility] 2022-03-23 2022-03-23 [facility] [id number] Univers 11:09:00 13:30:00 Encounter Ryan lozada [id number] ity of [facility] [id number] [id number] [facility] 020 Branch 2022-03-23 2022-03-23 Surgery [facility] [id number] Univers 12:48:00 13:25:00 Ryan lozada [id number] ity of [facility] [id number] [id number] [facility] 020 Branch 2022-03-23 2022-03-23 Orders Doctor LACEY [id number] 00:00:00 00:00:00 Only Unassigned, KIERAN [id number] ity of [place] [facility] [id number] [place] as [id number] [place] 009 Branch 2022-03-14 2022-03-14 Orders Doctor ABHIJIT [id number] Univers 00:00:00 00:00:00 Only Unassigned, KIERAN [id number] ity of [place] [facility] [id number] [place] as [id number] [place] 009 Branch 2022-01-27 2022-01-27 Outpatient R [facility] [id number] Univers 12:50:28 23:59:00 RYAN Lozada [facility] 2022-01-27 2022-01-27 [facility] [id number] Univers 12:50:28 23:59:00 Encounter eRyan [id number] ity of [place] [facility] [id number] [place] [facility] [id number] [place] 806 Branch 2022-01-22 2022-01-22 Outpatient LILA_A [facility] [id number] [place] 00:00:00 00:00:00 821 Commun i ty Hospita l Clinics 2022-01-18 2022-01-18 Outpatient LILA_A [facility] [id number] [place] 00:00:00 00:00:00 817 Commun i ty Hospita l Clinics 2022-01-18 2022-01-18 Tamera Munguia [facility] [place] [facility] [place] 817 [place] 00:00:00 00:00:00 Bari Sharp MD: [address] [facility] ty [facility]PH [facility] [address], COMMUNITY l [address], HOSPITAL Clinic s [place], [facility], [address] LILA , Ph. 2022-01-18 2022-01-18 Outpatient Tamera Sharp [facility] [id number] 00:00:00 00:00:00 Nilda [id number] 2021-11-28 2021-11-28 Outpatient MARLONJOSEFINA_A [facility] [id number] [place] 05:59:00 05:59:00 627 Commun i ty Hospita l Clinics 2021-11-28 2021-11-28 Tamera Munguia [facility] [place] [facility] [place] 627 [place] 00:00:00 00:00:00 Bari Sharp MD: [address] [facility] Hospit a [address], COMMUNITY l [address], HOSPITAL [facility], [address] LILA , Ph. 2021-11-28 2021-11-28 Outpatient Tamera Sharp [facility] [id number] 00:00:00 00:00:00 Nilda [id number] 2021-09-22 2021-09-22 Outpatient LILA_A [facility] [id number] [place] 09:10:00 09:10:00 522 Commun i ty Hospita l Clinics 2021-08-18 2021-08-18 Outpatient MARLONFFER_A [facility] [id number] [place] 06:13:00 06:13:00 317 Commun i ty Hospita l Clinics 2021-08-18 2021-08-18 Tamera Munguia [facility] [place] [facility] [place] 317 [place] 00:00:00 00:00:00 Bari Sharp MD: [address] [facility] Hospit a [address], COMMUNITY l [address], HOSPITAL [facility], [address] LILA , Ph. 2021-08-18 2021-08-18 Outpatient Taemra Sharp [facility] [id number] 00:00:00 00:00:00 Nilda [id number] 2021-08-11 2021-08-11 Outpatient KEFFER_A [facility] [id number] [place] 04:45:00 04:45:00 310 Commun i ty Hospita l Clinics 2021-08-11 2021-08-11 Tamera Munguia [facility] [place] [facility] [place] 310 [place] 00:00:00 00:00:00 Bari Sharp MD: [address] [facility] [address], COMMUNITY l [address], [facility], [address] LILA , Ph. 2021-08-11 2021-08-11 Outpatient Tamera Sharp [facility] [id number] 00:00:00 00:00:00 Nilda [id number] 2021-07-19 2021-07-19 Outpatient LILA_Noam [facility] [id number] [place] 01:20:00 01:20:00 215 Commun i ty Hospita l Clinics 2021-07-19 2021-07-19 Outpatient Tamera Sharp [facility] [id number] 00:00:00 00:00:00 Nilda [id number] 2021-07-19 2021-07-19 Tamera Munguia [facility] [place] [facility] [place] 215 [place] 00:00:00 00:00:00 Bari Sharp MD: [address] [facility]OLPH [facility] a [address], COMMUNITY l [address], [facility], [address] LILA , Ph. 2021-06-28 2021-06-28 Outpatient KEFFER_Noam [facility] [id number] [place] 05:59:00 05:59:00 125 Commun i ty Hospita l Clinics 2021-06-28 2021-06-28 Tamera Munguia [facility] [place] [facility] [place] 125 [place] 00:00:00 00:00:00 Bari Sharp MD: [address] [facility] [address], COMMUNITY l [address], [facility], [place] CLINIC, [address] LILA , Ph. 2021-06-28 2021-06-28 Outpatient Tamera Sharp [facility] [id number] 00:00:00 00:00:00 Nilda [id number] 2020-08-03 2020-08-03 Tyrese MELLO [facility] [id number] [place] 10:30:00 10:30:00 t; LUIS MANUEL Valadez lty - Milo LUIS MANUEL Hogan M.D., M.D. 2020-07-13 2020-07-13 Outpatient LILA_Noam [facility] [id number] [place] 05:34:00 05:34:00 209 Commun i ty Hospita [facility] 2020-06-11 2020-06-11 JUNI Minor [facility] [id number] [place] 09:45:00 09:45:00 t; LOLA Physi Ras Maldonado D.O. 2020-06-01 2020-06-01 [facility] [id number] [place] 09:00:00 09:00:00 t; Noam LUIS MANUEL lty - Milo LUIS MANUEL Hogan M.D., M.D. 2020-04-23 2020-04-23 JUNI Minor [id number] [place] 09:15:00 09:15:00 t; LOLA Physi Ras Maldonado D.O. 2020-04-21 2020-04-21 Outpatient G_Pappas [facility] [id number] [place] 02:24:00 02:24:00 [id number] Medical Group 2020-04-13 2020-04-13 JUNI Minor UTP [id number] [place] 11:30:00 11:30:00 t; LOLA Physi Ras Maldonado D.O. 2019-12-27 2019-12-27 Outpatient G_Pappas [facility] 2019 [place] 11:00:00 11:00:00 0729 Medical Group 2019-12-10 2019-12-10 Laboratory Lab, [facility] Fam Pob I [facility] [id number]. [id number] Univers 11:15:35 11:32:41 Only Farhana [facility] [id number] ity [facility] [id number] [place]um as Professio [phone] Hi dical [address] 2019-12-10 2019-12-10 Laboratory Lab, [facility] [id number] 11:15:35 11:32:41 Only Fam Pob I Health [id number] [place] [id number] Professio [phone] [place] [address] [address] 2019-12-10 2019-12-10 Outpatient R ELIZ [facility] [id number] Univers 11:20:00 11:20:00 FARHANA martínez [facility] 2019-12-02 2019-12-02 Outpatient G_Pappas [facility] 2019 [place] 12:02:00 12:02:00 0630 Medical Group 2019-12-01 2019-12-01 Outpatient G_Pappas [facility] 2019 [place] 11:04:00 11:04:00 0629 Medical Group 2019-12-01 2019-12-01 Paul [facility] [place] - [id number] M atagor 00:00:00 00:00:00 Discovery tuan Gaxiola MD: [address] [place] [phone] , Ph. [phone] 2019-01-09 2019-01-09 Outpatient G_Pappas [facility] [id number] [place] 06:54:00 06:54:00 0626 Medical Group 2019-01-09 2019-01-09 Outpatient G_Pappas [facility] MM 2019 [place] 06:54:00 06:54:00 0224 Medical Group Results Test Description Test Time Test Comments Results Result Comments Source SARS-CoV-2 (COVID-19) Ag [Presence] in Respiratory spe cimen by 2021-07-19 11:44:00 Rapid immunoassay Test Item Value Reference Range Interpretation Comme nts SARS CoV 2 (test code = SARS CoV 2) negative [facility][D] US [id number] 09:19:00 Test Item Value Reference Range Interpretation Comments US Liver (test code EXAM: US LIVER DATE: = US Liver) 06/03/2020 9:19 AM 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 06/03/2020 10:20 AM DECONTAMINATION WORKER Robinson Freedman [facility][QL] LIPID [id number] 13:00:00 Test Item Value Reference Range Interpretation [...] choleste rol not (test code = calculated. 84657-0) Triglyceride levelsgreater t shah 400 mg/dL inval [...] SS et al . RUTH. 2013;310( 19): 7960-7565 ([email or web address]://educati on.[facility] stDiagnostics.c om/faq /[email or web address]) CHOL/HDLC RATIO 5.7 {CALC} <5.0 (test code = CHOL/HDLC RATIO) NON HDL CHOLESTEROL 203 {MG/DL <130 For torrey ents with (test code = NON ROGER} diabetes pl us 1 major HDL CHOLESTEROL) ASCVD risk factor, treating to a non-HDL-C goal of <100 mg/dL (LDL -C of <70 mg/dL) is considered a therapeutic opt ion. [facility][QL] IRON AND TOTAL IRON BINDING [id number] 13:00:00 Test Item Value Reference Range Interpretation Comments IRON, TOTAL (test code = 89 {mcg/dl} 40-190 N IRON, TOTAL) IRON BINDING CAPACITY (test 357 {mcg/dL ca} 250-450 N code = IRON BINDING CAPACITY) % SATURATION (test code = % 25 {% CALC} 16-45 N SATURATION) [facility][QL] CMP [id number] 13:00:00 Test Item Value Reference Range Interpretation Comments GLUCOSE; Normal 106 mg/dl 65-139 N Non-fasting (test code = 1547-9) referen ce interval UREA NITROGEN (BUN) 12 mg/dl 7-25 N (test code = UREA NITROGEN (BUN)) CREATININE (test 0.74 mg/dl 0.50-1.10 N code = CREATININE) eGFR NON-AFR. 105 {ML/MIN/1.7} > OR = 60 N KYRGYZ (test code = eGFR NON-AFR. KYRGYZ) eGFR 122 {ML/MIN/1.7} > OR = 60 N KYRGYZ (test code = eGFR ) BUN/CREATININE RATIO [...] mg/dl 0.2-1.2 N Normal (test code = 12596-4) ALKALINE PHOSPHATASE 79 u/l 31-125 N (test code = ALKALINE PHOSPHATASE) AST; Normal (test 12 u/l 10-30 N code = 1916-6) ALT; Normal (test 9 u/l 6-29 N code = 1742-6) [facility][QL] CBC (INCLUDES DIFF/PLT)2020-04-13 13:00:00 Test Item Value Reference Range Interpretation Comments WHITE BLOOD CELL COUNT 9.8 {Thousand/u} 3.8-10.8 N (test code = WHITE BLOOD CELL COUNT) RED BLOOD CELL COUNT (test 4.39 {Million/uL} 3.80-5.10 N code = RED BLOOD CELL COUNT) HEMOGLOBIN; Normal (test 13.1 g/dl 11.7-15.5 N code = 85846-2) HEMATOCRIT; Normal (test 39.5 % 35.0-45.0 N code = 4544-3) MCV; Normal (test code = 90.0 fL 80.0-100.0 N 787-2) MCHC; Normal (test code = 33.2 g/dl 32.0-36.0 N 95928-0) RDW; Normal (test code = 12.8 % 11.0-15.0 N 788-0) PLATELET COUNT; Normal 314 {Thousand/u} 140-400 N (test code = 777-3) MPV; Normal (test code = 11.3 fL 7.5-12.5 N 12840-8) ABSOLUTE NEUTROPHILS (test 6086 {cells/uL} 4541-5021 N code = ABSOLUTE NEUTROPHILS) ABSOLUTE LYMPHOCYTES [...] Normal (test 7.7 % N code = 68477-0) EOSINOPHILS; Normal (test 3.5 % N code = 35223-2) BASOPHILS; Normal (test 0.7 % N code = 98896-6) [facility][QL] PTH, INTACT (WITHOUT CALCIUM)2020-04-13 13:00:00 Test [...] perf ormance characteristics have been determined by [employer]. It has not been cleared or approved by theFDA. This as say has been validated pursu ant to the CLIA regulation s and is used for clinic al purposes. [id number]-FHKQV-[id number] 1.9 mg/L <4.4 This test was developed and LUIS (test code = its analyt ical performance MLOJ-DPNJW-KOPVOY characteri stics have been LUIS) determined by [employer]. It has not been cleared or approved by theFDA. This as say has been validated pursu ant to the CLIA regulation s and is used for clinic al purposes. [facility][QL] FOLATE, [id number] 13:00:00 Test Item Value Reference Range Interpretation Comments FOLATE, SERUM (test 3.8 ng/ml Referenc e Range Low: code = FOLATE, <3.4 Borderli ne: 3.4-5.4 SERUM) Normal: >5.4 [facility][QL] TSH, 3RD [id number] 13:00:00 Test Item Value Reference Range Interpretation Comments TSH; Below Low 0.35 {MIU/L} Reference Ran ge > or Threshold (test code = 20 Ye ars 0.40-4.50 = 97855-8) Range s First trimester 0.26-2.66 Secon d trimester 0.55- 2.73 Third trimester 0.43-2.91 [facility][QL] VITAMIN [id number] 13:00:00 Test Item Value Reference Range Interpretation Comments VITAMIN B12 335 pg/ml 200-1100 N Please Note: Al though the (test code = reference range for [id number] VITAMIN B12) is 200-1100 pg/ mL, it has been reported that b etween5 and 10% of patients wit h values between 200 and 400pg/mL may experience neur opsychiatric and hematologic abnormalities due to occult B 12 deficiency; less than 1%of patients with values above 40 0 pg/mL will have symptoms. [facility][QL] VITAMIN B1, WHOLE [id number] 13:00:00 Test Item Value Reference Range Interpretation Comments VITAMIN B1, WHOLE 126 nmol/L 78-185 Vitamin amador pplementation BLOOD (test code = within 24 hours prior VITAMIN B1, WHOLE toblood dr dale may affect BLOOD) the accuracy of results. This test was d kevin and its analyti roger performance characteristics have been determined by [employer]. It has not been cleared or approved by theFDA. This assay has been validated pursuant to the CLIA reg ulations and is used for clinical purposes. [facility][QL] HEMOGLOBIN [id number] 13:00:00 Test Item Value Reference Range Interpretation [...] di abetes in children. Ac cording to [place] [employer] [employer] (ADA)guidelines , hemoglobin A1c <7.0% represents optimalcontrol in non- di abetic patients. Differentmetric s may apply to specif ic patient populat ions. Standards of Me dical Care in Diabete s(ADA). [facility][QL] VITAMIN A (RETINOL)2020-04-13 13:00:00 Test Item Value Reference Range Interpretation Comments VITAMIN A (test 59 {mcg/dl} 38-98 Clin Chem Vol. 34.No.8. code = VITAMIN A) [id number] supplementation within 24 hours prior to blood draw may affect the accuracy of results. Thi s test was developed and i ts analytical perf ormance characteristics have been determined by [employer]. It has not been cleared or approved by theFDA. This assay has been validated pursuant to the CLIA reg ulations and is used for clinical purposes. [facility][Q] QUESTASSURED 25-OH VIT D, (D2,D3), LC/MS/[id number] 13:00:00 Test Item Value Reference Range Interpretation [...] For additional info rmation, please refer to [email or web address] 9 VITAMIN D, 45 ng/ml Reference range [...] regulation and is usedfor Clinical purpos es.MDFmed [id number] [facility] [address] [facility] [id number] 00Adrienne Lau Note 1 Note 1 For additional information, please refer to [email or web address] 9 (This link is being provided for informational/e ducational purposes only.) [facility] macro (dipstick) panel - [id number] 14:52:43 Test Item Value Reference Range Interpretation Comments Leukocytes (test code = Leukocytes) Negative Nitrite (test code = Nitrite) negative Urobilinogen (test code = .2 Urobilinogen) Protein (test code = Protein) Negative pH (test code = pH) 6.0 Blood (test code = Blood) Negative Specific [place] (test code = 1.025 Specific [place]) Ketone (test code = Ketone) Negative Bilirubin (test code = Bilirubin) Small Glucose (test code = Glucose) Negative Appearance (test code = Appearance) Clear Color (test code = Color) Yellow [facility]
--- NOTE | 2022-08-23 20:25 | EDPHYS ---
Physician Documentation [facility] Name: Bev Cox Age: 37 yrs Sex: Female : 1985 Arrival Date: 08/23/2022 Time: 19:38 Bed Treatment Private MD: Tamera Domínguez ED Physician Phong Wade HPI: 08/23 20:19 This 37 yrs old Female presents to ER via Ambulatory with complaints of Poison Isha. rn 20:19 The patient's rash thought to be caused by Dermatitis Contact allergy. The rash is rn located on the body diffusely. The rash can be described as erythematous, papular, vesicular. Onset: The symptoms/episode began/occurred 5 day(s) ago. Associated signs and symptoms: Pertinent positives: burning sensation, itching, Pertinent negatives: difficulty breathing, fever, swelling of lips, swelling of throat, swelling of tongue, wheezing. Severity of symptoms: At their worst the symptoms were moderate in the emergency department the symptoms are unchanged. The patient has not experienced similar symptoms in the past. The patient has not recently seen a physician. Pt cut down a tree last week, now with concern of poison isha due to rash and itching for 5 days. No other exposure.. 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 - Social history:: Smoking status: Patient denies any tobacco usage or history of. Patient uses alcohol, occasionally. Smoking status: . - Family history:: not pertinent. - Hospitalizations: : No recent hospitalization is reported. ROS: 20:19 Constitutional: Negative for fever, chills, and weight loss, Cardiovascular: Negative rn for chest pain, palpitations, and edema, Respiratory: Negative for shortness of breath, cough, wheezing, and pleuritic chest pain, Abdomen/GI: Negative for abdominal pain, nausea, vomiting, diarrhea, and constipation, Back: Negative for injury and pain, MS/Extremity: Negative for injury and deformity, Skin: + rash and itching Neuro: Negative for headache, weakness, numbness, tingling, and seizure. Exam: 20:19 Constitutional: This is a well developed, well nourished patient who is awake, alert, rn and in no acute distress. Respiratory: No increased work of breathing, no retractions or nasal flaring. Skin: + erythematous/papular and vesicular rash with clear drainage on arms and face. No bullae. No skin sloughing. Vital Signs: 19:53 BP 137 / 81; Pulse 79; Resp 17 S; Temp 98.5(O); Pulse Ox 99% on R/A; Weight 113.4 kg lg3 (R); Height 5 ft. 3 in. (R); Pain 7/10; 19:53 Body Mass Index 44.29 (113.40 kg, 160.02 cm) lg3 19:53 Pain Scale: Adult lg3 MDM: 19:43 Patient medically screened. rn 20:19 Differential diagnosis: allergic reaction, contact dermatitis. Data reviewed: vital rn signs, nurses notes, and as a result, I will discharge patient. I considered the following discharge prescriptions or medication management in the emergency department Medications were administered in the Emergency Department. See MAR. Counseling: I had a detailed discussion with the patient and/or guardian regarding: the historical points, exam findings, and any diagnostic results supporting the discharge/admit diagnosis, the need for outpatient follow up, to return to the emergency department if symptoms worsen or persist or if there are any questions or concerns that arise at home. Response to treatment: There is no appreciated change of the patient's symptoms at this time, and as a result, I will discharge patient. Administered Medications: 20:04 Drug: MethylPREDNISolone Sodium Succinate IM 125 mg Route: IM; Site: left ventrogluteal;kl 20:34 Follow up: Response: No adverse reaction; Marked relief of symptoms kl 20:04 Drug: hydrOXYzine PO 25 mg Route: PO; kl 20:34 Follow up: Response: No adverse reaction; Marked relief of symptoms kl Disposition Summary: 08/23/22 20:24 Discharge Ordered Location: Home rn Problem: new rn Symptoms: have improved rn Condition: Stable rn Diagnosis - Allergic contact dermatitis due to plants, except food rn Followup: rn - With: Private Physician - When: As needed - Reason: Recheck today's complaints, Re-evaluation by your physician Discharge Instructions: - Discharge Summary Sheet rn - Poison Isha Dermatitis rn Forms: - Medication Reconciliation Form rn - Thank You Letter rn - Antibiotic radiology rn - Prescription Opioid Use rn Prescriptions: - Hydroxyzine HCl 50 mg Oral Tablet - take 1 tablet by ORAL route every 8 hours As needed; 20 tablet; Refills: 0, rn Product Selection Permitted - Medrol (Pravin) 4 mg Oral Tablets, Dose Pack - take 1 tablet by ORAL route as directed - follow package instructions; 1 rn packet; Refills: 0, Product Selection Permitted Signatures: Haleigh Sifuentes, RN Phong Davidson MD MD rn Gibson, Lacie, RN RN lg3
--- NOTE | 2022-08-23 20:25 | ER ---
Nurse's Notes [facility] Name: Bev Cox Age: 37 yrs Sex: Female : 1985 Arrival Date: 08/23/2022 Time: 19:38 Bed Treatment Private MD: Tamera Domínguez Diagnosis: Allergic contact dermatitis due to plants, except food Presentation: 08/23 19:53 Chief complaint: Patient states: poison ismael contact on Sunday and now its spreading lg3 to both arms, abdomen, groin, face and back. Coronavirus screen: Client denies travel out of the [place] in the last 14 days. At this time, the client does not indicate any symptoms associated with coronavirus-19. Ebola Screen: No symptoms or risks identified at this time. Initial Sepsis Screen: Does the patient meet any 2 criteria? No. Patient's initial sepsis screen is negative. Does the patient have a suspected source of infection? No. Patient's initial sepsis screen is negative. Risk Assessment: Do you want to hurt yourself or someone else? Patient reports no desire to harm self or others. Onset of symptoms was August 19, 2022. 19:53 Method Of Arrival: Ambulatory lg3 19:53 Acuity: EVANGELINA 4 lg3 Triage Assessment: 19:54 General: Appears in no apparent distress. uncomfortable, Behavior is calm, cooperative. lg3 Pain: Complains of pain in face, abdomen, pelvis, right arm and left arm. EENT: No deficits noted. No signs and/or symptoms were reported regarding the EENT system. Neuro: No deficits noted. Nunez Agitation-Sedation Scale (RASS): 0 - Alert and Calm Level of Consciousness is awake, alert, obeys commands, Oriented to person, place, time, situation. Cardiovascular: No deficits noted. Denies chest pain, shortness of breath, Capillary refill < 3 seconds Clubbing of nail beds is absent JVD is absent Patient's skin is warm and dry. Respiratory: No deficits noted. Airway is patent Trachea midline Respiratory effort is even, unlabored, Respiratory pattern is regular, symmetrical, Denies shortness of breath labored breathing. GI: No deficits noted. No signs and/or symptoms were reported involving the gastrointestinal system. Abdomen is round non-distended, obese. : No deficits noted. No signs and/or symptoms were reported regarding the genitourinary system. Derm: rash noted to face, arms, abdomen, back and groin. Musculoskeletal: No deficits noted. No signs and/or symptoms reported regarding the musculoskeletal system. Circulation, motion, and sensation intact. Range of motion: intact in all extremities. 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 - Social history:: Smoking status: Patient denies any tobacco usage or history of. Patient uses alcohol, occasionally. Smoking status: . - Family history:: not pertinent. - Hospitalizations: : No recent hospitalization is reported. Screenin:35 [facility] ED Fall Risk Assessment (Adult) History of falling in the last 3 months, kl including since admission No falls in past 3 months (0 pts) Confusion or Disorientation No (0 pts) Intoxicated or Sedated No (0 pts) Impaired Gait No (0 pts) Mobility Assist Device Used No (0 pt) Altered Elimination No (0 pt) Score/Fall Risk Level 0 - 2 = Low Risk Oriented to surroundings, Maintained a safe environment. Abuse screen: Denies threats or abuse. Nutritional screening: No deficits noted. Tuberculosis screening: No symptoms or risk factors identified. Assessment: 20:35 Reassessment: Patient appears in no apparent distress at this time. Patient and/or kl family updated on plan of care and expected duration. Pain level reassessed. Patient is alert, oriented x 3, equal unlabored respirations, skin warm/dry/pink. Patient states feeling better. Patient states symptoms have improved. Vital Signs: 19:53 BP 137 / 81; Pulse 79; Resp 17 S; Temp 98.5(O); Pulse Ox 99% on R/A; Weight 113.4 kg lg3 (R); Height 5 ft. 3 in. (R); Pain 10; 19:53 Body Mass Index 44.29 (113.40 kg, 160.02 cm) lg3 19:53 Pain Scale: Adult lg3 ED Course: 19:38 Patient arrived in ED. mr 19:38 Tamera Domínguez MD is Private Physician. mr 19:43 Phong Wade MD is Attending Physician. rn 19:54 Triage completed. lg3 19:54 Arm band placed on right wrist. lg3 20:35 No provider procedures requiring assistance completed. Patient did not have IV access kl during this emergency room visit. Administered Medications: 20:04 Drug: MethylPREDNISolone Sodium Succinate IM 125 mg Route: IM; Site: left ventrogluteal;kl 20:34 Follow up: Response: No adverse reaction; Marked relief of symptoms kl 20:04 Drug: hydrOXYzine PO 25 mg Route: PO; kl 20:34 Follow up: Response: No adverse reaction; Marked relief of symptoms kl Outcome: 20:24 Discharge ordered by . rn 20:35 Patient left the ED. kl Signatures: Haleigh Sifuentes RN RN kl Rivera, Mary mr Phong Wade MD MD rn Gibson, Lacie, RN RN lg3
[2022-08-23 21:01] VITALS: BP 137/81; TEMP 98.5; O2SAT 99
== END 2022-08-23 20:35 | disposition home or self-care (01) ==
LOC: ER 19:31
DX: L23.7 Allergic contact dermatitis due to plants, except food (principal); Z88.2 Allergy status to sulfonamides
CPT/HCPCS: 96372; 99282

== ENCOUNTER 2023-01-18 09:03 | Emergency (ER) | payer OTHER ==
--- OUTSIDE RECORDS SUMMARY | 2023-01-18 09:09 | XMS REPORT | Continuity of Care Document ---
:1985 Author Organization [facility] t Address [address] [place] [address] Care Team Providers Name Role Phone TAMERA SHARP Primary Care Physician Unavailable LILA_Noam Attending Clinician Unavailable RYAN ROSA Attending Clinician Unavailable Ryan Rosa MD Attending Clinician Doctor Unassigned, [place] Attending Clinician Unavailable Tamrea Sharp Attending Clinician [phone] LUIS MANUEL GUTIERREZ M.D. Attending Clinician Unavailable [...] Date Expiration Date Tasneem heck [place]: [id number] 2010 [employer] 00:00:00 [place] [id number] [place] MEDICARE PART A [id number] 2010 \T\ B 00:00:00 [place] [id number] 2022 00:00:[place] [facility] - [id number] [facility] (INSTIT[place]AL[place] [id number] 2006 [employer] [place] [employer] 00:00:00 - [facility] - FQHC Problems Condition Condition Condition Status Onset Resolution Last Treating Co mments Source Name Details Category Date Date Treatment Clinician Date Malaise Malaise Problem Active [facility] 8[facility] Intentiona Intentiona Problem Active [facility] l weight l Weight 8-16 Commun i loss Loss 00:00: ty 00 [facility] Obesity Obesity Problem Active [facility] 6-08 [facility] 00:00: ty [facility] Diarrhea Diarrhea Problem Active [facility] 3-17 [facility] 00:00: ty [facility] Epigastric Epigastric Problem Active [facility] pain Pain 3-10 [facility] 00:00: ty 00 [facility] Otitis Otitis Problem Active [facility] media Media 2-15 [facility]i 00:00: ty 00 [facility] Acute Acute Problem Active [facility] upper Upper 2-15 [facility]i respirator Respirator 00:00: ty y y [facility] Clinics Cough Cough Problem Active [facility] 2-15 [facility] 00:00: ty 00 [facility] Hypothyroi Hypothyroi Problem Active 2021- S [facility] dism dism 1-25 [facility] 00:00: ty 00 [facility] Menopausal Menopausal Problem Active [facility] flushing Flushing 1-25 Commun i 00:00: ty 00 [facility] Mixed Mixed Problem Active [facility] urinary Urinary 1- Communi incontinen Incontinen 00:00: ty ce ce [address] [facility] Screening Screening Problem Active [facility] rafia for for - Communi malignant Malignant 00:00: ty neoplasm Neoplasm 00 Hospit [facility] of breast of Breast [facility] Indigestio Indigestio Problem Active S didi n n 2-09 Communi 00:00: ty 00 [facility] Eruption Eruption Problem Active 2019-06 [facility] y 0-22 Communi 00:00: ty 00 [facility] Low back Low Back Problem Active [facility] pain Pain 2-13 Communi 00:00: ty 00 [facility] Pain in Pain in Problem Active [facility] bilateral Bilateral 2-13 Comm uni legs Legs 00:00: ty 00 [facility] Dry cough Dry Cough Problem Active [facility] rafia 1-16 Communi 00:00: ty 00 [facility] Environmen Environmen Problem Active S didi venessa venessa 1-16 [facility]i allergy Allergy 00:00: ty 00 [facility] Long-term Long-term Problem Active [facility] drug Drug 1-16 [facility] therapy Therapy 00:00: ty 00 [facility] Postsurgic Postsurgic Problem Active M derrick [...] and/or 3-21 ity of mide Vomiting 00:00: [place] Antibiot 00 Medical ics) Branch NO KNOWN Drug Active Univers ALLERGIE Class ity of S [facility] Family History Family Member Diagnosis Comments Start Date Stop Date Source Unknown Family Member Adopted Other [facility] Phys[facility] Social History Social Habit Start Date Stop Date Quantity Comments Source History of Cigarette Smoker Universi ty of tobacco use [facility] Exposure to 2022-03-06 2022-03-16 Not sure University SARS-CoV-2 00:00:00 13:54:00 [facility] (event) Branch Tobacco use and 2022-03-16 2022-03-16 Smokeless tobacco Un iversity of exposure 00:00:00 00:00:00 non-user [facility] Sex Ass[birth year] At [birth year] Universit y of 00:00:00 00:00:00 [facility] Smoking Status Start Date Stop Date Source Never smoked tobacco [facility] (finding) [facility] Former Smoker [facility] Smokes tobacco daily 2022-03-16 00:00:00 Univers ity [facility] Medications Ordered Filled Start Stop Current [...] Starting ity of (SIMETHICON 17:37: 17:59 on Nettie Anjum as E)) 40 00 :43 03/23/22 [...] 1,000 mL 00 :00 IV Medical Infusion, Josh ONCE, 1 dose, On Nettie 03/23/22 at [...] of 300 mg 14:05: 00:00 mouth in [place] capsule 14 :00 the Medical morning. Branch LORazepam 1 2021-06- No 1mg Take 1 mg Univers mg [...] [place] 14 :00 morning. Medical Branch levothyroxi 2021-06 No 112ug Take 112 Univers ne 112 mcg 0-20 10-20 mcg by ity of tablet 14:05: 00:00 mouth [place] 14 :00 every Medical morning. Branch lithium 2021-06 300mg Take 300 Univ ers carbonate 0-20 10-20 mg by ity of 300 mg 14:05: 00:00 mouth in [place] capsule 14 :00 the Medical morning. Branch LORazepam 1 2021-06 No 1mg Take 1 mg Univers mg tablet 0-20 10-20 by mouth ity o f 14:05: 00:00 in the [place] 14 :00 morning. Medical As needed Branch traZODone 2021-06 150mg Take 150 Un litzy 150 mg 0-20 10-20 mg by ity of tablet 14:05: 00:00 mouth in [place] 14 :00 the Medical morning. Branch No known 2021-06 No No known Unive rs medications 0-20 medication it y of 11:13: s [place] [address] Medical Branch pantoprazol pantoprazol No pantoprazo [facility] e 40 mg e 40 mg 3-17 le 40 mg Commu ni tablet,zeyad tablet,zeyad 00:00: tablet,del ty yed release yed release 00 ayed H ospita TAKE 1 TAKE 1 release l TABLET BY TABLET BY TAKE 1 Cli nics MOUTH EVERY MOUTH EVERY TABLET BY DAY DAY MOUTH EVERY DAY Mono Vista Mono Vista Yes 1 QD TAKE 1 UT Carbonate [...] oral day by route. route. oral route. escitalopra escitalopra No escitalopr [facility] m 20 mg m 20 mg am 20 mg Commu ni tablet TAKE tablet TAKE tablet ty 1 TABLET BY 1 TABLET BY TAKE 1 Hospita MOUTH EVERY MOUTH EVERY TABLET BY l DAY DAY MOUTH Clinics EVERY DAY estradiol 2 estradiol 2 No estradiol [facility] mg tablet mg tablet 2 mg Commu ni TAKE 1 TAKE 1 tablet ty TABLET BY TABLET BY TAKE 1 Hos sreedhar MOUTH EVERY MOUTH EVERY TABLET BY l DAY DAY MOUTH Clinics EVERY DAY levothyroxi levothyroxi No levothyrox [facility] ne 112 mcg ne 112 mcg ine 112 Communi tablet TAKE tablet TAKE mcg tablet ty 1 TABLET BY 1 TABLET BY TAKE 1 Hospita MOUTH EVERY MOUTH EVERY TABLET BY l DAY DAY MOUTH Clinics EVERY DAY lithium lithium No lithium [facility] carbonate carbonate carbonate [facility]i 600 mg 600 mg 600 mg ty capsule capsule capsule Hospit a l Clinics lorazepam lorazepam No lorazepam [facility] 0.5 mg 0.5 mg 0.5 mg Communi tablet tablet tablet ty taking taking taking Hospita twice daily twice daily twice l by mouth by mouth daily by Cli nics mouth pantoprazol pantoprazol No 1 Q1D pantoprazo [place] e 40 mg e 40 mg le 40 mg Commu ni tablet,zeyad tablet,zeyad tablet,del ty yed release yed release ayed H ospita Take 1 Take 1 release l tablet tablet Take 1 Clinics every day every day tablet by oral by oral every day route. route. by oral route. prazosin 1 prazosin 1 No 1capsul Q1D prazosin 1 [facility] mg capsule mg capsule e(s) mg capsule Communi Take 1 Take 1 Take 1 ty capsule capsule capsule Hospit a every day every day every day l by oral by oral by oral Clinic s route for route for route for 30 days. 30 days. 30 days. trazodone trazodone No trazodone [facility] 150 mg 150 mg 150 mg Communi tablet TAKE tablet TAKE tablet ty 1 TABLET 1 TABLET TAKE 1 Hospi ta (150 MG) BY (150 MG) BY TABLET l MOUTH DAILY MOUTH DAILY (150 MG) Clinics AT BEDTIME AT BEDTIME BY MOUTH FOR FOR DAILY AT INSOMNIA INSOMNIA BEDTIME FOR INSOMNIA Carafate 1 Carafate 1 No 1 QID Carafate 1 [facility] gram tablet gram tablet gram C ommuni Take 1 Take 1 tablet ty tablet 4 tablet 4 Take 1 Hospi ta times a day times a day tablet 4 l by oral by oral times a Clinic s route route day by before before oral route meals. meals. before meals. escitalopra escitalopra No escitalopr [facility] m 20 mg m 20 mg am 20 mg Commu ni tablet TAKE tablet TAKE tablet ty 1 TABLET BY 1 TABLET BY TAKE 1 Hospita MOUTH EVERY MOUTH EVERY TABLET BY l DAY DAY MOUTH Clinics EVERY DAY estradiol 2 estradiol 2 No estradiol [facility] mg tablet mg tablet 2 mg Commu ni TAKE 1 TAKE 1 tablet ty TABLET BY TABLET BY TAKE 1 Hos sreedhar MOUTH EVERY MOUTH EVERY TABLET BY l DAY DAY MOUTH Clinics EVERY DAY famotidine famotidine No famotidine [facility] 20 mg 20 mg 20 mg Communi tablet tablet tablet ty Hospita l Clinics levothyroxi levothyroxi No levothyrox [place] ne 112 mcg ne 112 mcg ine 112 Communi tablet TAKE tablet TAKE mcg tablet ty 1 TABLET BY 1 TABLET BY TAKE 1 Hospita MOUTH EVERY MOUTH EVERY TABLET BY l DAY DAY MOUTH Clinics EVERY DAY lithium lithium No lithium [facility] carbonate carbonate carbonate [facility]i 600 mg 600 mg 600 mg ty capsule capsule capsule [facility] lorazepam lorazepam No lorazepam [facility] 0.5 mg 0.5 mg 0.5 mg Communi tablet tablet tablet ty taking taking taking Hospita twice daily twice daily twice l by mouth by mouth daily by Cli nics mouth prazosin 1 prazosin 1 No prazosin 1 [facility] mg capsule mg capsule mg capsule [facility]i Take 1 Take 1 Take 1 ty capsule capsule capsule Hospit a every day every day every day l by oral by oral by oral Clinic s route for route for route for 30 days. 30 days. 30 days. trazodone trazodone No trazodone [place] 150 mg 150 mg 150 mg da tablet tablet tablet [facility] trazodone trazodone No trazodone [facility] 150 mg 150 mg 150 mg Communi tablet TAKE tablet TAKE tablet ty 1 TABLET 1 TABLET TAKE 1 Hospi ta (150 MG) BY (150 MG) BY TABLET l MOUTH DAILY MOUTH DAILY (150 MG) Clinics AT BEDTIME AT BEDTIME BY MOUTH FOR FOR DAILY AT INSOMNIA INSOMNIA BEDTIME FOR INSOMNIA escitalopra escitalopra No escitalopr [facility] m 20 mg m 20 mg am 20 mg Commu ni tablet TAKE tablet TAKE tablet ty 1 TABLET BY 1 TABLET BY TAKE 1 Hospita MOUTH EVERY MOUTH EVERY TABLET BY l DAY DAY MOUTH Clinics EVERY DAY estradiol 2 estradiol 2 No estradiol [facility] mg tablet mg tablet 2 mg Commu ni TAKE 1 TAKE 1 tablet ty TABLET BY TABLET BY TAKE 1 Hos sreedhar MOUTH EVERY MOUTH EVERY TABLET BY l DAY DAY MOUTH Clinics EVERY DAY famotidine famotidine No famotidine [facility] 20 mg 20 mg 20 mg Communi tablet tablet tablet ty [facility] levothyroxi levothyroxi No levothyrox [place] ne 112 mcg ne 112 mcg ine 112 Communi tablet TAKE tablet TAKE mcg tablet ty 1 TABLET BY 1 TABLET BY TAKE 1 Hospita MOUTH EVERY MOUTH EVERY TABLET BY l DAY DAY MOUTH Clinics EVERY DAY lithium lithium No lithium [facility] carbonate carbonate carbonate [facility] 600 mg 600 mg 600 mg ty capsule capsule capsule [facility] lorazepam lorazepam No lorazepam [facility] 0.5 mg 0.5 mg 0.5 mg Communi tablet tablet tablet ty taking taking taking Hospita twice daily twice daily twice l by mouth by mouth daily by Cli nics mouth pantoprazol pantoprazol No pantoprazo [place] e 40 mg e 40 mg le 40 mg Commu ni tablet,zeyad tablet,zeyad tablet,del ty yed release yed release ayed H ospita TAKE 1 TAKE 1 release l TABLET BY TABLET BY TAKE 1 Cli nics MOUTH EVERY MOUTH EVERY TABLET BY DAY DAY MOUTH EVERY DAY prazosin 1 prazosin 1 No prazosin 1 [facility] mg capsule mg capsule mg capsule [facility] Take 1 Take 1 Take 1 ty capsule capsule capsule Hospit a every day every day every day l by oral by oral by oral Clinic s route for route for route for 30 days. 30 days. 30 days. sucralfate sucralfate No sucralfate [facility] 1 gram 1 gram 1 gram [facility]i tablet Take tablet Take tablet ty 1 tablet 4 1 tablet 4 Take 1 H ospita times a day times a day tablet 4 l by oral by oral times a Clinic s route route day by before before oral route meals. meals. before meals. trazodone trazodone No trazodone [facility] 150 mg 150 mg 150 mg [facility]i tablet TAKE tablet TAKE tablet ty 1 TABLET 1 TABLET TAKE 1 Hospi ta (150 MG) BY (150 MG) BY TABLET l MOUTH DAILY MOUTH DAILY (150 MG) Clinics AT BEDTIME AT BEDTIME BY MOUTH FOR FOR DAILY AT INSOMNIA INSOMNIA BEDTIME FOR INSOMNIA escitalopra escitalopra No escitalopr [facility] m 20 mg m 20 mg am 20 mg Commu ni tablet TAKE tablet TAKE tablet ty 1 TABLET BY 1 TABLET BY TAKE 1 Hospita MOUTH EVERY MOUTH EVERY TABLET BY l DAY DAY MOUTH Clinics EVERY DAY estradiol 2 estradiol 2 No estradiol [facility] mg tablet mg tablet 2 mg Commu ni TAKE 1 TAKE 1 tablet ty TABLET BY TABLET BY TAKE 1 Hos sreedhar MOUTH EVERY MOUTH EVERY TABLET BY l DAY DAY MOUTH Clinics EVERY DAY famotidine famotidine No famotidine [facility] 20 mg 20 mg 20 mg Communi tablet tablet tablet ty Hospita l Clinics levothyroxi levothyroxi No levothyrox [place] ne 112 mcg ne 112 mcg ine 112 Communi tablet TAKE tablet TAKE mcg tablet ty 1 TABLET BY 1 TABLET BY TAKE 1 Hospita MOUTH EVERY MOUTH EVERY TABLET BY l DAY DAY MOUTH Clinics EVERY DAY lithium lithium No lithium [facility] carbonate carbonate carbonate [facility] 600 mg 600 mg 600 mg ty capsule capsule capsule Hospit a [facility] Clinics lorazepam lorazepam No lorazepam [facility] 0.5 mg 0.5 mg 0.5 mg Communi tablet tablet tablet ty taking taking taking Hospita twice daily twice daily twice l by mouth by mouth daily by Cli nics mouth pantoprazol pantoprazol No pantoprazo [place] e 40 mg e 40 mg le 40 mg Commu ni tablet,zeyad tablet,zeyad tablet,del ty yed release yed release ayed H ospita TAKE 1 TAKE 1 release l TABLET BY TABLET BY TAKE 1 Cli nics MOUTH EVERY MOUTH EVERY TABLET BY DAY DAY MOUTH EVERY DAY prazosin 1 prazosin 1 No prazosin 1 [facility] mg capsule mg capsule mg capsule [facility] Take 1 Take 1 Take 1 ty capsule capsule capsule Hospit a every day every day every day l by oral by oral by oral Clinic s route for route for route for 30 days. 30 days. 30 days. sucralfate sucralfate No sucralfate [facility] 1 gram 1 gram 1 gram [facility]i tablet Take tablet Take tablet ty 1 tablet 4 1 tablet 4 Take 1 H ospita times a day times a day tablet 4 l by oral by oral times a Clinic s route route day by before before oral route meals. meals. before meals. trazodone trazodone No trazodone [facility] 150 mg 150 mg 150 mg [facility] tablet TAKE tablet TAKE tablet ty 1 TABLET 1 TABLET TAKE 1 Hospi ta (150 MG) BY (150 MG) BY TABLET l MOUTH DAILY MOUTH DAILY (150 MG) Clinics AT BEDTIME AT BEDTIME BY MOUTH FOR FOR DAILY AT INSOMNIA INSOMNIA BEDTIME FOR INSOMNIA albuterol albuterol No albuterol [facility] sulfate HFA sulfate HFA sulfate Communi 90 90 HFA 90 ty mcg/actuati mcg/actuati mcg/actuat Hospita on aerosol on aerosol ion l inhaler inhaler aerosol Clinic s inhaler benzonatate benzonatate No 1capsul TID benzonatat [facility] 100 mg 100 mg e(s) e 100 mg Communi capsule capsule capsule ty Take 1 Take 1 Take 1 Hospita capsule 3 capsule 3 capsule 3 l times a day times a day times a Clinics by oral by oral day by route as route as oral route needed. needed. as needed. dextroamphe dextroamphe No dextroamph [facility] tamine-amph tamine-amph etamine-am Communi etamine 10 etamine 10 phetamine ty mg tablet mg tablet 10 mg Hosp duy TAKE 1 TAKE 1 tablet l TABLET BY TABLET BY TAKE 1 Cli nics MOUTH TWICE MOUTH TWICE TABLET BY A DAY A DAY MOUTH TWICE A DAY escitalopra escitalopra No escitalopr [facility] m 20 mg m 20 mg am 20 mg Commu ni tablet TAKE tablet TAKE tablet ty 1 TABLET BY 1 TABLET BY TAKE 1 Hospita MOUTH EVERY MOUTH EVERY TABLET BY l DAY DAY MOUTH Clinics EVERY DAY estradiol 2 estradiol 2 No estradiol [facility] mg tablet mg tablet 2 mg Commu ni TAKE 1 TAKE 1 tablet ty TABLET BY TABLET BY TAKE 1 Hos sreedhar MOUTH EVERY MOUTH EVERY TABLET BY l DAY DAY MOUTH Clinics EVERY DAY levothyroxi levothyroxi No levothyrox [place] ne 112 mcg ne 112 mcg ine 112 Communi tablet TAKE tablet TAKE mcg tablet ty 1 TABLET BY 1 TABLET BY TAKE 1 Hospita MOUTH EVERY MOUTH EVERY TABLET BY l DAY DAY MOUTH Clinics EVERY DAY lithium lithium No lithium [facility] carbonate carbonate carbonate [facility] 300 mg 300 mg 300 mg ty capsule capsule capsule Hospit a Clinics lithium lithium No lithium [facility] carbonate carbonate carbonate [facility] 600 mg 600 mg 600 mg ty capsule capsule capsule Hospit a Clinics lorazepam lorazepam No lorazepam [facility] 0.5 mg 0.5 mg 0.5 mg Communi tablet tablet tablet ty taking taking taking Hospita twice daily twice daily twice l by mouth by mouth daily by Cli nics mouth trazodone trazodone No trazodone [facility] 50 mg 50 mg 50 mg [facility] tablet TAKE tablet TAKE tablet ty 1 TABLET BY 1 TABLET BY TAKE 1 Hospita MOUTH EVERY MOUTH EVERY TABLET BY l NIGHT NIGHT MOUTH Clinics EVERY NIGHT Vyvanse 20 [place]se 20 No Vy[place]se 20 [facility] mg capsule mg capsule mg capsule Communi TAKE 1 TAKE 1 TAKE 1 ty CAPSULE BY CAPSULE BY CAPSULE BY Hospita MOUTH EVERY MOUTH EVERY MOUTH l DAY IN THE DAY IN THE EVERY DAY Clinics MORNING MORNING IN THE MORNING Vyvanse 40 V[place]se 40 No Vy[place]se 40 [facility] mg capsule mg capsule mg capsule Communi TAKE 1 TAKE 1 TAKE 1 ty CAPSULE BY CAPSULE BY CAPSULE BY Hospita MOUTH EVERY MOUTH EVERY MOUTH l MORNING MORNING EVERY Clinics MORNING escitalopra escitalopra No escitalopr [facility] m 20 mg m 20 mg am 20 mg Commu ni tablet TAKE tablet TAKE tablet ty 1 TABLET BY 1 TABLET BY TAKE 1 Hospita MOUTH EVERY MOUTH EVERY TABLET BY l DAY DAY MOUTH Clinics EVERY DAY estradiol 2 estradiol 2 No estradiol [facility] mg tablet mg tablet 2 mg Commu ni TAKE 1 TAKE 1 tablet ty TABLET BY TABLET BY TAKE 1 Hos sreedhar MOUTH EVERY MOUTH EVERY TABLET BY l DAY DAY MOUTH Clinics EVERY DAY levothyroxi levothyroxi No levothyrox [place] ne 112 mcg ne 112 mcg ine 112 Communi tablet TAKE tablet TAKE mcg tablet ty 1 TABLET BY 1 TABLET BY TAKE 1 Hospita MOUTH EVERY MOUTH EVERY TABLET BY l DAY DAY MOUTH Clinics EVERY DAY lithium lithium No lithium [facility] carbonate carbonate carbonate [facility]i 600 mg 600 mg 600 mg ty capsule capsule capsule Hospit a TAKE 1 TAKE 1 TAKE 1 l CAPSULE BY CAPSULE BY CAPSULE BY Clinics MOUTH EVERY MOUTH EVERY MOUTH DAY DAY EVERY DAY lorazepam lorazepam No lorazepam [facility] 0.5 mg 0.5 mg 0.5 mg Communi tablet TAKE tablet TAKE tablet ty 1 TABLET BY 1 TABLET BY TAKE 1 Hospita MOUTH EVERY MOUTH EVERY TABLET BY l DAY IN THE DAY IN THE MOUTH Cl inics EVENING EVENING EVERY DAY IN THE EVENING Mounjaro Mounjaro No 2.5mg Q1W Mounjaro [facility] 2.5 mg/0.5 2.5 mg/0.5 2.5 mg/0.5 Communi mL mL mL ty subcutaneou subcutaneou subcutaneo Hospita s pen s pen us pen l injector injector injector Cli nics Inject 2.5 Inject 2.5 Inject 2.5 mg every mg every mg every week by week by week by subcutaneou subcutaneou subcutaneo s route for s route for us route 30 days. 30 days. for 30 days. trazodone trazodone No trazodone [facility] 50 mg 50 mg 50 mg [facility]i tablet TAKE tablet TAKE tablet ty 1 TABLET BY 1 TABLET BY TAKE 1 Hospita MOUTH EVERY MOUTH EVERY TABLET BY l NIGHT NIGHT MOUTH Clinics EVERY NIGHT escitalopra escitalopra No escitalopr [place] m 20 mg m 20 mg am 20 mg Commu ni tablet TAKE tablet TAKE tablet ty 1 TABLET BY 1 TABLET BY TAKE 1 Hospita MOUTH EVERY MOUTH EVERY TABLET BY l DAY DAY MOUTH Clinics EVERY DAY estradiol 2 estradiol 2 No estradiol [facility] mg tablet mg tablet 2 mg Commu ni TAKE 1 TAKE 1 tablet ty TABLET BY TABLET BY TAKE 1 Hos sreedhar MOUTH EVERY MOUTH EVERY TABLET BY l DAY DAY MOUTH Clinics EVERY DAY levothyroxi levothyroxi No levothyrox [place] ne 112 mcg ne 112 mcg ine 112 Communi tablet TAKE tablet TAKE mcg tablet ty 1 TABLET BY 1 TABLET BY TAKE 1 Hospita MOUTH EVERY MOUTH EVERY TABLET BY l DAY DAY MOUTH Clinics EVERY DAY lithium lithium No lithium [place] carbonate carbonate carbonate [facility]i 600 mg 600 mg 600 mg ty capsule capsule capsule Hospit a TAKE 1 TAKE 1 TAKE 1 l CAPSULE BY CAPSULE BY CAPSULE BY Clinics MOUTH EVERY MOUTH EVERY MOUTH DAY DAY EVERY DAY lorazepam lorazepam No lorazepam [facility] 0.5 mg 0.5 mg 0.5 mg [facility]i tablet TAKE tablet TAKE tablet ty 1 TABLET BY 1 TABLET BY TAKE 1 Hospita MOUTH EVERY MOUTH EVERY TABLET BY l DAY IN THE DAY IN THE MOUTH Cl inics EVENING EVENING EVERY DAY IN THE EVENING Mounjaro Mounjaro No Mounjaro [facility] 2.5 mg/0.5 2.5 mg/0.5 2.5 mg/0.5 Communi mL mL mL ty subcutaneou subcutaneou subcutaneo Hospita s pen s pen us pen l injector injector injector Cli nics INJECT 2.5 INJECT 2.5 INJECT 2.5 MG MG MG SUBCUTANEOU SUBCUTANEOU SUBCUTANEO SLY WEEKLY SLY WEEKLY USLY WEEKLY Mounjaro 5 Mounjaro 5 No 5mg Q1W Mounjaro 5 [facility] mg/0.5 mL mg/0.5 mL mg/0.5 mL Communi subcutaneou subcutaneou subcutaneo ty s pen s pen us pen Hospita injector injector injector l Inject 5 mg Inject 5 mg Inject 5 Clinics every week every week mg every by by week by subcutaneou subcutaneou subcutaneo s route for s route for us route 30 days. 30 days. for 30 days. quetiapine quetiapine No quetiapine [facility] 25 mg 25 mg 25 mg [facility] tablet tablet tablet ty Hospita l Clinics trazodone trazodone No trazodone [facility] 50 mg 50 mg 50 mg [facility] tablet TAKE tablet TAKE tablet ty 1 TABLET BY 1 TABLET BY TAKE 1 Hospita MOUTH EVERY MOUTH EVERY TABLET BY l NIGHT NIGHT MOUTH Clinics EVERY NIGHT escitalopra escitalopra No escitalopr [facility] m 20 mg m 20 mg am 20 mg Commu ni tablet TAKE tablet TAKE tablet ty 1 TABLET BY 1 TABLET BY TAKE 1 Hospita MOUTH EVERY MOUTH EVERY TABLET BY l DAY DAY MOUTH Clinics EVERY DAY estradiol 2 estradiol 2 No estradiol [facility] mg tablet mg tablet 2 mg Commu ni TAKE 1 TAKE 1 tablet ty TABLET BY TABLET BY TAKE 1 Hos sreedhar MOUTH EVERY MOUTH EVERY TABLET BY l DAY DAY MOUTH Clinics EVERY DAY levothyroxi levothyroxi No levothyrox [place] ne 112 mcg ne 112 mcg ine 112 Communi tablet TAKE tablet TAKE mcg tablet ty 1 TABLET BY 1 TABLET BY TAKE 1 Hospita MOUTH EVERY MOUTH EVERY TABLET BY l DAY DAY MOUTH Clinics EVERY DAY Mounjaro 5 Mounjaro 5 No Mounjaro 5 [facility] mg/0.5 mL mg/0.5 mL mg/0.5 mL Communi subcutaneou subcutaneou subcutaneo ty s pen s pen us pen Hospita injector injector injector l INJECT 5 MG INJECT 5 MG INJECT 5 Clinics SUBCUTANEOU SUBCUTANEOU MG SLY WEEKLY SLY WEEKLY SUBCUTANEO USLY WEEKLY Mounjaro Mounjaro No 7.5mg Q1W [facility] 7.5 mg/0.5 7.5 mg/0.5 7.5 mg/0.5 [facility]i mL mL mL ty subcutaneou subcutaneou subcutaneo Hospita s pen s pen us pen l injector injector injector Cli nics Inject 7.5 Inject 7.5 Inject 7.5 mg every mg every mg every week by week by week by subcutaneou subcutaneou subcutaneo s route. s route. us route. trazodone trazodone No trazodone [facility] 50 mg 50 mg 50 mg [facility] tablet TAKE tablet TAKE tablet ty 1 TABLET BY 1 TABLET BY TAKE 1 Hospita MOUTH EVERY MOUTH EVERY TABLET BY l NIGHT NIGHT MOUTH Clinics EVERY NIGHT escitalopra escitalopra No 1 Q1D escitalopr [facility] m 20 mg m 20 mg am 20 mg Commu ni tablet Take tablet Take tablet ty 1 tablet 1 tablet Take 1 Hospi ta every day every day tablet l by oral by oral every day Clin ics route. route. by oral route. estradiol 2 estradiol 2 No estradiol [facility] mg tablet mg tablet 2 mg Commu ni TAKE 1 TAKE 1 tablet ty TABLET BY TABLET BY TAKE 1 Hos sreedhar MOUTH EVERY MOUTH EVERY TABLET BY l DAY DAY MOUTH Clinics EVERY DAY levothyroxi levothyroxi No levothyrox [place] ne 100 mcg ne 100 mcg ine 100 Communi tablet TAKE tablet TAKE mcg tablet ty 1 TABLET BY 1 TABLET BY TAKE 1 Hospita MOUTH EVERY MOUTH EVERY TABLET BY l DAY DAY MOUTH Clinics EVERY DAY levothyroxi levothyroxi No 1 Q1D levothyrox [place] ne 88 mcg ne 88 mcg ine 88 mcg Communi tablet Take tablet Take tablet ty 1 tablet 1 tablet Take 1 Hospi ta every day every day tablet l by oral by oral every day Clin ics route. route. by oral route. Mounjaro Mounjaro No 7.5mg Q1W M[facility]o [facility] 7.5 mg/0.5 7.5 mg/0.5 7.5 mg/0.5 Communi mL mL mL ty subcutaneou subcutaneou subcutaneo Hospita s pen s pen us pen l injector injector injector Cli nics Inject 7.5 Inject 7.5 Inject 7.5 mg every mg every mg every week by week by week by subcutaneou subcutaneou subcutaneo s route. s route. us route. trazodone trazodone No 1 Q1D trazodone [facility] 50 mg 50 mg 50 mg [facility]i tablet Take tablet Take tablet ty 1 tablet 1 tablet Take 1 Hospi ta every day every day tablet l by oral by oral every day Clin ics route. route. by oral route. albuterol albuterol No albuterol [facility] sulfate 2.5 sulfate 2.5 sulfate Communi mg/3 [...] 8 HOURS NEEDED clobetasol clobetasol No clobetasol [place] 0.05 % 0.05 % 0.05 % [facility] topical topical topical ty cream use cream use cream use Hospita sparingly sparingly sparingly l bid bid bid Clinics escitalopra escitalopra No escitalopr [place] m 20 mg m 20 mg am 20 mg Commu ni tablet TAKE tablet TAKE tablet ty 1 TABLET BY 1 TABLET BY TAKE 1 Hospita MOUTH EVERY MOUTH EVERY TABLET BY l DAY DAY MOUTH Clinics EVERY DAY estradiol 2 estradiol 2 No estradiol [place] mg tablet mg tablet 2 mg Commu ni TAKE 1 TAKE 1 tablet ty TABLET BY TABLET BY TAKE 1 Hos sreedhar MOUTH EVERY MOUTH EVERY TABLET BY l DAY DAY MOUTH Clinics EVERY DAY levothyroxi levothyroxi No levothyrox [place] ne 112 mcg ne 112 mcg ine 112 Communi tablet TAKE tablet TAKE mcg tablet ty 1 TABLET BY 1 TABLET BY TAKE 1 Hospita MOUTH EVERY MOUTH EVERY TABLET BY l DAY DAY MOUTH Clinics EVERY DAY lithium lithium No lithium [place] carbonate carbonate carbonate [facility] 600 mg 600 mg 600 mg ty capsule capsule capsule Hospit a l Clinics lorazepam lorazepam No lorazepam [place] 0.5 mg 0.5 mg 0.5 mg [facility] tablet tablet tablet ty taking taking taking Hospita twice daily twice daily twice l by mouth by mouth daily by Cli nics mouth oxybutynin oxybutynin No 1 Q1D oxybutynin [place] chloride ER chloride ER chloride [facility]i 10 mg 10 mg ER 10 mg ty tablet,exte tablet,exte tablet,ext Hospita nded nded ended l release 24 release 24 release 24 Clinics hr Take 1 hr Take 1 hr Take 1 tablet tablet tablet every day every day every day by oral by oral by oral route. route. route. trazodone trazodone No trazodone [place] 150 mg 150 mg 150 mg [facility]i tablet TAKE tablet TAKE tablet ty 1 TABLET 1 TABLET TAKE 1 Hospi ta (150 MG) BY (150 MG) BY TABLET l MOUTH DAILY MOUTH DAILY (150 MG) Clinics AT BEDTIME AT BEDTIME BY MOUTH FOR FOR DAILY AT INSOMNIA INSOMNIA BEDTIME FOR INSOMNIA albuterol albuterol No albuterol [place] sulfate 2.5 sulfate 2.5 sulfate [facility] mg/3 [...] NEEDED albuterol albuterol No 2puff(s Q4H albuterol [place] sulfate HFA sulfate HFA ) sulfate [facility] 90 90 HFA 90 ty mcg/actuati mcg/actuati mcg/actuat [facility] on aerosol on aerosol ion l inhaler inhaler aerosol Clinic s Inhale 2 Inhale 2 inhaler puffs every puffs every Inhale 2 4 hours by 4 hours by puffs inhalation inhalation every 4 route as route as hours by needed. needed. inhalation route as needed. amoxicillin amoxicillin No 1 Q12H amoxicilli [place] [phone] 875 Communi mg-potassiu mg-potassiu mg-potassi ty m m um Hospita clavulanate clavulanate clavulanat l 125 mg 125 mg e 125 mg Clinics tablet Take tablet Take tablet 1 tablet 1 tablet Take 1 every 12 every 12 tablet hours by hours by every 12 oral route oral route hours by with meals. with meals. oral route with meals. benzonatate benzonatate No 1capsul TID benzonatat [place] 100 mg 100 mg e(s) e 100 mg [facility] capsule capsule capsule ty Take 1 Take 1 Take 1 Hospita capsule 3 capsule 3 capsule 3 l times a day times a day times a Clinics by oral by oral day by route. route. oral route. clobetasol clobetasol No clobetasol [place] 0.05 % 0.05 % 0.05 % [facility]i topical topical topical ty cream use cream use cream use Hospita sparingly sparingly sparingly l bid bid bid Clinics escitalopra escitalopra No escitalopr [place] m 20 mg m 20 mg am 20 mg Commu ni tablet TAKE tablet TAKE tablet ty 1 TABLET BY 1 TABLET BY TAKE 1 Hospita MOUTH EVERY MOUTH EVERY TABLET BY l DAY DAY MOUTH Clinics EVERY DAY estradiol 2 estradiol 2 No estradiol [place] mg tablet mg tablet 2 mg Commu ni TAKE 1 TAKE 1 tablet ty TABLET BY TABLET BY TAKE 1 Hos sreedhar MOUTH EVERY MOUTH EVERY TABLET BY l DAY DAY MOUTH Clinics EVERY DAY levothyroxi levothyroxi No levothyrox [place] ne 112 mcg ne 112 mcg ine 112 Communi tablet TAKE tablet TAKE mcg tablet ty 1 TABLET BY 1 TABLET BY TAKE 1 Hospita MOUTH EVERY MOUTH EVERY TABLET BY l DAY DAY MOUTH Clinics EVERY DAY lithium lithium No lithium [place] carbonate carbonate carbonate [facility] 600 mg 600 mg 600 mg ty capsule capsule capsule Hospit [facility] Clinics lorazepam lorazepam No lorazepam [place] 0.5 mg 0.5 mg 0.5 mg [facility] tablet tablet tablet ty taking taking taking Hospita twice daily twice daily twice l by mouth by mouth daily by Cli nics mouth oxybutynin oxybutynin No oxybutynin [place] chloride ER chloride ER chloride [facility]i 10 mg 10 mg ER 10 mg ty tablet,exte tablet,exte tablet,ext Hospita nded nded ended l release 24 release 24 release 24 Clinics hr Take 1 hr Take 1 hr Take 1 tablet tablet tablet every day every day every day by oral by oral by oral route. route. route. prazosin 1 prazosin 1 No prazosin 1 [place] mg capsule mg capsule mg capsule Communi ty Hospita l Clinics trazodone trazodone No trazodone [place] 150 mg 150 mg 150 mg [facility] tablet TAKE tablet TAKE tablet ty 1 TABLET 1 TABLET TAKE 1 Hospi ta (150 MG) BY (150 MG) BY TABLET l MOUTH DAILY MOUTH DAILY (150 MG) Clinics AT BEDTIME AT BEDTIME BY MOUTH FOR FOR DAILY AT INSOMNIA INSOMNIA BEDTIME FOR INSOMNIA Immunizations Ordered Immunization Filled Immunization Date Status Commen Source Name Name COVID-19, mRNA, COVID-19, mRNA, 2021-05-26 Completed General acute hospital LNP-S, PF, 30 LNP-S, PF, 30 00:00:00 Hospital Clinics mcg/0.3 mL dose mcg/0.3 mL dose ([employer]) ([employer]) COVID-19, mRNA, COVID-19, mRNA, 2021-05-26 Completed General acute hospital LNP-S, PF, 30 LNP-S, PF, 30 00:00:00 Hospital Clinics mcg/0.3 mL dose mcg/0.3 mL dose ([employer]) ([employer]) COVID-19, mRNA, COVID-19, mRNA, 2021-05-26 Completed General acute hospital LNP-S, PF, 30 LNP-S, PF, 30 00:00:00 Hospital Clinics mcg/0.3 mL dose mcg/0.3 mL dose ([employer]) ([employer]) COVID-19, mRNA, COVID-19, mRNA, 2021-05-26 Completed General acute hospital LNP-S, PF, 30 LNP-S, PF, 30 00:00:00 Hospital Clinics mcg/0.3 mL dose mcg/0.3 mL dose ([employer]) ([employer]) COVID-19, mRNA, COVID-19, mRNA, 2021-05-26 Completed General acute hospital LNP-S, PF, 30 LNP-S, PF, 30 00:00:00 Hospital Clinics mcg/0.3 mL dose mcg/0.3 mL dose ([employer]) ([employer]) COVID-19, mRNA, COVID-19, mRNA, 2021-05-26 Completed General acute hospital LNP-S, PF, 30 LNP-S, PF, 30 00:00:00 Hospital Clinics mcg/0.3 mL dose mcg/0.3 mL dose ([employer]) ([employer]) COVID-19, mRNA, COVID-19, mRNA, 2021-05-26 Completed General acute hospital LNP-S, PF, 30 LNP-S, PF, 30 00:00:00 Hospital Clinics mcg/0.3 mL dose mcg/0.3 mL dose ([employer]) ([employer]) COVID-19, mRNA, COVID-19, mRNA, 2021-05-26 Completed General acute hospital LNP-S, PF, 30 LNP-S, PF, 30 00:00:00 Hospital Clinics mcg/0.3 mL dose mcg/0.3 mL dose ([employer]) ([employer]) COVID-19, mRNA, COVID-19, mRNA, 2021-05-26 Completed General acute hospital LNP-S, PF, 30 LNP-S, PF, 30 00:00:00 Hospital Clinics mcg/0.3 mL dose mcg/0.3 mL dose ([employer]) ([employer]) COVID-19, mRNA, COVID-19, mRNA, 2021-05-26 Completed General acute hospital LNP-S, PF, 30 LNP-S, PF, 30 00:00:00 Hospital Clinics mcg/0.3 mL dose mcg/0.3 mL dose ([employer]) ([employer]) COVID-19, mRNA, COVID-19, mRNA, 2021-05-26 Completed General acute hospital LNP-S, PF, 30 LNP-S, PF, 30 00:00:00 Hospital Clinics mcg/0.3 mL dose mcg/0.3 mL dose ([employer]) ([employer]) COVID-19, mRNA, COVID-19, mRNA, 2020-08-31 Completed General acute hospital LNP-S, PF, 30 LNP-S, PF, 30 00:00:00 Hospital Clinics mcg/0.3 mL dose mcg/0.3 mL dose ([employer]) ([employer]) COVID-19, mRNA, COVID-19, mRNA, 2020-08-31 Completed General acute hospital LNP-S, PF, 30 LNP-S, PF, 30 00:00:00 Hospital Clinics mcg/0.3 mL dose mcg/0.3 mL dose ([employer]) ([employer]) COVID-19, mRNA, COVID-19, mRNA, 2020-08-31 Completed General acute hospital LNP-S, PF, 30 LNP-S, PF, 30 00:00:00 Hospital Clinics mcg/0.3 mL dose mcg/0.3 mL dose ([employer]) ([employer]) COVID-19, mRNA, COVID-19, mRNA, 2020-08-31 Completed General acute hospital LNP-S, PF, 30 LNP-S, PF, 30 00:00:00 Hospital Clinics mcg/0.3 mL dose mcg/0.3 mL dose ([employer]) ([employer]) COVID-19, mRNA, COVID-19, mRNA, 2020-08-31 Completed General acute hospital LNP-S, PF, 30 LNP-S, PF, 30 00:00:00 Hospital Clinics mcg/0.3 mL dose mcg/0.3 mL dose ([employer]) ([employer]) COVID-19, mRNA, COVID-19, mRNA, 2020-08-31 Completed General acute hospital LNP-S, PF, 30 LNP-S, PF, 30 00:00:00 Hospital Clinics mcg/0.3 mL dose mcg/0.3 mL dose ([employer]) ([employer]) COVID-19, mRNA, COVID-19, mRNA, 2020-08-31 Completed General acute hospital LNP-S, PF, 30 LNP-S, PF, 30 00:00:00 Hospital Clinics mcg/0.3 mL dose mcg/0.3 mL dose ([employer]) ([employer]) COVID-19, mRNA, COVID-19, mRNA, 2020-08-31 Completed General acute hospital LNP-S, PF, 30 LNP-S, PF, 30 00:00:00 Hospital Clinics mcg/0.3 mL dose mcg/0.3 mL dose ([employer]) ([employer]) COVID-19, mRNA, COVID-19, mRNA, 2020-08-31 Completed General acute hospital LNP-S, PF, 30 LNP-S, PF, 30 00:00:00 Hospital Clinics mcg/0.3 mL dose mcg/0.3 mL dose ([employer]) ([employer]) COVID-19, mRNA, COVID-19, mRNA, 2020-08-31 Completed General acute hospital LNP-S, PF, 30 LNP-S, PF, 30 00:00:00 Hospital Clinics mcg/0.3 mL dose mcg/0.3 mL dose ([employer]) ([employer]) COVID-19, mRNA, COVID-19, mRNA, 2020-08-31 Completed General acute hospital LNP-S, PF, 30 LNP-S, PF, 30 00:00:00 Hospital Clinics mcg/0.3 mL dose mcg/0.3 mL dose ([employer]) ([employer]) COVID-19, mRNA, COVID-19, mRNA, 2020-08-11 Completed General acute hospital LNP-S, PF, 30 LNP-S, PF, 30 00:00:00 Hospital Clinics mcg/0.3 mL dose mcg/0.3 mL dose ([employer]) ([employer]) COVID-19, mRNA, COVID-19, mRNA, 2020-08-11 Completed General acute hospital LNP-S, PF, 30 LNP-S, PF, 30 00:00:00 Hospital Clinics mcg/0.3 mL dose mcg/0.3 mL dose ([employer]) ([employer]) COVID-19, mRNA, COVID-19, mRNA, 2020-08-11 Completed General acute hospital LNP-S, PF, 30 LNP-S, PF, 30 00:00:00 Hospital Clinics mcg/0.3 mL dose mcg/0.3 mL dose ([employer]) ([employer]) COVID-19, mRNA, COVID-19, mRNA, 2020-08-11 Completed General acute hospital LNP-S, PF, 30 LNP-S, PF, 30 00:00:00 Hospital Clinics mcg/0.3 mL dose mcg/0.3 mL dose ([employer]) ([employer]) COVID-19, mRNA, COVID-19, mRNA, 2020-08-11 Completed General acute hospital LNP-S, PF, 30 LNP-S, PF, 30 00:00:00 Hospital Clinics mcg/0.3 mL dose mcg/0.3 mL dose ([employer]) ([employer]) COVID-19, mRNA, COVID-19, mRNA, 2020-08-11 Completed General acute hospital LNP-S, PF, 30 LNP-S, PF, 30 00:00:00 Hospital Clinics mcg/0.3 mL dose mcg/0.3 mL dose ([employer]) ([employer]) COVID-19, mRNA, COVID-19, mRNA, 2020-08-11 Completed General acute hospital LNP-S, PF, 30 LNP-S, PF, 30 00:00:00 Hospital Clinics mcg/0.3 mL dose mcg/0.3 mL dose ([employer]) ([employer]) COVID-19, mRNA, COVID-19, mRNA, 2020-08-11 Completed General acute hospital LNP-S, PF, 30 LNP-S, PF, 30 00:00:00 Hospital Clinics mcg/0.3 mL dose mcg/0.3 mL dose ([employer]) ([employer]) COVID-19, mRNA, COVID-19, mRNA, 2020-08-11 Completed General acute hospital LNP-S, PF, 30 LNP-S, PF, 30 00:00:00 Hospital Clinics mcg/0.3 mL dose mcg/0.3 mL dose ([employer]) ([employer]) COVID-19, mRNA, COVID-19, mRNA, 2020-08-11 Completed General acute hospital LNP-S, PF, 30 LNP-S, PF, 30 00:00:00 Hospital Clinics mcg/0.3 mL dose mcg/0.3 mL dose ([employer]) ([employer]) COVID-19, mRNA, COVID-19, mRNA, 2020-08-11 Completed General acute hospital LNP-S, PF, 30 LNP-S, PF, 30 00:00:00 Hospital Clinics mcg/0.3 mL dose mcg/0.3 mL dose ([employer]) ([employer]) Vital Signs Vital Name Observation Time Observation Value Comments Source BP Systolic 2023-01-17 00:00:00 98 mm[Hg] [facility] s BP Diastolic 2023-01-17 00:00:00 70 mm[Hg] [facility] Body Weight 2023-01-17 00:00:00 3712 [oz_av] [facility] BP Diastolic 2022-12-26 00:00:00 78 mm[Hg] [facility] BP Systolic 2022-12-26 00:00:00 112 mm[Hg] [facility] Body Weight 2022-12-26 00:00:00 3865.6 [oz_av] [facility] s BP Diastolic 2022-11-22 00:00:00 80 mm[Hg] [facility] s BP Systolic 2022-11-22 00:00:00 110 mm[Hg] [facility] s Body Weight 2022-11-22 00:00:00 4107.2 [oz_av] [facility] s BP Diastolic 2022-11-09 00:00:00 80 mm[Hg] [facility] s BP Systolic 2022-11-09 00:00:00 118 mm[Hg] [facility] s Body Weight 2022-11-09 00:00:00 4096 [oz_av] [facility] s BP Diastolic 2022-07-13 00:00:00 80 mm[Hg] [facility] s BP Systolic 2022-07-13 00:00:00 118 mm[Hg] [facility] s Body Weight 2022-07-13 00:00:00 4147.2 [oz_av] [facility] s Heart rate 2022-03-23 18:13:00 61 /min [facility] Respiratory rate 2022-03-23 18:13:00 22 /min [facility] Oxygen saturation in 2022-03-23 18:13:00 94 /min [facility] Arterial blood by [facility] Pulse oximetry Branch Systolic blood 2022-03-23 18:12:00 112 mm[Hg] Univer sity of pressure [facility] Diastolic blood 2022-03-23 18:12:00 75 mm[Hg] [facility] pressure [facility] Body temperature 2022-03-23 17:57:00 36.39 Kelly [facility] Body height 2022-03-20 16:04:00 160 cm [facility] Body weight 2022-03-20 16:04:00 117.9 kg [facility] BMI 2022-03-20 16:04:00 46.05 kg/m2 [facility] Heart rate 2022-03-23 18:13:00 61 /min [facility] Respiratory rate 2022-03-23 18:13:00 22 /min [facility] Oxygen saturation in 2022-03-23 18:13:00 94 /min [facility] Arterial blood by [facility] Pulse oximetry Branch Systolic blood 2022-03-23 18:12:00 112 mm[Hg] Univer sity of pressure [facility] Diastolic blood 2022-03-23 18:12:00 75 mm[Hg] Unive rsity of pressure [facility] Body temperature 2022-03-23 17:57:00 36.39 Kelly [facility] Body height 2022-03-20 16:04:00 160 cm [facility] Body weight 2022-03-20 16:04:00 117.9 kg [facility] BMI 2022-03-20 16:04:00 46.05 kg/m2 [facility] BP Diastolic 2022-01-18 00:00:00 80 mm[Hg] [facility] s BP Systolic 2022-01-18 00:00:00 124 mm[Hg] [facility] s Body Weight 2022-01-18 00:00:00 4243.2 [oz_av] [facility] s BP Diastolic 2021-08-18 00:00:00 88 mm[Hg] [facility] s BP Systolic 2021-08-18 00:00:00 128 mm[Hg] [facility] s Body Weight 2021-08-18 00:00:00 4192 [oz_av] [facility] s BP Diastolic 2021-08-11 00:00:00 80 mm[Hg] [facility] s BP Systolic 2021-08-11 00:00:00 118 mm[Hg] [facility] s Body Weight 2021-08-11 00:00:00 4185.6 [oz_av] [facility] s BP Diastolic 2021-07-19 00:00:00 70 mm[Hg] [facility] s BP Systolic 2021-07-19 00:00:00 130 mm[Hg] [facility] s Body Weight 2021-07-19 00:00:00 4192 [oz_av] [facility] s BP Diastolic 2021-06-28 00:00:00 80 mm[Hg] [facility] s BP Systolic 2021-06-28 00:00:00 120 mm[Hg] [facility] s Body Weight 2021-06-28 00:00:00 4227.2 [oz_av] [facility] s BP Diastolic 2019-12-01 00:00:00 80 mm[Hg] [facility] Height 2019-12-01 00:00:00 64 [in_i] [facility] BMI (Body Mass 2019-12-01 00:00:00 45.9 kg/m2 [facility] Group BP Systolic 2019-12-01 00:00:00 [...] Body mass index 2020-04-13 11:46:00 47.49 kg/m2 [facility] (BMI) [Ratio] Procedures Procedure Date / Time Performing Source Performed Clinician MAMMO, screening, digital, 2022-11-09 [facility] bilateral 00:00:00 Hospital Clinics ESOPHAGOGASTRODUODENOSCOPY 2022-03-23 Flaquita Rosa rsity of 17:35:00 Ryan Ro [facility] EGD (ENDO) 2022-03-23 Tamera Sharp [facility] 17:33:53 [facility] EGD (ENDO) 2022-03-23 Tamera Sharp [facility] 17:33:53 [facility] PATIENT QUESTIONNAIRE 2022-03-23 [facility] of 05:01:00 Unassigned, No [place] [facility] EXTERNAL PROVIDER RECORDS 2022-03-[address] [facility] sity of 05:01:00 Unassigned, No [place] [facility] EXTERNAL PROVIDER RECORDS 2022-03-[address] [facility] sity of 05:01:00 Unassigned, No [place] [facility] EXTERNAL PROVIDER RECORDS 2022-03-[address] [facility] sity of 05:01:00 Unassigned, No [place] [facility] US ABDOMEN LIMITED 2022-01-27 Moe [facility] 18:20:30 Ryan Ro [facility] NOTICE OF BILLING PRACTICES FOR 2022-01-27 Doctor Letcher of MEDICARE PATIENTS 17:49:21 Unassigned, No [place] [facility] PATIENT FINANCIAL POLICY 2022-01-27 Doctor Un iversity of 17:49:07 Unassigned, No [facility] NO SHOW OR MISSED APPOINTMENT 2022-01-27 Doctor Un iversity of POLICY ACKNOWLEDGEMENT 17:48:48 Unassigned, No [place] [facility] NOTICE OF PRIVACY PRACTICES 2022-01-27 Doctor [facility] ersity of 17:48:20 Unassigned, No [facility] CONSENT/REFUSAL FOR DIAGNOSIS AND 2022-01-27 Doctor Letcher of TREATMENT 17:48:03 Unassigned, No [facility] ASSIGNMENT OF BENEFITS 2022-01-[address] [facility] of 17:47:41 Unassigned, No [place] [facility] CT, abdomen, w/ contrast 2021-08-11 [facility] 00:00:00 Hospital Clinics MAMMO, screening, digital, 2021-06-28 [facility] bilateral 00:00:00 Hospital Clinics [MMD] US Liver 2020-05-24 [facility] 00:00:00 Bilateral Oophorectomy 2017-10-17 [facility] 00:00:00 Group Laparoscopic Total Hysterectomy 2017-10-17 [facility] 00:00:00 Group Tubal Ligation 2016-01-28 [facility] [facility] 00:[facility] History of Oophorectomy bilateral [facility] Total Hysterectomy [facility] Plan of Care Planned Activity Planned Date Details Comments Source Diagnostic Test 2023-01-17 vitamin D, [place] [facility] Pending 00:00:00 25-hydroxy, total, [facility] serum [code = vitamin D, 25-hydroxy, total, serum] Diagnostic Test 2023-01-17 CBC w/ diff [code [facility] Pending 00:00:00 = CBC w/ diff] Hospital Clin ics Diagnostic Test 2023-01-17 vitamin B12 + [place] [facility] Pending 00:00:00 folate, [facility] blood [code = vitamin B12 + folate, serum or blood] Diagnostic Test 2023-01-17 vitamin B1 [place] [facility] Pending 00:00:00 (thiamine), blood [facility] C linics [code = vitamin B1 (thiamine), blood] Diagnostic Test 2023-01-17 magnesium, blood [facility] ommunity Pending 00:00:00 [code = magnesium, [facility] blood] Diagnostic Test 2023-01-17 CMP, serum or [place] [facility] Pending 00:00:00 plasma [code = Hospital Clin ics CMP, serum or plasma] Diagnostic Test 2019-12-01 urinalysis, [place] [facility] Pending 00:00:00 dipstick [code = Group urinalysis, dipstick] Diagnostic Test 2019-12-01 pap, LB + reflex [facility] Pending 00:00:00 to HR HPV if ASC-U Group [code = pap, LB + reflex to HR HPV if ASC-U] Diagnostic Test 2019-12-01 estradiol, serum [facility] Pending 00:00:00 [code = estradiol, Group serum] Future Appointment 2023-02-28 Tamera Sharp, [address] [facility] 00:00:00 [place], [facility] B; [facility] [address], [place] [address] Encounters Start End Encounter Admission Attending Care Care Encounter Source Date/Time Date/Time Type Type Clinicians Facility Department ID 2023-01-17 2023-01-17 Outpatient LILA_A [facility] [id number] [place] 00:00:00 00:00:00 816 Commun i ty [facility]osp[facility] Clinics 2023-01-17 2023-01-17 Tamera Munguia [facility] [place] - [place] 816 [place] 00:00:00 00:00:00 Bari Sharp MD: [address] [facility] [address], [facility] [address], H[facility]PITAL [place], [place] CLINIC, [address] LILA , Ph. 2022-12-26 2022-12-26 Tamera Munguia [facility] [place] [id number] [place] 00:00:00 00:00:00 Bari Sharp MD: [address] [facility] [address], COMM[facility] [address], [facility] [place], [place] CLINIC, [address] LILA , Ph. 2022-11-22 2022-11-22 Tamera Munguia [facility] [place] - [place] [id number] 621 [place] 00:00:00 00:00:00 Bari Sharp MD: [address] [facility] [address] [address], [facility] [place], [place] CLINIC, [address] LILA , Ph. 2022-11-09 2022-11-09 Outpatient LILA_Noam [facility] [id number] [place] 00:00:00 00:00:00 608 Commun i ty Hospita l Clinics 2022-11-09 2022-11-09 Outpatient LILA_A [facility] [id number] [place] 00:00:00 00:00:00 621 Commun i ty Hospita l Clinics 2022-11-09 2022-11-09 Outpatient LILA_Noam [facility] [id number] [place] 00:00:00 00:00:00 725 Commun i ty Hospita l Clinics 2022-11-09 2022-11-09 Tamera Munguia [facility] [place] - [place] 608 [place] 00:00:00 00:00:00 Bari Sharp MD: [address] [facility] [address] COMM[facility] [address], [facility] Clinic [place], [place] CLINIC, [address] LILA , Ph. 2022-07-13 2022-07-13 Outpatient LILA_Noam [facility] [id number] [place] 00:00:00 00:00:00 209 Commun i ty Hospita l Clinics 2022-07-13 2022-07-13 Tamera Munguia [facility] [place] - [place] 209 [place] 00:00:00 00:00:00 Bari Sharp MD: [address] [facility] - ty [facility] a [address], COMM[facility] [address], H[facility] [place], [place] CLINIC, [address] LILA , Ph. 2022-03-23 2022-03-23 Outpatient R [facility] [id number] Univers 11:09:00 13:30:00 RYAN Lozada [facility] 2022-03-23 2022-03-23 Hospital [facility] [id number] Univers 11:09:00 13:30:00 Encounter Ryan lozada [id number] mauricio [facility] [id number] [place] [address] Branch 2022-03-23 2022-03-23 Surgery [facility] [id number] Univers 12:48:00 13:25:00 Ryan lozada [id number] [place] of [id number] [id number] [facility] 020 Branch 2022-03-23 2022-03-23 Orders Doctor ABHIJIT [id number] Univers 00:00:00 00:00:00 Only Unassigned, KIERAN [id number] ity of [place] [facility] [id number] [place]um as [id number] [facility] 009 Branch 2022-03-14 2022-03-14 Orders Doctor ABHIJIT [id number] Univers 00:00:00 00:00:00 Only Unassigned, KIERAN [id number] ity of [place] [facility] [id number] Anjum as [id number] [facility] 009 Branch 2022-01-27 2022-01-27 Outpatient R [facility] [id number] Univers 12:50:28 23:59:00 RYAN Lozada o f [facility] 2022-01-27 2022-01-27 [facility] [id number] Univers 12:50:28 23:59:00 Encounter Ryan lozada [id number] [id number] [id number] [facility] 806 Branch 2022-01-22 2022-01-22 Outpatient LILA_A [facility] [id number] [place] 00:00:00 00:00:00 821 Commun i ty Hospita l Clinics 2022-01-18 2022-01-18 Outpatient LILA_A [facility] [id number] [place] 00:00:00 00:00:00 [facility] 2022-01-18 2022-01-18 Tamera Munguia [facility] [place] - [place] 817 [place] 00:00:00 00:00:00 Bari Sharp MD: [address] [facility] - ty [facility] [address], COMM[address], [place], [address] LILA , Ph. 2022-01-18 2022-01-18 Outpatient Tamera Sharp [facility] [id number] 00:00:00 00:00:00 Nilda [id number] 2021-11-28 2021-11-28 Outpatient KEFFER_A [facility] [id number] [place] 05:59:00 05:59:00 627 [facility] 2021-11-28 2021-11-28 Tamera Munguia [facility] [place] 00:00:00 00:00:00 Bari Sharp MD: [address] [facility] [address], COMMUNITY [address], HOSP[place], [address] LILA , Ph. 2021-11-28 2021-11-28 Outpatient Tamera Sharp [facility] [id number] 00:00:00 00:00:00 Nilda [id number] 2021-09-22 2021-09-22 Outpatient LILA_A [facility] [id number] [place] 09:10:00 09:10:00 522 [facility] 2021-08-18 2021-08-18 Outpatient KEFFER_A [facility] [id number] [place] 06:13:00 06:13:00 317 [facility] 2021-08-18 2021-08-18 Tamera Munguia [facility] 317 [place] 00:00:00 00:00:00 Bari Sharp MD: [address] [facility] [address], COMMUNITY l [address], [place], [place] CLINIC, [address] LILA , Ph. 2021-08-18 2021-08-18 Outpatient Tamera Sharp [facility] [id number] 00:00:00 00:00:00 Nilda [id number] 2021-08-11 2021-08-11 Outpatient KEFFER_A [facility] [id number] [place] 04:45:00 04:45:00 310 [facility] 2021-08-11 2021-08-11 Tamera Munguia [facility] [place] 310 [place] 00:00:00 00:00:00 Bari Sharp MD: [address] [facility] [address], ON LICENSE OF [facility] l [address], [facility], [address] LILA , Ph. 2021-08-11 2021-08-11 Outpatient Tamera Sharp [facility] [id number] 00:00:00 00:00:00 Nilda [id number] 2021-07-19 2021-07-19 Outpatient KEFFER_A [facility] [id number] [place] 01:20:00 01:20:00 215 [facility] 2021-07-19 2021-07-19 Outpatient LilaTamera [facility] [id number] 00:00:00 00:00:00 Nilda [id number] 2021-07-19 2021-07-19 Tamera Nilda [facility] [place] 215 [place] 00:00:00 00:00:00 Bari Sharp MD: [address] [facility] [address], COMMUNITY l [address], [facility], [address] LILA , Ph. 2021-06-28 2021-06-28 Outpatient KEFFER_A [facility] [id number] [place] 05:59:00 05:59:00 125 [facility] 2021-06-28 2021-06-28 Tamera Munguia [facility] [place] 125 [place] 00:00:00 00:00:00 Bari Sharp MD: [address] [facility] [address], COMMUNITY l [address], HOSPITAL Clinic [place], [place] CLINIC, [address] LILA , Ph. 2021-06-28 2021-06-28 Outpatient Tamera Sharp [facility] [id number] 00:00:00 00:00:00 Nilda [id number] 2020-08-03 2020-08-03 Appointonelia MELLO [facility] [id number] [place] 10:30:00 10:30:00 t; LUIS MANUEL [facility] TALLAVAJHU M.D. [place], SUDHA, M.D. 2020-07-13 2020-07-13 Outpatient LILA_Noam [facility] [id number] [place] 05:34:00 05:34:00 209 [facility] 2020-06-11 2020-06-11 JUNI Minor [facility] [id number] [place] 09:45:00 09:45:00 t; David DAVILA D.O. ans MELISSA, D.O. 2020-06-01 2020-06-01 Tyrese MELLO [facility] [id number] [place] 09:00:00 09:00:00 t; [facility] TALLAVAJHU M.D. [place], SUDHA, M.D. 2020-04-23 2020-04-23 JUNI Minor [facility] [id number] [place] 09:15:00 09:15:00 t; David DAVILA D.O. ans MELISSA, D.O. 2020-04-21 2020-04-21 Outpatient G_Pappas [facility] [id number] [place] 02:24:00 02:24:00 1118 Medical Group 2020-04-13 2020-04-13 Appointmen MIRTHA, [facility] [id number] [place] 11:30:00 11:30:00 t; David DAVILA D.O. ans MELISSA, D.O. 2019-12-27 2019-12-27 Outpatient G_Pappas [facility]G [facility] 2019 [place] 11:00:00 11:00:00 0729 Medical Group 2019-12-10 2019-12-10 Laboratory Lab, [facility]ob I [facility] [id number] [facility] 11:15:35 11:32:41 Only Farhana [facility] [id number] [facility] [id number] Anjum as Professio [phone] [place] [address] [address] 2019-12-10 2019-12-10 Laboratory Lab, [facility] [id number] 11:15:35 11:32:41 Only [facility] [id number] [place] [id number] Professio [id number] nal [facility] Office Building One 2019-12-10 2019-12-10 Outpatient R ELIZ [facility] [id number] Univers 11:20:00 11:20:00 FARHANA martínez [facility] 2019-12-02 2019-12-02 Outpatient G_Pappas [facility] 2019 [place] 12:02:00 12:02:00 0630 [facility] 2019-12-01 2019-12-01 Outpatient G_Pappas [facility] MM 2019 [place] 11:04:00 11:04:00 0629 Medical Group 2019-12-01 2019-12-01 Paul [facility] [place] - [id number] M [place] 00:00:00 00:00:00 Discovery tuan Gaxiola MD: [address] [facility] Group [facility] [address], [place] [address] , Ph. [phone] 2019-01-09 2019-01-09 Outpatient G_Pappas MMG MM 2019 [place] 06:54:00 06:54:00 0626 Medical Group 2019-01-09 2019-01-09 Outpatient G_Pappas [facility] 2019 [place] 06:54:00 06:54:00 0224 [facility] Results Test Description Test Time Test Comments Results Result Comments Source SARS-CoV-2 (COVID-19) Ag [Presence] in Respiratory spe cimen by 2021-07-19 11:44:00 Rapid immunoassay Test Item Value Reference Range Interpretation Comme nts SARS CoV 2 (test code = SARS CoV 2) negative [facility][MMD] US [id number] 09:19:00 Test Item Value Reference Range Interpretation Comments US Liver (test code EXAM: US LIVER DATE: = US Liver) 06/03/2020 9:19 AM 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 06/03/2020 10:20 AM CIRCUIT BOARD DRAFTER Robinson Freedman [facility][QL] LIPID [id number] 13:00:00 Test Item Value Reference Range Interpretation [...] choleste rol not (test code = calculated. 43290-8) Triglyceride levelsgreater t shah 400 mg/dL inval [...] SS et al . RUTH. 2013;310( 19): 3206-2018 (http://educati on.Que stDiagnostics.c om/faq /YFV894) CHOL/HDLC RATIO 5.7 {CALC} <5.0 (test code = CHOL/HDLC RATIO) NON HDL CHOLESTEROL 203 {MG/DL <130 For torrey ents with (test code = NON ROGER} diabetes pl us 1 major HDL CHOLESTEROL) ASCVD risk factor, treating to a non-HDL-C goal of <100 mg/dL (LDL -C of <70 mg/dL) is considered a therapeutic opt ion. [facility][QL] IRON AND TOTAL IRON BINDING [id number] 13:00:00 Test Item Value Reference Range Interpretation Comments IRON, TOTAL (test code = 89 {mcg/dl} 40-190 N IRON, TOTAL) IRON BINDING CAPACITY (test 357 {mcg/dL ca} 250-450 N code = IRON BINDING CAPACITY) % SATURATION (test code = % 25 {% CALC} 16-45 N SATURATION) [facility][QL] CMP [id number] 13:00:00 Test Item Value Reference Range Interpretation Comments GLUCOSE; Normal 106 mg/dl 65-139 N Non-fasting (test code = 1547-9) referen ce interval UREA NITROGEN (BUN) 12 mg/dl 7-25 N (test code = UREA NITROGEN (BUN)) CREATININE (test 0.74 mg/dl 0.50-1.10 N code = CREATININE) eGFR NON-AFR. 105 {ML/MIN/1.7} > OR = 60 N LAO (test code = eGFR NON-AFR. LAO) eGFR 122 {ML/MIN/1.7} > OR = 60 N LAO (test code = eGFR ) BUN/CREATININE RATIO [...] mg/dl 0.2-1.2 N Normal (test code = 37063-5) ALKALINE PHOSPHATASE 79 u/l 31-125 N (test code = ALKALINE PHOSPHATASE) AST; Normal (test 12 u/l 10-30 N code = 1916-6) ALT; Normal (test 9 u/l 6-29 N code = 1742-6) [facility][QL] CBC (INCLUDES DIFF/PLT)2020-04-13 13:00:00 Test Item Value Reference Range Interpretation Comments WHITE BLOOD CELL COUNT 9.8 {Thousand/u} 3.8-10.8 N (test code = WHITE BLOOD CELL COUNT) RED BLOOD CELL COUNT (test 4.39 {Million/uL} 3.80-5.10 N code = RED BLOOD CELL COUNT) HEMOGLOBIN; Normal (test 13.1 g/dl 11.7-15.5 N code = 52713-8) HEMATOCRIT; Normal (test 39.5 % 35.0-45.0 N code = 4544-3) MCV; Normal (test code = 90.0 fL 80.0-100.0 N 787-2) MCHC; Normal (test code = 33.2 g/dl 32.0-36.0 N 57496-9) RDW; Normal (test code = 12.8 % 11.0-15.0 N 788-0) PLATELET COUNT; Normal 314 {Thousand/u} 140-400 N (test code = 777-3) MPV; Normal (test code = 11.3 fL 7.5-12.5 N 98942-4) ABSOLUTE NEUTROPHILS (test 6086 {cells/uL} 3532-4877 N code = ABSOLUTE NEUTROPHILS) ABSOLUTE LYMPHOCYTES [...] Normal (test 7.7 % N code = 13874-1) EOSINOPHILS; Normal (test 3.5 % N code = 05531-7) BASOPHILS; Normal (test 0.7 % N code = 71684-8) [facility][QL] PTH, INTACT (WITHOUT CALCIUM)2020-04-13 13:00:00 Test [...] perf ormance characteristics have been determined by [employer]. It has not been cleared or approved by theFDA. This as say has been validated pursu ant to the CLIA regulation s and is used for clinic al purposes. EXNC-LUEAZ-DJVCUE 1.9 mg/L <4.4 This test was developed and LUIS (test code = its analyt ical performance [id number] characteri stics have been LUIS) determined by [employer]. It has not been cleared or approved by theFDA. This as say has been validated pursu ant to the CLIA regulation s and is used for clinic al purposes. [facility][QL] FOLATE, [id number] 13:00:00 Test Item Value Reference Range Interpretation Comments FOLATE, SERUM (test 3.8 ng/ml Referenc e Range Low: code = FOLATE, <3.4 Borderli ne: 3.4-5.4 SERUM) Normal: >5.4 [facility][QL] TSH, 3RD [id number] 13:00:00 Test Item Value Reference Range Interpretation Comments TSH; Below Low 0.35 {MIU/L} Reference Ran ge > or Threshold (test code = 20 Ye ars 0.40-4.50 = 94497-8) Range s First trimester 0.26-2.66 Secon d trimester 0.55 -2.73 Third trimester 0.43-2.91 [facility][QL] VITAMIN [id number] 13:00:00 Test Item Value Reference Range Interpretation Comments VITAMIN B12 335 pg/ml 200-1100 N Please Note: Al though the (test code = reference range for [id number] VITAMIN B12) is 200-1100 pg/ mL, it has been reported that b etween5 and 10% of patients wit h values between 200 and 400pg/mL may experience neur opsychiatric and hematologic abnormalities due to occult B 12 deficiency; less than 1%of patients with values above 40 0 pg/mL will have symptoms. [facility][QL] VITAMIN B1, WHOLE [id number] 13:00:00 Test Item Value Reference Range Interpretation Comments VITAMIN B1, WHOLE 126 nmol/L 78-185 Vitamin amador pplementation BLOOD (test code = within 24 hours prior VITAMIN B1, WHOLE toblood dr dale may affect BLOOD) the accuracy of results. This test was gregor brown and its analyti roger performance characteristics have been determined by [employer]. It has not been cleared or approved by theFDA. This assay has been validated pursuant to the CLIA reg ulations and is used for clinical purposes. [facility][QL] HEMOGLOBIN [id number] 13:00:00 Test Item Value Reference Range Interpretation [...] di abetes in children. Ac cording to [place] bet[employer] Association (ADA)guidelines , hemoglobin A1c <7.0% represents optimalcontrol in non- di abetic patients. Differentmetric s may apply to specif ic patient populat ions. Standards of Nm dical Care in Diabete s(ADA). [facility][QL] VITAMIN A (RETINOL)2020-04-13 13:00:00 Test Item Value Reference Range Interpretation Comments VITAMIN A (test 59 {mcg/dl} 38-98 Clin Chem Vol. 34.No.8. code = VITAMIN A) [id number] 1997Vitamin supplementation within 24 hours prior to blood draw may affect the accuracy of results. Thi s test was developed and i ts analytical perf ormance characteristics have been determined by [employer]. It has not been cleared or approved by theFDA. This assay has been validated pursuant to the CLIA reg ulations and is used for clinical purposes. [facility][Q] QUESTASSURED 25-OH VIT D, (D2,D3), LC/MS/[id number] 13:00:00 Test Item Value Reference Range Interpretation [...] additional info rmation, please refer to http://educatio nOpen Road Integrated Media.MyLikes/faq/FAQ11 9 VITAMIN D, 45 ng/ml Reference range [...] CLIA regulation and is usedfor Clinical purpos es.[facility] [id number] [place] [address],[address] [place] [id number] Adrienne Lott e Note 1 Note 1 For additional information, please refer to http://educatio nOnefeat/faq/FAQ19 9 (This link is being provided for informational/e ducational purposes only.) [facility] macro (dipstick) panel - [id number] 14:52:43 Test Item Value Reference Range Interpretation Comments Leukocytes (test code = Leukocytes) Negative Nitrite (test code = Nitrite) negative Urobilinogen (test code = .2 Urobilinogen) Protein (test code = Protein) Negative pH (test code = pH) 6.0 Blood (test code = Blood) Negative Specific [place] (test code = 1.025 Specific [place]) Ketone (test code = Ketone) Negative Bilirubin (test code = Bilirubin) Small Glucose (test code = Glucose) Negative Appearance (test code = Appearance) Clear Color (test code = Color) Yellow [facility]
[2023-01-18] MEDS ORDERED: NA CHLORIDE 0.9% 1,000 ML ONE ×2 (09:58→12:44)
--- NOTE | 2023-01-18 10:05 | RAD REPORT ---
EXAM DESCRIPTION: CT - Head Brain Wo Cont - 01/18/2023 9:42 am CLINICAL HISTORY: DIZZINESS COMPARISON: Head Brain Wo Cont dated 02/16/2019 TECHNIQUE: Noncontrast head CT images were obtained without IV contrast. Multiplanar reformats were generated and reviewed. All CT scans are performed using dose optimization technique as appropriate and may include automated exposure control or mA/KV adjustment according to patient size. FINDINGS: No intracranial hemorrhage, mass, or edema. Midline structures are unremarkable. Normal ventricular caliber for age. Black-white matter differentiation is preserved, without evidence of acute infarct. No abnormal extra- axial fluid collections. Mastoid air cells and visualized portions of the paranasal sinuses are clear. No acute bony findings. IMPRESSION: No evidence of an acute intracranial process.
[2023-01-18 10:06] LABS: Absolute Lymphocytes (CBC) 1.9 K/uL (0.7-4.9); Hematocrit 41.5 % (36.0-45.0); MCV 89.5 fL (80-100); MPV 9.3 fL (7.6-11.3); Platelets 264 thou/uL (152-406); RBC Red Blood Cell Count 4.63 M/uL (3.86-4.86)
[2023-01-18 10:31] LABS: ALT/SGPT 48 U/L (13-56); AST/SGOT 24 U/L (15-37); Albumin 3.3 g/dL (3.4-5.0); Alkaline Phosphatase 76 U/L (45-117); BUN Blood Urea Nitrogen 14 mg/dL (7-18); Bicarbonate 26 mEq/L (21-32); Bilirubin Direct 0.1 mg/dL (0-0.2); Bilirubin Indirect, Calculated 0.1 mg/dL (0.2-0.8); Bilirubin Total 0.2 mg/dL (0.2-1.0); Glomerular Filtration Rate 99 ml/min (=/>90); Glucose Level 106 mg/dL (74-106); Magnesium 2.3 mg/dL (1.6-2.4); Potassium 3.9 mEq/L (3.5-5.1); Protein, Total 6.7 g/dL (6.4-8.2); Sodium Level 141 mEq/L (136-145); Troponin High Sensitivity 4.7 pg/mL (<58.9)
[2023-01-18 10:32] LABS: Thyroid Stimulating Hormone < 0.005 uIU/mL (0.358-3.740)
[2023-01-18 11:26] LABS: Specific Gravity 1.014 (1.005-1.030); Urine Bilirubin NEGATIVE (Negative); Urine Blood Negative (Negative); Urine Clarity Clear (Clear); Urine Color Light-Yellow (Yellow); Urine Glucose NEGATIVE (Negative); Urine Protein NEGATIVE (Negative); Urine Urobilinogen Normal (Normal); Urine pH 7.5 (5.0-7.0)
[2023-01-18 11:28] LABS: Specific Gravity 1.014 (1.005-1.030)
[2023-01-18 11:47] LABS: Barbiturates NEGATIVE (NEGATIVE); Benzodiazepines NEGATIVE (NEGATIVE); Cocaine NEGATIVE (NEGATIVE); METHAMPHETAM NEGATIVE (NEGATIVE); Methadone NEGATIVE (NEGATIVE); Opiates NEGATIVE (NEGATIVE); Phencyclidine NEGATIVE (NEGATIVE); THC Cannibis NEGATIVE (NEGATIVE)
--- NOTE | 2023-01-18 13:06 | ER ---
Nurse's Notes [facility] Name: Bev Cox Age: 37 yrs Sex: Female : 1985 Arrival Date: 01/18/2023 Time: 09:03 Bed 18 Private MD: Diagnosis: Syncope;Dehydration;Dizziness and giddiness Presentation: 01/18 09:14 Chief complaint: Patient states: DIZZY SPELLS x3 WK. Coronavirus screen: At this time, bp the client does not indicate any symptoms associated with coronavirus-19. Ebola Screen: No symptoms or risks identified at this time. Initial Sepsis Screen: Does the patient meet any 2 criteria? No. Patient's initial sepsis screen is negative. Does the patient have a suspected source of infection? No. Patient's initial sepsis screen is negative. Risk Assessment: Do you want to hurt yourself or someone else? Patient reports no desire to harm self or others. Onset of symptoms is unknown. 09:14 Method Of Arrival: Ambulatory bp 09:14 Acuity: EVANGELINA 3 bp Triage Assessment: 09:15 General: Appears in no apparent distress. uncomfortable, Behavior is calm, cooperative, eh3 appropriate for age. Historical: - Allergies: 09:15 Sulfa (Sulfonamide Antibiotics); bp - Home Meds: 09:15 Trazodone Oral [Active]; Vyvanse oral [Active]; [place] Carbonate Oral [Active]; bp Lexapro Oral [Active]; levothyroxine oral [Active]; estradiol Oral [Active]; 09:15 Adderall XR Oral [Active]; Mounjaro 7.5 mg/0.5 mL subcutaneous Pen Injector every week eh3 [Active]; - PMHx: 09:15 Anxiety; Depression; Hypothyroidism; PTSD; bp - PSHx: 09:15 hysterectomy; bp - Immunization history:: Adult Immunizations up to date. - Social history:: Smoking status: Patient denies any tobacco usage or history of. Screenin:15 [facility] ED Fall Risk Assessment (Adult) Score/Fall Risk Level 3 or more points = High eh3 Risk Oriented to surroundings, Maintained a safe environment, Educated pt \T\ family on fall prevention, incl call for assistance when getting out of bed, Assessed \T\ reinforced patient's understanding of fall precautions, Provided non-skid footwear, Hourly rounding (assess needs \T\ fall precautionary measures) done, Used ambulatory aids as needed (educated on \T\ assisted with). Abuse screen: Denies threats or abuse. Denies injuries from another. Nutritional screening: No deficits noted. Tuberculosis screening: No symptoms or risk factors identified. Assessment: 09:15 General: Appears in no apparent distress. uncomfortable. Pain: Denies pain. Neuro: eh3 Level of Consciousness is awake, alert, obeys commands, Oriented to person, place, time, situation, Reports dizziness, weakness. Cardiovascular: Capillary refill < 3 seconds Patient's skin is warm and dry. Respiratory: Airway is patent Respiratory effort is even, unlabored, Respiratory pattern is regular, symmetrical. GI: Abdomen is round non-distended. Derm: Skin is pink, warm \T\ dry. Musculoskeletal: Circulation, motion, and sensation intact. 10:00 Reassessment: Patient appears in no apparent distress at this time. Patient and/or eh3 family updated on plan of care and expected duration. Pain level reassessed. Patient is alert, oriented x 3, equal unlabored respirations, skin warm/dry/pink. 11:00 Reassessment: Patient appears in no apparent distress at this time. Patient and/or eh3 family updated on plan of care and expected duration. Pain level reassessed. Patient is alert, oriented x 3, equal unlabored respirations, skin warm/dry/pink. 12:00 Reassessment: Patient appears in no apparent distress at this time. Patient and/or eh3 family updated on plan of care and expected duration. Pain level reassessed. Patient is alert, oriented x 3, equal unlabored respirations, skin warm/dry/pink. 13:00 Reassessment: Patient appears in no apparent distress at this time. Patient and/or eh3 family updated on plan of care and expected duration. Pain level reassessed. Patient is alert, oriented x 3, equal unlabored respirations, skin warm/dry/pink. 13:05 Reassessment: Pt discharged pending completion of 1000mL bolus; approximately 800mL eh3 remains to be infused. Vital Signs: 09:14 BP 112 / 83; Pulse 74; Resp 16; Temp 98; Pulse Ox 100% ; Weight 105.23 kg; Height 5 ft. bp 3 in. ; 10:02 BP 93 / 55 Supine; Pulse 66; eh3 10:05 BP 110 / 75 Sitting; Pulse 67; eh3 10:07 BP 101 / 76 Standing; Pulse 79; eh3 10:30 BP 82 / 49; Pulse 65; eh3 10:38 BP 98 / 57; Pulse 67; Resp 19; Pulse Ox 100% on R/A; eh3 10:45 BP 104 / 62; Pulse 65; eh3 11:00 BP 134 / 94; Pulse 71; eh3 11:15 BP 111 / 69; Pulse 71; eh3 11:30 BP 84 / 69; Pulse 64; Resp 19; Pulse Ox 97% on R/A; eh3 11:45 BP 106 / 73; Pulse 66; eh3 12:30 BP 115 / 76; Pulse 59; Resp 18; Pulse Ox 100% on R/A; eh3 12:45 BP 119 / 81; Pulse 62; eh3 13:15 BP 122 / 85; Pulse 62; Resp 18; Pulse Ox 98% on R/A; eh3 13:45 BP 120 / 84; Pulse 56; Resp 19; Pulse Ox 100% on R/A; eh3 09:14 Body Mass Index 41.10 (105.23 kg, 160.02 cm) bp ED Course: 09:06 Patient arrived in ED. rg4 09:13 Irma Thakur PA-C is PHCP. sb4 09:13 Christiano De La Rosa MD is Attending Physician. sb4 09:15 Triage completed. bp 09:15 Patient has correct armband on for positive identification. Bed in low position. Call eh3 light in reach. Side rails up X2. Provided Education on: Use of call velasquez. Client placed on continuous cardiac and pulse oximetry monitoring. NIBP monitoring applied. Door closed. Noise minimized. Lights dimmed. Warm blanket given. 09:15 Arm band placed on. eh3 09:40 EKG done, by ED staff. aw1 09:44 CT Head Brain wo Cont In Process Unspecified. EDMS 09:44 Sonja Doran, RN is Primary Nurse. eh3 09:58 Inserted saline lock: 20 gauge in left antecubital area, using aseptic technique. aw1 09:58 Initial lab(s) drawn, by me, sent to lab. aw1 11:48 Attending Physician role handed off by Christiano De La Rosa MD rt 11:48 Jayden Hood MD is Attending Physician. rt 12:57 Add On-Lab Sent. sb4 13:05 No provider procedures requiring assistance completed. eh3 14:01 IV discontinued, intact, bleeding controlled, No redness/swelling at site. Pressure aw1 dressing applied. Administered Medications: 10:00 Drug: NS 0.9% IV 1000 ml Route: IV; Rate: 1 bolus; Site: left antecubital; eh3 11:30 Follow up: IV Intake: 1000ml eh3 11:30 Follow up: IV Status: Completed infusion eh3 12:00 Drug: Meclizine PO 25 mg Route: PO; eh3 12:47 Follow up: Response: No adverse reaction eh3 12:30 Drug: NS 0.9% IV 1000 ml Route: IV; Rate: 1 bolus; Site: left antecubital; eh3 13:58 Follow up: IV Status: Completed infusion; IV Intake: 1000ml eh3 Medication: 13:05 VIS not applicable for this client. eh3 Intake: 11:30 IV: 1000ml; Total: 1000ml. eh3 13:58 IV: 1000ml; Total: 2000ml. eh3 Outcome: 13:05 Discharge ordered by . sb4 14:05 Discharged to home ambulatory, with family. eh3 14:05 Condition: stable 14:05 Discharge instructions given to patient, family, Instructed on discharge instructions, follow up and referral plans. Demonstrated understanding of instructions, follow-up care. 14:09 Patient left the ED. eh3 Signatures: Dispatcher [employer] EDWA Natalya Arambula 4 Jose Cooper RN RN Sonja Doran RN RN 3 Irma Thakur PA-C PADaphne sb4 Jayden Hood MD MD rt Kaylin Bellamy aw1
--- NOTE | 2023-01-18 13:06 | EDPHYS ---
Physician Documentation [facility] Name: Bev Cox Age: 37 yrs Sex: Female : 1985 Arrival Date: 01/18/2023 Time: 09:03 Bed 18 Private MD: ED Physician Jayden Hood HPI: 01/18 09:50 This 37 yrs old Female presents to ER via Ambulatory with complaints of Passed Out sb4 Prior To Arrival. 09:50 The patient has experienced syncope, collapsed. Onset: The symptoms/episode sb4 began/occurred just prior to arrival. Duration: This was a single episode. Context: the episode(s) was witnessed, by family, occurred at home, occurred while the patient was standing, Just prior to the episode the patient experienced dizziness, lightheadedness. Associated injury: The patient did not suffer any apparent associated injury. Associated signs and symptoms: Pertinent positives: dizziness, lightheadedness, nausea, weakness, Pertinent negatives: abdominal pain, agitation, ataxia, blurred vision, chest pain, combativeness. The patient has experienced similar episodes in the past, several times, but today's symptoms are worse. patient reports she has been experiencing intermittent dizziness for 3 months now but today it caused her to have a syncopal episode at home while she was getting her daughter ready for school. she states that she has been on mounjaro for the last 3 months and has lost about 35 pounds. Historical: - Allergies: 09:15 Sulfa (Sulfonamide Antibiotics); bp - Home Meds: 09:15 Trazodone Oral [Active]; Vyvanse oral [Active]; [place] Carbonate Oral [Active]; bp Lexapro Oral [Active]; levothyroxine oral [Active]; estradiol Oral [Active]; 09:15 Adderall XR Oral [Active]; Mounjaro 7.5 mg/0.5 mL subcutaneous Pen Injector every week eh3 [Active]; - PMHx: 09:15 Anxiety; Depression; Hypothyroidism; PTSD; bp - PSHx: 09:15 hysterectomy; bp - Immunization history:: Adult Immunizations up to date. - Social history:: Smoking status: Patient denies any tobacco usage or history of. ROS: 09:50 Constitutional: Negative for fever, chills, and weight loss. sb4 09:50 Neuro: Positive for dizziness, syncope. 09:50 All other systems are negative. Exam: 09:50 Constitutional: This is a well developed, well nourished patient who is awake, alert, sb4 and in no acute distress. Head/Face: Normocephalic, atraumatic. Eyes: Extra-ocular motions intact. Periorbital areas with no swelling, redness, or edema. ENT: Mucous membranes moist. Cardiovascular: Regular rate and rhythm with a normal S1 and S2. Respiratory: Lungs have equal breath sounds bilaterally, clear to auscultation and percussion. No rales, rhonchi or wheezes noted. No increased work of breathing, no retractions or nasal flaring. Abdomen/GI: Soft, non-tender, no distension. Skin: Warm, dry with normal turgor. Normal color with no rashes, no lesions, and no evidence of cellulitis. MS/ Extremity: Pulses equal, no cyanosis. Neurovascular intact. Full, normal range of motion. Neuro: Awake and alert, GCS 15, oriented to person, place, time, and situation. Cranial nerves II-XII grossly intact. Motor strength 5/5 in all extremities. Sensory grossly intact. Cerebellar exam normal. Normal gait. Vital Signs: 09:14 BP 112 / 83; Pulse 74; Resp 16; Temp 98; Pulse Ox 100% ; Weight 105.23 kg; Height 5 ft. bp 3 in. ; 10:02 BP 93 / 55 Supine; Pulse 66; eh3 10:05 BP 110 / 75 Sitting; Pulse 67; eh3 10:07 BP 101 / 76 Standing; Pulse 79; eh3 10:30 BP 82 / 49; Pulse 65; eh3 10:38 BP 98 / 57; Pulse 67; Resp 19; Pulse Ox 100% on R/A; eh3 10:45 BP 104 / 62; Pulse 65; eh3 11:00 BP 134 / 94; Pulse 71; eh3 11:15 BP 111 / 69; Pulse 71; eh3 11:30 BP 84 / 69; Pulse 64; Resp 19; Pulse Ox 97% on R/A; eh3 11:45 BP 106 / 73; Pulse 66; eh3 12:30 BP 115 / 76; Pulse 59; Resp 18; Pulse Ox 100% on R/A; eh3 12:45 BP 119 / 81; Pulse 62; eh3 13:15 BP 122 / 85; Pulse 62; Resp 18; Pulse Ox 98% on R/A; eh3 13:45 BP 120 / 84; Pulse 56; Resp 19; Pulse Ox 100% on R/A; eh3 09:14 Body Mass Index 41.10 (105.23 kg, 160.02 cm) bp MDM: 09:13 Patient medically screened. sb4 09:53 Differential Diagnosis: cardiac arrhythmia, drug effect, vasovagal episode, electrolyte sb4 abnormality, dehydration, hypothyroidism, hyperthyroidism. 13:02 Data reviewed: vital signs, nurses notes, lab test result(s), EKG, radiologic studies, sb4 I have discussed the patient's presentation/case with the attending Emergency Department Physician; and as a result, I will discharge patient. Consideration of Admission/Observation Escalation of care including admission/observation considered. Care significantly affected by the following chronic conditions: hypothyroidism. Counseling: I had a detailed discussion with the patient and/or guardian regarding the historical points, exam findings, and any diagnostic results supporting the discharge/admit diagnosis, lab results, radiology results, to return to the emergency department if symptoms worsen or persist or if there are any questions or concerns that arise at home. ED course: discussed that symptoms are likely secondary to dehydration caused by the mounjaro and that she needs to increase he fluid intake. she reports feeling much better after the IV fluids. I recommended discontinuing the mounjaro to avoid any future syncopal episodes and to follow up with her PCP regarding her thyroid levels. 01/18 09:26 Order name: Basic Metabolic Panel; Complete Time: 10:33 sb4 01/18 09:26 Order name: CBC with Diff; Complete Time: 10:07 sb4 01/18 09:26 Order name: Hepatic Function; Complete Time: 10:33 sb4 01/18 09:26 Order name: Magnesium; Complete Time: 10:33 sb4 01/18 09:26 Order name: Test, Urine; Complete Time: 11:39 sb4 01/18 09:26 Order name: Troponin High Sensitivity; Complete Time: 10:33 sb4 01/18 09:26 Order name: UDS; Complete Time: 11:47 sb4 01/18 09:26 Order name: Urinalysis w/ reflexes; Complete Time: 11:39 sb4 01/18 09:26 Order name: TSH; Complete Time: 10:33 sb4 01/18 09:26 Order name: [place]; Complete Time: 11:01 sb4 01/18 10:36 Order name: Add On-Lab; Complete Time: 12:57 sb4 01/18 11:24 Order name: T4,Total; Complete Time: 11:44 EDMS 01/18 09:26 Order name: CT Head Brain wo Cont; Complete Time: 10:07 sb4 01/18 09:26 Order name: EKG; Complete Time: 09:27 sb4 01/18 09:26 Order name: Cardiac monitoring; Complete Time: 09:45 sb4 01/18 09:26 Order name: EKG - Nurse/Tech; Complete Time: 09:40 sb4 01/18 09:26 Order name: IV Saline Lock; Complete Time: 09:58 sb4 01/18 09:26 Order name: Labs collected and sent; Complete Time: 09:58 sb4 01/18 09:26 Order name: O2 Per Protocol; Complete Time: 09:45 sb4 01/18 09:26 Order name: O2 Sat Monitoring; Complete Time: 09:45 sb4 01/18 09:26 Order name: Orthostatics; Complete Time: 10:14 sb4 EC:50 Rate is 69 beats/min. Rhythm is regular, Normal Sinus Rhythm. W[place] interval is normal at sb4 144 msec. QRS interval is normal at 74 msec. QT interval is normal at 368 msec. T waves are Normal. No ST changes noted. Clinical impression: Normal ECG. Interpreted by me. Reviewed by me. Administered Medications: 10:00 Drug: NS 0.9% IV 1000 ml Route: IV; Rate: 1 bolus; Site: left antecubital; eh3 11:30 Follow up: IV Intake: 1000ml eh3 11:30 Follow up: IV Status: Completed infusion eh3 12:00 Drug: Meclizine PO 25 mg Route: PO; eh3 12:47 Follow up: Response: No adverse reaction eh3 12:30 Drug: NS 0.9% IV 1000 ml Route: IV; Rate: 1 bolus; Site: left antecubital; eh3 13:58 Follow up: IV Status: Completed infusion; IV Intake: 1000ml 3 Disposition: 15:53 Co-signature as Attending Physician, Jayden Hood MD I reviewed the patient's care rt provided by the Advanced Practice Provider and agree with the diagnosis and treatment plan. Disposition Summary: 01/18/23 13:05 Discharge Ordered Location: Home sb4 Problem: new sb4 Symptoms: have improved sb4 Condition: Stable sb4 Diagnosis - Syncope sb4 - Dehydration sb4 - Dizziness and giddiness sb4 Followup: sb4 - With: Private Physician - When: As needed - Reason: Recheck today's complaints, Continuance of care, Re-evaluation by your physician Discharge Instructions: - Discharge Summary Sheet sb4 - Syncope, [id number] sb4 - Dehydration, Adult, [id number] sb4 - Dizziness, [id number] sb4 Forms: - Medication Reconciliation Form sb4 - Thank You Letter sb4 - Antibiotic Education sb4 - Prescription Opioid Use sb4 - Patient Portal Instructions sb4 - Leadership Thank You Letter sb4 Signatures: Dispatcher [employer] Jose Shahid RN RN bp Hall, Erin, RN RN 3 Irma Thakur, PADaphne PADaphne sb4 Jayden Hood MD MD rt
[2023-01-18 14:19] VITALS: TEMP 98
[2023-01-18 14:46] VITALS: BP 120/84; O2SAT 100
--- NOTE | 2023-01-19 13:59 | EKG ---
Test Date: 2023-01-18 Test Time: 09:23:23 Building Dismantler: JENNIFER MEASUREMENT RESULTS: Intervals: Rate: 69 AK: 144 QRSD: 74 QT: 368 QTc: 394 Wheeler: P: 37 AK: 144 QRS: 67 T: 44 INTERPRETIVE STATEMENTS: Normal sinus rhythm Cannot rule out Anterior infarct, age undetermined Abnormal ECG Compared to ECG 06/16/2019 09:59:45 Myocardial infarct finding now present Electronically Signed On 01-19-23 13:56:47 CDT by Bhargav Hunt
== END 2023-01-18 14:09 | disposition home or self-care (01) ==
LOC: ER 09:03
DX: E86.0 Dehydration (principal); R42 Dizziness and giddiness; F43.10 Post-traumatic stress disorder, unspecified; E03.9 Hypothyroidism, unspecified; Z88.2 Allergy status to sulfonamides
CPT/HCPCS: 96361; 93005; 85025; 80048; 36415; 83735; 81025; 80178; 80076; 84436; 84443; 81003; 84484; 80307; 70450; 96360; 99285; J7030 ×2

== ENCOUNTER 2023-01-22 10:46 | Emergency (ER) | payer OTHER ==
--- OUTSIDE RECORDS SUMMARY | 2023-01-22 11:14 | XMS REPORT | Continuity of Care Document ---
:1985 Author Organization [facility] t Address [address] [place] [address] Care Team Providers Name Role Phone TAMERA SHARP Primary Care Physician Unavailable LILA_Noam Attending Clinician Unavailable MATT ROSA Attending Clinician Unavailable Matt Rosa MD Attending Clinician Doctor Unassigned, [place] Attending Clinician Unavailable Tamera Sharp Attending Clinician [phone] LUIS MANUEL GUTIERREZ M.D. Attending Clinician Unavailable LOLA SHNANON D.O. Attending Clinician Unavailable Liborio_Minor Attending Clinician Unavailable Lab, Adc Fam Pob I Attending Clinician Unavailable Farhana Ken Attending Clinician FARHANA WELLINGTON Attending Clinician Unavailable SHAHNAZ Admitting Clinician Unavailable MATT ROSA Admitting Clinician Unavailable Matt Rosa MD Admitting Clinician Robby Admitting Clinician Unavailable Payers Payer Name Policy Type Policy Number Effective Date Expiration Date Tasneem heck [place] [id number] 2010 [employer] 00:00:00 [place] [id number] [place] MEDIC[place] PART A [id number] 2010 \T\ B 00:00:00 [place] [id number] 2022 00:00:00 [place] [facility] - [id number] [facility] [place]INSTIT[place] [id number] 2006 [employer] 00:00:00 - [facility] - FQHC Problems Condition Condition Condition Status Onset Resolution Last Treating Co mments Source Name Details Category Date Date Treatment Clinician Date Malaise Malaise Problem Active [facility] 8[facility]: ty [facility] Intentiona Intentiona Problem Active [facility] l weight l Weight 8-16 Commun i loss Loss 00:00: ty 00 [facility] Obesity Obesity Problem Active [facility] 6-08 [facility] 00:00: ty [facility] Diarrhea Diarrhea Problem Active S[facility] y 3-17 [facility] 00:00: ty 00 [facility] Epigastric Epigastric Problem Active [facility] pain Pain 3-10 [facility] 00:00: ty 00 [facility] Otitis Otitis Problem Active [facility] media Media 2-15 Communi 00:00: ty 00 [facility] Acute Acute Problem Active [facility] upper Upper 2-15 [facility]i respirator Respirator 00:00: ty y y [facility] Clinics Cough Cough Problem Active [facility] 2-15 [facility] 00:00: ty 00 [facility] Hypothyroi Hypothyroi Problem Active 2021- S [facility] dism dism 1-25 [facility]i 00:00: ty 00 [facility] Menopausal Menopausal Problem Active S [facility] flushing Flushing 1-25 Commun i 00:00: ty 00 [facility] Mixed Mixed Problem Active [facility] urinary Urinary 1- Communi incontinen Incontinen 00:00: ty ce ce 00 [facility] Screening Screening Problem Active Swe rafia for for - Communi malignant Malignant 00:00: ty neoplasm Neoplasm 00 [facility] breast of Breast [facility] Indigestio Indigestio Problem Active S didi n n 2-09 Communi 00:00: ty 00 [facility] Eruption Eruption Problem Active 2019-06 Sween y 0-22 Communi 00:00: ty 00 [facility] Low back Low Back Problem Active S[facility] y pain Pain 2-13 Communi 00:00: ty 00 [facility] Pain in Pain in Problem Active [facility] bilateral Bilateral 2-13 Comm uni legs Legs 00:00: ty 00 [facility] Dry cough Dry Cough Problem Active Swe rafia 1-16 Communi 00:00: ty 00 [facility] Environmen Environmen Problem Active S didi venessa venessa 1-16 Communi allergy Allergy 00:00: ty 00 [facility] Long-term Long-term Problem Active [facility] drug Drug 1-16 [facility]i therapy Therapy 00:00: ty 00 [facility] Postsurgic Postsurgic Problem Active M derrick al [...] and/or 3-21 ity of mide Vomiting 00:00: [place] Antibiot 00 Medical ics) Branch NO KNOWN Drug Active Univers ALLERGIE Class ity of S [facility] Family History Family Member Diagnosis Comments Start Date Stop Date Source Unknown Family Member Adopted Other [facility] Social History Social Habit Start Date Stop Date Quantity Comments Source History of Cigarette Smoker Universi ty of tobacco use [facility] Exposure to 2022-03-06 2022-03-16 Not sure University SARS-CoV-2 00:00:00 13:54:00 [facility] (event) Branch Tobacco use and 2022-03-16 2022-03-16 Smokeless tobacco Un iversity of exposure 00:00:00 00:00:00 non-user [facility] Sex Ass[birth year] At [birth year] Universit y of 00:00:00 00:00:00 [facility] Smoking Status Start Date Stop Date Source Never smoked tobacco [facility] (finding) Former Smoker [facility] Tobacco smoking consumption [facility] unknown Branch Smokes tobacco daily 2022-03-16 00:00:00 Univers ity of [facility] Medications Ordered Filled Start Stop Current Ordering [...] of 300 mg 14:05: 00:00 mouth in [place] capsule 14 :00 the Medical morning. Branch LORazepam 1 2021-06 No 1mg Take 1 mg Univers mg tablet 0-20 10-20 by mouth ity o f 14:05: 00:00 in the [place] 14 :00 morning. Medical As needed Branch traZODone 2021-06 150mg Take 150 Un litzy 150 mg 0-20 10-20 mg by ity of tablet 14:05: 00:00 mouth in [place] 14 :00 the Medical morning. Branch No known 2021-06 No No known Unive rs medications 0-20 medication it y of 11:13: s [place] [id number] Medical Branch pantoprazol pantoprazol No pantoprazo [facility] e 40 mg e 40 mg 3-17 le 40 mg Commu ni tablet,zeyad tablet,zeyad 00:00: tablet,del ty yed release yed release 00 ayed H ospita TAKE 1 TAKE 1 release l TABLET BY TABLET BY TAKE 1 Cli nics MOUTH EVERY MOUTH EVERY TABLET BY DAY DAY MOUTH EVERY DAY [place] Yes 1 QD TAKE 1 UT Carbonate [...] Tablet DAILY. ans escitalopra escitalopra No escitalopr [facility] m 20 mg m 20 mg am 20 mg Commu ni tablet TAKE tablet TAKE tablet ty 1 TABLET BY 1 TABLET BY TAKE 1 Hospita MOUTH EVERY MOUTH EVERY TABLET BY l DAY DAY MOUTH Clinics EVERY DAY estradiol 2 estradiol 2 No estradiol [facility] mg tablet mg tablet 2 mg Commu ni TAKE 1 TAKE 1 tablet ty TABLET BY TABLET BY TAKE 1 Hos sreedhar MOUTH EVERY MOUTH EVERY TABLET BY l DAY DAY MOUTH Clinics EVERY DAY levothyroxi levothyroxi No levothyrox [facility] ne 112 mcg ne 112 mcg ine 112 Communi tablet TAKE tablet TAKE mcg tablet ty 1 TABLET BY 1 TABLET BY TAKE 1 Hospita MOUTH EVERY MOUTH EVERY TABLET BY l DAY DAY MOUTH Clinics EVERY DAY lithium lithium No lithium [facility] carbonate carbonate carbonate Communi 600 mg 600 mg 600 mg ty capsule capsule capsule Hospit a l Clinics lorazepam lorazepam No lorazepam [facility] 0.5 mg 0.5 mg 0.5 mg Communi tablet tablet tablet ty taking taking taking Hospita twice daily twice daily twice l by mouth by mouth daily by Cli nics mouth pantoprazol pantoprazol No 1 Q1D pantoprazo [facility] e 40 mg e 40 mg le 40 mg Commu ni tablet,zeyad tablet,zeyad tablet,del ty yed release yed release ayed H ospita Take 1 Take 1 release l tablet tablet Take 1 Clinics every day every day tablet by oral by oral every day route. route. by oral route. prazosin 1 prazosin 1 No 1capsul Q1D prazosin 1 [facility] mg capsule mg capsule e(s) mg capsule Communi Take 1 Take 1 Take 1 ty capsule capsule capsule Hospit a every day every day every day l by oral by oral by oral Clinic s route for route for route for 30 days. 30 days. 30 days. trazodone trazodone No trazodone [facility] 150 mg 150 mg 150 mg Communi tablet TAKE tablet TAKE tablet ty 1 TABLET 1 TABLET TAKE 1 Hospi ta (150 MG) BY (150 MG) BY TABLET l MOUTH DAILY MOUTH DAILY (150 MG) Clinics AT BEDTIME AT BEDTIME BY MOUTH FOR FOR DAILY AT INSOMNIA INSOMNIA BEDTIME FOR INSOMNIA Carafate 1 Carafate 1 No 1 QID Carafate 1 [facility] gram tablet gram tablet gram C ommuni Take 1 Take 1 tablet ty tablet 4 tablet 4 Take 1 Hospi ta times a day times a day tablet 4 l by oral by oral times a Clinic s route route day by before before oral route meals. meals. before meals. escitalopra escitalopra No escitalopr [facility] m 20 mg m 20 mg am 20 mg Commu ni tablet TAKE tablet TAKE tablet ty 1 TABLET BY 1 TABLET BY TAKE 1 Hospita MOUTH EVERY MOUTH EVERY TABLET BY l DAY DAY MOUTH Clinics EVERY DAY estradiol 2 estradiol 2 No estradiol [facility] mg tablet mg tablet 2 mg Commu ni TAKE 1 TAKE 1 tablet ty TABLET BY TABLET BY TAKE 1 Hos sreedhar MOUTH EVERY MOUTH EVERY TABLET BY l DAY DAY MOUTH Clinics EVERY DAY famotidine famotidine No famotidine [facility] 20 mg 20 mg 20 mg Communi tablet tablet tablet ty Hospita l Clinics levothyroxi levothyroxi No levothyrox [facility] ne 112 mcg ne 112 mcg ine 112 Communi tablet TAKE tablet TAKE mcg tablet ty 1 TABLET BY 1 TABLET BY TAKE 1 Hospita MOUTH EVERY MOUTH EVERY TABLET BY l DAY DAY MOUTH Clinics EVERY DAY lithium lithium No lithium [facility] carbonate carbonate carbonate [facility]i 600 mg 600 mg 600 mg ty capsule capsule capsule Hospit a Clinics lorazepam lorazepam No lorazepam [facility] 0.5 mg 0.5 mg 0.5 mg Communi tablet tablet tablet ty taking taking taking Hospita twice daily twice daily twice l by mouth by mouth daily by Cli nics mouth prazosin 1 prazosin 1 No prazosin 1 [facility] mg capsule mg capsule mg capsule Communi Take 1 Take 1 Take 1 ty capsule capsule capsule Hospit a every day every day every day l by oral by oral by oral Clinic s route for route for route for 30 days. 30 days. 30 days. trazodone trazodone No trazodone [facility] 150 mg 150 mg 150 mg Communi tablet TAKE tablet TAKE tablet ty 1 TABLET 1 TABLET TAKE 1 Hospi ta (150 MG) BY (150 MG) BY TABLET l MOUTH DAILY MOUTH DAILY (150 MG) Clinics AT BEDTIME AT BEDTIME BY MOUTH FOR FOR DAILY AT INSOMNIA INSOMNIA BEDTIME FOR INSOMNIA escitalopra escitalopra No escitalopr [facility] m 20 mg m 20 mg am 20 mg Commu ni tablet TAKE tablet TAKE tablet ty 1 TABLET BY 1 TABLET BY TAKE 1 Hospita MOUTH EVERY MOUTH EVERY TABLET BY l DAY DAY MOUTH Clinics EVERY DAY estradiol 2 estradiol 2 No estradiol [facility] mg tablet mg tablet 2 mg Commu ni TAKE 1 TAKE 1 tablet ty TABLET BY TABLET BY TAKE 1 Hos sreedhar MOUTH EVERY MOUTH EVERY TABLET BY l DAY DAY MOUTH Clinics EVERY DAY famotidine famotidine No famotidine [facility] 20 mg 20 mg 20 mg Communi tablet tablet tablet ty Hospita l Clinics levothyroxi levothyroxi No levothyrox [facility] ne 112 mcg ne 112 mcg ine 112 Communi tablet TAKE tablet TAKE mcg tablet ty 1 TABLET BY 1 TABLET BY TAKE 1 Hospita MOUTH EVERY MOUTH EVERY TABLET BY l DAY DAY MOUTH Clinics EVERY DAY lithium lithium No lithium [facility] carbonate carbonate carbonate [facility]i 600 mg 600 mg 600 mg ty capsule capsule capsule Hospit a l Clinics lorazepam lorazepam No lorazepam [facility] 0.5 mg 0.5 mg 0.5 mg [facility]i tablet tablet tablet ty taking taking taking Hospita twice daily twice daily twice l by mouth by mouth daily by Cli nics mouth pantoprazol pantoprazol No pantoprazo [facility] e 40 mg e 40 mg le 40 mg Commu ni tablet,zeyad tablet,zeyad tablet,del ty yed release yed release ayed H [facility]spita TAKE 1 TAKE 1 release l TABLET BY TABLET BY TAKE 1 Cli nics MOUTH EVERY MOUTH EVERY TABLET BY DAY DAY MOUTH EVERY DAY prazosin 1 prazosin 1 No prazosin 1 [facility] mg capsule mg capsule mg capsule [facility]i Take 1 Take 1 Take 1 ty capsule capsule capsule Hospit a every day every day every day l by oral by oral by oral Clinic s route for route for route for 30 days. 30 days. 30 days. sucralfate sucralfate No sucralfate [facility] 1 gram 1 gram 1 gram [facility]i tablet Take tablet Take tablet ty 1 tablet 4 1 tablet 4 Take 1 H ospita times a day times a day tablet 4 l by oral by oral times a Clinic s route route day by before before oral route meals. meals. before meals. trazodone trazodone No trazodone [facility] 150 mg 150 mg 150 mg [facility] tablet TAKE tablet TAKE tablet ty 1 TABLET 1 TABLET TAKE 1 Hospi ta (150 MG) BY (150 MG) BY TABLET l MOUTH DAILY MOUTH DAILY (150 MG) Clinics AT BEDTIME AT BEDTIME BY MOUTH FOR FOR DAILY AT INSOMNIA INSOMNIA BEDTIME FOR INSOMNIA escitalopra escitalopra No escitalopr [facility] m 20 mg m 20 mg am 20 mg Commu ni tablet TAKE tablet TAKE tablet ty 1 TABLET BY 1 TABLET BY TAKE 1 Hospita MOUTH EVERY MOUTH EVERY TABLET BY l DAY DAY MOUTH Clinics EVERY DAY estradiol 2 estradiol 2 No estradiol [facility] mg tablet mg tablet 2 mg Commu ni TAKE 1 TAKE 1 tablet ty TABLET BY TABLET BY TAKE 1 Hos sreedhar MOUTH EVERY MOUTH EVERY TABLET BY l DAY DAY MOUTH Clinics EVERY DAY azithromyci azithromyci No azithromyc [place] 250 mg n 250 mg in 250 mg da tablet tablet tablet [facility] famotidine famotidine No famotidine P[facility] 20 mg 20 mg 20 mg Communi tablet tablet tablet ty Hospita l Clinics levothyroxi levothyroxi No levothyrox [facility] ne 112 mcg ne 112 mcg ine 112 Communi tablet TAKE tablet TAKE mcg tablet ty 1 TABLET BY 1 TABLET BY TAKE 1 Hospita MOUTH EVERY MOUTH EVERY TABLET BY l DAY DAY MOUTH Clinics EVERY DAY lithium lithium No lithium [facility] carbonate carbonate carbonate [facility]i 600 mg 600 mg 600 mg ty capsule capsule capsule Hospit a l Clinics lorazepam lorazepam No lorazepam [facility] 0.5 mg 0.5 mg 0.5 mg Communi tablet tablet tablet ty taking taking taking Hospita twice daily twice daily twice l by mouth by mouth daily by Cli nics mouth pantoprazol pantoprazol No pantoprazo [facility] e 40 mg e 40 mg le 40 mg Commu ni tablet,zeyad tablet,zeyad tablet,del ty yed release yed release ayed H [facility]spita TAKE 1 TAKE 1 release l TABLET BY TABLET BY TAKE 1 Cli nics MOUTH EVERY MOUTH EVERY TABLET BY DAY DAY MOUTH EVERY DAY prazosin 1 prazosin 1 No prazosin 1 [facility] mg capsule mg capsule mg capsule [facility]i Take 1 Take 1 Take 1 ty capsule capsule capsule Hospit a every day every day every day l by oral by oral by oral Clinic s route for route for route for 30 days. 30 days. 30 days. sucralfate sucralfate No sucralfate [facility] 1 gram 1 gram 1 gram [facility]i tablet Take tablet Take tablet ty 1 tablet 4 1 tablet 4 Take 1 H ospita times a day times a day tablet 4 l by oral by oral times a Clinic s route route day by before before oral route meals. meals. before meals. trazodone trazodone No trazodone [facility] 150 mg 150 mg 150 mg [facility] tablet TAKE tablet TAKE tablet ty 1 TABLET 1 TABLET TAKE 1 Hospi ta (150 MG) BY (150 MG) BY TABLET l MOUTH DAILY MOUTH DAILY (150 MG) Clinics AT BEDTIME AT BEDTIME BY MOUTH FOR FOR DAILY AT INSOMNIA INSOMNIA BEDTIME FOR INSOMNIA albuterol albuterol No albuterol [facility] sulfate HFA sulfate HFA sulfate [facility]i 90 90 HFA 90 ty mcg/actuati mcg/actuati mcg/actuat Hospita on aerosol on aerosol ion l inhaler inhaler aerosol Clinic s inhaler benzonatate benzonatate No 1capsul TID benzonatat [facility] 100 mg 100 mg e(s) e 100 mg Communi capsule capsule capsule ty Take 1 Take 1 Take 1 Hospita capsule 3 capsule 3 capsule 3 l times a day times a day times a Clinics by oral by oral day by route as route as oral route needed. needed. as needed. escitalopra escitalopra No escitalopr [place] 10 mg m 10 mg am 10 mg da tablet tablet tablet [facility] dextroamphe dextroamphe No dextroamph [facility] tamine-amph tamine-amph etamine-am [facility]i etamine 10 etamine 10 phetamine ty mg tablet mg tablet 10 mg Hosp duy TAKE 1 TAKE 1 tablet l TABLET BY TABLET BY TAKE 1 Cli nics MOUTH TWICE MOUTH TWICE TABLET BY A DAY A DAY MOUTH TWICE A DAY escitalopra escitalopra No escitalopr [facility] m 20 mg m 20 mg am 20 mg Commu ni tablet TAKE tablet TAKE tablet ty 1 TABLET BY 1 TABLET BY TAKE 1 Hospita MOUTH EVERY MOUTH EVERY TABLET BY l DAY DAY MOUTH Clinics EVERY DAY estradiol 2 estradiol 2 No estradiol [facility] mg tablet mg tablet 2 mg Commu ni TAKE 1 TAKE 1 tablet ty TABLET BY TABLET BY TAKE 1 Hos sreedhar MOUTH EVERY MOUTH EVERY TABLET BY l DAY DAY MOUTH Clinics EVERY DAY levothyroxi levothyroxi No levothyrox [facility] ne 112 mcg ne 112 mcg ine 112 Communi tablet TAKE tablet TAKE mcg tablet ty 1 TABLET BY 1 TABLET BY TAKE 1 Hospita MOUTH EVERY MOUTH EVERY TABLET BY l DAY DAY MOUTH Clinics EVERY DAY lithium lithium No lithium [facility] carbonate carbonate carbonate [facility] 300 mg 300 mg 300 mg ty capsule capsule capsule Hospit a l Clinics lithium lithium No lithium [facility] carbonate carbonate carbonate [facility] 600 mg 600 mg 600 mg ty capsule capsule capsule Hospit a l Clinics lorazepam lorazepam No lorazepam [facility] 0.5 mg 0.5 mg 0.5 mg [facility] tablet tablet tablet ty taking taking taking Hospita twice daily twice daily twice l by mouth by mouth daily by Cli nics mouth trazodone trazodone No trazodone [facility] 50 mg 50 mg 50 mg [facility] tablet TAKE tablet TAKE tablet ty 1 TABLET BY 1 TABLET BY TAKE 1 Hospita MOUTH EVERY MOUTH EVERY TABLET BY l NIGHT NIGHT MOUTH Clinics EVERY NIGHT Vyvanse 20 Vyvanse 20 No Vyvanse 20 [facility] mg capsule mg capsule mg capsule Communi TAKE 1 TAKE 1 TAKE 1 ty CAPSULE BY CAPSULE BY CAPSULE BY Hospita MOUTH EVERY MOUTH EVERY MOUTH l DAY IN THE DAY IN THE EVERY DAY Clinics MORNING MORNING IN THE MORNING Vyvanse 40 Vyvanse 40 No Vyvanse 40 [facility] mg capsule mg capsule mg capsule Communi TAKE 1 TAKE 1 TAKE 1 ty CAPSULE BY CAPSULE BY CAPSULE BY Hospita MOUTH EVERY MOUTH EVERY MOUTH l MORNING MORNING EVERY Clinics MORNING escitalopra escitalopra No escitalopr [place] 20 mg m 20 mg am 20 mg da tablet tablet tablet [facility] escitalopra escitalopra No escitalopr [facility] m 20 mg m 20 mg am 20 mg Commu ni tablet TAKE tablet TAKE tablet ty 1 TABLET BY 1 TABLET BY TAKE 1 Hospita MOUTH EVERY MOUTH EVERY TABLET BY l DAY DAY MOUTH Clinics EVERY DAY estradiol 2 estradiol 2 No estradiol [facility] mg tablet mg tablet 2 mg Commu ni TAKE 1 TAKE 1 tablet ty TABLET BY TABLET BY TAKE 1 Hos sreedhar MOUTH EVERY MOUTH EVERY TABLET BY l DAY DAY MOUTH Clinics EVERY DAY levothyroxi levothyroxi No levothyrox [facility] ne 112 mcg ne 112 mcg ine 112 Communi tablet TAKE tablet TAKE mcg tablet ty 1 TABLET BY 1 TABLET BY TAKE 1 Hospita MOUTH EVERY MOUTH EVERY TABLET BY l DAY DAY MOUTH Clinics EVERY DAY lithium lithium No lithium [facility] carbonate carbonate carbonate [facility]i 600 mg 600 mg 600 mg ty capsule capsule capsule Hospit a TAKE 1 TAKE 1 TAKE 1 l CAPSULE BY CAPSULE BY CAPSULE BY Clinics MOUTH EVERY MOUTH EVERY MOUTH DAY DAY EVERY DAY lorazepam lorazepam No lorazepam [facility] 0.5 mg 0.5 mg 0.5 mg Communi [...] for 30 days. trazodone trazodone No trazodone [facility] 50 mg 50 mg 50 mg [facility] tablet TAKE tablet TAKE tablet ty 1 TABLET BY 1 TABLET BY TAKE 1 Hospita MOUTH EVERY MOUTH EVERY TABLET BY l NIGHT NIGHT MOUTH Clinics EVERY NIGHT escitalopra escitalopra No escitalopr [facility] m 20 mg m 20 mg am 20 mg Commu ni tablet TAKE tablet TAKE tablet ty 1 TABLET BY 1 TABLET BY TAKE 1 Hospita MOUTH EVERY MOUTH EVERY TABLET BY l DAY DAY MOUTH Clinics EVERY DAY estradiol 2 estradiol 2 No estradiol [facility] mg tablet mg tablet 2 mg Commu ni TAKE 1 TAKE 1 tablet ty TABLET BY TABLET BY TAKE 1 Hos sreedhar MOUTH EVERY MOUTH EVERY TABLET BY l DAY DAY MOUTH Clinics EVERY DAY levothyroxi levothyroxi No levothyrox [facility] ne 112 mcg ne 112 mcg ine 112 Communi tablet TAKE tablet TAKE mcg tablet ty 1 TABLET BY 1 TABLET BY TAKE 1 Hospita MOUTH EVERY MOUTH EVERY TABLET BY l DAY DAY MOUTH Clinics EVERY DAY estradiol 2 estradiol 2 No estradiol [place] mg tablet mg tablet 2 mg da TAKE 1 TAKE 1 tablet Medical TABLET BY TABLET BY TAKE 1 Cristin up MOUTH EVERY MOUTH EVERY TABLET BY DAY DAY MOUTH EVERY DAY lithium lithium No lithium [facility] carbonate carbonate carbonate [facility] 600 mg 600 mg 600 mg ty capsule capsule capsule Hospit a TAKE 1 TAKE 1 TAKE 1 l CAPSULE BY CAPSULE BY CAPSULE BY Clinics MOUTH EVERY MOUTH EVERY MOUTH DAY DAY EVERY DAY lorazepam lorazepam No lorazepam [facility] 0.5 mg 0.5 mg 0.5 mg Communi [...] Mounjaro 5 No 5mg Q1W Mounjaro 5 [facility] mg/0.5 mL mg/0.5 mL mg/0.5 mL [facility]i subcutaneou subcutaneou subcutaneo ty s pen s pen us pen Hospita injector injector injector l Inject 5 mg Inject 5 mg Inject 5 Clinics every week every week mg every by by week by subcutaneou subcutaneou subcutaneo s route for s route for us route 30 days. 30 days. for 30 days. quetiapine quetiapine No quetiapine [facility] 25 mg 25 mg 25 mg [facility] tablet tablet tablet ty Hospita l Clinics trazodone trazodone No trazodone [facility] 50 mg 50 mg 50 mg [facility] tablet TAKE tablet TAKE tablet ty 1 TABLET BY 1 TABLET BY TAKE 1 Hospita MOUTH EVERY MOUTH EVERY TABLET BY l NIGHT NIGHT MOUTH Clinics EVERY NIGHT escitalopra escitalopra No escitalopr [facility] m 20 mg m 20 mg am 20 mg Commu ni tablet TAKE tablet TAKE tablet ty 1 TABLET BY 1 TABLET BY TAKE 1 Hospita MOUTH EVERY MOUTH EVERY TABLET BY l DAY DAY MOUTH Clinics EVERY DAY estradiol 2 estradiol 2 No estradiol [facility] mg tablet mg tablet 2 mg Commu ni TAKE 1 TAKE 1 tablet ty TABLET BY TABLET BY TAKE 1 Hos sreedhar MOUTH EVERY MOUTH EVERY TABLET BY l DAY DAY MOUTH Clinics EVERY DAY levothyroxi levothyroxi No levothyrox [facility] ne 112 mcg ne 112 mcg ine 112 Communi tablet TAKE tablet TAKE mcg tablet ty 1 TABLET BY 1 TABLET BY TAKE 1 Hospita MOUTH EVERY MOUTH EVERY TABLET BY l DAY DAY MOUTH Clinics EVERY DAY Mounjaro 5 Mounjaro 5 No Mounjaro 5 [facility] mg/0.5 mL mg/0.5 mL mg/0.5 mL Communi subcutaneou subcutaneou subcutaneo ty s pen s pen us pen Hospita injector injector injector l INJECT 5 MG INJECT 5 MG INJECT 5 Clinics SUBCUTANEOU SUBCUTANEOU MG SLY WEEKLY SLY WEEKLY SUBCUTANEO USLY WEEKLY levothyroxi levothyroxi No levothyrox [place] 112 mcg ne 112 mcg ine 112 da tablet TAKE tablet TAKE mcg tablet Medical 1 TABLET BY 1 TABLET BY TAKE 1 Group MOUTH EVERY MOUTH EVERY TABLET BY DAY DAY MOUTH EVERY DAY Mounjaro Mounjaro No 7.5mg Q1W Mounjaro Sw [...] route. us route. trazodone trazodone No trazodone [facility] 50 mg 50 mg 50 mg [facility] tablet TAKE tablet TAKE tablet ty 1 TABLET BY 1 TABLET BY TAKE 1 Hospita MOUTH EVERY MOUTH EVERY TABLET BY l NIGHT NIGHT MOUTH Clinics EVERY NIGHT escitalopra escitalopra No 1 Q1D escitalopr [facility] m 20 mg m 20 mg am 20 mg Commu ni tablet Take tablet Take tablet ty 1 tablet 1 tablet Take 1 Hospi ta every day every day tablet l by oral by oral every day Clin ics route. route. by oral route. estradiol 2 estradiol 2 No estradiol [facility] mg tablet mg tablet 2 mg Commu ni TAKE 1 TAKE 1 tablet ty TABLET BY TABLET BY TAKE 1 Hos sreedhar MOUTH EVERY MOUTH EVERY TABLET BY l DAY DAY MOUTH Clinics EVERY DAY levothyroxi levothyroxi No levothyrox [facility] ne 100 mcg ne 100 mcg ine 100 Communi tablet TAKE tablet TAKE mcg tablet ty 1 TABLET BY 1 TABLET BY TAKE 1 Hospita MOUTH EVERY MOUTH EVERY TABLET BY l DAY DAY MOUTH Clinics EVERY DAY levothyroxi levothyroxi No 1 Q1D levothyrox [facility] ne 88 mcg ne 88 mcg ine [...] route. trazodone trazodone No 1 Q1D trazodone [facility] 50 mg 50 mg 50 mg [facility] tablet Take tablet Take tablet ty 1 tablet 1 tablet Take 1 Hospi ta every day every day tablet l by oral by oral every day Clin ics route. route. by oral route. albuterol albuterol No albuterol [facility] sulfate 2.5 sulfate 2.5 sulfate [facility] mg/3 [...] 8 HOURS NEEDED clobetasol clobetasol No clobetasol [facility] 0.05 % 0.05 % 0.05 % [facility] topical topical topical ty cream use cream use cream use Hospita sparingly sparingly sparingly l bid bid bid Clinics lithium lithium No lithium [place] carbonate carbonate carbonate da ER 300 mg ER 300 mg ER 300 mg Medical tablet,exte tablet,exte tablet,ext Group nded nded ended release release release escitalopra escitalopra No escitalopr [facility] m 20 mg m 20 mg am 20 mg Commu ni tablet TAKE tablet TAKE tablet ty 1 TABLET BY 1 TABLET BY TAKE 1 Hospita MOUTH EVERY MOUTH EVERY TABLET BY l DAY DAY MOUTH Clinics EVERY DAY estradiol 2 estradiol 2 No estradiol [facility] mg tablet mg tablet 2 mg Commu ni TAKE 1 TAKE 1 tablet ty TABLET BY TABLET BY TAKE 1 Hos s[facility]har MOUTH EVERY MOUTH EVERY TABLET BY l DAY DAY MOUTH Clinics EVERY DAY levothyroxi levothyroxi No levothyrox [facility] ne 112 mcg ne 112 mcg ine 112 Communi tablet TAKE tablet TAKE mcg tablet ty 1 TABLET BY 1 TABLET BY TAKE 1 Hospita MOUTH EVERY MOUTH EVERY TABLET BY l DAY DAY MOUTH Clinics EVERY DAY lithium lithium No lithium [facility] carbonate carbonate carbonate [facility]i 600 mg 600 mg 600 mg ty capsule capsule capsule Hospit a l Clinics lorazepam lorazepam No lorazepam [facility] 0.5 mg 0.5 mg 0.5 mg Communi tablet tablet tablet ty taking taking taking Hospita twice daily twice daily twice l by mouth by mouth daily by Cli nics mouth oxybutynin oxybutynin No 1 Q1D oxybutynin [facility] chloride ER chloride ER chloride [facility] 10 mg 10 mg ER 10 mg ty tablet,exte tablet,exte tablet,ext Hospita nded nded ended l release 24 release 24 release 24 Clinics hr Take 1 hr Take 1 hr Take 1 tablet tablet tablet every day every day every day by oral by oral by oral route. route. route. trazodone trazodone No trazodone [facility] 150 mg 150 mg 150 mg [facility] tablet TAKE tablet TAKE tablet ty 1 TABLET 1 TABLET TAKE 1 Hospi ta (150 MG) BY (150 MG) BY TABLET l MOUTH DAILY MOUTH DAILY (150 MG) Clinics AT BEDTIME AT BEDTIME BY MOUTH FOR FOR DAILY AT INSOMNIA INSOMNIA BEDTIME FOR INSOMNIA albuterol albuterol No albuterol [facility] sulfate 2.5 sulfate 2.5 sulfate [facility] mg/3 [...] NEEDED albuterol albuterol No 2puff(s Q4H albuterol [facility] sulfate HFA sulfate HFA ) sulfate [facility] 90 90 HFA 90 ty mcg/actuati mcg/actuati [facility] on aerosol ion l inhaler inhaler aerosol Clinic s Inhale 2 Inhale 2 inhaler puffs every puffs every Inhale 2 4 hours by 4 hours by puffs inhalation inhalation every 4 route as route as hours by needed. needed. inhalation route as needed. amoxicillin amoxicillin No 1 Q12H amoxicilli [facility] [phone] 875 [facility]i mg-potassiu mg-potassiu mg-potassi ty m m um [facility] clavulanate clavulanate clavulanat l 125 mg 125 mg e 125 mg Clinics tablet Take tablet Take tablet 1 tablet 1 tablet Take 1 every 12 every 12 tablet hours by hours by every 12 oral route oral route hours by with meals. with meals. oral route with meals. benzonatate benzonatate No 1capsul TID benzonatat [facility] 100 mg 100 mg e(s) e 100 mg [facility] capsule capsule capsule ty Take 1 Take 1 Take 1 Hospita capsule 3 capsule 3 capsule 3 l times a day times a day times a Clinics by oral by oral day by route. route. oral route. clobetasol clobetasol No clobetasol [facility] 0.05 % 0.05 % 0.05 % [facility] topical topical topical ty cream use cream use cream use Hospita sparingly sparingly sparingly l bid bid bid Clinics escitalopra escitalopra No escitalopr [facility] m 20 mg m 20 mg am 20 mg Commu ni tablet TAKE tablet TAKE tablet ty 1 TABLET BY 1 TABLET BY TAKE 1 Hospita MOUTH EVERY MOUTH EVERY TABLET BY l DAY DAY MOUTH Clinics EVERY DAY estradiol 2 estradiol 2 No estradiol [facility] mg tablet mg tablet 2 mg Commu ni TAKE 1 TAKE 1 tablet ty TABLET BY TABLET BY TAKE 1 Hos sreedhar MOUTH EVERY MOUTH EVERY TABLET BY l DAY DAY MOUTH Clinics EVERY DAY levothyroxi levothyroxi No levothyrox [facility] ne 112 mcg ne 112 mcg ine 112 Communi tablet TAKE tablet TAKE mcg tablet ty 1 TABLET BY 1 TABLET BY TAKE 1 Hospita MOUTH EVERY MOUTH EVERY TABLET BY l DAY DAY MOUTH Clinics EVERY DAY lithium lithium No lithium [facility] carbonate carbonate carbonate [facility] 600 mg 600 mg 600 mg ty capsule capsule capsule Hospit a l Clinics lorazepam lorazepam No lorazepam [facility] 0.5 mg 0.5 mg 0.5 mg [facility] tablet tablet tablet ty taking taking taking Hospita twice daily twice daily twice l by mouth by mouth daily by Cli nics mouth oxybutynin oxybutynin No oxybutynin [facility] chloride ER chloride ER chloride [facility] 10 mg 10 mg ER 10 mg ty tablet,exte tablet,exte tablet,ext Hospita nded nded ended l release 24 release 24 release 24 Clinics hr Take 1 hr Take 1 hr Take 1 tablet tablet tablet every day every day every day by oral by oral by oral route. route. route. prazosin 1 prazosin 1 No prazosin 1 [facility] mg capsule mg capsule mg capsule Communi ty Hospita l Clinics trazodone trazodone No trazodone [facility] 150 mg 150 mg 150 mg [facility] tablet TAKE tablet TAKE tablet ty 1 TABLET 1 TABLET TAKE 1 Hospi ta (150 MG) BY (150 MG) BY TABLET l MOUTH DAILY MOUTH DAILY (150 MG) Clinics AT BEDTIME AT BEDTIME BY MOUTH FOR FOR DAILY AT INSOMNIA INSOMNIA BEDTIME FOR INSOMNIA oxybutynin oxybutynin No 1 BID oxybutynin [place] [...] mg da tablet tablet tablet Medical Group Immunizations Ordered Immunization Filled Immunization Date Status Commen ts Source Name Name COVID-19, mRNA, COVID-19, mRNA, 2021-05-26 Completed [facility] LNP-S, PF, 30 LNP-S, PF, 30 00:00:00 Hospital Clinics mcg/0.3 mL dose mcg/0.3 mL dose ([employer]) ([employer]) COVID-19, mRNA, COVID-19, mRNA, 2021-05-26 Completed [facility] LNP-S, PF, 30 LNP-S, PF, 30 00:00:00 Hospital Clinics mcg/0.3 mL dose mcg/0.3 mL dose ([employer]) ([employer]) COVID-19, mRNA, COVID-19, mRNA, 2021-05-26 Completed [facility] LNP-S, PF, 30 LNP-S, PF, 30 00:00:00 Hospital Clinics mcg/0.3 mL dose mcg/0.3 mL dose ([employer]) ([employer]) COVID-19, mRNA, COVID-19, mRNA, 2021-05-26 Completed [facility] LNP-S, PF, 30 LNP-S, PF, 30 00:00:00 Hospital Clinics mcg/0.3 mL dose mcg/0.3 mL dose ([employer]) ([employer]) COVID-19, mRNA, COVID-19, mRNA, 2021-05-26 Completed [facility] LNP-S, PF, 30 LNP-S, PF, 30 00:00:00 Hospital Clinics mcg/0.3 mL dose mcg/0.3 mL dose ([employer]) ([employer]) COVID-19, mRNA, COVID-19, mRNA, 2021-05-26 Completed [facility] LNP-S, PF, 30 LNP-S, PF, 30 00:00:00 Hospital Clinics mcg/0.3 mL dose mcg/0.3 mL dose ([employer]) ([employer]) COVID-19, mRNA, COVID-19, mRNA, 2021-05-26 Completed [facility] LNP-S, PF, 30 LNP-S, PF, 30 00:00:00 Hospital Clinics mcg/0.3 mL dose mcg/0.3 mL dose ([employer]) ([employer]) COVID-19, mRNA, COVID-19, mRNA, 2021-05-26 Completed [facility] LNP-S, PF, 30 LNP-S, PF, 30 00:00:00 Hospital Clinics mcg/0.3 mL dose mcg/0.3 mL dose ([employer]) ([employer]) COVID-19, mRNA, COVID-19, mRNA, 2021-05-26 Completed [facility] LNP-S, PF, 30 LNP-S, PF, 30 00:00:00 Hospital Clinics mcg/0.3 mL dose mcg/0.3 mL dose ([employer]) ([employer]) COVID-19, mRNA, COVID-19, mRNA, 2021-05-26 Completed [facility] LNP-S, PF, 30 LNP-S, PF, 30 00:00:00 Hospital Clinics mcg/0.3 mL dose mcg/0.3 mL dose ([employer]) ([employer]) COVID-19, mRNA, COVID-19, mRNA, 2021-05-26 Completed [facility] LNP-S, PF, 30 LNP-S, PF, 30 00:00:00 Hospital Clinics mcg/0.3 mL dose mcg/0.3 mL dose ([employer]) ([employer]) COVID-19, mRNA, COVID-19, mRNA, 2020-08-31 Completed [facility] LNP-S, PF, 30 LNP-S, PF, 30 00:00:00 Hospital Clinics mcg/0.3 mL dose mcg/0.3 mL dose ([employer]) ([employer]) COVID-19, mRNA, COVID-19, mRNA, 2020-08-31 Completed [facility] LNP-S, PF, 30 LNP-S, PF, 30 00:00:00 Hospital Clinics mcg/0.3 mL dose mcg/0.3 mL dose ([employer]) ([employer]) COVID-19, mRNA, COVID-19, mRNA, 2020-08-31 Completed [facility] LNP-S, PF, 30 LNP-S, PF, 30 00:00:00 Hospital Clinics mcg/0.3 mL dose mcg/0.3 mL dose ([employer]) ([employer]) COVID-19, mRNA, COVID-19, mRNA, 2020-08-31 Completed [facility] LNP-S, PF, 30 LNP-S, PF, 30 00:00:00 Hospital Clinics mcg/0.3 mL dose mcg/0.3 mL dose ([employer]) ([employer]) COVID-19, mRNA, COVID-19, mRNA, 2020-08-31 Completed [facility] LNP-S, PF, 30 LNP-S, PF, 30 00:00:00 Hospital Clinics mcg/0.3 mL dose mcg/0.3 mL dose ([employer]) ([employer]) COVID-19, mRNA, COVID-19, mRNA, 2020-08-31 Completed [facility] LNP-S, PF, 30 LNP-S, PF, 30 00:00:00 Hospital Clinics mcg/0.3 mL dose mcg/0.3 mL dose ([employer]) ([employer]) COVID-19, mRNA, COVID-19, mRNA, 2020-08-31 Completed [facility] LNP-S, PF, 30 LNP-S, PF, 30 00:00:00 Hospital Clinics mcg/0.3 mL dose mcg/0.3 mL dose ([employer]) ([employer]) COVID-19, mRNA, COVID-19, mRNA, 2020-08-31 Completed [facility] LNP-S, PF, 30 LNP-S, PF, 30 00:00:00 Hospital Clinics mcg/0.3 mL dose mcg/0.3 mL dose ([employer]) ([employer]) COVID-19, mRNA, COVID-19, mRNA, 2020-08-31 Completed [facility] LNP-S, PF, 30 LNP-S, PF, 30 00:00:00 Hospital Clinics mcg/0.3 mL dose mcg/0.3 mL dose ([employer]) ([employer]) COVID-19, mRNA, COVID-19, mRNA, 2020-08-31 Completed [facility] LNP-S, PF, 30 LNP-S, PF, 30 00:00:00 Hospital Clinics mcg/0.3 mL dose mcg/0.3 mL dose ([employer]) ([employer]) COVID-19, mRNA, COVID-19, mRNA, 2020-08-31 Completed [facility] LNP-S, PF, 30 LNP-S, PF, 30 00:00:00 Hospital Clinics mcg/0.3 mL dose mcg/0.3 mL dose ([employer]) ([employer]) COVID-19, mRNA, COVID-19, mRNA, 2020-08-11 Completed [facility] LNP-S, PF, 30 LNP-S, PF, 30 00:00:00 Hospital Clinics mcg/0.3 mL dose mcg/0.3 mL dose ([employer]) ([employer]) COVID-19, mRNA, COVID-19, mRNA, 2020-08-11 Completed [facility] LNP-S, PF, 30 LNP-S, PF, 30 00:00:00 Hospital Clinics mcg/0.3 mL dose mcg/0.3 mL dose ([employer]) ([employer]) COVID-19, mRNA, COVID-19, mRNA, 2020-08-11 Completed [facility] LNP-S, PF, 30 LNP-S, PF, 30 00:00:00 Hospital Clinics mcg/0.3 mL dose mcg/0.3 mL dose ([employer]) ([employer]) COVID-19, mRNA, COVID-19, mRNA, 2020-08-11 Completed [facility] LNP-S, PF, 30 LNP-S, PF, 30 00:00:00 Hospital Clinics mcg/0.3 mL dose mcg/0.3 mL dose ([employer]) ([employer]) COVID-19, mRNA, COVID-19, mRNA, 2020-08-11 Completed [facility] LNP-S, PF, 30 LNP-S, PF, 30 00:00:00 Hospital Clinics mcg/0.3 mL dose mcg/0.3 mL dose ([employer]) ([employer]) COVID-19, mRNA, COVID-19, mRNA, 2020-08-11 Completed [facility] LNP-S, PF, 30 LNP-S, PF, 30 00:00:00 Hospital Clinics mcg/0.3 mL dose mcg/0.3 mL dose ([employer]) ([employer]) COVID-19, mRNA, COVID-19, mRNA, 2020-08-11 Completed [facility] LNP-S, PF, 30 LNP-S, PF, 30 00:00:00 Hospital Clinics mcg/0.3 mL dose mcg/0.3 mL dose ([employer]) ([employer]) COVID-19, mRNA, COVID-19, mRNA, 2020-08-11 Completed [facility] LNP-S, PF, 30 LNP-S, PF, 30 00:00:00 Hospital Clinics mcg/0.3 mL dose mcg/0.3 mL dose ([employer]) ([employer]) COVID-19, mRNA, COVID-19, mRNA, 2020-08-11 Completed [facility] LNP-S, PF, 30 LNP-S, PF, 30 00:00:00 Hospital Clinics mcg/0.3 mL dose mcg/0.3 mL dose ([employer]) ([employer]) COVID-19, mRNA, COVID-19, mRNA, 2020-08-11 Completed [facility] LNP-S, PF, 30 LNP-S, PF, 30 00:00:00 Hospital Clinics mcg/0.3 mL dose mcg/0.3 mL dose ([employer]) ([employer]) COVID-19, mRNA, COVID-19, mRNA, 2020-08-11 Completed [facility] LNP-S, PF, 30 LNP-S, PF, 30 00:00:00 Hospital Clinics mcg/0.3 mL dose mcg/0.3 mL dose ([employer]) ([employer]) Vital Signs Vital Name Observation Time Observation Value Comments Source BP Systolic 2023-01-17 00:00:00 98 mm[Hg] [facility] BP Diastolic 2023-01-17 00:00:00 70 mm[Hg] [facility] Body Weight 2023-01-17 00:00:00 3712 [oz_av] [facility] s BP Diastolic 2022-12-26 00:00:00 78 mm[Hg] [facility] s BP Systolic 2022-12-26 00:00:00 112 mm[Hg] [facility] Body Weight 2022-12-26 00:00:00 3865.6 [oz_av] [facility] BP Diastolic 2022-11-22 00:00:00 80 mm[Hg] [facility] s BP Systolic 2022-11-22 00:00:00 110 mm[Hg] [facility] s Body Weight 2022-11-22 00:00:00 4107.2 [oz_av] [facility] s BP Diastolic 2022-11-09 00:00:00 80 mm[Hg] [facility] s BP Systolic 2022-11-09 00:00:00 118 mm[Hg] [facility] s Body Weight 2022-11-09 00:00:00 4096 [oz_av] [facility] s BP Diastolic 2022-07-13 00:00:00 80 mm[Hg] [facility] s BP Systolic 2022-07-13 00:00:00 118 mm[Hg] [facility] s Body Weight 2022-07-13 00:00:00 4147.2 [oz_av] [facility] s Heart rate 2022-03-23 18:13:00 61 /min [facility] Respiratory rate 2022-03-23 18:13:00 22 /min [facility] Oxygen saturation in 2022-03-23 18:13:00 94 /min [facility] Arterial blood by [facility] Pulse oximetry Branch Systolic blood 2022-03-23 18:12:00 112 mm[Hg] Univer sity of pressure [facility] Diastolic blood 2022-03-23 18:12:00 75 mm[Hg] [facility] Body temperature 2022-03-23 17:57:00 36.39 Kelly [facility] Body height 2022-03-20 16:04:00 160 cm [facility] Body weight 2022-03-20 16:04:00 117.9 kg [facility] BMI 2022-03-20 16:04:00 46.05 kg/m2 [facility] Heart rate 2022-03-23 18:13:00 61 /min [facility] Respiratory rate 2022-03-23 18:13:00 22 /min [facility] Oxygen saturation in 2022-03-23 18:13:00 94 /min [facility] Arterial blood by [facility] Pulse oximetry Branch Systolic blood 2022-03-23 18:12:00 112 mm[Hg] Univer sity of pressure [facility] Diastolic blood 2022-03-23 18:12:00 75 mm[Hg] Unive rsity of pressure [facility] Body temperature 2022-03-23 17:57:00 36.39 Kelly [facility] Body height 2022-03-20 16:04:00 160 cm [facility] Body weight 2022-03-20 16:04:00 117.9 kg [facility] BMI 2022-03-20 16:04:00 46.05 kg/m2 [facility] BP Diastolic 2022-01-18 00:00:00 80 mm[Hg] [facility] s BP Systolic 2022-01-18 00:00:00 124 mm[Hg] [facility] s Body Weight 2022-01-18 00:00:00 4243.2 [oz_av] [facility] s BP Diastolic 2021-08-18 00:00:00 88 mm[Hg] [facility] s BP Systolic 2021-08-18 00:00:00 128 mm[Hg] [facility] s Body Weight 2021-08-18 00:00:00 4192 [oz_av] [facility] s BP Diastolic 2021-08-11 00:00:00 80 mm[Hg] [facility] s BP Systolic 2021-08-11 00:00:00 118 mm[Hg] [facility] s Body Weight 2021-08-11 00:00:00 4185.6 [oz_av] [facility] s BP Diastolic 2021-07-19 00:00:00 70 mm[Hg] [facility] s BP Systolic 2021-07-19 00:00:00 130 mm[Hg] [facility] Body Weight 2021-07-19 00:00:00 4192 [oz_av] [facility] s BP Diastolic 2021-06-28 00:00:00 80 mm[Hg] [facility] s BP Systolic 2021-06-28 00:00:00 120 mm[Hg] [facility] Body Weight 2021-06-28 00:00:00 4227.2 [oz_av] [facility] s BP Diastolic 2019-12-01 00:00:00 80 mm[Hg] [facility] Height 2019-12-01 00:00:00 64 [in_i] [facility] BMI (Body Mass 2019-12-01 00:00:00 45.9 kg/m2 [facility] BP Systolic 2019-12-01 00:00:00 [...] Source Performed Clinician MAMMO, screening, digital, 2022-11-09 [facility] [place] [place] [facility] bilateral 00:00:00 Hospital Clinics ESOPHAGOGASTRODUODENOSCOPY 2022-03-23 Flaquita Rosa rsity of 17:35:00 Matt Ro [facility] EGD (ENDO) 2022-03-23 Tamera Sharp [facility] 17:33:53 [facility] EGD (ENDO) 2022-03-23 Tamera Sharp [facility] 17:33:53 [facility] PATIENT QUESTIONNAIRE 2022-03-23 [facility] of 05:01:00 Unassigned, No [place] [facility] EXTERNAL PROVIDER RECORDS 2022-03-15 Doctor [facility] sity of 05:01:00 Unassigned, No [facility] EXTERNAL PROVIDER RECORDS 2022-03-15 Doctor [facility] sity of 05:01:00 Unassigned, No [facility] EXTERNAL PROVIDER RECORDS 2022-03-14 Doctor [facility] sity of 05:01:00 Unassigned, No [facility] US ABDOMEN LIMITED 2022-01-27 Moe [facility] 18:20:30 Matt Ro [facility] NOTICE OF BILLING PRACTICES FOR 2022-01-27 Doctor [place] of MEDICARE PATIENTS 17:49:21 Unassigned, No [facility] FINANCIAL POLICY 2022-01-27 Doctor Un iversity of 17:49:07 Unassigned, No [facility] NO SHOW OR MISSED APPOINTMENT 2022-01-27 Doctor Un iversity of POLICY ACKNOWLEDGEMENT 17:48:48 Unassigned, No [place] [facility] NOTICE OF PRIVACY PRACTICES 2022-01-27 Doctor [facility] ersity of 17:48:20 Unassigned, No [facility] CONSENT/REFUSAL FOR DIAGNOSIS AND 2022-01-27 Doctor [place] of TREATMENT 17:48:03 Unassigned, No [facility] ASSIGNMENT OF BENEFITS 2022-01-27 [facility] of 17:47:41 Unassigned, No [place] [facility] CT, abdomen, w/ contrast 2021-08-11 [facility] 00:00:00 [facility] Clinics MAMMO, screening, digital, 2021-06-28 [place] [facility] bilateral 00:00:00 Hospital Clinics [MMD] US Liver 2020-05-24 [facility] 00:00:00 Bilateral Oophorectomy 2017-10-17 [facility] 00:00:00 Group Laparoscopic Total Hysterectomy 2017-10-17 [facility] 00:00:00 Group Tubal Ligation 2016-01-28 [facility] 00:[facility] Group History of Oophorectomy bilateral [facility] Total Hysterectomy [facility] Plan of Care Planned Activity Planned Date Details Comments Source Diagnostic Test 2023-01-17 vitamin D, [facility] Pending 00:00:00 25-hydroxy, total, [facility] serum [code = vitamin D, 25-hydroxy, total, serum] Diagnostic Test 2023-01-17 CBC w/ diff [code [facility] Pending 00:00:00 = CBC w/ diff] Hospital Clin ics Diagnostic Test 2023-01-17 vitamin B12 + [facility] Pending 00:00:00 folate, [facility] blood [code = vitamin B12 + folate, serum or blood] Diagnostic Test 2023-01-17 vitamin B1 [facility] Pending 00:00:00 (thiamine), blood [facility] [code = vitamin B1 (thiamine), blood] Diagnostic Test 2023-01-17 magnesium, blood [facility] Pending 00:00:00 [code = magnesium, [facility] blood] Diagnostic Test 2023-01-17 CMP, serum or [facility] Pending 00:00:00 plasma [code = Hospital Clin ics CMP, serum or plasma] Diagnostic Test 2019-12-01 urinalysis, [place] [facility] Pending 00:00:00 dipstick [code = Group urinalysis, dipstick] Diagnostic Test 2019-12-01 pap, LB + reflex [facility] Pending 00:00:00 to HR HPV if ASC-U Group [code = pap, LB + reflex to HR HPV if ASC-U] Diagnostic Test 2019-12-01 estradiol, serum [facility] Pending 00:00:00 [code = estradiol, Group serum] Future Appointment 2023-02-28 Tamera Sharp, [address] [facility] 00:00:00 [place], [facility]; [facility] [address], [place] [address] Encounters Start End Encounter Admission Attending Care Care Encounter Source Date/Time Date/Time Type Type Clinicians Facility Department ID 2023-01-17 2023-01-17 Outpatient LILA_A [facility] [id number] [facility] 00:00:00 00:00:00 [id number] [facility] i ty [facility]osp[facility] Clinics 2023-01-17 2023-01-17 Tamera Munguia [facility] [place] - [facility] [id number] [facility] 00:00:00 00:00:00 Bari Sharp MD: [address] [facility] [address], [facility] [place], [place] CLINIC, [address] LILA , Ph. 2022-12-26 2022-12-26 Tamera Munguia [facility] [place] [facility] [id number] [facility] 00:00:00 00:00:00 Bari Sharp MD: [address] [facility] [address], [facility], [place] CLINIC, [address] LILA , Ph. 2022-11-22 2022-11-22 Tamera Munguia [facility] [place] [id number] [facility] 00:00:00 00:00:00 Bari Sharp MD: [address] [facility] [address] [place], [place] CLINIC, [address] LILA , Ph. 2022-11-09 2022-11-09 Outpatient LILA_Noam [facility] [id number] [facility] 00:00:00 00:00:00 608 Commun i ty [facility]osp[facility] Clinics 2022-11-09 2022-11-09 Outpatient LILA_A [facility] [id number] [facility] 00:00:00 00:00:00 621 Commun i ty Hospita [facility] Clinics 2022-11-09 2022-11-09 Outpatient ILLA_Noam [facility] [id number] [facility] 00:00:00 00:00:00 725 Commun i ty Hospita l Clinics 2022-11-09 2022-11-09 Tamera Munguia [facility] [place] - [facility] [id number] [facility] 00:00:00 00:00:00 Bari Sharp MD: [address] [facility] [facility] [address] [address] Clinic [place], [place] CLINIC, [address] LILA , Ph. 2022-07-13 2022-07-13 Outpatient LILA_Noam [facility] [id number] [facility] 00:00:00 00:00:00 209 Commun i ty Hospita l Clinics 2022-07-13 2022-07-13 Tamera Munguia [facility] [place] [facility] [id number] [facility] 00:00:00 00:00:00 Bari Sharp MD: [address] [facility] - [facility] [address], [facility], [facility], [place] CLINIC, [address] LILA , Ph. 2022-03-23 2022-03-23 Outpatient R [facility] [id number] Univers 11:09:00 13:30:00 MATT Lozada [facility] 2022-03-23 2022-03-23 Hospital [facility] [id number] Univers 11:09:00 13:30:00 Encounter Matt lozada [id number] [facility]aur[facility] [id number] [place] [address] Branch 2022-03-23 2022-03-23 Surgery [facility] [id number] Univers 12:48:00 13:25:00 Matt lozada [id number] [id number] [id number] [facility] 020 Branch 2022-03-23 2022-03-23 Orders Doctor ABHIJIT [id number] Univers 00:00:00 00:00:00 Only Unassigned, KIERAN [id number] ity of [place] [facility] [id number] [place] as [id number] [facility] 009 Branch 2022-03-14 2022-03-14 Orders Doctor ABHIJIT [id number] Univers 00:00:00 00:00:00 Only Unassigned, KIERAN [id number] ity of [place] [facility] [id number] [place] as [id number] [facility] 009 Branch 2022-01-27 2022-01-27 Outpatient R [facility] [id number] Univers 12:50:28 23:59:00 MATT Lozada o f [facility] 2022-01-27 2022-01-27 [facility] [id number] Univers 12:50:28 23:59:00 Encounter Matt lozada [id number] [id number] [id number] [facility] 806 Branch 2022-01-22 2022-01-22 Outpatient LILA_A [facility] [id number] [facility] 00:00:00 00:00:00 821 Commun i ty Hospita l Clinics 2022-01-18 2022-01-18 Outpatient LILA_A [facility] [id number] [facility] 00:00:00 00:00:00 817 Commun i ty Hospita l Clinics 2022-01-18 2022-01-18 Tamera Munguia [facility] [place] - [facility] [id number] [facility] 00:00:00 00:00:00 Bari Sharp MD: [address] [facility] - ty [facility] [address], [address], HOSPITAL [facility], [id number] LILA , Ph. 2022-01-18 2022-01-18 Outpatient Tamera Sharp [facility] [id number] 00:00:00 00:00:00 Nilda [id number] 2021-11-28 2021-11-28 Outpatient KEFFER_A [facility] [id number] [place] 05:59:00 05:59:00 627 [facility] 2021-11-28 2021-11-28 Tamera Munguia [facility] [place] 00:00:00 00:00:00 Bari Sharp MD: [address] [facility] [address], COMMUNITY l [address], HOSPITAL [facility], [address] LILA , Ph. 2021-11-28 2021-11-28 Outpatient Tamera Sharp [facility] [id number] 00:00:00 00:00:00 Nilda [id number] 2021-09-22 2021-09-22 Outpatient LILA_A [facility] [id number] [place] 09:10:00 09:10:00 522 [facility] 2021-08-18 2021-08-18 Outpatient KEFFER_A [facility] [id number] [place] 06:13:00 06:13:00 317 [facility] 2021-08-18 2021-08-18 Tamera Munguia [facility] 317 [place] 00:00:00 00:00:00 Bari Sharp MD: [address] [facility] a [address], COMMUNITY [address], [place], [place] CLINIC, [address] LILA , Ph. 2021-08-18 2021-08-18 Outpatient Tamera Sharp [facility] [id number] 00:00:00 00:00:00 Nilda [id number] 2021-08-11 2021-08-11 Outpatient KEFFER_A [facility] [id number] [place] 04:45:00 04:45:00 310 Commun i ty [facility]osp[facility] Clinics 2021-08-11 2021-08-11 Tamera Munguia [facility] [place] [facility] [place] 310 [place] 00:00:00 00:00:00 Bari Sharp MD: [address] [facility] a [address], [facility] l [address], [facility], [address] LILA , Ph. 2021-08-11 2021-08-11 Outpatient Tamera Sharp [facility] [id number] 00:00:00 00:00:00 Nilda [id number] 2021-07-19 2021-07-19 Outpatient KEFFER_A [facility] [id number] [place] 01:20:00 01:20:00 215 Commun i ty [facility]osp[facility] Clinics 2021-07-19 2021-07-19 Outpatient LilaTamera [facility] [id number] 00:00:00 00:00:00 Nilda [id number] 2021-07-19 2021-07-19 Tamera Nilda [facility] [place] 215 [place] 00:00:00 00:00:00 Bari Sharp MD: [address] [facility] a [address], COMMUNITY [address], [facility], [address] LILA , Ph. 2021-06-28 2021-06-28 Outpatient KEFFER_A [facility] [id number] [place] 05:59:00 05:59:00 125 Commun i ty Hospita [facility] Clinics 2021-06-28 2021-06-28 Tamera Munguia [facility] [place] [facility] [place] 125 [place] 00:00:00 00:00:00 Bari Sharp MD: [address] [facility] a [address], COMMUNITY [facility] [address], HOSPITAL Clinic [place], [place] CLINIC, [address] LILA , Ph. 2021-06-28 2021-06-28 Outpatient Tamera Sharp [facility] [id number] 00:00:00 00:00:00 Nilda [id number] 2020-08-03 2020-08-03 Appointonelia MELLO [facility] [id number] [place] 10:30:00 10:30:00 t; LUIS MANUEL [facility] TALLAVAJHU M.D. [place], SUDHA, M.D. 2020-07-13 2020-07-13 Outpatient LILA_Noam [facility] [id number] [place] 05:34:00 05:34:00 209 Commun i ty Hospita l Clinics 2020-06-11 2020-06-11 JUNI Minor [facility] [id number] [place] 09:45:00 09:45:00 t; David DAVILA D.O. ans MELISSA, D.O. 2020-06-01 2020-06-01 Tyrese MELLO [facility] [id number] [place] 09:00:00 09:00:00 t; LUIS MANUEL [facility] TALLAVAJHU M.D. [place], SUDHA, M.D. 2020-04-23 2020-04-23 JUNI Minor [facility] [id number] [place] 09:15:00 09:15:00 t; David DAVILA D.O. ans MELISSA, D.O. 2020-04-21 2020-04-21 Outpatient G_Pappas [facility] [id number] [place] 02:24:00 02:24:00 1118 Medical Group 2020-04-13 2020-04-13 Appointonelia SHANNON, [facility] [id number] [place] 11:30:00 11:30:00 t; David DAVILA D.O. ans MELISSA, D.O. 2019-12-27 2019-12-27 Outpatient G_Pappas [facility] 2019 [place] 11:00:00 11:00:00 0729 da [facility] 2019-12-10 2019-12-10 Laboratory Lab, [facility] [id number] 11:15:35 11:32:41 Only Fam Pob I Health [id number] [place] [id number] Professio [phone] [place] [address] [address] 2019-12-10 2019-12-10 Laboratory Lab, [facility] Fam Pob I [facility] [id number] [facility] 11:15:35 11:32:41 Only Farhana [facility] [id number] ity of [place] [id number] Anjum as Professio [phone] Ga dical [place] [address] [address] Office [address] One 2019-12-10 2019-12-10 Outpatient Gato [facility] [id number] Univers 11:20:00 11:20:00 FARHANA marítnez [facility] 2019-12-02 2019-12-02 Outpatient G_Pappas [facility] 2019 [place] 12:02:00 12:02:00 0630 [facility] 2019-12-01 2019-12-01 Outpatient G_Pappas [facility] MM 2019 [place] 11:04:00 11:04:00 0629 da [facility] 2019-12-01 2019-12-01 Paul [facility] [place] - [id number] M [place] 00:00:00 00:00:00 Discovery tuan Gaxiola MD: [address] [facility] [address], [place] [address] , Ph. [phone] 2019-01-09 2019-01-09 Outpatient G_Pappas [facility] MM 2019 [place] 06:54:00 06:54:00 0626 Medical Group 2019-01-09 2019-01-09 Outpatient G_Pappas [facility] 2019 [place] 06:54:00 06:54:00 0224 [facility] Results Test Description Test Time Test Comments Results Result Comments Source SARS-CoV-2 (COVID-19) Ag [Presence] in Respiratory spe cimen by 2021-07-19 11:44:00 Rapid immunoassay Test Item Value Reference Range Interpretation Comme nts SARS CoV 2 (test code = SARS CoV 2) negative [facility][MMD] US [id number] 09:19:00 Test Item Value Reference Range Interpretation Comments US Liver (test code EXAM: US LIVER DATE: = US Liver) 06/03/2020 9:19 AM EQUITY MANAGER INDICATION: 35/F FATTY LIVER SCREENING / NO [...] biliary tree are seen. 06/03/2020 10:20 AM EQUITY MANAGER Robinson Freedman [facility][QL] LIPID [id number] 13:00:00 Test Item Value Reference Range Interpretation [...] choleste rol not (test code = calculated. 10645-9) Triglyceride levelsgreater t shah 400 mg/dL inval [...] SS et al . RUTH. 2013;310( 19): 9828-8773 (http://educati on.Que stDiagnostics.c om/faq /UVC296) CHOL/HDLC RATIO 5.7 {CALC} <5.0 (test code = CHOL/HDLC RATIO) NON HDL CHOLESTEROL 203 {MG/DL <130 For torrey ents with (test code = NON DAYSI} diabetes pl us 1 major HDL CHOLESTEROL) ASCVD risk factor, treating to a non-HDL-C goal of <100 mg/dL (LDL -C of <70 mg/dL) is considered a therapeutic opt ion. [facility][QL] IRON AND TOTAL IRON BINDING [id number] 13:00:00 Test Item Value Reference Range Interpretation Comments IRON, TOTAL (test code = 89 {mcg/dl} 40-190 N IRON, TOTAL) IRON BINDING CAPACITY (test 357 {mcg/dL ca} 250-450 N code = IRON BINDING CAPACITY) % SATURATION (test code = % 25 {% CALC} 16-45 N SATURATION) [facility][QL] CMP [id number] 13:00:00 Test Item Value Reference Range Interpretation Comments GLUCOSE; Normal 106 mg/dl 65-139 N Non-fasting (test code = 1547-9) referen ce interval UREA NITROGEN (BUN) 12 mg/dl 7-25 N (test code = UREA NITROGEN (BUN)) CREATININE (test 0.74 mg/dl 0.50-1.10 N code = CREATININE) eGFR NON-AFR. 105 {ML/MIN/1.7} > OR = 60 N BHUTANESE (test code = eGFR NON-AFR. BHUTANESE) eGFR 122 {ML/MIN/1.7} > OR = 60 N BHUTANESE (test code = eGFR ) BUN/CREATININE RATIO [...] mg/dl 0.2-1.2 N Normal (test code = 21799-6) ALKALINE PHOSPHATASE 79 u/l 31-125 N (test [...] (test 13.1 g/dl 11.7-15.5 N code = 68766-2) HEMATOCRIT; Normal (test 39.5 % 35.0-45.0 N code = 4544-3) MCV; Normal (test code = 90.0 fL 80.0-100.0 N 787-2) MCHC; Normal (test code = 33.2 g/dl 32.0-36.0 N 31474-9) RDW; Normal (test code = 12.8 % 11.0-15.0 N 788-0) PLATELET COUNT; Normal 314 {Thousand/u} 140-400 N (test code = 777-3) MPV; Normal (test code = 11.3 fL 7.5-12.5 N 90595-9) ABSOLUTE NEUTROPHILS (test 6086 {cells/uL} 1632-9020 N code = ABSOLUTE NEUTROPHILS) ABSOLUTE LYMPHOCYTES [...] Normal (test 7.7 % N code = 54821-4) EOSINOPHILS; Normal (test 3.5 % N code = 26012-8) BASOPHILS; Normal (test 0.7 % N code = 72635-2) [facility][QL] PTH, INTACT (WITHOUT CALCIUM)2020-04-13 13:00:00 [...] perf ormance characteristics have been determined by [employer]. It has not been cleared or approved by theFDA. This as say has been validated pursu ant to the CLIA regulation s and is used for clinic al purposes. VHNE-EQCFZ-XUIZYL 1.9 mg/L <4.4 This test was developed and LUIS (test code = its analyt ical performance [id number] characteri stics have been LUIS) determined by [employer]. It has not been cleared or approved by theFDA. This as say has been validated pursu ant to the CLIA regulation s and is used for clinic al purposes. [facility][QL] FOLATE, [id number] 13:00:00 Test Item Value Reference Range Interpretation Comments FOLATE, SERUM (test 3.8 ng/ml Referenc e Range Low: code = FOLATE, <3.4 Borderli ne: 3.4-5.4 SERUM) Normal: >5.4 [facility][QL] TSH, 3RD [id number] 13:00:00 Test Item Value Reference Range Interpretation Comments TSH; Below Low 0.35 {MIU/L} Reference Ran ge > or Threshold (test code = 20 Ye ars 0.40-4.50 = 66007-9) Range s First trimester 0.26-2.66 Secon d trimester 0.55 -2.73 Third trimester 0.43-2.91 [facility][QL] VITAMIN [id number] 13:00:00 Test Item Value Reference Range Interpretation Comments VITAMIN B12 335 pg/ml 200-1100 N Please Note: Al though the (test code = reference range for gbdtffpK13 VITAMIN B12) is 200-1100 pg/ mL, it has been reported that b etween5 and 10% of patients wit h values between 200 and 400pg/mL may experience neur opsychiatric and hematologic abnormalities due to occult B 12 deficiency; less than 1%of patients with values above 40 0 pg/mL will have symptoms. [facility][QL] VITAMIN B1, WHOLE [id number] 13:00:00 Test Item Value Reference Range Interpretation Comments VITAMIN B1, WHOLE 126 nmol/L 78-185 Vitamin amador pplementation BLOOD (test code = within 24 hours prior VITAMIN B1, WHOLE toblood dr dale may affect BLOOD) the accuracy of results. This test was gregor brown and its analyti daysi performance characteristics have been determined by [employer]. It has not been cleared or approved by theFDA. This assay has been validated pursuant to the CLIA reg ulations and is used for clinical purposes. [facility][QL] HEMOGLOBIN [id number] 13:00:00 Test Item Value Reference Range Interpretation [...] di abetes in children. Ac cording to [place] [employer] betes Association (ADA)guidelines , hemoglobin A1c <7.0% represents optimalcontrol in non- di abetic patients. Differentmetric s may apply to specif ic patient populat ions. Standards of [place] dical Care in Diabete s(ADA). [facility][QL] VITAMIN A (RETINOL)2020-04-13 13:00:00 Test Item Value Reference Range Interpretation Comments VITAMIN A (test 59 {mcg/dl} 38-98 Clin Chem Vol. 34.No.8. code = VITAMIN A) [id number] supplementation within 24 hours prior to blood draw may affect the accuracy of results. Thi s test was developed and i ts analytical perf ormance characteristics have been determined by [employer]. It has not been cleared or approved by theFDA. This assay has been validated pursuant to the CLIA reg ulations and is used for clinical purposes. [facility][Q] QUESTASSURED 25-OH VIT D, (D2,D3), LC/MS/[id number] 13:00:00 Test Item Value Reference Range Interpretation [...] additional info rmation, please refer to http://educatio nOxlo Systems.[employer]/faq/FAQ1 9 VITAMIN D, 45 ng/ml Reference range [...] CLIA regulation and is usedfor Clinical purpos es.[facility] [id number] [place] [address],[address] [place] [id number] Adrienne Lott e Note 1 Note 1 For additional information, please refer to http://educatio nOrthoAccel Technologies/faq/FAQ19 9 (This link is being provided for informational/e ducational purposes only.) [facility] macro (dipstick) panel - [id number] 14:52:43 Test Item Value Reference Range Interpretation Comments Leukocytes (test code = Leukocytes) Negative Nitrite (test code = Nitrite) negative Urobilinogen (test code = .2 Urobilinogen) Protein (test code = Protein) Negative pH (test code = pH) 6.0 Blood (test code = Blood) Negative Specific [place] (test code = 1.025 Specific [place]) Ketone (test code = Ketone) Negative Bilirubin (test code = Bilirubin) Small Glucose (test code = Glucose) Negative Appearance (test code = Appearance) Clear Color (test code = Color) Yellow [facility]
[2023-01-22 11:57] LABS: Absolute Lymphocytes (CBC) 2.4 K/uL (0.7-4.9); MCV 87.8 fL (80-100); MPV 8.8 fL (7.6-11.3); Platelets 265 thou/uL (152-406); RBC Red Blood Cell Count 4.67 M/uL (3.86-4.86)
[2023-01-22] MEDS ORDERED: NA CHLORIDE 0.9% 1,000 ML ONE (12:04)
[2023-01-22 12:22] LABS: Troponin High Sensitivity 3.9 pg/mL (<58.9)
[2023-01-22] MEDS ORDERED: MIDODRINE HCL 5 MG TABLET PO ONE (13:00)
--- NOTE | 2023-01-22 14:19 | EDPHYS ---
Physician Documentation [facility] Name: Bev Cox Age: 37 yrs Sex: Female : 1985 Arrival Date: 01/22/2023 Time: 10:46 Bed 16 Private MD: ED Physician Rowyd Wilhelm HPI: 01/22 11:20 This 37 yrs old Female presents to ER via Wheelchair with complaints of low blood aj3 pressure, Syncope. 11:20 Patient reports that she has been having these episodes over the last week. She was aj3 recently seen here in the ED on . She also followed up with her doctor and was told she will get started on medication to help bring up her blood pressure. Patient reports that symptoms are worse when she is bending down and changing positions. She will have a moment where she faints and blacks out. No trauma or injury reported. She says her blood pressure was in the 80s systolic prior to arrival.. Historical: - Allergies: 10:54 Sulfa (Sulfonamide Antibiotics); ll1 - PMHx: 10:54 Anxiety; Depression; Hypothyroidism; PTSD; ll1 - PSHx: 10:54 hysterectomy; ll1 - Immunization history:: Adult Immunizations up to date. - Social history:: Smoking status: Reported history of juuling and/or vaping. Patient denies any tobacco usage or history of. ROS: 11:20 Constitutional: Negative for fever, chills, and weight loss, Cardiovascular: Negative aj3 for chest pain, palpitations, and edema, Respiratory: Negative for shortness of breath, cough, wheezing, and pleuritic chest pain, MS/Extremity: Negative for injury and deformity, Skin: Negative for injury, rash, and discoloration. 11:20 Cardiovascular: 11:20 Neuro: Positive for dizziness, headache, syncope, Negative for altered mental status, gait disturbance, numbness, visual changes. Exam: 11:20 Constitutional: This is a well developed, well nourished patient who is awake, alert, aj3 and in no acute distress. Head/Face: Normocephalic, atraumatic. Eyes: Pupils equal round and reactive to light, extra-ocular motions intact. Lids and lashes normal. Conjunctiva and sclera are non-icteric and not injected. Cornea within normal limits. Periorbital areas with no swelling, redness, or edema. Cardiovascular: Regular rate and rhythm with a normal S1 and S2. No gallops, murmurs, or rubs. Normal PMI, no JVD. No pulse deficits. Respiratory: Lungs have equal breath sounds bilaterally, clear to auscultation and percussion. No rales, rhonchi or wheezes noted. No increased work of breathing, no retractions or nasal flaring. Skin: Warm, dry with normal turgor. Normal color with no rashes, no lesions, and no evidence of cellulitis. MS/ Extremity: Pulses equal, no cyanosis. Neurovascular intact. Full, normal range of motion. Neuro: Awake and alert, GCS 15, oriented to person, place, time, and situation. Motor strength 5/5 in all extremities. Sensory grossly intact. Normal gait. 11:59 ECG was reviewed by the Attending Physician. aj3 Vital Signs: 10:54 BP 94 / 70; Pulse 87; Resp 17; Temp 97.4; Pulse Ox 97% on R/A; Weight 105.23 kg; Height ll1 5 ft. 3 in. ; Pain /10; 11:15 BP 93 / 65; Pulse 73; Resp 16; Pulse Ox 98% ; ko1 11:45 BP 98 / 72; Pulse 74; Resp 16; Pulse Ox 99% ; ko1 12:00 BP 95 / 65; Pulse 74; Resp 16; Pulse Ox 99% ; ko1 13:00 BP 90 / 66; Pulse 64; Resp 16; Pulse Ox 98% ; ko1 13:15 BP 100 / 65; Pulse 65; Resp 16; Pulse Ox 99% ; ko1 14:48 BP 111 / 74; Pulse 68; Resp 16; Pulse Ox 99% ; ko1 10:54 Body Mass Index 41.10 (105.23 kg, 160.02 cm) ll1 10:54 Pain Scale: Adult ll1 MDM: 11:04 Patient medically screened. cp3 12:00 Differential diagnosis: Anemia, dehydration, ACS, vasovagal syncope. aj3 12:07 ED course: ED attending note: Patient is a 37-year-old female with a history of cp3 recurrent syncopal episodes. Patient last evaluated in the ED on . Endorses that she has been on medication for blood pressure and has lost a significant amount of weight which may be contributing to the blood pressure drops precipitously. Patient's PCP aware and has prescribed midodrine. Patient Dors that she went to pass out so she came to the ED to get her blood pressure up and then she will go fill prescription. On exam patient with a blood pressure 94/70 pulse 87 patient awake alert no acute distress and well-appearing. Lungs are clear. Normal S1 and S2 with a regular rate and rhythm. Abdomen is soft and nontender to palpation. . 12:10 Management of patient was discussed with the following: Primary Care Provider: Dr. osmin Domínguez. Test considered but Not performed: CT: No CT warranted -patient neuro exam reassuring without focal deficits. Counseling: I had a detailed discussion with the patient and/or guardian regarding the historical points, exam findings, and any diagnostic results supporting the discharge/admit diagnosis, lab results, the need for outpatient follow up, to return to the emergency department if symptoms worsen or persist or if there are any questions or concerns that arise at home. 14:18 Data reviewed: vital signs, nurses notes, lab test result(s), EKG, I have discussed the osmin patient's presentation/case with the attending Emergency Department Physician;. ED course: Patient ambulated in hallway without any episodes of dizziness or syncope. Will discharge patient home and she will follow-up with PCP for reevaluation. Patient also to pickler helper her midodrine at the pharmacy and start second dose this evening.. 01/22 11:27 Order name: Basic Metabolic Panel; Complete Time: 12:[facility] 01/22 11:27 Order name: CBC with Diff; Complete Time: 12:[facility] 01/22 11:27 Order name: Troponin HS; Complete Time: 12:[facility] 01/22 11:27 Order name: EKG; Complete Time: 11:[facility] 01/22 11:27 Order name: Cardiac monitoring; Complete Time: 11:[facility] 01/22 11:27 Order name: EKG - Nurse/Tech; Complete Time: 11:51 01/22 11:27 Order name: IV Saline Lock; Complete Time: 11:[facility] 01/22 11:27 Order name: Labs collected and sent; Complete Time: 11:[facility] 01/22 11:27 Order name: O2 Per Protocol; Complete Time: 11:37 aj3 01/22 11:27 Order name: O2 Sat Monitoring; Complete Time: 11:37 aj3 01/22 13:00 Order name: Misc. Order: ambulate patient after IVF aj3 EC:53 Rate is 67 beats/min. Rhythm is regular. QRS Paige is Normal. CA interval is normal. QRS aj3 interval is normal. QT interval is normal. T waves are Normal. No ST changes noted. Clinical impression: Normal ECG. Interpreted by me. Reviewed by me. Administered Medications: 11:58 Drug: NS 0.9% IV 1000 ml Route: IV; Rate: 125 ml/hr; Site: left antecubital; ko1 12:27 Drug: midodrine 5 mg Route: PO; ko1 Disposition Summary: 01/22/23 14:18 Discharge Ordered Location: Home aj3 Condition: Stable aj3 Problem: an ongoing problem aj3 Symptoms: have improved aj3 Diagnosis - Hypotension, unspecified aj3 - Syncope Near aj3 Followup: aj3 - With: - When: - Reason: Recheck today's complaints, Re-evaluation by your physician Discharge Instructions: - Discharge Summary Sheet aj3 - Hypotension aj3 - Syncope aj3 Forms: - Medication Reconciliation Form aj3 - Thank You Letter aj3 - Antibiotic Education aj3 - Prescription Opioid Use aj3 - Patient Portal Instructions aj3 - Leadership Thank You Letter aj3 Signatures: Dispatcher [employer] Rowdy Aguiar MD MD cp3 Gabriela Sifuentes, RN RN ll1 Dorie Ramos NP BUILDING DRAFTER aj3 Tasha Mendenhall, RN RN ko1
--- NOTE | 2023-01-22 14:19 | ER ---
Nurse's Notes [facility] Name: Bev Cox Age: 37 yrs Sex: Female : 1985 Arrival Date: 01/22/2023 Time: 10:46 Bed 16 Private MD: Diagnosis: Hypotension, unspecified;Syncope Near Presentation: 01/22 10:54 Chief complaint: Patient states: Low BP still since her last visit here 01/18. BP ll1 85/60's. + near syncope events. Her doctor hasn't called her back yet. Coronavirus screen: Client denies travel out of the [place] in the last 14 days. At this time, the client does not indicate any symptoms associated with coronavirus-19. Ebola Screen: Patient denies travel to an Ebola-affected area in the 21 days before illness onset. Initial Sepsis Screen: Does the patient meet any 2 criteria? No. Patient's initial sepsis screen is negative. Does the patient have a suspected source of infection? No. Patient's initial sepsis screen is negative. Risk Assessment: Do you want to hurt yourself or someone else? Patient reports no desire to harm self or others. Onset of symptoms was January 18, 2023. 10:54 Method Of Arrival: Wheelchair ll1 10:54 Acuity: EVANGELINA 3 ll1 Historical: - Allergies: 10:54 Sulfa (Sulfonamide Antibiotics); ll1 - PMHx: 10:54 Anxiety; Depression; Hypothyroidism; PTSD; ll1 - PSHx: 10:54 hysterectomy; ll1 - Immunization history:: Adult Immunizations up to date. - Social history:: Smoking status: Reported history of juuling and/or vaping. Patient denies any tobacco usage or history of. Screenin:15 [facility] ED Fall Risk Assessment (Adult) History of falling in the last 3 months, ko1 including since admission Yes- fall prone (multiple falls) (3 pts) Confusion or Disorientation No (0 pts) Intoxicated or Sedated No (0 pts) Impaired Gait No (0 pts) Mobility Assist Device Used No (0 pt) Altered Elimination No (0 pt) Score/Fall Risk Level 3 or more points = High Risk Oriented to surroundings, Maintained a safe environment, Educated pt \T\ family on fall prevention, incl call for assistance when getting out of bed, Assessed \T\ reinforced patient's understanding of fall precautions, Provided non-skid footwear, Hourly rounding (assess needs \T\ fall precautionary measures) done, Used ambulatory aids as needed (educated on \T\ assisted with), Used gait belt as appropriate Implemented a Fall Risk Plan of Care, Apply high fall risk patient identification: yellow non skid footwear/ fall signage, Offered frequent toileting (1:1 observation), Remained with patient while ambulating. Abuse screen: Denies threats or abuse. Denies injuries from another. Nutritional screening: No deficits noted. Tuberculosis screening: No symptoms or risk factors identified. Assessment: 11:00 General: Appears in no apparent distress. comfortable, Behavior is calm, cooperative, ko1 appropriate for age. Pain: Denies pain. Neuro: Level of Consciousness is awake, alert, obeys commands, Oriented to person, place, time, situation, Appropriate for age Personal Driver are equal bilaterally Moves all extremities. Full function Gait is steady, Speech is normal, Facial symmetry appears normal, Pupils are PERRLA, Pupil Size: 3mm. Cardiovascular: Rhythm is sinus rhythm. Respiratory: No deficits noted. GI: No deficits noted. : No deficits noted. EENT: No deficits noted. Derm: No deficits noted. Musculoskeletal: No deficits noted. Vital Signs: 10:54 BP 94 / 70; Pulse 87; Resp 17; Temp 97.4; Pulse Ox 97% on R/A; Weight 105.23 kg; Height ll1 5 ft. 3 in. ; Pain 1/10; 11:15 BP 93 / 65; Pulse 73; Resp 16; Pulse Ox 98% ; ko1 11:45 BP 98 / 72; Pulse 74; Resp 16; Pulse Ox 99% ; ko1 12:00 BP 95 / 65; Pulse 74; Resp 16; Pulse Ox 99% ; ko1 13:00 BP 90 / 66; Pulse 64; Resp 16; Pulse Ox 98% ; ko1 13:15 BP 100 / 65; Pulse 65; Resp 16; Pulse Ox 99% ; ko1 14:48 BP 111 / 74; Pulse 68; Resp 16; Pulse Ox 99% ; ko1 10:54 Body Mass Index 41.10 (105.23 kg, 160.02 cm) ll1 10:54 Pain Scale: Adult ll1 ED Course: 10:49 Patient arrived in ED. im 10:50 Dorie Ramos NP is PHCP. aj3 10:50 Rowdy Wilhelm MD is Attending Physician. aj3 10:56 Triage completed. ll1 10:56 Arm band placed on Patient placed in an exam room, on a stretcher. ll1 11:07 Tasha Mendenhall, RN is Primary Nurse. ko1 11:45 Inserted saline lock: 20 gauge in left antecubital area, using aseptic technique. Blood ko1 collected. 11:50 Basic Metabolic Panel Sent. ko1 11:50 CBC with Diff Sent. ko1 11:50 Troponin HS Sent. ko1 13:15 Patient has correct armband on for positive identification. Fall risk band placed. Bed ko1 in low position. Call light in reach. Side rails up X2. Provided Education on: NA. Client placed on continuous cardiac and pulse oximetry monitoring. NIBP monitoring applied. threat monitoring analyst on. Door closed. Noise minimized. Lights dimmed. Warm blanket given. 14:18 Tamera Domínguez MD is Referral Physician. aj3 14:48 No provider procedures requiring assistance completed. IV discontinued, intact, ko1 bleeding controlled, No redness/swelling at site. Pressure dressing applied. Administered Medications: 11:58 Drug: NS 0.9% IV 1000 ml Route: IV; Rate: 125 ml/hr; Site: left antecubital; ko1 12:27 Drug: midodrine 5 mg Route: PO; ko1 Medication: 14:48 VIS not applicable for this client. ko1 Outcome: 14:18 Discharge ordered by . aj3 14:49 Discharged to home ambulatory. ko1 14:49 Condition: improved 14:49 Discharge instructions given to patient, Instructed on discharge instructions, follow up and referral plans. Demonstrated understanding of instructions, follow-up care. 14:50 Patient left the ED. ko1 Signatures: Gabriela Sifuentes RN RN ll1 Dorie Ramos NP PATIENT REGISTRATION REP aj3 Tasha Mendenhall, RN RN ko1 Chaya Bergeron Corrections: (The following items were deleted from the chart) 12:01 11:59 midodrine 5 mg PO ko1 ko1
[2023-01-22 15:05] VITALS: TEMP 97.4
[2023-01-22 15:12] VITALS: O2SAT 99
[2023-01-22 15:13] VITALS: BP 111/74
--- NOTE | 2023-01-22 17:56 | EKG ---
Test Date: 2023-01-22 Test Time: 11:53:53 [employer]: ALLYSSA MEASUREMENT RESULTS: Intervals: Rate: 67 WY: 146 QRSD: 76 QT: 372 QTc: 393 Kite: P: 39 WY: 146 QRS: 45 T: 46 INTERPRETIVE STATEMENTS: Normal sinus rhythm Normal ECG Compared to ECG 01/18/2023 09:23:23 Myocardial infarct finding no longer present Electronically Signed On 01-22-23 17:55:32 CDT by Bhargav Hunt
== END 2023-01-22 14:50 | disposition home or self-care (01) ==
LOC: ER 10:46
DX: I95.9 Hypotension, unspecified (principal); R51.9 Headache, unspecified; Z88.2 Allergy status to sulfonamides
CPT/HCPCS: 93005; 85025; 80048; 36415; 84484; 99285; J7030